=== PATIENT | male | born 1955 | race Caucasian/White ===

== ENCOUNTER → 2016-12-15 | Outpatient (CLI) | payer OTHER ==
[~2016-12-15] MED LIST: ALPR0.5T PO; AMLO10TA2 PO; CHOL20002 PO; CITA40TA11 PO; CYCL10TA9 PO; DOCU100T7 PO; FOLI1TAB9 PO; FURO40TA4 PO; METO100T2 PO; MORP30TA60 PO; OMEG500C PO; OMEP10SU PO; ONDA4TAB8 PO; POTA20TA8 PO; PROM12.59 PO; RANI75TA21 PO; SIMV20TA3 PO
--- OUTSIDE RECORDS SUMMARY | 2016-12-15 08:21 | XMS REPORT ---
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 Name Role Phone REBEKAH CHAVEZ Unavailable Allergies No Known Allergies Problems Problem Type Condition Code Onset Dates Condition Status Problem Sleep apnea, unspecified G47.30 Active Problem Hypotestosteronemia E29.1 Active Problem GERD (gastroesophageal reflux disease) K21.9 Active Problem HTN (hypertension) I10 Active Problem Chronic osteoarthritis M19.90 Active Problem Morbid obesity due to excess calories E66.01 Active Problem Depression F32.9 Active Problem Vitamin D deficiency E55.9 Active Problem Hypercholesterolemia E78.0 Active Problem Gout M10.9 Active Medications Medication Code System Code Instructions Start Date End Date Status Dosage Hydrocodone-Acetaminophen [facility] [address]-23 5-325 MG Orally every 6 hrs 1 tablet as needed Tramadol HCl [facility] [address]-42 50 MG Orally every 4 hrs PRN 1 tablet as needed Results No Known Results Summary Purpose eClinicalWorks Submission
--- NOTE | 2016-12-15 09:16 | Diagnostic Imaging Report ---
PROCEDURE: US Gallbladder. TECHNIQUE: Multiple real-time grayscale images were obtained over the right upper quadrant in various projections. INDICATION: Abdominal pain. FINDINGS: There is hepatomegaly. There is diffuse heterogeneity of the liver with what appear to be multiple underlying masses, suspect for metastatic disease. There is no obvious biliary ductal dilatation. The common bile duct was not visualized. There are numerous stones in the gallbladder. There is gallbladder wall thickening up to 4.7 mm. The pancreas is not well-seen due to bowel gas. The right kidney is normal. There is no ascites. IMPRESSION: Hepatomegaly and a diffusely heterogeneous appearance of the liver with what appear to be multiple underlying masses, suspect for metastatic disease. This could be better characterized with a contrast-enhanced CT of the abdomen and pelvis. Cholelithiasis and gallbladder wall thickening up to 4.7 mm. Acute cholecystitis could not be excluded. Recommend clinical correlation. Dictated by: Dictated on workstation # [id number]
== END ==
LOC: RAD 08:11
PROVIDERS: ATTEND Nurse Practitioner Family
DX: R16.0 Hepatomegaly, not elsewhere classified (principal)
CPT/HCPCS: 76705

== ENCOUNTER → 2016-12-16 | Outpatient (CLI) | payer OTHER ==
--- NOTE | 2016-12-16 13:35 | Diagnostic Imaging Report ---
PROCEDURE: CT abdomen and pelvis without contrast. TECHNIQUE: Multiple contiguous axial images were obtained through the abdomen and pelvis without the use of intravenous contrast. INDICATION: Liver masses seen on ultrasound. FINDINGS: The lung bases appear clear. The liver demonstrates extensive involvement with masses and nodularity of the surface which could be related to pre-existing cirrhosis or potentially secondary to tumor. Hepatocellular carcinoma versus metastases are the main diagnostic considerations. The gallbladder is distended with mild gallbladder wall thickening, and minimal pericholecystic fluid is seen. There is a normal size of the spleen. The pancreas and the adrenal glands appear unremarkable. The kidneys demonstrate no hydronephrosis. There is a 1 mm nonobstructive stone in the lower pole of the right kidney. The abdominal aorta is normal in caliber. No para-aortic significantly enlarged lymph node is seen. No significant free fluid or fluid collection in the abdomen or pelvis. There is no bowel obstruction. Tiny fat-containing umbilical hernia is seen. The osseous structures demonstrate degenerative changes in the lower lumbar spine and in the hip joints. IMPRESSION: 1. Extensive infiltration of the liver with masses may relate to multifocal and infiltrative hepatocellular carcinoma versus extensive metastases. Correlate for a possible history of hepatitis or cirrhosis and with AFP levels. 2. The gallbladder is distended with gallbladder wall thickening. Multiple stones are better seen on ultrasound performed one day prior to this study. The findings may relate to an acute or chronic cholecystitis. The findings on this exam were discussed with Dr. Wynn by Dr. Peña at the time of dictation. Dictated by: Dictated on workstation # [id number]
== END ==
LOC: RAD 12:54
PROVIDERS: ATTEND Nurse Practitioner Adult Health
DX: I10 Essential (primary) hypertension (principal)
CPT/HCPCS: 74176

== ENCOUNTER → 2016-12-18 | Outpatient (CLI) | payer OTHER ==
[2016-12-18] VITALS (10 sets, daily range): BP systolic 113–153; BP diastolic 60–90
[~2016-12-18] VITALS: Ht 185.4 cm; Wt 137.9 kg
[~2016-12-18] MED LIST changes: +FAMOTIDINE 20MG/2ML IV (PEPCID) IVP ONE; +FAMOTIDINE 20MG/2ML IV (PEPCID) ONE; +HYDROcodone/APAP 5 MG/325 MG (LORTAB) TAB PO PRN; +LIDOCAINE 1% INJ 20 ML (XYLOCAINE) VIAL INJ ONE; +LIDOCAINE 1% INJ 20 ML (XYLOCAINE) VIAL ONE; +MIDAZOLAM 10 MG/2 ML (VERSED) VIAL IVP ONE; +MIDAZOLAM 2 MG/2 ML (VERSED) VIAL ONE; +PROMETHAZINE INJ 25 MG/ML (PHENERGAN) AMP IVP ONE; +PROMETHAZINE INJ 25 MG/ML (PHENERGAN) AMP ONE; +fentaNYL INJECTION 100 MCG/2 ML AMP ONE
[2016-12-18 07:39] LABS: MEAN PLATELET VOLUME 10.8 FL (7.4-10.4); RED BLOOD COUNT 4.23 10^6/uL (4.35-5.85); RED CELL DISTRIBUTION WIDTH 14.5 % (10.0-14.5); WHITE BLOOD COUNT 8.3 10^3/uL (4.3-11.0)
--- NOTE | 2016-12-18 08:57 | Discharge Instructions ---
Discharge Instructions Home Medicaitons Changes Hold any current blood thinner home medications for [24 hours]. SERENA GIPSON MD Dec 18, 2016 08:57
--- NOTE | 2016-12-18 12:46 | Diagnostic Imaging Report ---
EXAMINATION: US-guided core biopsy-liver. INDICATION: Liver masses. Current history and physical and other medical records are reviewed prior to the procedure. CONSENT: Informed consent was obtained from the patient. The risks, benefits, potential complications and alternatives were reviewed and all questions answered to the patient's satisfaction. The patient's vital signs, cardiac rhythm, and pulse oximetry with observed throughout the procedure by qualified nursing personnel for 30 minutes. Sedation/medications: Versed 1 mg IV. FINDINGS: Heterogenous lobulated appearance of the left hepatic lobe with infiltrative of confluent masses suggested. PROCEDURE: After maximal sterile barrier technique preparation and draping, 1% lidocaine was utilized for local anesthesia. With the patient in supine position, and via anterior subcostal approach, a 17-gauge guide needle is introduced into the left hepatic lobe mass under live ultrasound guidance. After confirming adequate positioning with saved ultrasound images, multiple 18 gauge core biopsy specimens were obtained. Gelfoam injected in the tract as the guide needle was removed The patient tolerated the procedure well with no immediate complications. IMPRESSION: Successful US-guided core biopsy of left hepatic lobe mass. Dictated by: Dictated on workstation # [id number]
== END ==
LOC: RAD 07:04
PROVIDERS: ATTEND Pediatrics
DX: R16.0 Hepatomegaly, not elsewhere classified (principal)
CPT/HCPCS: 36415; 76942; 85027; 85610; 85730

== ENCOUNTER → 2016-12-22 | Outpatient (CLI) | payer OTHER ==
[~2016-12-22] MED LIST changes: -FAMOTIDINE 20MG/2ML IV (PEPCID) IVP ONE; -FAMOTIDINE 20MG/2ML IV (PEPCID) ONE; -HYDROcodone/APAP 5 MG/325 MG (LORTAB) TAB PO PRN; -LIDOCAINE 1% INJ 20 ML (XYLOCAINE) VIAL INJ ONE; -LIDOCAINE 1% INJ 20 ML (XYLOCAINE) VIAL ONE; -MIDAZOLAM 10 MG/2 ML (VERSED) VIAL IVP ONE; -MIDAZOLAM 2 MG/2 ML (VERSED) VIAL ONE; -PROMETHAZINE INJ 25 MG/ML (PHENERGAN) AMP IVP ONE; -PROMETHAZINE INJ 25 MG/ML (PHENERGAN) AMP ONE; -fentaNYL INJECTION 100 MCG/2 ML AMP ONE
--- NOTE | 2016-12-22 12:09 | Diagnostic Imaging Report ---
PROCEDURE: MR imaging of the brain without contrast. TECHNIQUE: Multiplanar, multisequence MR imaging of the brain was performed without contrast. INDICATION: Liver cancer. FINDINGS: There are no previous studies available for comparison. There is no mass, shift of the midline, or hemorrhage to suggest an acute intracranial abnormality. There is no abnormal signal arising from the brain on the diffusion series to indicate an area of acute ischemia. The FLAIR series does show a few small areas of increased signal in the periventricular white matter bilaterally. These findings are nonspecific but may be secondary to encephalomalacia from microvascular ischemia. There is also cortical atrophy present. The degree of atrophy is consistent with the patient's age. The ventricles are not abnormally dilated. The sella is not enlarged and the expected carotid flow voids are evident bilaterally. The orbits are symmetrical and within normal limits. The sinuses are generally clear. The seventh and eighth nerve complexes are unremarkable. IMPRESSION: 1. There is no evidence for an acute intracranial abnormality. There is no sign of a mass lesion to suggest metastatic disease either. 2. There are mild senescent changes including cortical atrophy and periventricular encephalomalacia. Dictated by: Dictated on workstation # [id number]
== END ==
LOC: RAD 10:17
PROVIDERS: ATTEND Internal Medicine Hematology & Oncology
DX: R16.0 Hepatomegaly, not elsewhere classified (principal); R11.2 Nausea with vomiting, unspecified
CPT/HCPCS: 70551

== ENCOUNTER → 2016-12-23 | Outpatient (CLI) | payer OTHER ==
[~2016-12-23] MED LIST changes: +IOHEXOL 350 MG/ML 100 ML (OMNIPAQUE 350) VIAL IV ONE; +NS 100 ML (IVPB) BAG IV ONE
--- NOTE | 2016-12-23 15:59 | Diagnostic Imaging Report ---
PROCEDURE: CT chest with contrast only. TECHNIQUE: Multiple contiguous axial images were obtained through the chest after administration of intravenous contrast. A half dose of the usual contrast amount was administered due to the patient's borderline elevated creatinine and diminished GFR. The patient did receive fluids prior to the study. INDICATION: Liver mass COMPARISON: There are no previous CT chest examinations available for comparison. The CT abdomen/pelvis exam performed on 12/16/2016 did note multiple masses involving the liver. It was not certain whether this appearance was secondary to metastatic disease or to a primary hepatocellular carcinoma. FINDINGS: On this exam, the lungs are clear and well aerated. There is no sign of failure, pneumonia or pleural effusion to suggest an acute abnormality. There is no parenchymal lung mass identified to indicate a neoplastic process. The pulmonary arteries are not fully opacified and consequently difficult to assess. There is no obvious defect to suggest a pulmonary embolus. Aorta is not abnormally dilated and there is no sign of a dissection. The heart size is within normal limits. Coronary artery calcifications involving the LAD are noted. There is no mediastinal or hilar adenopathy. The thyroid gland is partially obscured by streak artifact but appears to be generally unremarkable. There is no obvious breast mass. The sections through the upper abdomen again show the abnormal masses involving the visualized liver. There is no acute abnormality of the visualized abdomen. The bone windows are unremarkable for fracture or for destructive lesion. IMPRESSION: 1. There is no evidence for an acute cardiopulmonary abnormality. There is no sign of a mass lesion to indicate neoplastic disease either. 2. The heart is not enlarged but there are coronary artery calcifications evident. 3. The liver, where visualized, is unchanged when compared to the prior exam. Dictated by: Dictated on workstation # [id number]
== END ==
LOC: RAD 14:43
PROVIDERS: ATTEND Internal Medicine Hematology & Oncology
DX: R16.0 Hepatomegaly, not elsewhere classified (principal)
CPT/HCPCS: 71260

== ENCOUNTER 2016-12-25 08:26 | Day surgery (SDC) | payer OTHER ==
[~2016-12-25] VITALS: Ht 185.4 cm; Wt 137.9 kg
[2016-12-25] MEDS ORDERED: HEParin (CENTRAL IV FLUSH) 500 UNIT/5 ML SYR ONE (08:27)
[2016-12-25] MEDS ORDERED: BUPIVACAINE 0.5% 30 ML (SENSORCAINE) VIAL ONE (08:27)
[2016-12-25] MEDS ORDERED: LIDOCAINE 1% INJ 20 ML (XYLOCAINE) VIAL ONE (08:28)
[2016-12-25] MEDS ORDERED: 0.9% SODIUM CHLORIDE PF INJ 20 ML VIAL ONE (08:28)
--- NOTE | 2016-12-25 08:44 | Progress Note-Pre Operative ---
Pre-Operative Progress Note H&P Reviewed The H&P was reviewed, patient examined and no changes noted. Date H&P Reviewed: Dec 25, 2016 Time H&P Reviewed: 08:43 Pre-Operative Diagnosis: small cell carcinoma JANETTE KING DO Dec 25, 2016 8:44 am
[2016-12-25] MEDS ORDERED: ceFAZolin 2 GM/50 ML NS 50 ML IV ONE (08:45)
[2016-12-25] MEDS ORDERED: CATHETER FLUSH 10 ML SYR IV PRN (08:45)
[2016-12-25] MEDS ORDERED: AMLO10TA2 PO (08:58)
[2016-12-25] MEDS ORDERED: CHOL20002 PO (08:58)
[2016-12-25] MEDS ORDERED: OMEP10SU PO (08:58)
[2016-12-25] MEDS ORDERED: OMEG500C PO (08:58)
[2016-12-25] MEDS ORDERED: SIMV20TA3 PO (08:58)
[2016-12-25] MEDS ORDERED: CYCL10TA9 PO (08:58)
[2016-12-25] MEDS ORDERED: ONDA4TAB8 PO (08:58)
[2016-12-25] MEDS ORDERED: RANI75TA21 PO (08:58)
[2016-12-25] MEDS ORDERED: ALPR0.5T PO (08:58)
[2016-12-25] MEDS ORDERED: MORP30TA60 PO (08:58)
[2016-12-25] MEDS ORDERED: CITA40TA11 PO (08:58)
[2016-12-25] MEDS ORDERED: PROM12.59 PO (08:58)
[2016-12-25] MEDS ORDERED: POTA20TA8 PO (08:58)
[2016-12-25] MEDS ORDERED: METO100T2 PO (08:58)
[2016-12-25] MEDS ORDERED: DOCU100T7 PO (08:58)
[2016-12-25] MEDS ORDERED: FOLI1TAB9 PO (08:58)
[2016-12-25] MEDS ORDERED: FURO40TA4 PO (08:58)
[2016-12-25 08:59] VITALS: BP 141/90
[2016-12-25] MEDS ORDERED: LACTATED RINGERS 1,000 ML IV PRN (09:03)
[2016-12-25] MEDS ORDERED: fentaNYL INJECTION 100 MCG/2 ML AMP ONE (09:09)
[2016-12-25] MEDS ORDERED: LACTATED RINGERS 1,000 ML IV ONE (09:09)
[2016-12-25] MEDS ORDERED: MIDAZOLAM 2 MG/2 ML (VERSED) VIAL ONE (09:09)
[2016-12-25] MEDS ORDERED: PROPOFOL INJECTION 50 ML IV ONE (09:09)
[2016-12-25] MEDS ORDERED: FAMOTIDINE 20MG/2ML IV (PEPCID) IV ONE (09:15)
[2016-12-25] MEDS ORDERED: ONDANSETRON 4 MG/2 ML (SDV) Z0FRAN IV ONE (09:15)
[2016-12-25] MEDS ORDERED: PROMETHAZINE INJ 25 MG/ML (PHENERGAN) AMP IVP ONE (09:15)
--- NOTE | 2016-12-25 10:15 | Progress Note-Post Operative ---
Post-Operative Progess Note Pre-Operative Diagnosis small cell carcinoma Post-Operative Diagnosis same Post-Op Procedure Note Date of Procedure: Dec 25, 2016 Name of Procedure: port placement using u/s guidance Procedure Note/Findings see note Anesthesia Type mac c local Estimated blood loss (mL): minimal Specimen(s) collected none JANETTE KING DO Dec 25, 2016 10:15 am
--- NOTE | 2016-12-25 10:17 | Discharge Inst-Simple/Standard ---
Discharge Inst-Standard Patient Instructions/Follow Up Plan of Care/Instructions/FU: 2 weeks Tianna Activity as Tolerated: No Discharge Diet: Regular Diet Other Inst to Patient Follow up Appt: Make appointment for 2 week. Instructions: No lifting greater than 10 pounds. No strenuous activity. May shower in 24 hours, no tub bath or soaking. Use incentive spirometer at home as directed. No Smoking Skin/Wound Care: May remove bandages in 48 hours. You need to leave the white strips over incision on they will fall off on their own. Place ice pack on 15 min off 30 min and repeat to reduce swelling and discomfort. Symptoms to Report: Appetite Changes, Extremity Discoloration, Numbness/Tingling, Swelling Increased , Bleeding Excessive, Eyesight Changes, Pain Increased, Urine Color Change, Constipation(Persistent), Fever over 101 degree F, Pain/Pressure in chest, Urinating Difficulty, Cough Up/Vomit Blood, Heart Beat Irreg/Pounding, Pain/ Pressure in jaw, Vaginal Bleeding Increase, Cramps in feet or legs, Lightheadedness, Pain/Pressure in shoulder, Diarrhea(Persistent), Memory Changes Suddenly, Questions/Concerns, Weight gain consecutive days, Dizziness/ Fainting, Nausea/Vomiting, Shortness of Breath, Weight gain over 2 pounds If questions or concerns contact your physician Or seek help at emergency department. JANETTE KING DO Dec 25, 2016 10:17 am
[2016-12-25 10:50] VITALS: BP 142/88
--- NOTE | 2016-12-25 10:53 | Diagnostic Imaging Report ---
INDICATION: Chest port placement. FINDINGS: Portable upright view of the chest is obtained. Heart size and pulmonary vascularity are within normal limits. There is no evidence of pneumothorax or consolidation. Right anterior chest wall port is in place with catheter tip projecting over the mid superior vena cava. There is no significant pleural fluid. IMPRESSION: No evidence of acute abnormality or complication related to right anterior chest wall port. Dictated by: Dictated on workstation # [id number]
[2016-12-25 11:20] VITALS: BP 142/86
[2016-12-25 11:50] VITALS: BP 139/90
[2016-12-25 11:55] VITALS: BP 139/90
--- NOTE | 2016-12-25 13:12 | Diagnostic Imaging Report ---
Indication: Port-A-Cath placement Findings: A fluoroscopic view of the chest was obtained at 10:06 hours a.m. with the portable intensifier in surgery. Port is seen over the right chest wall with Port-A-Cath entering the right internal jugular vein with catheter tip overlying the low SVC. The study is otherwise limited. 38 seconds of fluoroscopy time was used in surgery. Impression: Intraoperative fluoroscopy used for Port-A-Cath placement per Dr. Frazier. Dictated by: Dictated on workstation # [id number]
--- NOTE | 2016-12-27 12:00 | OPERATIVE REPORT ---
PROCEDURE PHYSICIAN: JANETTE KNIG DATE OF PROCEDURE: 12/25/2016 PREOPERATIVE DIAGNOSIS: Small cell carcinoma. POSTOPERATIVE DIAGNOSIS: Small cell carcinoma. PROCEDURE: Port placement, right internal jugular vein using ultrasound guidance. SURGEON: Tianna. ANESTHESIA: MAC with local 0.50% Marcaine. 1% lidocaine at 50:50 ratio. A total of 22 mL. ESTIMATED BLOOD LOSS: Minimal. COMPLICATIONS: None. INDICATIONS: The patient is a 61-year-old male with recent liver biopsy demonstrating small cell carcinoma. The patient was explained risk and benefits of the procedure and wishes to proceed with procedure. Consent was signed on the chart. PROCEDURE: The patient was taken to the operating suite. He was prepped and draped in the sterile fashion. A surgical pause was performed. Using ultrasound guidance right internal jugular vein was located. Local anesthetic was infiltrated in the neck and the right internal jugular vein was then accessed. A guidewire was inserted and proper placement was assured with fluoroscopy. The needle was removed. The wire was secured. Local anesthetic was infiltrated along the neck and to the right chest for a pocket to be created. A 15 blade scalpel was used to make an incision on the right chest. Cautery was used to dissect down to the pectoral fascia and a pocket was created with blunt dissection as well. Then under direct visualization of the fluoroscopy, the dilator sheath was advanced over the wire and the wire and dilator were removed. The Groshong catheter was inserted through the sheath and the sheath was then removed. The Groshong wire was removed and then the catheter was tunneled to the pocket created on the right chest. The catheter was cut to length using fluoroscopy. The catheter was attached to the port in the usual fashion and placed within the pocket. The port was able to be accessed and drawn back without difficulty and flushed first with saline and then with heparin. The subcutaneous tissues were then reapproximated using 3-0 Vicryl and the skin was then closed using 4-0 Vicryl. The areas were then washed and dried. Mastisol and Steri-Strips were then applied and sterile bandage was applied to the right chest pocket. Monroy set was placed over the neck insertion point. The patient tolerated the procedure well without any complications and taken to the recovery room in stable condition. Chest x-ray is pending. Job ID: [id number] Dictated Date: 12/25/2016 10:22:57 Building Operator Date: 12/27/2016 11:46:45 / teodora
== END 2016-12-25 11:55 | disposition home or self-care (01) ==
LOC: SDC 08:26
PROVIDERS: ATTEND Surgery
DX: C22.8 Malignant neoplasm of liver, primary, unspecified as to type (principal)
CPT/HCPCS: 71010; 87081

== ENCOUNTER → 2016-12-29 | Outpatient (CLI) | payer OTHER ==
[~2016-12-29] MED LIST changes: -IOHEXOL 350 MG/ML 100 ML (OMNIPAQUE 350) VIAL IV ONE; -NS 100 ML (IVPB) BAG IV ONE
--- NOTE | 2016-12-29 14:00 | Diagnostic Imaging Report ---
EXAMINATION: PET-CT TECHNIQUE: Serum glucose level at the time of the study is: 130 mg/dL. 12.3 mCi of FDG was administered intravenously followed by obtaining PET images with corresponding noncontrast CT scan images. The CT scan was performed for anatomic correlation and attenuation correction and was not performed according to the diagnostic protocol of the areas covered. The scan was performed from the head to mid thighs. INDICATION: Abdominal pain. High-grade neuroendocrine tumor with unknown primary. FINDINGS: There is symmetric FDG uptake in the brain. There is a focus of moderate hypermetabolism seen within the left side aspect of C3 vertebral body. No obvious correlating lesion is seen on the associated localizer CT scan. There is no hypermetabolic mass seen in the chest. In the liver, there is extensive intensely hypermetabolic masses seen with a confluent very large mass involving nearly the entire segment IV and segment V and of the liver in addition to scattered areas of hypermetabolism seen within the rest of the right hepatic lobe and the lateral segment of the left hepatic lobe compatible with tumor infiltration. There is distention of the gallbladder with no hypermetabolic mass within the gallbladder itself. The maximum SUV in the liver masses is 10. There is an enlarged lymph node in the richard hepatis measuring 2.2 cm in short axis demonstrating hypermetabolism as well with maximum SUV of 7. This is abutting the anterior aspect of the IVC. The pancreas, the spleen, and adrenal glands demonstrate no hypermetabolic mass. There is no hypermetabolic para-aortic lymph node mass. There is expected excretion of the tracer in the kidneys. IMPRESSION: 1. Extensive hypermetabolic liver masses. 2. Hypermetabolic richard hepatis lymph node anterior to the IVC. 3. Indeterminate hypermetabolic lesion within the C3 vertebral body without correlating lesion seen on the localizer CT scan. No other osseous hypermetabolic lesion is identified. This may represent an early bone metastasis. Evaluation with bone scan or MRI of the cervical spine with and without contrast is suggested. Dictated by: Dictated on workstation # [id number]
== END ==
LOC: RAD 09:02
PROVIDERS: ATTEND Internal Medicine Hematology & Oncology
DX: C7A.1 Malignant poorly differentiated neuroendocrine tumors (principal); R16.0 Hepatomegaly, not elsewhere classified; M53.82 Other specified dorsopathies, cervical region

== ENCOUNTER → 2017-03-23 | Outpatient (RCR) | payer OTHER ==
[2016-12-23 13:41] LABS: BASOPHILS % (AUTO) 0 % (0-10); EOSINOPHILS # (AUTO) 0.1 10^3/uL (0.0-0.3); EOSINOPHILS % (AUTO) 1 % (0-10); LYMPHOCYTES # (AUTO) 1.7 X 10^3 (1.0-4.0); LYMPHOCYTES % (AUTO) 19 % (12-44); MEAN CORPUSCULAR HEMOGLOBIN 30 PG (25-34); MEAN CORPUSCULAR HGB CONC 33 G/DL (32-36); MEAN CORPUSCULAR VOLUME 90 FL (80-99); MEAN PLATELET VOLUME 10.6 FL (7.4-10.4); MONOCYTES # (AUTO) 0.8 X 10^3 (0.0-1.0); MONOCYTES % (AUTO) 9 % (0-12); NEUTROPHILS # (AUTO) 6.4 X 10^3 (1.8-7.8); NEUTROPHILS % (AUTO) 71 % (42-75); PLATELET COUNT 270 10^3/uL (130-400); RED BLOOD COUNT 4.28 10^6/uL (4.35-5.85); RED CELL DISTRIBUTION WIDTH 14.8 % (10.0-14.5); WHITE BLOOD COUNT 9.1 10^3/uL (4.3-11.0)
[2016-12-23 14:33] LABS: BILIRUBIN,TOTAL 0.5 MG/DL (0.1-1.0); CALCIUM 9.6 MG/DL (8.5-10.1); CREATININE SERUM 1.54 MG/DL (0.60-1.30); POTASSIUM 4.2 MMOL/L (3.6-5.0); TOTAL PROTEIN 7.2 G/DL (6.4-8.2)
[2016-12-24 15:50] LABS: CALCIUM 9.8 MG/DL (8.5-10.1); CREATININE SERUM 1.65 MG/DL (0.60-1.30); MAGNESIUM 1.8 MG/DL (1.8-2.4); POTASSIUM 4.2 MMOL/L (3.6-5.0)
[2017-01-11 13:13] LABS: BASOPHILS % (AUTO) 0 % (0-10); EOSINOPHILS # (AUTO) 0.1 10^3/uL (0.0-0.3); EOSINOPHILS % (AUTO) 1 % (0-10); LYMPHOCYTES # (AUTO) 1.7 X 10^3 (1.0-4.0); LYMPHOCYTES % (AUTO) 18 % (12-44); MEAN CORPUSCULAR HEMOGLOBIN 30 PG (25-34); MEAN CORPUSCULAR HGB CONC 33 G/DL (32-36); MEAN CORPUSCULAR VOLUME 91 FL (80-99); MEAN PLATELET VOLUME 10.4 FL (7.4-10.4); MONOCYTES # (AUTO) 0.8 X 10^3 (0.0-1.0); MONOCYTES % (AUTO) 9 % (0-12); NEUTROPHILS # (AUTO) 6.7 X 10^3 (1.8-7.8); NEUTROPHILS % (AUTO) 72 % (42-75); PLATELET COUNT 313 10^3/uL (130-400); RED BLOOD COUNT 4.35 10^6/uL (4.35-5.85); RED CELL DISTRIBUTION WIDTH 15.1 % (10.0-14.5); WHITE BLOOD COUNT 9.3 10^3/uL (4.3-11.0)
[2017-01-11 13:38] LABS: BILIRUBIN,TOTAL 0.5 MG/DL (0.1-1.0); CALCIUM 10.2 MG/DL (8.5-10.1); CREATININE SERUM 1.43 MG/DL (0.60-1.30); MAGNESIUM 1.9 MG/DL (1.8-2.4); POTASSIUM 4.2 MMOL/L (3.6-5.0); TOTAL PROTEIN 7.6 G/DL (6.4-8.2)
[2017-01-19 13:30] LABS: BASOPHILS % (AUTO) 1 % (0-10); EOSINOPHILS # (AUTO) 0.1 10^3/uL (0.0-0.3); EOSINOPHILS % (AUTO) 2 % (0-10); LYMPHOCYTES # (AUTO) 1.2 X 10^3 (1.0-4.0); LYMPHOCYTES % (AUTO) 33 % (12-44); MEAN CORPUSCULAR HEMOGLOBIN 30 PG (25-34); MEAN CORPUSCULAR HGB CONC 33 G/DL (32-36); MEAN CORPUSCULAR VOLUME 90 FL (80-99); MEAN PLATELET VOLUME 10.1 FL (7.4-10.4); MONOCYTES # (AUTO) 0.1 X 10^3 (0.0-1.0); MONOCYTES % (AUTO) 2 % (0-12); NEUTROPHILS # (AUTO) 2.2 X 10^3 (1.8-7.8); NEUTROPHILS % (AUTO) 62 % (42-75); PLATELET COUNT 212 10^3/uL (130-400); RED BLOOD COUNT 4.06 10^6/uL (4.35-5.85); RED CELL DISTRIBUTION WIDTH 14.8 % (10.0-14.5); WHITE BLOOD COUNT 3.6 10^3/uL (4.3-11.0)
[2017-01-19 14:00] LABS: ANION GAP 8 MMOL/L (5-14); BLOOD UREA NITROGEN 13 MG/DL (7-18); BUN/CREATININE RATIO 12; CALCIUM 9.6 MG/DL (8.5-10.1); CARBON DIOXIDE 28 MMOL/L (21-32); CHLORIDE 107 MMOL/L (98-107); CREATININE SERUM 1.09 MG/DL (0.60-1.30); GFR ESTIMATED > 60; GLUCOSE 126 MG/DL (70-105); MAGNESIUM 1.9 MG/DL (1.8-2.4); POTASSIUM 4.3 MMOL/L (3.6-5.0); SODIUM 143 MMOL/L (135-145)
[2017-01-26 13:44] LABS: BASOPHILS % (AUTO) 1 % (0-10); EOSINOPHILS % (AUTO) 1 % (0-10); LYMPHOCYTES # (AUTO) 1.6 X 10^3 (1.0-4.0); LYMPHOCYTES % (AUTO) 66 % (12-44); MEAN CORPUSCULAR HEMOGLOBIN 29 PG (25-34); MEAN CORPUSCULAR HGB CONC 33 G/DL (32-36); MEAN CORPUSCULAR VOLUME 89 FL (80-99); MEAN PLATELET VOLUME 9.7 FL (7.4-10.4); MONOCYTES # (AUTO) 0.4 X 10^3 (0.0-1.0); MONOCYTES % (AUTO) 18 % (0-12); NEUTROPHILS # (AUTO) 0.4 X 10^3 (1.8-7.8); NEUTROPHILS % (AUTO) 14 % (42-75); PLATELET COUNT 208 10^3/uL (130-400); RED BLOOD COUNT 4.11 10^6/uL (4.35-5.85); WHITE BLOOD COUNT 2.4 10^3/uL (4.3-11.0)
[2017-01-26 14:31] LABS: ANION GAP 10 MMOL/L (5-14); BLOOD UREA NITROGEN 12 MG/DL (7-18); BUN/CREATININE RATIO 11; CALCIUM 9.8 MG/DL (8.5-10.1); CARBON DIOXIDE 26 MMOL/L (21-32); CHLORIDE 107 MMOL/L (98-107); CREATININE SERUM 1.09 MG/DL (0.60-1.30); GFR ESTIMATED > 60; GLUCOSE 140 MG/DL (70-105); POTASSIUM 4.2 MMOL/L (3.6-5.0); SODIUM 143 MMOL/L (135-145)
[2017-02-02 10:34] LABS: BASOPHILS % (AUTO) 0 % (0-10); EOSINOPHILS % (AUTO) 0 % (0-10); LYMPHOCYTES # (AUTO) 1.7 X 10^3 (1.0-4.0); LYMPHOCYTES % (AUTO) 33 % (12-44); MEAN CORPUSCULAR HEMOGLOBIN 29 PG (25-34); MEAN CORPUSCULAR HGB CONC 33 G/DL (32-36); MEAN CORPUSCULAR VOLUME 90 FL (80-99); MEAN PLATELET VOLUME 9.3 FL (7.4-10.4); MONOCYTES # (AUTO) 0.7 X 10^3 (0.0-1.0); MONOCYTES % (AUTO) 13 % (0-12); NEUTROPHILS # (AUTO) 2.8 X 10^3 (1.8-7.8); NEUTROPHILS % (AUTO) 53 % (42-75); PLATELET COUNT 300 10^3/uL (130-400); RED CELL DISTRIBUTION WIDTH 15.4 % (10.0-14.5); WHITE BLOOD COUNT 5.3 10^3/uL (4.3-11.0)
[2017-02-02 11:15] LABS: ALBUMIN 3.8 G/DL (3.2-4.5); BILIRUBIN,TOTAL 0.3 MG/DL (0.1-1.0); CALCIUM 9.9 MG/DL (8.5-10.1); CREATININE SERUM 1.32 MG/DL (0.60-1.30); MAGNESIUM 1.8 MG/DL (1.8-2.4); POTASSIUM 3.8 MMOL/L (3.6-5.0); TOTAL PROTEIN 7.3 G/DL (6.4-8.2)
[2017-02-09 14:01] LABS: BASOPHILS % (AUTO) 0 % (0-10); EOSINOPHILS % (AUTO) 1 % (0-10); LYMPHOCYTES # (AUTO) 1.7 X 10^3 (1.0-4.0); LYMPHOCYTES % (AUTO) 30 % (12-44); MEAN CORPUSCULAR HEMOGLOBIN 29 PG (25-34); MEAN CORPUSCULAR HGB CONC 33 G/DL (32-36); MEAN CORPUSCULAR VOLUME 90 FL (80-99); MEAN PLATELET VOLUME 9.8 FL (7.4-10.4); MONOCYTES # (AUTO) 0.2 X 10^3 (0.0-1.0); MONOCYTES % (AUTO) 4 % (0-12); NEUTROPHILS # (AUTO) 3.6 X 10^3 (1.8-7.8); NEUTROPHILS % (AUTO) 65 % (42-75); PLATELET COUNT 220 10^3/uL (130-400); RED BLOOD COUNT 4.09 10^6/uL (4.35-5.85); RED CELL DISTRIBUTION WIDTH 15.4 % (10.0-14.5); WHITE BLOOD COUNT 5.6 10^3/uL (4.3-11.0)
[2017-02-09 14:44] LABS: CALCIUM 9.4 MG/DL (8.5-10.1); CREATININE SERUM 1.31 MG/DL (0.60-1.30); POTASSIUM 4.6 MMOL/L (3.6-5.0)
[2017-02-16 13:23] LABS: BASOPHILS # (AUTO) 0.1 10^3/uL (0.0-0.1); BASOPHILS % (AUTO) 1 % (0-10); EOSINOPHILS % (AUTO) 0 % (0-10); LYMPHOCYTES # (AUTO) 2.4 X 10^3 (1.0-4.0); LYMPHOCYTES % (AUTO) 26 % (12-44); MEAN CORPUSCULAR HEMOGLOBIN 29 PG (25-34); MEAN CORPUSCULAR HGB CONC 32 G/DL (32-36); MEAN CORPUSCULAR VOLUME 91 FL (80-99); MEAN PLATELET VOLUME 9.7 FL (7.4-10.4); MONOCYTES # (AUTO) 1.1 X 10^3 (0.0-1.0); MONOCYTES % (AUTO) 12 % (0-12); NEUTROPHILS # (AUTO) 5.7 X 10^3 (1.8-7.8); NEUTROPHILS % (AUTO) 62 % (42-75); PLATELET COUNT 142 10^3/uL (130-400); RED BLOOD COUNT 3.93 10^6/uL (4.35-5.85); RED CELL DISTRIBUTION WIDTH 15.7 % (10.0-14.5); WHITE BLOOD COUNT 9.3 10^3/uL (4.3-11.0)
[2017-02-16 14:30] LABS: CALCIUM 9.5 MG/DL (8.5-10.1); CREATININE SERUM 1.26 MG/DL (0.60-1.30); MAGNESIUM 1.8 MG/DL (1.8-2.4); POTASSIUM 4.4 MMOL/L (3.6-5.0)
[2017-02-23 10:27] LABS: BASOPHILS % (AUTO) 1 % (0-10); EOSINOPHILS % (AUTO) 1 % (0-10); LYMPHOCYTES # (AUTO) 1.8 X 10^3 (1.0-4.0); LYMPHOCYTES % (AUTO) 28 % (12-44); MEAN CORPUSCULAR HEMOGLOBIN 30 PG (25-34); MEAN CORPUSCULAR HGB CONC 33 G/DL (32-36); MEAN CORPUSCULAR VOLUME 91 FL (80-99); MEAN PLATELET VOLUME 9.7 FL (7.4-10.4); MONOCYTES # (AUTO) 0.9 X 10^3 (0.0-1.0); MONOCYTES % (AUTO) 14 % (0-12); NEUTROPHILS # (AUTO) 3.7 X 10^3 (1.8-7.8); NEUTROPHILS % (AUTO) 58 % (42-75); PLATELET COUNT 334 10^3/uL (130-400); RED BLOOD COUNT 3.87 10^6/uL (4.35-5.85); RED CELL DISTRIBUTION WIDTH 16.5 % (10.0-14.5); WHITE BLOOD COUNT 6.5 10^3/uL (4.3-11.0)
[2017-02-23 11:05] LABS: ALANINE AMINOTRANSFERASE 12 U/L (0-55); ALBUMIN 3.7 G/DL (3.2-4.5); ANION GAP 10 MMOL/L (5-14); ASPARTATE AMINO TRANSFERASE 19 U/L (5-34); BILIRUBIN,TOTAL 0.4 MG/DL (0.1-1.0); BLOOD UREA NITROGEN 15 MG/DL (7-18); BUN/CREATININE RATIO 13; CALCIUM 9.4 MG/DL (8.5-10.1); CARBON DIOXIDE 27 MMOL/L (21-32); CHLORIDE 105 MMOL/L (98-107); CREATININE SERUM 1.18 MG/DL (0.60-1.30); GFR ESTIMATED > 60; GLUCOSE 135 MG/DL (70-105); MAGNESIUM 1.9 MG/DL (1.8-2.4); POTASSIUM 3.8 MMOL/L (3.6-5.0); SODIUM 142 MMOL/L (135-145); TOTAL PROTEIN 6.8 G/DL (6.4-8.2)
[2017-03-02 11:21] LABS: BASOPHILS % (AUTO) 0 % (0-10); EOSINOPHILS # (AUTO) 0.1 10^3/uL (0.0-0.3); EOSINOPHILS % (AUTO) 0 % (0-10); LYMPHOCYTES # (AUTO) 1.8 X 10^3 (1.0-4.0); LYMPHOCYTES % (AUTO) 16 % (12-44); MEAN CORPUSCULAR HEMOGLOBIN 30 PG (25-34); MEAN CORPUSCULAR HGB CONC 33 G/DL (32-36); MEAN CORPUSCULAR VOLUME 90 FL (80-99); MEAN PLATELET VOLUME 9.9 FL (7.4-10.4); MONOCYTES # (AUTO) 0.3 X 10^3 (0.0-1.0); MONOCYTES % (AUTO) 2 % (0-12); NEUTROPHILS % (AUTO) 81 % (42-75); PLATELET COUNT 255 10^3/uL (130-400); RED BLOOD COUNT 3.95 10^6/uL (4.35-5.85); WHITE BLOOD COUNT 11.2 10^3/uL (4.3-11.0)
[2017-03-02 11:42] LABS: ANION GAP 6 MMOL/L (5-14); BLOOD UREA NITROGEN 15 MG/DL (7-18); BUN/CREATININE RATIO 15; CALCIUM 9.3 MG/DL (8.5-10.1); CARBON DIOXIDE 31 MMOL/L (21-32); CHLORIDE 103 MMOL/L (98-107); CREATININE SERUM 1.03 MG/DL (0.60-1.30); GFR ESTIMATED > 60; GLUCOSE 109 MG/DL (70-105); MAGNESIUM 1.6 MG/DL (1.8-2.4); POTASSIUM 4.2 MMOL/L (3.6-5.0); SODIUM 140 MMOL/L (135-145)
[2017-03-09 11:13] LABS: BASOPHILS # (AUTO) 0.1 10^3/uL (0.0-0.1); BASOPHILS % (AUTO) 1 % (0-10); EOSINOPHILS % (AUTO) 1 % (0-10); LYMPHOCYTES % (AUTO) 25 % (12-44); MEAN CORPUSCULAR HEMOGLOBIN 30 PG (25-34); MEAN CORPUSCULAR HGB CONC 32 G/DL (32-36); MEAN CORPUSCULAR VOLUME 92 FL (80-99); MEAN PLATELET VOLUME 9.5 FL (7.4-10.4); MONOCYTES # (AUTO) 0.8 X 10^3 (0.0-1.0); MONOCYTES % (AUTO) 10 % (0-12); NEUTROPHILS # (AUTO) 5.2 X 10^3 (1.8-7.8); NEUTROPHILS % (AUTO) 64 % (42-75); PLATELET COUNT 133 10^3/uL (130-400); RED BLOOD COUNT 3.89 10^6/uL (4.35-5.85); RED CELL DISTRIBUTION WIDTH 17.1 % (10.0-14.5); WHITE BLOOD COUNT 8.2 10^3/uL (4.3-11.0)
[2017-03-09 12:00] LABS: ANION GAP 9 MMOL/L (5-14); BLOOD UREA NITROGEN 11 MG/DL (7-18); BUN/CREATININE RATIO 10; CALCIUM 9.1 MG/DL (8.5-10.1); CARBON DIOXIDE 29 MMOL/L (21-32); CHLORIDE 106 MMOL/L (98-107); CREATININE SERUM 1.09 MG/DL (0.60-1.30); GFR ESTIMATED > 60; GLUCOSE 111 MG/DL (70-105); MAGNESIUM 1.8 MG/DL (1.8-2.4); POTASSIUM 3.9 MMOL/L (3.6-5.0); SODIUM 144 MMOL/L (135-145)
[2017-03-16 09:31] LABS: BASOPHILS % (AUTO) 0 % (0-10); EOSINOPHILS # (AUTO) 0.1 10^3/uL (0.0-0.3); EOSINOPHILS % (AUTO) 1 % (0-10); LYMPHOCYTES # (AUTO) 1.7 X 10^3 (1.0-4.0); LYMPHOCYTES % (AUTO) 25 % (12-44); MEAN CORPUSCULAR HEMOGLOBIN 30 PG (25-34); MEAN CORPUSCULAR HGB CONC 32 G/DL (32-36); MEAN CORPUSCULAR VOLUME 92 FL (80-99); MEAN PLATELET VOLUME 9.3 FL (7.4-10.4); MONOCYTES # (AUTO) 0.9 X 10^3 (0.0-1.0); MONOCYTES % (AUTO) 13 % (0-12); NEUTROPHILS # (AUTO) 4.2 X 10^3 (1.8-7.8); NEUTROPHILS % (AUTO) 60 % (42-75); PLATELET COUNT 281 10^3/uL (130-400); RED BLOOD COUNT 3.78 10^6/uL (4.35-5.85); RED CELL DISTRIBUTION WIDTH 17.3 % (10.0-14.5); WHITE BLOOD COUNT 6.9 10^3/uL (4.3-11.0)
[2017-03-16 10:01] LABS: ALANINE AMINOTRANSFERASE 9 U/L (0-55); ALBUMIN 3.7 G/DL (3.2-4.5); ANION GAP 9 MMOL/L (5-14); ASPARTATE AMINO TRANSFERASE 16 U/L (5-34); BILIRUBIN,TOTAL 0.4 MG/DL (0.1-1.0); BLOOD UREA NITROGEN 12 MG/DL (7-18); BUN/CREATININE RATIO 10; CALCIUM 9.3 MG/DL (8.5-10.1); CARBON DIOXIDE 28 MMOL/L (21-32); CHLORIDE 105 MMOL/L (98-107); CREATININE SERUM 1.17 MG/DL (0.60-1.30); GFR ESTIMATED > 60; GLUCOSE 146 MG/DL (70-105); MAGNESIUM 1.8 MG/DL (1.8-2.4); POTASSIUM 3.4 MMOL/L (3.6-5.0); SODIUM 142 MMOL/L (135-145); TOTAL PROTEIN 6.6 G/DL (6.4-8.2)
[~2017-03-23] VITALS: Ht 182.9 cm; Wt 133.8 kg
[~2017-03-23] MED LIST changes: +CARBOPLATIN 400 MG in D5W 50 ML IV(CANCER CTR) 50 ML IV SCH; +CARBOPLATIN 425 MG in D5W 50 ML IV(CANCER CTR) 50 ML IV SCH; +CARBOPLATIN IV SCH; +CISPLATIN IV SCH; +D5W IV SCH; +ETOPOSIDE 200 MG in NORMAL SALINE (CANCER CENTER) 500 ML IV SCH; +FAMOTIDINE 20MG/2ML IV (CANCER CTR) IV SCH; +FOSAPREPITANT 150 MG/NS 150 MG IVPB (CANCER CTR) IV PRN; +LORazepam 0.5 MG (ATIVAN) TABLET CANCER CTR PO PRN; +MAGNESIUM SULFATE IV SCH; +MANNITOL IV SCH; +NS IV 1000 ML (CANCER CTR) 1,000 ML ONE; +NS IV 1000 ML (CANCER CTR) IV SCH; +NS IV 500 ML (CANCER CENTER) 500 ML ONE; +ONDANSETRON MDV (CANCER CENTER 16 MG, DEXAMETHASONE PF INJ (CANCER C 12 MG in NS (IVPB)... IV SCH; +PALONOSETRON HCL 0.25 MG, DEXAMETHASONE PF INJ (CANCER C 12 MG in NS (IVPB) CANCER CENT... IV PRN; +PEGFILGRASTIM 6 MG/0.6ML NEULASTA SC SCH; +[UNRECOGNIZED DRUG - OTHER] IV SCH; +diphenhydrAMINE 25 MG TAB (BENADRYL) CANCER CENTER PO SCH
[2017-03-23 14:17] LABS: BASOPHILS % (AUTO) 0 % (0-10); EOSINOPHILS # (AUTO) 0.1 10^3/uL (0.0-0.3); EOSINOPHILS % (AUTO) 1 % (0-10); LYMPHOCYTES # (AUTO) 2.1 X 10^3 (1.0-4.0); LYMPHOCYTES % (AUTO) 15 % (12-44); MEAN CORPUSCULAR HEMOGLOBIN 30 PG (25-34); MEAN CORPUSCULAR HGB CONC 33 G/DL (32-36); MEAN CORPUSCULAR VOLUME 92 FL (80-99); MEAN PLATELET VOLUME 9.3 FL (7.4-10.4); MONOCYTES # (AUTO) 0.4 X 10^3 (0.0-1.0); MONOCYTES % (AUTO) 3 % (0-12); NEUTROPHILS # (AUTO) 11.2 X 10^3 (1.8-7.8); NEUTROPHILS % (AUTO) 81 % (42-75); PLATELET COUNT 198 10^3/uL (130-400); RED BLOOD COUNT 3.68 10^6/uL (4.35-5.85); RED CELL DISTRIBUTION WIDTH 16.9 % (10.0-14.5); WHITE BLOOD COUNT 13.9 10^3/uL (4.3-11.0)
[2017-03-23 14:36] LABS: ANION GAP 8 MMOL/L (5-14); BLOOD UREA NITROGEN 17 MG/DL (7-18); BUN/CREATININE RATIO 15; CALCIUM 9.2 MG/DL (8.5-10.1); CARBON DIOXIDE 30 MMOL/L (21-32); CHLORIDE 102 MMOL/L (98-107); CREATININE SERUM 1.13 MG/DL (0.60-1.30); GFR ESTIMATED > 60; GLUCOSE 101 MG/DL (70-105); MAGNESIUM 1.8 MG/DL (1.8-2.4); POTASSIUM 4.2 MMOL/L (3.6-5.0); SODIUM 140 MMOL/L (135-145)
== END | disposition home or self-care (01) ==
LOC: ONC 12-23 13:13
PROVIDERS: ATTEND Internal Medicine Hematology & Oncology
DX: Z51.11 Encounter for antineoplastic chemotherapy (principal); C7A.1 Malignant poorly differentiated neuroendocrine tumors; C78.7 Secondary malignant neoplasm of liver and intrahepatic bile duct; D70.1 Agranulocytosis secondary to cancer chemotherapy; T45.1X5A Adverse effect of antineoplastic and immunosuppressive drugs, initial encounter; G89.3 Neoplasm related pain (acute) (chronic); I12.9 Hypertensive chronic kidney disease with stage 1 through stage 4 chronic kidney disease, or unspecified chronic kidney disease; N18.3 Chronic kidney disease, stage 3 (moderate); E66.01 Morbid (severe) obesity due to excess calories; Z68.41 Body mass index [BMI] 40.0-44.9, adult; Z79.899 Other long term (current) drug therapy
CPT/HCPCS: 36415; 36591; 80048; 80053; 83735; 85025; 96360; 96361; 96367; 96372; 96375; 96413; 96417; 99213

== ENCOUNTER 2017-06-22 12:56 | Outpatient (RCR) | payer OTHER ==
[2017-03-30 13:24] LABS: BASOPHILS % (AUTO) 1 % (0-10); EOSINOPHILS # (AUTO) 0.1 10^3/uL (0.0-0.3); EOSINOPHILS % (AUTO) 1 % (0-10); LYMPHOCYTES # (AUTO) 1.7 X 10^3 (1.0-4.0); LYMPHOCYTES % (AUTO) 31 % (12-44); MEAN CORPUSCULAR HEMOGLOBIN 30 PG (25-34); MEAN CORPUSCULAR HGB CONC 33 G/DL (32-36); MEAN CORPUSCULAR VOLUME 93 FL (80-99); MEAN PLATELET VOLUME 10.2 FL (7.4-10.4); MONOCYTES # (AUTO) 0.5 X 10^3 (0.0-1.0); MONOCYTES % (AUTO) 9 % (0-12); NEUTROPHILS # (AUTO) 3.2 X 10^3 (1.8-7.8); NEUTROPHILS % (AUTO) 58 % (42-75); PLATELET COUNT 167 10^3/uL (130-400); RED BLOOD COUNT 3.72 10^6/uL (4.35-5.85); RED CELL DISTRIBUTION WIDTH 18.1 % (10.0-14.5); WHITE BLOOD COUNT 5.4 10^3/uL (4.3-11.0)
[2017-03-30 14:35] LABS: ANION GAP 7 MMOL/L (5-14); BLOOD UREA NITROGEN 10 MG/DL (7-18); BUN/CREATININE RATIO 8; CALCIUM 9.5 MG/DL (8.5-10.1); CARBON DIOXIDE 29 MMOL/L (21-32); CHLORIDE 105 MMOL/L (98-107); CREATININE SERUM 1.18 MG/DL (0.60-1.30); GFR ESTIMATED > 60; GLUCOSE 130 MG/DL (70-105); MAGNESIUM 1.6 MG/DL (1.8-2.4); POTASSIUM 3.6 MMOL/L (3.6-5.0); SODIUM 141 MMOL/L (135-145)
[2017-04-13 09:52] LABS: BASOPHILS % (AUTO) 1 % (0-10); EOSINOPHILS # (AUTO) 0.1 10^3/uL (0.0-0.3); EOSINOPHILS % (AUTO) 2 % (0-10); LYMPHOCYTES # (AUTO) 1.2 X 10^3 (1.0-4.0); LYMPHOCYTES % (AUTO) 30 % (12-44); MEAN CORPUSCULAR HEMOGLOBIN 30 PG (25-34); MEAN CORPUSCULAR HGB CONC 32 G/DL (32-36); MEAN CORPUSCULAR VOLUME 94 FL (80-99); MEAN PLATELET VOLUME 9.5 FL (7.4-10.4); MONOCYTES # (AUTO) 0.6 X 10^3 (0.0-1.0); MONOCYTES % (AUTO) 15 % (0-12); NEUTROPHILS # (AUTO) 2.1 X 10^3 (1.8-7.8); NEUTROPHILS % (AUTO) 53 % (42-75); PLATELET COUNT 282 10^3/uL (130-400); RED BLOOD COUNT 3.85 10^6/uL (4.35-5.85); RED CELL DISTRIBUTION WIDTH 18.1 % (10.0-14.5); WHITE BLOOD COUNT 4.1 10^3/uL (4.3-11.0)
[2017-04-13 10:21] LABS: ALANINE AMINOTRANSFERASE 11 U/L (0-55); ALBUMIN 3.8 G/DL (3.2-4.5); ANION GAP 7 MMOL/L (5-14); ASPARTATE AMINO TRANSFERASE 17 U/L (5-34); BILIRUBIN,TOTAL 0.4 MG/DL (0.1-1.0); BLOOD UREA NITROGEN 14 MG/DL (7-18); BUN/CREATININE RATIO 12; CALCIUM 9.6 MG/DL (8.5-10.1); CARBON DIOXIDE 30 MMOL/L (21-32); CHLORIDE 106 MMOL/L (98-107); CREATININE SERUM 1.13 MG/DL (0.60-1.30); GFR ESTIMATED > 60; GLUCOSE 121 MG/DL (70-105); LACTATE DEHYDROGENASE 184 U/L (125-220); POTASSIUM 3.4 MMOL/L (3.6-5.0); SODIUM 143 MMOL/L (135-145); TOTAL PROTEIN 6.9 G/DL (6.4-8.2)
[2017-04-20 14:48] LABS: BASOPHILS % (AUTO) 0 % (0-10); EOSINOPHILS # (AUTO) 0.1 10^3/uL (0.0-0.3); EOSINOPHILS % (AUTO) 1 % (0-10); LYMPHOCYTES # (AUTO) 1.6 X 10^3 (1.0-4.0); LYMPHOCYTES % (AUTO) 16 % (12-44); MEAN CORPUSCULAR HEMOGLOBIN 30 PG (25-34); MEAN CORPUSCULAR HGB CONC 32 G/DL (32-36); MEAN CORPUSCULAR VOLUME 95 FL (80-99); MEAN PLATELET VOLUME 9.8 FL (7.4-10.4); MONOCYTES # (AUTO) 0.3 X 10^3 (0.0-1.0); MONOCYTES % (AUTO) 3 % (0-12); NEUTROPHILS % (AUTO) 80 % (42-75); PLATELET COUNT 214 10^3/uL (130-400); RED BLOOD COUNT 3.82 10^6/uL (4.35-5.85); RED CELL DISTRIBUTION WIDTH 17.2 % (10.0-14.5); WHITE BLOOD COUNT 10.1 10^3/uL (4.3-11.0)
[2017-04-20 16:17] LABS: ANION GAP 10 MMOL/L (5-14); BLOOD UREA NITROGEN 13 MG/DL (7-18); BUN/CREATININE RATIO 12; CALCIUM 9.7 MG/DL (8.5-10.1); CARBON DIOXIDE 29 MMOL/L (21-32); CHLORIDE 102 MMOL/L (98-107); CREATININE SERUM 1.06 MG/DL (0.60-1.30); GFR ESTIMATED > 60; GLUCOSE 116 MG/DL (70-105); MAGNESIUM 1.8 MG/DL (1.8-2.4); POTASSIUM 3.9 MMOL/L (3.6-5.0); SODIUM 141 MMOL/L (135-145)
[2017-04-27 13:39] LABS: BASOPHILS % (AUTO) 1 % (0-10); EOSINOPHILS # (AUTO) 0.1 10^3/uL (0.0-0.3); EOSINOPHILS % (AUTO) 3 % (0-10); LYMPHOCYTES # (AUTO) 1.2 X 10^3 (1.0-4.0); LYMPHOCYTES % (AUTO) 39 % (12-44); MEAN CORPUSCULAR HEMOGLOBIN 31 PG (25-34); MEAN CORPUSCULAR HGB CONC 32 G/DL (32-36); MEAN CORPUSCULAR VOLUME 95 FL (80-99); MEAN PLATELET VOLUME 9.4 FL (7.4-10.4); MONOCYTES # (AUTO) 0.4 X 10^3 (0.0-1.0); MONOCYTES % (AUTO) 13 % (0-12); NEUTROPHILS # (AUTO) 1.4 X 10^3 (1.8-7.8); NEUTROPHILS % (AUTO) 44 % (42-75); PLATELET COUNT 165 10^3/uL (130-400); RED CELL DISTRIBUTION WIDTH 16.8 % (10.0-14.5); WHITE BLOOD COUNT 3.1 10^3/uL (4.3-11.0)
[2017-04-27 14:13] LABS: ANION GAP 9 MMOL/L (5-14); BLOOD UREA NITROGEN 14 MG/DL (7-18); BUN/CREATININE RATIO 13; CALCIUM 9.6 MG/DL (8.5-10.1); CARBON DIOXIDE 28 MMOL/L (21-32); CHLORIDE 106 MMOL/L (98-107); CREATININE SERUM 1.08 MG/DL (0.60-1.30); GFR ESTIMATED > 60; GLUCOSE 114 MG/DL (70-105); MAGNESIUM 1.7 MG/DL (1.8-2.4); POTASSIUM 3.9 MMOL/L (3.6-5.0); SODIUM 143 MMOL/L (135-145)
[2017-05-05 10:05] LABS: BASOPHILS % (AUTO) 1 % (0-10); EOSINOPHILS # (AUTO) 0.1 10^3/uL (0.0-0.3); EOSINOPHILS % (AUTO) 2 % (0-10); LYMPHOCYTES # (AUTO) 1.4 X 10^3 (1.0-4.0); LYMPHOCYTES % (AUTO) 32 % (12-44); MEAN CORPUSCULAR HEMOGLOBIN 31 PG (25-34); MEAN CORPUSCULAR HGB CONC 32 G/DL (32-36); MEAN CORPUSCULAR VOLUME 95 FL (80-99); MEAN PLATELET VOLUME 9.5 FL (7.4-10.4); MONOCYTES # (AUTO) 0.6 X 10^3 (0.0-1.0); MONOCYTES % (AUTO) 13 % (0-12); NEUTROPHILS # (AUTO) 2.3 X 10^3 (1.8-7.8); NEUTROPHILS % (AUTO) 53 % (42-75); PLATELET COUNT 250 10^3/uL (130-400); RED BLOOD COUNT 3.84 10^6/uL (4.35-5.85); RED CELL DISTRIBUTION WIDTH 16.2 % (10.0-14.5); WHITE BLOOD COUNT 4.4 10^3/uL (4.3-11.0)
[2017-05-05 10:22] LABS: ALANINE AMINOTRANSFERASE 12 U/L (0-55); ALBUMIN 3.7 G/DL (3.2-4.5); ANION GAP 8 MMOL/L (5-14); ASPARTATE AMINO TRANSFERASE 16 U/L (5-34); BILIRUBIN,TOTAL 0.3 MG/DL (0.1-1.0); BLOOD UREA NITROGEN 12 MG/DL (7-18); BUN/CREATININE RATIO 10; CALCIUM 9.3 MG/DL (8.5-10.1); CARBON DIOXIDE 26 MMOL/L (21-32); CHLORIDE 108 MMOL/L (98-107); CREATININE SERUM 1.18 MG/DL (0.60-1.30); GFR ESTIMATED > 60; GLUCOSE 130 MG/DL (70-105); LACTATE DEHYDROGENASE 213 U/L (125-220); MAGNESIUM 1.6 MG/DL (1.8-2.4); POTASSIUM 3.5 MMOL/L (3.6-5.0); SODIUM 142 MMOL/L (135-145); TOTAL PROTEIN 6.9 G/DL (6.4-8.2)
[2017-05-11 13:49] LABS: BASOPHILS # (AUTO) 0.1 10^3/uL (0.0-0.1); BASOPHILS % (AUTO) 0 % (0-10); EOSINOPHILS # (AUTO) 0.1 10^3/uL (0.0-0.3); EOSINOPHILS % (AUTO) 0 % (0-10); LYMPHOCYTES # (AUTO) 1.7 X 10^3 (1.0-4.0); LYMPHOCYTES % (AUTO) 9 % (12-44); MEAN CORPUSCULAR HEMOGLOBIN 31 PG (25-34); MEAN CORPUSCULAR HGB CONC 32 G/DL (32-36); MEAN CORPUSCULAR VOLUME 95 FL (80-99); MONOCYTES # (AUTO) 0.2 X 10^3 (0.0-1.0); MONOCYTES % (AUTO) 1 % (0-12); NEUTROPHILS # (AUTO) 17.6 X 10^3 (1.8-7.8); NEUTROPHILS % (AUTO) 90 % (42-75); PLATELET COUNT 249 10^3/uL (130-400); RED CELL DISTRIBUTION WIDTH 15.8 % (10.0-14.5); WHITE BLOOD COUNT 19.6 10^3/uL (4.3-11.0)
[2017-05-11 14:07] LABS: ANION GAP 6 MMOL/L (5-14); BLOOD UREA NITROGEN 14 MG/DL (7-18); BUN/CREATININE RATIO 13 (0-20); CALCIUM 9.5 MG/DL (8.5-10.1); CARBON DIOXIDE 33 MMOL/L (21-32); CHLORIDE 102 MMOL/L (98-107); CREATININE SERUM 1.06 MG/DL (0.60-1.30); GFR ESTIMATED > 60; GLUCOSE 130 MG/DL (70-105); MAGNESIUM 1.8 MG/DL (1.8-2.4); POTASSIUM 3.9 MMOL/L (3.6-5.0); SODIUM 141 MMOL/L (135-145)
[2017-05-19 11:00] LABS: BASOPHILS % (AUTO) 1 % (0-10); EOSINOPHILS % (AUTO) 1 % (0-10); LYMPHOCYTES # (AUTO) 2.1 X 10^3 (1.0-4.0); LYMPHOCYTES % (AUTO) 34 % (12-44); MEAN CORPUSCULAR HEMOGLOBIN 30 PG (25-34); MEAN CORPUSCULAR HGB CONC 32 G/DL (32-36); MEAN CORPUSCULAR VOLUME 96 FL (80-99); MEAN PLATELET VOLUME 10.4 FL (7.4-10.4); MONOCYTES # (AUTO) 0.6 X 10^3 (0.0-1.0); MONOCYTES % (AUTO) 10 % (0-12); NEUTROPHILS # (AUTO) 3.4 X 10^3 (1.8-7.8); NEUTROPHILS % (AUTO) 56 % (42-75); PLATELET COUNT 172 10^3/uL (130-400); RED BLOOD COUNT 3.92 10^6/uL (4.35-5.85); RED CELL DISTRIBUTION WIDTH 15.9 % (10.0-14.5); WHITE BLOOD COUNT 6.2 10^3/uL (4.3-11.0)
[2017-05-19 11:17] LABS: CALCIUM 9.7 MG/DL (8.5-10.1); CREATININE SERUM 1.22 MG/DL (0.60-1.30); ICTERUS 0.3 (-100-1.9); MAGNESIUM 1.8 MG/DL (1.8-2.4); POTASSIUM 3.9 MMOL/L (3.6-5.0)
[2017-05-25 11:27] LABS: BASOPHILS % (AUTO) 1 % (0-10); EOSINOPHILS # (AUTO) 0.1 10^3/uL (0.0-0.3); EOSINOPHILS % (AUTO) 1 % (0-10); LYMPHOCYTES # (AUTO) 1.6 X 10^3 (1.0-4.0); LYMPHOCYTES % (AUTO) 30 % (12-44); MEAN CORPUSCULAR HEMOGLOBIN 31 PG (25-34); MEAN CORPUSCULAR HGB CONC 33 G/DL (32-36); MEAN CORPUSCULAR VOLUME 96 FL (80-99); MEAN PLATELET VOLUME 9.3 FL (7.4-10.4); MONOCYTES # (AUTO) 0.6 X 10^3 (0.0-1.0); MONOCYTES % (AUTO) 11 % (0-12); NEUTROPHILS % (AUTO) 57 % (42-75); PLATELET COUNT 271 10^3/uL (130-400); RED BLOOD COUNT 3.69 10^6/uL (4.35-5.85); RED CELL DISTRIBUTION WIDTH 16.6 % (10.0-14.5); WHITE BLOOD COUNT 5.2 10^3/uL (4.3-11.0)
[2017-05-25 11:50] LABS: ALANINE AMINOTRANSFERASE 18 U/L (0-55); ALBUMIN 3.8 GM/DL (3.2-4.5); ANION GAP 10 MMOL/L (5-14); ASPARTATE AMINO TRANSFERASE 19 U/L (5-34); BILIRUBIN,TOTAL 0.3 MG/DL (0.1-1.0); BLOOD UREA NITROGEN 10 MG/DL (7-18); BUN/CREATININE RATIO 9; CALCIUM 9.3 MG/DL (8.5-10.1); CARBON DIOXIDE 26 MMOL/L (21-32); CHLORIDE 107 MMOL/L (98-107); CREATININE SERUM 1.08 MG/DL (0.60-1.30); GFR ESTIMATED > 60; GLUCOSE 126 MG/DL (70-105); HEMOLYSIS 6 (-100-29); ICTERUS 0.2 (-100-1.9); LACTATE DEHYDROGENASE 182 U/L (125-220); LIPEMIA 4 (-100-49); MAGNESIUM 1.7 MG/DL (1.8-2.4); POTASSIUM 3.6 MMOL/L (3.6-5.0); SODIUM 143 MMOL/L (135-145); TOTAL PROTEIN 6.6 GM/DL (6.4-8.2)
[2017-06-02 11:20] LABS: BASOPHILS % (AUTO) 0 % (0-10); EOSINOPHILS # (AUTO) 0.1 10^3/uL (0.0-0.3); EOSINOPHILS % (AUTO) 1 % (0-10); LYMPHOCYTES # (AUTO) 1.7 X 10^3 (1.0-4.0); LYMPHOCYTES % (AUTO) 16 % (12-44); MEAN CORPUSCULAR HEMOGLOBIN 31 PG (25-34); MEAN CORPUSCULAR HGB CONC 32 G/DL (32-36); MEAN CORPUSCULAR VOLUME 96 FL (80-99); MEAN PLATELET VOLUME 9.4 FL (7.4-10.4); MONOCYTES # (AUTO) 0.6 X 10^3 (0.0-1.0); MONOCYTES % (AUTO) 6 % (0-12); NEUTROPHILS % (AUTO) 77 % (42-75); PLATELET COUNT 239 10^3/uL (130-400); RED BLOOD COUNT 3.62 10^6/uL (4.35-5.85); WHITE BLOOD COUNT 10.4 10^3/uL (4.3-11.0)
[2017-06-02 12:10] LABS: ANION GAP 8 MMOL/L (5-14); BLOOD UREA NITROGEN 13 MG/DL (7-18); BUN/CREATININE RATIO 13; CALCIUM 9.3 MG/DL (8.5-10.1); CARBON DIOXIDE 29 MMOL/L (21-32); CHLORIDE 106 MMOL/L (98-107); GFR ESTIMATED > 60; GLUCOSE 115 MG/DL (70-105); MAGNESIUM 1.7 MG/DL (1.8-2.4); SODIUM 143 MMOL/L (135-145)
[2017-06-08 13:44] LABS: BASOPHILS % (AUTO) 1 % (0-10); EOSINOPHILS % (AUTO) 1 % (0-10); LYMPHOCYTES # (AUTO) 1.2 X 10^3 (1.0-4.0); LYMPHOCYTES % (AUTO) 21 % (12-44); MEAN CORPUSCULAR HEMOGLOBIN 31 PG (25-34); MEAN CORPUSCULAR HGB CONC 32 G/DL (32-36); MEAN CORPUSCULAR VOLUME 96 FL (80-99); MEAN PLATELET VOLUME 9.5 FL (7.4-10.4); MONOCYTES # (AUTO) 0.5 X 10^3 (0.0-1.0); MONOCYTES % (AUTO) 8 % (0-12); NEUTROPHILS # (AUTO) 4.1 X 10^3 (1.8-7.8); NEUTROPHILS % (AUTO) 70 % (42-75); PLATELET COUNT 188 10^3/uL (130-400); RED BLOOD COUNT 3.82 10^6/uL (4.35-5.85); RED CELL DISTRIBUTION WIDTH 16.5 % (10.0-14.5); WHITE BLOOD COUNT 5.8 10^3/uL (4.3-11.0)
[2017-06-08 14:14] LABS: CREATININE SERUM 1.21 MG/DL (0.60-1.30); MAGNESIUM 1.7 MG/DL (1.8-2.4); POTASSIUM 4.1 MMOL/L (3.6-5.0)
[2017-06-15 09:07] LABS: BASOPHILS % (AUTO) 0 % (0-10); EOSINOPHILS # (AUTO) 0.1 10^3/uL (0.0-0.3); EOSINOPHILS % (AUTO) 1 % (0-10); LYMPHOCYTES # (AUTO) 1.8 X 10^3 (1.0-4.0); LYMPHOCYTES % (AUTO) 31 % (12-44); MEAN CORPUSCULAR HEMOGLOBIN 31 PG (25-34); MEAN CORPUSCULAR HGB CONC 32 G/DL (32-36); MEAN CORPUSCULAR VOLUME 96 FL (80-99); MEAN PLATELET VOLUME 9.4 FL (7.4-10.4); MONOCYTES # (AUTO) 0.6 X 10^3 (0.0-1.0); MONOCYTES % (AUTO) 11 % (0-12); NEUTROPHILS # (AUTO) 3.3 X 10^3 (1.8-7.8); NEUTROPHILS % (AUTO) 56 % (42-75); PLATELET COUNT 294 10^3/uL (130-400); RED BLOOD COUNT 3.66 10^6/uL (4.35-5.85); RED CELL DISTRIBUTION WIDTH 15.7 % (10.0-14.5); WHITE BLOOD COUNT 5.8 10^3/uL (4.3-11.0)
[2017-06-15 09:32] LABS: ALANINE AMINOTRANSFERASE 15 U/L (0-55); ALBUMIN 3.6 GM/DL (3.2-4.5); ANION GAP 10 MMOL/L (5-14); ASPARTATE AMINO TRANSFERASE 16 U/L (5-34); BILIRUBIN,TOTAL 0.2 MG/DL (0.1-1.0); BLOOD UREA NITROGEN 10 MG/DL (7-18); BUN/CREATININE RATIO 10; CALCIUM 9.1 MG/DL (8.5-10.1); CARBON DIOXIDE 26 MMOL/L (21-32); CHLORIDE 106 MMOL/L (98-107); CREATININE SERUM 1.02 MG/DL (0.60-1.30); GFR ESTIMATED > 60; GLUCOSE 138 MG/DL (70-105); MAGNESIUM 1.6 MG/DL (1.8-2.4); POTASSIUM 3.3 MMOL/L (3.6-5.0); SODIUM 142 MMOL/L (135-145); TOTAL PROTEIN 6.7 GM/DL (6.4-8.2)
[~2017-06-22] VITALS: Ht 182.9 cm; Wt 135.2 kg
[~2017-06-22 12:56] MED LIST changes: -CARBOPLATIN 400 MG in D5W 50 ML IV(CANCER CTR) 50 ML IV SCH; -CARBOPLATIN IV SCH; -CISPLATIN IV SCH; -D5W IV SCH; -MAGNESIUM SULFATE IV SCH; -MANNITOL IV SCH; -NS IV 1000 ML (CANCER CTR) 1,000 ML ONE; -OMEP10SU PO; +OMEP10SU2 PO; +PEGFILGRASTIM 6 MG/0.6 ML ONPRO KIT SQ SCH; -[UNRECOGNIZED DRUG - OTHER] IV SCH
[2017-06-22 13:20] LABS: BASOPHILS % (AUTO) 0 % (0-10); EOSINOPHILS # (AUTO) 0.1 10^3/uL (0.0-0.3); EOSINOPHILS % (AUTO) 1 % (0-10); LYMPHOCYTES # (AUTO) 1.8 X 10^3 (1.0-4.0); LYMPHOCYTES % (AUTO) 13 % (12-44); MEAN CORPUSCULAR HEMOGLOBIN 31 PG (25-34); MEAN CORPUSCULAR HGB CONC 33 G/DL (32-36); MEAN CORPUSCULAR VOLUME 95 FL (80-99); MEAN PLATELET VOLUME 9.2 FL (7.4-10.4); MONOCYTES # (AUTO) 0.2 X 10^3 (0.0-1.0); MONOCYTES % (AUTO) 2 % (0-12); NEUTROPHILS % (AUTO) 84 % (42-75); PLATELET COUNT 253 10^3/uL (130-400); RED BLOOD COUNT 3.84 10^6/uL (4.35-5.85); RED CELL DISTRIBUTION WIDTH 15.9 % (10.0-14.5); WHITE BLOOD COUNT 13.1 10^3/uL (4.3-11.0)
[2017-06-22 13:52] LABS: ANION GAP 10 MMOL/L (5-14); BLOOD UREA NITROGEN 15 MG/DL (7-18); BUN/CREATININE RATIO 14; CALCIUM 9.5 MG/DL (8.5-10.1); CARBON DIOXIDE 27 MMOL/L (21-32); CHLORIDE 102 MMOL/L (98-107); CREATININE SERUM 1.04 MG/DL (0.60-1.30); GFR ESTIMATED > 60; GLUCOSE 133 MG/DL (70-105); MAGNESIUM 1.7 MG/DL (1.8-2.4); POTASSIUM 3.9 MMOL/L (3.6-5.0); SODIUM 139 MMOL/L (135-145)
== END 2017-06-28 16:22 | disposition home or self-care (01) ==
LOC: ONC 12:56
PROVIDERS: ATTEND Internal Medicine Hematology & Oncology
DX: Z51.11 Encounter for antineoplastic chemotherapy (principal); C7A.1 Malignant poorly differentiated neuroendocrine tumors; C78.7 Secondary malignant neoplasm of liver and intrahepatic bile duct; D70.1 Agranulocytosis secondary to cancer chemotherapy; T45.1X5A Adverse effect of antineoplastic and immunosuppressive drugs, initial encounter; G89.3 Neoplasm related pain (acute) (chronic); I12.9 Hypertensive chronic kidney disease with stage 1 through stage 4 chronic kidney disease, or unspecified chronic kidney disease; N18.3 Chronic kidney disease, stage 3 (moderate); E66.01 Morbid (severe) obesity due to excess calories; Z68.41 Body mass index [BMI] 40.0-44.9, adult; Z79.899 Other long term (current) drug therapy
CPT/HCPCS: 36415; 36591; 80048; 80053; 83615; 83735; 85025; 96367; 96372; 96375; 96413; 96417; 99213

== ENCOUNTER 2017-07-13 10:09 | Outpatient (CLI) | payer OTHER, BC ==
[~2017-07-13 10:09] MED LIST changes: -CARBOPLATIN 425 MG in D5W 50 ML IV(CANCER CTR) 50 ML IV SCH; -ETOPOSIDE 200 MG in NORMAL SALINE (CANCER CENTER) 500 ML IV SCH; -FAMOTIDINE 20MG/2ML IV (CANCER CTR) IV SCH; -FOSAPREPITANT 150 MG/NS 150 MG IVPB (CANCER CTR) IV PRN; -LORazepam 0.5 MG (ATIVAN) TABLET CANCER CTR PO PRN; -NS IV 1000 ML (CANCER CTR) IV SCH; -NS IV 500 ML (CANCER CENTER) 500 ML ONE; +OMEP10SU PO; -OMEP10SU2 PO; -ONDANSETRON MDV (CANCER CENTER 16 MG, DEXAMETHASONE PF INJ (CANCER C 12 MG in NS (IVPB)... IV SCH; -PALONOSETRON HCL 0.25 MG, DEXAMETHASONE PF INJ (CANCER C 12 MG in NS (IVPB) CANCER CENT... IV PRN; -PEGFILGRASTIM 6 MG/0.6 ML ONPRO KIT SQ SCH; -PEGFILGRASTIM 6 MG/0.6ML NEULASTA SC SCH; -diphenhydrAMINE 25 MG TAB (BENADRYL) CANCER CENTER PO SCH
== END 2017-07-13 11:02 | disposition home or self-care (01) ==
LOC: SLEEP 10:09
PROVIDERS: ATTEND Nurse Practitioner Adult Health
DX: G47.61 Periodic limb movement disorder (principal); R06.83 Snoring; I10 Essential (primary) hypertension

== ENCOUNTER 2017-07-27 13:31 | Outpatient (RCR) | payer BC, OTHER ==
[2017-06-29 13:42] LABS: BASOPHILS % (AUTO) 1 % (0-10); EOSINOPHILS # (AUTO) 0.1 10^3/uL (0.0-0.3); EOSINOPHILS % (AUTO) 1 % (0-10); LYMPHOCYTES # (AUTO) 1.4 X 10^3 (1.0-4.0); LYMPHOCYTES % (AUTO) 29 % (12-44); MEAN CORPUSCULAR HEMOGLOBIN 30 PG (25-34); MEAN CORPUSCULAR HGB CONC 32 G/DL (32-36); MEAN CORPUSCULAR VOLUME 95 FL (80-99); MEAN PLATELET VOLUME 9.8 FL (7.4-10.4); MONOCYTES # (AUTO) 0.6 X 10^3 (0.0-1.0); MONOCYTES % (AUTO) 12 % (0-12); NEUTROPHILS # (AUTO) 2.7 X 10^3 (1.8-7.8); NEUTROPHILS % (AUTO) 57 % (42-75); PLATELET COUNT 199 10^3/uL (130-400); RED BLOOD COUNT 3.87 10^6/uL (4.35-5.85); RED CELL DISTRIBUTION WIDTH 15.9 % (10.0-14.5); WHITE BLOOD COUNT 4.8 10^3/uL (4.3-11.0)
[2017-06-29 14:37] LABS: ANION GAP 9 MMOL/L (5-14); BLOOD UREA NITROGEN 10 MG/DL (7-18); BUN/CREATININE RATIO 9; CALCIUM 9.8 MG/DL (8.5-10.1); CARBON DIOXIDE 29 MMOL/L (21-32); CHLORIDE 105 MMOL/L (98-107); GFR ESTIMATED > 60; GLUCOSE 117 MG/DL (70-105); MAGNESIUM 1.7 MG/DL (1.8-2.4); POTASSIUM 4.2 MMOL/L (3.6-5.0); SODIUM 143 MMOL/L (135-145)
[2017-07-06 09:24] LABS: BASOPHILS % (AUTO) 1 % (0-10); EOSINOPHILS # (AUTO) 0.1 10^3/uL (0.0-0.3); EOSINOPHILS % (AUTO) 1 % (0-10); LYMPHOCYTES # (AUTO) 1.8 X 10^3 (1.0-4.0); LYMPHOCYTES % (AUTO) 33 % (12-44); MEAN CORPUSCULAR HEMOGLOBIN 31 PG (25-34); MEAN CORPUSCULAR HGB CONC 32 G/DL (32-36); MEAN CORPUSCULAR VOLUME 95 FL (80-99); MEAN PLATELET VOLUME 9.2 FL (7.4-10.4); MONOCYTES # (AUTO) 0.8 X 10^3 (0.0-1.0); MONOCYTES % (AUTO) 14 % (0-12); NEUTROPHILS # (AUTO) 2.8 X 10^3 (1.8-7.8); NEUTROPHILS % (AUTO) 51 % (42-75); PLATELET COUNT 256 10^3/uL (130-400); RED BLOOD COUNT 3.73 10^6/uL (4.35-5.85); RED CELL DISTRIBUTION WIDTH 15.6 % (10.0-14.5); WHITE BLOOD COUNT 5.5 10^3/uL (4.3-11.0)
[2017-07-06 09:47] LABS: ALANINE AMINOTRANSFERASE 18 U/L (0-55); ALBUMIN 3.7 GM/DL (3.2-4.5); ANION GAP 11 MMOL/L (5-14); ASPARTATE AMINO TRANSFERASE 19 U/L (5-34); BILIRUBIN,TOTAL 0.3 MG/DL (0.1-1.0); BLOOD UREA NITROGEN 10 MG/DL (7-18); BUN/CREATININE RATIO 9; CALCIUM 9.6 MG/DL (8.5-10.1); CARBON DIOXIDE 27 MMOL/L (21-32); CHLORIDE 104 MMOL/L (98-107); CREATININE SERUM 1.12 MG/DL (0.60-1.30); GFR ESTIMATED > 60; GLUCOSE 121 MG/DL (70-105); LACTATE DEHYDROGENASE 176 U/L (125-220); MAGNESIUM 1.6 MG/DL (1.8-2.4); POTASSIUM 3.4 MMOL/L (3.6-5.0); SODIUM 142 MMOL/L (135-145); TOTAL PROTEIN 6.7 GM/DL (6.4-8.2)
[2017-07-13 11:14] LABS: BASOPHILS % (AUTO) 0 % (0-10); EOSINOPHILS # (AUTO) 0.1 10^3/uL (0.0-0.3); EOSINOPHILS % (AUTO) 1 % (0-10); LYMPHOCYTES # (AUTO) 1.9 X 10^3 (1.0-4.0); LYMPHOCYTES % (AUTO) 16 % (12-44); MEAN CORPUSCULAR HEMOGLOBIN 31 PG (25-34); MEAN CORPUSCULAR HGB CONC 32 G/DL (32-36); MEAN CORPUSCULAR VOLUME 95 FL (80-99); MEAN PLATELET VOLUME 9.1 FL (7.4-10.4); MONOCYTES # (AUTO) 0.5 X 10^3 (0.0-1.0); MONOCYTES % (AUTO) 4 % (0-12); NEUTROPHILS % (AUTO) 78 % (42-75); PLATELET COUNT 203 10^3/uL (130-400); WHITE BLOOD COUNT 11.5 10^3/uL (4.3-11.0)
[2017-07-13 11:46] LABS: ANION GAP 8 MMOL/L (5-14); BLOOD UREA NITROGEN 16 MG/DL (7-18); BUN/CREATININE RATIO 15; CALCIUM 9.4 MG/DL (8.5-10.1); CARBON DIOXIDE 32 MMOL/L (21-32); CHLORIDE 102 MMOL/L (98-107); CREATININE SERUM 1.04 MG/DL (0.60-1.30); GFR ESTIMATED > 60; GLUCOSE 113 MG/DL (70-105); MAGNESIUM 1.6 MG/DL (1.8-2.4); POTASSIUM 4.2 MMOL/L (3.6-5.0); SODIUM 142 MMOL/L (135-145)
[2017-07-20 13:51] LABS: BASOPHILS % (AUTO) 1 % (0-10); EOSINOPHILS % (AUTO) 1 % (0-10); LYMPHOCYTES # (AUTO) 1.6 X 10^3 (1.0-4.0); LYMPHOCYTES % (AUTO) 31 % (12-44); MEAN CORPUSCULAR HEMOGLOBIN 30 PG (25-34); MEAN CORPUSCULAR HGB CONC 32 G/DL (32-36); MEAN CORPUSCULAR VOLUME 95 FL (80-99); MEAN PLATELET VOLUME 9.3 FL (7.4-10.4); MONOCYTES # (AUTO) 0.6 X 10^3 (0.0-1.0); MONOCYTES % (AUTO) 11 % (0-12); NEUTROPHILS % (AUTO) 57 % (42-75); PLATELET COUNT 191 10^3/uL (130-400); RED BLOOD COUNT 3.94 10^6/uL (4.35-5.85); RED CELL DISTRIBUTION WIDTH 16.5 % (10.0-14.5); WHITE BLOOD COUNT 5.3 10^3/uL (4.3-11.0)
[2017-07-20 14:30] LABS: ANION GAP 8 MMOL/L (5-14); BLOOD UREA NITROGEN 11 MG/DL (7-18); BUN/CREATININE RATIO 10; CALCIUM 9.8 MG/DL (8.5-10.1); CARBON DIOXIDE 30 MMOL/L (21-32); CHLORIDE 103 MMOL/L (98-107); CREATININE SERUM 1.15 MG/DL (0.60-1.30); GFR ESTIMATED > 60; GLUCOSE 128 MG/DL (70-105); MAGNESIUM 1.5 MG/DL (1.8-2.4); POTASSIUM 3.7 MMOL/L (3.6-5.0); SODIUM 141 MMOL/L (135-145)
[~2017-07-27 13:31] MED LIST changes: +CARBOPLATIN 425 MG in D5W 50 ML IV(CANCER CTR) 50 ML IV SCH; +ETOPOSIDE 200 MG in NORMAL SALINE (CANCER CENTER) 500 ML IV SCH; +FAMOTIDINE 20MG/2ML IV (CANCER CTR) IV SCH; +FOSAPREPITANT 150 MG/NS 150 MG IVPB (CANCER CTR) IV PRN; +LORazepam 0.5 MG (ATIVAN) TABLET CANCER CTR PO PRN; +NS IV 1000 ML (CANCER CTR) IV SCH; +ONDANSETRON MDV (CANCER CENTER 16 MG, DEXAMETHASONE PF INJ (CANCER C 10 MG in NS (IVPB)... IV SCH; +ONDANSETRON MDV (CANCER CENTER 16 MG, DEXAMETHASONE PF INJ (CANCER C 12 MG in NS (IVPB)... IV SCH; +PALONOSETRON HCL 0.25 MG, DEXAMETHASONE PF INJ (CANCER C 10 MG in NS (IVPB) CANCER CENT... IV PRN; +PALONOSETRON HCL 0.25 MG, DEXAMETHASONE PF INJ (CANCER C 12 MG in NS (IVPB) CANCER CENT... IV PRN; +PEGFILGRASTIM 6 MG/0.6ML NEULASTA SC SCH; +diphenhydrAMINE 25 MG TAB (BENADRYL) CANCER CENTER PO SCH
[2017-07-27 13:59] LABS: BASOPHILS % (AUTO) 0 % (0-10); EOSINOPHILS # (AUTO) 0.1 10^3/uL (0.0-0.3); EOSINOPHILS % (AUTO) 1 % (0-10); LYMPHOCYTES # (AUTO) 1.3 X 10^3 (1.0-4.0); LYMPHOCYTES % (AUTO) 20 % (12-44); MEAN CORPUSCULAR HEMOGLOBIN 31 PG (25-34); MEAN CORPUSCULAR HGB CONC 33 G/DL (32-36); MEAN CORPUSCULAR VOLUME 94 FL (80-99); MEAN PLATELET VOLUME 10.1 FL (7.4-10.4); MONOCYTES # (AUTO) 0.5 X 10^3 (0.0-1.0); MONOCYTES % (AUTO) 8 % (0-12); NEUTROPHILS # (AUTO) 4.4 X 10^3 (1.8-7.8); NEUTROPHILS % (AUTO) 71 % (42-75); PLATELET COUNT 250 10^3/uL (130-400); RED BLOOD COUNT 3.89 10^6/uL (4.35-5.85); RED CELL DISTRIBUTION WIDTH 15.9 % (10.0-14.5); WHITE BLOOD COUNT 6.2 10^3/uL (4.3-11.0)
[2017-07-27 14:22] LABS: ANION GAP 7 MMOL/L (5-14); BLOOD UREA NITROGEN 11 MG/DL (7-18); BUN/CREATININE RATIO 10; CALCIUM 9.7 MG/DL (8.5-10.1); CARBON DIOXIDE 31 MMOL/L (21-32); CHLORIDE 103 MMOL/L (98-107); CREATININE SERUM 1.07 MG/DL (0.60-1.30); GFR ESTIMATED > 60; GLUCOSE 168 MG/DL (70-105); MAGNESIUM 1.6 MG/DL (1.8-2.4); POTASSIUM 3.8 MMOL/L (3.6-5.0); SODIUM 141 MMOL/L (135-145)
== END 2017-08-03 13:26 | disposition home or self-care (01) ==
LOC: ONC 13:31
PROVIDERS: ATTEND Internal Medicine Hematology & Oncology
DX: Z51.11 Encounter for antineoplastic chemotherapy (principal); C7A.1 Malignant poorly differentiated neuroendocrine tumors; C78.7 Secondary malignant neoplasm of liver and intrahepatic bile duct; G89.3 Neoplasm related pain (acute) (chronic); I12.9 Hypertensive chronic kidney disease with stage 1 through stage 4 chronic kidney disease, or unspecified chronic kidney disease; N18.3 Chronic kidney disease, stage 3 (moderate); E66.01 Morbid (severe) obesity due to excess calories; Z68.41 Body mass index [BMI] 40.0-44.9, adult; Z79.899 Other long term (current) drug therapy
CPT/HCPCS: 36415; 36591; 80048; 80053; 83615; 83735; 85025; 96367; 96372; 96375; 96413; 96417

== ENCOUNTER → 2017-07-28 | Outpatient (CLI) | payer BC, OTHER ==
[~2017-07-28] MED LIST changes: +BARIUM SUSPENSION 2.1% (VANILLA SILQ) 450 ML PO ONE; -CARBOPLATIN 425 MG in D5W 50 ML IV(CANCER CTR) 50 ML IV SCH; -ETOPOSIDE 200 MG in NORMAL SALINE (CANCER CENTER) 500 ML IV SCH; -FAMOTIDINE 20MG/2ML IV (CANCER CTR) IV SCH; -FOSAPREPITANT 150 MG/NS 150 MG IVPB (CANCER CTR) IV PRN; +GADOBUTROL 15 MMOL/15 ML (GADAVIST) VIAL IV ONE; +HYOS0.1283 SL; +IOHEXOL 350 MG/ML 100 ML (OMNIPAQUE 350) VIAL IV ONE; -LORazepam 0.5 MG (ATIVAN) TABLET CANCER CTR PO PRN; +NS 100 ML (IVPB) BAG IV ONE; -NS IV 1000 ML (CANCER CTR) IV SCH; -OMEP10SU PO; +OMEP10SU2 PO; -ONDANSETRON MDV (CANCER CENTER 16 MG, DEXAMETHASONE PF INJ (CANCER C 10 MG in NS (IVPB)... IV SCH; -ONDANSETRON MDV (CANCER CENTER 16 MG, DEXAMETHASONE PF INJ (CANCER C 12 MG in NS (IVPB)... IV SCH; -PALONOSETRON HCL 0.25 MG, DEXAMETHASONE PF INJ (CANCER C 10 MG in NS (IVPB) CANCER CENT... IV PRN; -PALONOSETRON HCL 0.25 MG, DEXAMETHASONE PF INJ (CANCER C 12 MG in NS (IVPB) CANCER CENT... IV PRN; -PEGFILGRASTIM 6 MG/0.6ML NEULASTA SC SCH; -diphenhydrAMINE 25 MG TAB (BENADRYL) CANCER CENTER PO SCH
[2017-07-28] MEDS: CATHETER FLUSH 10 ML SYR IV PRN ×2 (10:37→10:45)
--- NOTE | 2017-07-28 13:33 | Diagnostic Imaging Report ---
PROCEDURE: MR imaging of the brain with and without contrast. TECHNIQUE: Multiplanar, multisequence MR imaging of the brain was performed with and without contrast. INDICATION: Liver cancer. FINDINGS: The previous MRI brain exam performed on 12/22/2016 failed to show any sign of an acute intracranial abnormality. There is no evidence for metastatic disease related to the patient's diagnosis of liver cancer either. On the postcontrast series of this exam, there is no abnormal enhancement to suggest a neoplastic or infectious process. There is no mass, shift of the midline, or hemorrhage to indicate an acute abnormality either. There is still no abnormal signal on the diffusion series to suggest an area of acute ischemia. The ventricles are not abnormally dilated and stable in size when compared to the prior study. As noted on the prior exam, there are a few small areas of increased signal in the periventricular white matter bilaterally on the FLAIR series. These findings are nonspecific but may be related to encephalomalacia from microvascular ischemia. The cortical atrophy seen on the prior study has not progressed. The sella is not enlarged, and the expected carotid flow voids are evident bilaterally. The orbits are symmetrical and within normal limits. The sinuses are generally clear. The seventh and eighth nerve complexes are unremarkable. IMPRESSION: 1. There is no evidence for an acute intracranial abnormality. There is no abnormal enhancement on the postcontrast series to suggest a neoplastic or infectious process either. 2. The mild senescent changes seen on the prior study are again evident and no different. 3. When compared to the prior exam, there has been no significant change. Dictated by: Dictated on workstation # [id number]
--- NOTE | 2017-07-28 13:50 | Diagnostic Imaging Report ---
PROCEDURE: CT chest with contrast, CT abdomen and pelvis with and without contrast. TECHNIQUE: Pre and post intravenous contrast axial imaging of the abdomen and pelvis and post contrast axial imaging of the chest were performed. INDICATION: Liver cancer. FINDINGS: The previous PET/CT exam performed on 12/29/2016 noted extensive hypermetabolic masses involving the liver, involving nearly the entire segment 4 and segment 5 and segment 6. Reportedly, the patient had an interval CT abdomen/pelvis exam at [facility] in [place], [place], on April 06 of this year. That study is not available for direct comparison at this time but the report from that exam did note that there had been a marked decrease in size in the suspected neoplastic involvement of the liver. Specifically, there was only a 6.6 x 10.4 cm area of involvement of segments 4 and 5. On this exam, there is a persistent 5 x 7.1 cm area of diminished density in segments 4 and 5. The 1.4 cm lesion in segment 2 reported on the outside study is difficult to appreciate on this exam. The report from the previous study also noted a 1.1 cm portacaval node. There does still seem to be a roughly 1.1 cm node in the region of the richard hepatis. The gallbladder is distended and there may be some sludge within the dependent portion of the gallbladder. There is no sign of acute cholecystitis, however. The spleen, pancreas, kidneys, adrenals, aorta, and inferior vena cava are unchanged when compared to the prior exam. The 1.1 cm lipid-rich lesion associated with the right adrenal gland seen previously is again evident and no different. Most likely, this represents an adenoma. There is no pelvic mass or free fluid collection identified. There are few diverticula in the sigmoid colon but there is no sign of acute diverticulitis. The urinary bladder and prostate gland are grossly unremarkable. The appendix was not well visualized but there are no indirect signs of acute appendicitis. The images through the thorax again show the 4 mm noncalcified nodule in the right lower lobe which was reported on the previous CT chest exam of 12/23/2016. This nodule does not appear to have changed significantly. The lungs are otherwise clear. There is no sign of failure, pneumonia, or of pleural effusion to suggest an acute abnormality. The heart is stable in size. The aorta is not abnormally dilated and there is no sign of a dissection. There is no defect within the pulmonary arteries to indicate a pulmonary embolus. There is no mediastinal or hilar adenopathy. The thyroid gland appears similar to the prior study. The bone windows failed to show any sign of a fracture or of a destructive lesion. There are several rounded soft tissue densities in the subcutaneous fat of the abdomen. The largest of these is in the lower abdomen on the left and measures approximately 2.7 cm. These findings were not present on the prior studies performed at this institution. They may well be secondary to injections. It is my understanding that in the interval since the previous CT examination of March of this year, the patient has undergone Lovenox treatment for a pulmonary embolus. IMPRESSION: 1. The appearance of the liver has improved since the prior exam as the suspected neoplastic mass involving segments 4 and 5 of the liver has diminished. The lesion in segment 2 reported previously is also difficult to visualize. The overall appearance of the abdomen is otherwise stable. 2. The 4 mm nodule in the right lung base seen previously also appears stable. The overall appearance of the chest is otherwise stable. 3. There is no acute abnormality of the chest, abdomen, or pelvis identified. 4. These results were discussed with DELVIN Archibald. Dictated by: Dictated on workstation # [id number]
== END ==
LOC: RAD 09:50
PROVIDERS: ATTEND Internal Medicine Hematology & Oncology
DX: R16.0 Hepatomegaly, not elsewhere classified (principal); R91.1 Solitary pulmonary nodule; C7A.1 Malignant poorly differentiated neuroendocrine tumors
CPT/HCPCS: 70553; 71260; 74178

== ENCOUNTER → 2017-07-29 | Outpatient (CLI) | payer BC, OTHER ==
[~2017-07-29] MED LIST changes: -BARIUM SUSPENSION 2.1% (VANILLA SILQ) 450 ML PO ONE; -GADOBUTROL 15 MMOL/15 ML (GADAVIST) VIAL IV ONE; -HYOS0.1283 SL; -IOHEXOL 350 MG/ML 100 ML (OMNIPAQUE 350) VIAL IV ONE; -NS 100 ML (IVPB) BAG IV ONE; +OMEP10SU PO; -OMEP10SU2 PO
--- NOTE | 2017-07-29 20:30 | Diagnostic Imaging Report ---
EXAMINATION: Whole body bone scan. INDICATION: Neuroendocrine tumor. TECHNIQUE: This study was performed following administration of 25.7 mCi of 99m-technetium MDP. Anterior and posterior whole-body images were obtained as well as spot films of the calvarium and the thorax in the lateral projection. COMPARISON: There are no previous nuclear medicine bone scans available for comparison. FINDINGS: There is a small focal area of increased activity in the posterior elements of T12 on the right. I suspect that this is degenerative in nature. In reviewing the CT chest, abdomen, and pelvis exam performed on 07/28/2017, there was no sign of a destructive mass in this area. There is no other focal area of increased or decreased activity to suggest metastatic disease or an acute abnormality. There is increased activity throughout the right knee joint. Most likely, this is due to severe degenerative disease. Much less severe degenerative disease involving the left knee joint is noted as well. There is also moderate symmetrical degenerative disease of both shoulder joints. Both kidneys do show excretion of the radiotracer. IMPRESSION: 1. The small focal area of increased activity involving the right pedicle of T12 is more likely due to degenerative disease than to neoplasm. There is no evidence for metastatic skeletal disease at this time. 2. There is severe degenerative disease of the right knee joint. Dictated by: Dictated on workstation # [id number]
== END ==
LOC: CARD 11:15
PROVIDERS: ATTEND Internal Medicine Hematology & Oncology
DX: C7A.1 Malignant poorly differentiated neuroendocrine tumors (principal)
CPT/HCPCS: 78306

== ENCOUNTER 2017-08-04 09:29 | Outpatient (RCR) | payer BC, OTHER ==
[~2017-08-04 09:29] MED LIST changes: +CARBOPLATIN 425 MG in D5W 50 ML IV(CANCER CTR) 50 ML IV SCH; +ETOPOSIDE 200 MG in NORMAL SALINE (CANCER CENTER) 500 ML IV SCH; +FAMOTIDINE 20MG/2ML IV (CANCER CTR) IV SCH; +FOSAPREPITANT 150 MG/NS 150 MG IVPB (CANCER CTR) IV PRN; +LORazepam 0.5 MG (ATIVAN) TABLET CANCER CTR PO PRN; +NS IV 1000 ML (CANCER CTR) IV SCH; +ONDANSETRON MDV (CANCER CENTER 16 MG, DEXAMETHASONE PF INJ (CANCER C 10 MG in NS (IVPB)... IV SCH; +PALONOSETRON HCL 0.25 MG, DEXAMETHASONE PF INJ (CANCER C 10 MG in NS (IVPB) CANCER CENT... IV PRN; +PEGFILGRASTIM 6 MG/0.6ML NEULASTA SC SCH; +diphenhydrAMINE 25 MG TAB (BENADRYL) CANCER CENTER PO SCH
[2017-08-04 10:03] LABS: BASOPHILS % (AUTO) 1 % (0-10); EOSINOPHILS # (AUTO) 0.1 10^3/uL (0.0-0.3); EOSINOPHILS % (AUTO) 2 % (0-10); LYMPHOCYTES # (AUTO) 1.5 X 10^3 (1.0-4.0); LYMPHOCYTES % (AUTO) 25 % (12-44); MEAN CORPUSCULAR HEMOGLOBIN 31 PG (25-34); MEAN CORPUSCULAR HGB CONC 33 G/DL (32-36); MEAN CORPUSCULAR VOLUME 93 FL (80-99); MEAN PLATELET VOLUME 10.2 FL (7.4-10.4); MONOCYTES # (AUTO) 0.8 X 10^3 (0.0-1.0); MONOCYTES % (AUTO) 13 % (0-12); NEUTROPHILS # (AUTO) 3.6 X 10^3 (1.8-7.8); NEUTROPHILS % (AUTO) 60 % (42-75); PLATELET COUNT 256 10^3/uL (130-400); RED BLOOD COUNT 3.91 10^6/uL (4.35-5.85); RED CELL DISTRIBUTION WIDTH 15.7 % (10.0-14.5)
[2017-08-04 10:25] LABS: ALBUMIN 3.8 GM/DL (3.2-4.5); BILIRUBIN,TOTAL 0.4 MG/DL (0.1-1.0); CALCIUM 9.6 MG/DL (8.5-10.1); CREATININE SERUM 1.27 MG/DL (0.60-1.30); MAGNESIUM 1.8 MG/DL (1.8-2.4); POTASSIUM 3.4 MMOL/L (3.6-5.0)
== END 2017-08-28 | disposition home or self-care (01) ==
LOC: ONC 09:29
PROVIDERS: ATTEND Internal Medicine Hematology & Oncology
DX: C7A.1 Malignant poorly differentiated neuroendocrine tumors (principal); C78.7 Secondary malignant neoplasm of liver and intrahepatic bile duct; G89.3 Neoplasm related pain (acute) (chronic); I12.9 Hypertensive chronic kidney disease with stage 1 through stage 4 chronic kidney disease, or unspecified chronic kidney disease; N18.3 Chronic kidney disease, stage 3 (moderate); E66.01 Morbid (severe) obesity due to excess calories; Z68.41 Body mass index [BMI] 40.0-44.9, adult; Z79.899 Other long term (current) drug therapy
CPT/HCPCS: 36591; 80053; 83615; 83735; 85025

== ENCOUNTER 2017-10-13 19:17 | Emergency (ER) | payer OTHER ==
[~2017-10-13] VITALS: Ht 182.9 cm; Wt 133.4 kg
[~2017-10-13 19:17] MED LIST changes: -CARBOPLATIN 425 MG in D5W 50 ML IV(CANCER CTR) 50 ML IV SCH; -ETOPOSIDE 200 MG in NORMAL SALINE (CANCER CENTER) 500 ML IV SCH; -FAMOTIDINE 20MG/2ML IV (CANCER CTR) IV SCH; -FOSAPREPITANT 150 MG/NS 150 MG IVPB (CANCER CTR) IV PRN; -LORazepam 0.5 MG (ATIVAN) TABLET CANCER CTR PO PRN; -NS IV 1000 ML (CANCER CTR) IV SCH; -ONDANSETRON MDV (CANCER CENTER 16 MG, DEXAMETHASONE PF INJ (CANCER C 10 MG in NS (IVPB)... IV SCH; -PALONOSETRON HCL 0.25 MG, DEXAMETHASONE PF INJ (CANCER C 10 MG in NS (IVPB) CANCER CENT... IV PRN; -PEGFILGRASTIM 6 MG/0.6ML NEULASTA SC SCH; -diphenhydrAMINE 25 MG TAB (BENADRYL) CANCER CENTER PO SCH
--- OUTSIDE RECORDS SUMMARY | 2017-10-13 19:36 | XMS REPORT ---
Author Author REBEKAH CHAVEZ [facility] eClinicalWorks Address Unknown Phone Unavailable Care Team Providers Care Choir Member Name Role Phone REBEKAH CHAVEZ Unavailable Allergies [...] Start Date End Date Status Dosage Hydrocodone-Acetaminophen [facility] [address]-75 5-325 MG Orally every 6 hrs 1 tablet as needed Tramadol HCl [facility] [address]-88 50 MG Orally every 4 hrs PRN 1 tablet as needed Results No Known Results Summary Purpose eClinicalWorks Submission
--- OUTSIDE RECORDS SUMMARY | 2017-10-13 19:36 | XMS REPORT ---
Author Author SCOTT REBEKAH Organization [facility] Address [address] [place] [address] Care Team Providers Care Welfare Project Manager Name Role Phone REBEKAH CHAVEZ Unavailable PROBLEMS Type Condition ICD9-CM Code [id number] Code Onset Dates Condition Status SNOMED Code Problem Morbid obesity due to excess calories E66.01 Active 349342845 Problem Osteoarthritis of right knee M17.9 Active 865332634 Problem Bursitis of elbow M70.30 Active 364939595 Problem Primary osteoarthritis of both knees M17.0 Active 166726104 Problem Anxiety F41.9 Active 24087026 Problem Moderate episode of recurrent major depressive disorder F33.1 Active 03751412 Problem Localized edema R60.0 Active 4572688 Problem Hepatocellular carcinoma C22.0 Active 934191217 Problem Liver mass R16.0 Active 333383010 Problem Vitamin D deficiency E55.9 Active 65753965 Problem Hypotestosteronemia E29.1 Active 226994294 Problem Gout M10.9 Active 34092284 Problem GERD (gastroesophageal reflux disease) K21.9 Active 519653351 Problem Hypercholesterolemia E78.0 Active 68083600 Problem HTN (hypertension) I10 Active 47397287 Problem Sleep apnea, unspecified G47.30 Active 56310347 Problem Depression F32.9 Active 10639731 Problem Chronic osteoarthritis M19.90 Active 25468518 ALLERGIES No Information SOCIAL HISTORY Never Assessed PLAN OF CARE VITAL SIGNS MEDICATIONS Medication Instructions Dosage Frequency Start Date End Date Duration Status Protonix 40 mg Orally Once a day 1 tablet 24h Dec, 30 day(s) Active RESULTS No Results PROCEDURES No Known procedures IMMUNIZATIONS No Known Immunizations MEDICAL (GENERAL) HISTORY Type Description Date Medical History hypertension Medical History Gout Medical History depression Medical History hyperlipidemia Medical History chronic pain--back, right leg, right knee Medical History sleep apnea (possible) Medical History obesity Surgical History tonsillectomy as adult Surgical History right foot surgery; heel spur Surgical History Port on the right side of chest Nov 2016
--- OUTSIDE RECORDS SUMMARY | 2017-10-13 19:36 | XMS REPORT ---
Author Author SCOTT REBEKAH [facility] Address [address] [place] [address] Care Team Providers Care Merchandise Worker Name Role Phone ANTONETTE CHAVEZE Unavailable PROBLEMS Type Condition ICD9-CM Code EDU06-PD Code Onset Dates Condition Status SNOMED Code Problem Morbid obesity due to excess calories E66.01 Active 129231922 Problem Osteoarthritis of right knee M17.9 Active 893362002 Problem Bursitis of elbow M70.30 Active 853944205 Problem Primary osteoarthritis of both knees M17.0 Active 545146749 Problem Anxiety F41.9 Active 33366204 Problem Moderate episode of recurrent major depressive disorder F33.1 Active 96389832 Problem Localized edema R60.0 Active 0194251 Problem Hepatocellular carcinoma C22.0 Active 865264377 Problem Liver mass R16.0 Active 736115286 Problem Vitamin D deficiency E55.9 Active 26314854 Problem Hypotestosteronemia E29.1 Active 407879595 Problem Gout M10.9 Active 83357803 Problem GERD (gastroesophageal reflux disease) K21.9 Active 975762604 Problem Hypercholesterolemia E78.0 Active 36448955 Problem HTN (hypertension) I10 Active 15688897 Problem Sleep apnea, unspecified G47.30 Active 73356913 Problem Depression F32.9 Active 46734863 Problem Chronic osteoarthritis M19.90 Active 33758175 ALLERGIES Substance Reaction Event Type Date Status N.K.D.A. Unknown Non Drug Allergy Nov, Unknown SOCIAL HISTORY No smoking Hx information available PLAN OF CARE Activity Details Follow Up 4 Weeks Reason:n/v/d/c VITAL SIGNS Height 71 in 2016-12-22 Weight 308.2 lbs 2016-12-22 Temperature 98.3 degrees Fahrenheit 2016-12-22 Heart Rate 78 bpm 2016-12-22 Respiratory Rate 18 2016-12-22 BMI 42.98 kg/m2 2016-12-22 Blood pressure systolic 134 mmHg 2016-12-22 Blood pressure diastolic 88 mmHg 2016-12-22 MEDICATIONS Medication Instructions Dosage Frequency Start Date End Date Duration Status Centrum Active Citalopram Hydrobromide 40 mg Orally Once a day TAKE ONE TABLET BY MOUTH ONCE DAILY 24h 30 Active Vitamin D3 2000 UNIT Active Fish Oil 1000 MG Orally Once a day 1 capsule 24h Active Xanax 0.5 MG Orally Three times a day 1 tablet 8h Nov, Active Furosemide 40 MG Orally Once a day 1 tablet 24h 30 Active Klor-Con M20 20 MEQ Orally Once a day 1 tablet 24h 30 Active Simvastatin 20 MG Orally Once a day 1 tablet in the evening 24h 30 Active Cyclobenzaprine HCl 10 mg Orally 3 times a day 1 tablet 8h 30 Active Zofran ODT 4 MG Orally every 8 hrs 1-2 tablet on the tongue and allow to dissolve 8h Nov, 30 day(s) Active Amlodipine Besylate 10 MG Orally Once a day 1 tablet 24h 30 Active Prilosec 20 MG Orally Once a day 1 capsule 24h 30 Active [facility] Hydrocortisone 1 % Externally Twice a day apply thin layer to top of right foot 12h Jun, Active Zantac 75 75 MG Orally Twice a day 1 tablet as needed 12h Nov, Active Tramadol HCl 50 mg TAKE ONE TABLET BY MOUTH EVERY 4 HOURS NEEDED Dec, 30 days Active Metoprolol Tartrate 100 MG Orally Once a day 1 tablet 24h 30 Active Promethazine HCl 25 MG Orally 3 times a day prn 1 tablet as needed NovDec, Active RESULTS No Results PROCEDURES Procedure Date Ordered Related Diagnosis Body Site Office Visit, Est Pt., Level 4 Dec 22, 2016 IMMUNIZATIONS No Known Immunizations
--- OUTSIDE RECORDS SUMMARY | 2017-10-13 19:36 | XMS REPORT ---
Author Author REBEKAH CHAVEZ [facility] eClinicalWorks Address Unknown Phone Unavailable Care Team Providers Care Gasket Winder Name Role Phone REBEKAH CHAVEZ Unavailable Allergies No Known Allergies Problems Problem Type Condition Code Onset Dates Condition Status Problem GERD (gastroesophageal reflux disease) K21.9 Active Problem Vitamin D deficiency E55.9 Active Problem Hypotestosteronemia E29.1 Active Problem Sleep apnea, unspecified G47.30 Active Problem Morbid obesity due to excess calories E66.01 Active Problem HTN (hypertension) I10 Active Problem Bursitis of elbow M70.30 Active Problem Gout M10.9 Active Problem Depression F32.9 Active Problem Chronic osteoarthritis M19.90 Active Problem Hypercholesterolemia E78.0 Active Medications Medication Code System Code Instructions Start Date End Date Status Dosage Tramadol HCl [facility] [address]-51 50 MG Orally every 4 hrs PRN 1 tablet as needed Results No Known Results Summary Purpose eClinicalWorks Submission
--- OUTSIDE RECORDS SUMMARY | 2017-10-13 19:36 | XMS REPORT ---
Author Author REBEKAH CHAVEZ Organization [facility] Address [address] [place] [address] Care Team Providers Care Chicken Picker Name Role Phone ABIODUN CHAVEZNETTE Unavailable PROBLEMS Type Condition ICD9-CM Code SEI25-IP Code Onset Dates Condition Status SNOMED Code Problem Morbid obesity due to excess calories E66.01 Active 717265044 Problem Osteoarthritis of right knee M17.9 Active 766586865 Problem Bursitis of elbow M70.30 Active 236528778 Problem Primary osteoarthritis of both knees M17.0 Active 011156017 Problem Anxiety F41.9 Active 10742208 Problem Moderate episode of recurrent major depressive disorder F33.1 Active 70964446 Problem Localized edema R60.0 Active 345234688 Problem Hepatocellular carcinoma C22.0 Active 612612708 Problem Liver mass R16.0 Active 677790919 Problem Vitamin D deficiency E55.9 Active 65110733 Problem Hypotestosteronemia E29.1 Active 717598360 Problem Gout M10.9 Active 70221095 Problem GERD (gastroesophageal reflux disease) K21.9 Active 158487598 Problem Hypercholesterolemia E78.0 Active 10038478 Problem HTN (hypertension) I10 Active 08650592 Problem Sleep apnea, unspecified G47.30 Active 56166856 Problem Depression F32.9 Active 36407221 Problem Chronic osteoarthritis M19.90 Active 10589461 ALLERGIES No Information SOCIAL HISTORY Never Assessed PLAN OF CARE VITAL SIGNS MEDICATIONS Medication Instructions Dosage Frequency Start Date End Date Duration Status Citalopram Hydrobromide 40 mg Orally Once a day TAKE ONE TABLET BY MOUTH ONCE DAILY 24h 30 Active Protonix 40 mg Orally Once a day 1 tablet 24h Dec, 30 day(s) Active Simvastatin 20 mg Orally Once a day 1 tablet in the evening 24h 30 Active RESULTS No Results PROCEDURES No Known [...]
--- OUTSIDE RECORDS SUMMARY | 2017-10-13 19:36 | XMS REPORT ---
Author Author SAIRA BARNETT [facility] Address [address] [place] [address] Care Team Providers Care Gynecological Assistant Name Role Phone SAIRA BARNETT Unavailable PROBLEMS Type Condition ICD9-CM Code [id number] Code Onset Dates Condition Status SNOMED Code Problem Hypotestosteronemia E29.1 Active 728397264 Problem Depression F32.9 Active 60181276 Problem Vitamin D deficiency E55.9 Active 40928817 Assessment Osteoarthritis of right knee M17.9 Jul, Active 560108715 Problem Sleep apnea, unspecified G47.30 Active 38592998 Problem GERD (gastroesophageal reflux disease) K21.9 Active 322958773 Problem Bursitis of elbow M70.30 Active 000499557 Problem Morbid obesity due to excess calories E66.01 Active 450261159 Problem Hypercholesterolemia E78.0 Active 63661450 Problem Gout M10.9 Active 52313011 Problem HTN (hypertension) I10 Active 97490568 Problem Chronic osteoarthritis M19.90 Active 39800512 ALLERGIES Unknown Allergies SOCIAL HISTORY No smoking Hx information available PLAN OF CARE VITAL SIGNS Height 71 in 2016-07-30 Blood pressure systolic 142 mmHg 2016-07-30 Blood pressure diastolic 88 mmHg 2016-07-30 MEDICATIONS Unknown Medications RESULTS No Results PROCEDURES Procedure Date Ordered Related Diagnosis Body Site DRAIN/INJECT, JOINT/BURSA Jul 30, 2016 Office Visit, Est Pt., Level 3 Jul 30, 2016 DEPO MEDROL 80 MG/ML Jul 30, 2016 IMMUNIZATIONS No Known Immunizations
--- OUTSIDE RECORDS SUMMARY | 2017-10-13 19:39 | XMS REPORT ---
Author Author REBEKAH CHAVEZ Organization [facility] Address [address] [place] [address] Care Team Providers Care Weights And Measures Inspector Name Role Phone REBEKAH CHAVEZ Unavailable PROBLEMS Type Condition ICD9-CM Code WSA42-NC Code Onset Dates Condition Status SNOMED Code Problem Hypotestosteronemia E29.1 Active 002685127 Problem Depression F32.9 Active 68763658 Problem Vitamin D deficiency E55.9 Active 34789949 Problem Sleep apnea, unspecified G47.30 Active 05761243 Problem GERD (gastroesophageal reflux disease) K21.9 Active 375318592 Problem Bursitis of elbow M70.30 Active 902666599 Problem Morbid obesity due to excess calories E66.01 Active 809188867 Problem Hypercholesterolemia E78.0 Active 24532270 Problem Gout M10.9 Active 71383738 Problem HTN (hypertension) I10 Active 23044277 Problem Chronic osteoarthritis M19.90 Active 73191828 ALLERGIES Unknown Allergies SOCIAL HISTORY No smoking Hx information available PLAN OF CARE VITAL SIGNS MEDICATIONS Medication Instructions Dosage Frequency Start Date End Date Duration Status Tramadol HCl 50 MG TAKE ONE TABLET BY MOUTH EVERY 4 HOURS NEEDED Active RESULTS No Results PROCEDURES No Known procedures IMMUNIZATIONS No Known Immunizations
--- OUTSIDE RECORDS SUMMARY | 2017-10-13 19:39 | XMS REPORT ---
Author Author REBEKAH CHAVEZ Organization [facility] Address [address] [place] [address] Care Team Providers Care Natural Sciences Professor Name Role Phone ANTONETTE CHAVEZE Unavailable PROBLEMS Type Condition ICD9-CM Code [id number] Code Onset Dates Condition Status SNOMED Code Problem Morbid obesity due to excess calories E66.01 Active 679475189 Problem Osteoarthritis of right knee M17.9 Active 066646876 Problem Bursitis of elbow M70.30 Active 592788686 Problem Primary osteoarthritis of both knees M17.0 Active 256709464 Problem Anxiety F41.9 Active 85216956 Problem Moderate episode of recurrent major depressive disorder F33.1 Active 97115057 Problem Localized edema R60.0 Active 4180245 Problem Hepatocellular carcinoma C22.0 Active 214983865 Problem Liver mass R16.0 Active 843573011 Problem Vitamin D deficiency E55.9 Active 28124986 Problem Hypotestosteronemia E29.1 Active 298834698 Problem Gout M10.9 Active 83533486 Problem GERD (gastroesophageal reflux disease) K21.9 Active 708828499 Problem Hypercholesterolemia E78.0 Active 07803029 Problem HTN (hypertension) I10 Active 47549843 Problem Sleep apnea, unspecified G47.30 Active 02268247 Problem Depression F32.9 Active 05689902 Problem Chronic osteoarthritis M19.90 Active 64843523 ALLERGIES Substance Reaction Event Type Date Status N.K.D.A. Unknown Non Drug Allergy Nov, Unknown SOCIAL HISTORY No smoking Hx information available PLAN OF CARE Activity Details Follow Up 2 Weeks, prn Reason: VITAL SIGNS Height 71 in 2016-12-15 Weight 305 lbs 2016-12-15 BMI 42.53 kg/m2 2016-12-15 MEDICATIONS Medication Instructions Dosage Frequency Start Date End Date Duration Status Vitamin D3 2000 UNIT Active Cyclobenzaprine HCl 10 mg Orally 3 times a day 1 tablet 8h 30 Active Gold Aranda [facility] - Active Fish Oil 1000 MG Orally Once a day 1 capsule 24h Active [facility] Hydrocortisone 1 % Externally Twice a day apply thin layer to top of right foot 12h 08 Jun, 2016 Active Citalopram Hydrobromide 40 MG TAKE ONE TABLET BY MOUTH ONCE DAILY 30 Active Amlodipine Besylate 10 MG Orally Once a day 1 tablet 24h 30 Active Simvastatin 20 MG Orally Once a day 1 tablet in the evening 24h 30 Active Prilosec 20 mg Orally Once a day 1 capsule 24h 30 Active Tramadol HCl 50 mg TAKE ONE TABLET BY MOUTH EVERY 4 HOURS NEEDED Dec, 30 days Active Klor-Con M20 20 MEQ Orally Once a day 1 tablet 24h 30 Active Zofran ODT 4 MG Orally every 8 hrs 1-2 tablet on the tongue and allow to dissolve 8h Nov, 30 day(s) Active Centrum Active Furosemide 40 MG Orally Once a day 1 tablet 24h 30 Active Metoprolol Tartrate 100 MG Orally Once a day 1 tablet 24h 30 Active RESULTS Name Result Date Reference Range AFP TUMOR MARKER, SERUM 2016-12-15 AFP, Serum, Tumor Marker 4.6 0.0-8.3 CBC 2016-12-15 WBC 8.9 3.4-10.8 RBC 4.43 4.14-5.80 Hemoglobin 13.1 12.6-17.7 Hematocrit 40.4 37.5-51.0 MCV 91 79-97 MCH 29.6 26.6-33.0 MCHC 32.4 31.5-35.7 RDW 14.8 12.3-15.4 Platelets 328 150-379 Neutrophils 58 Lymphs 30 Monocytes 10 Eos 2 Basos 0 Neutrophils (Absolute) 5.1 1.4-7.0 Lymphs (Absolute) 2.7 0.7-3.1 Monocytes(Absolute) 0.9 0.1-0.9 Eos (Absolute) 0.2 0.0-0.4 Baso (Absolute) 0.0 0.0-0.2 Immature Granulocytes 0 Immature Grans (Abs) 0.0 0.0-0.1 LIPID PANEL 2016-12-15 Cholesterol, Total 154 100-199 Triglycerides 176 0-149 HDL Cholesterol 37 >39 VLDL Cholesterol Odilon 35 5-40 LDL Cholesterol Calc 82 0-99 CMP 2016-12-15 Glucose, Serum 113 65-99 BUN 22 8-27 Creatinine, Serum 2.04 0.76-1.27 eGFR If NonAfricn Am 34 >59 eGFR If Africn Am 39 >59 BUN/Creatinine Ratio 11 10-22 Sodium, Serum 139 134-144 Potassium, Serum 4.2 3.5-5.2 Chloride, Serum 96 96-106 Carbon Dioxide, Total 23 18-29 Calcium, Serum 9.8 8.6-10.2 Protein, Total, Serum 7.6 6.0-8.5 Albumin, Serum 4.4 3.6-4.8 Globulin, Total 3.2 1.5-4.5 A/G Ratio 1.4 1.1-2.5 Bilirubin, Total 0.3 0.0-1.2 Alkaline Phosphatase, S 84 39-117 AST (SGOT) 49 0-40 ALT (SGPT) 32 0-44 HEPATITIS PROFILE 2016-12-15 Hep A Ab, IgM Negative Negative HBsAg Screen Negative Negative Hep B Core Ab, IgM Negative Negative Hep C Virus Ab <0.1 0.0-0.9 PROCEDURES Procedure Date Ordered Related Diagnosis Body Site ALPHA-FETOPROTEIN, SERUM Dec 15, 2016 COMPLETE CBC W/AUTO DIFF WBC Dec 15, 2016 VENIPUNCT, ROUTINE* Dec 15, 2016 LIPID PANEL Dec 15, 2016 COMPREHEN METABOLIC PANEL Dec 15, 2016 ACUTE HEPATITIS PANEL Dec 15, 2016 Office Visit, Est Pt., Level 4 Dec 15, 2016 IMMUNIZATIONS No Known Immunizations
--- OUTSIDE RECORDS SUMMARY | 2017-10-13 19:40 | XMS REPORT ---
Author REBEKAH Waller [facility] eClinicalWorks Address Unknown Phone Unavailable Care Team Providers Care Hris Manager Name Role Phone REBEKAH CHAVEZ CP Unavailable Allergies, Adverse Reactions, Alerts Substance Reaction Event Type N.K.D.A. Info Not Available Non Drug Allergy Problems Problem Type Condition Code Onset Dates Condition Status Assessment HTN (hypertension) I10 Active Problem GERD (gastroesophageal reflux disease) K21.9 Active Problem Sleep apnea, unspecified G47.30 Active Problem Chronic osteoarthritis M19.90 Active Problem Hypercholesterolemia E78.0 Active Problem HTN (hypertension) I10 Active Problem Vitamin D deficiency E55.9 Active Problem Hypotestosteronemia E29.1 Active Problem Gout M10.9 Active Problem Depression F32.9 Active Assessment Sleep apnea, unspecified G47.30 Active Assessment GERD (gastroesophageal reflux disease) K21.9 Active Assessment Depression F32.9 Active Assessment Gout M10.9 Active Assessment Hypotestosteronemia E29.1 Active Assessment Hypercholesterolemia E78.0 Active Assessment Vitamin D deficiency E55.9 Active Assessment Chronic osteoarthritis M19.90 Active Medications Medication Code System Code Instructions Start Date End Date Status Dosage Hydrocodone-Acetaminophen [facility] [address]-88 5-325 MG Orally every 6 hrs 1 tablet as needed Hydrochlorothiazide [facility] [address]-27 25 MG Orally Once a day 1 tablet Prilosec [facility] [address]-96 not defined Citalopram Hydrobromide [facility] [address]-66 40 MG Orally Once a day 1 tablet Testosterone Cypionate [facility] [address]-28 200 Intramuscular once per month Tramadol HCl [facility] [address]-47 50 MG Orally every 4 hrs PRN 1 tablet as needed Vitamin D3 [facility] [address]-36 2000 UNIT Orally not defined Centrum [facility] [address]-56 Orally not defined Fish Oil [facility] [address]-66 1000 MG Orally Once a day 1 capsule Furosemide [facility] [address]-79 40 MG Orally Once a day 1 tablet Simvastatin [facility] [address]-30 20 MG Orally Once a day 1 tablet in the evening Allopurinol [facility] [address]-73 300 MG Orally Once a day 1 tablet Amlodipine Besylate [facility] [address]-63 10 MG Orally Once a day 1 tablet Metoprolol Tartrate [facility] [address]-73 100 MG Orally Once a day 1 tablet Klor-Con M20 [facility] [address]-20 20 MEQ Orally Once a day 1 tablet Naproxen [facility] [address]-27 500 MG Orally 2 times a day 1 tablet as needed Procedures Procedure Coding System Code Date ANTINUCLEAR ANTIBODIES CPT-4 01917 Oct 09, 2015 RHEUMATOID FACTOR, QUANT CPT-4 88750 Oct 09, 2015 RBC SED RATE, NONAUTOMATED CPT-4 68463 Oct 09, 2015 Office Visit, New Pt., Level 4 CPT-4 87219 Oct 09, 2015 X-RAY EXAM OF KNEE, 1 OR 2 CPT-4 15657 Oct 09, 2015 VENIPUNCT, ROUTINE* CPT-4 93432 Oct 09, 2015 Vital Signs Date/Time: Oct 09, 2015 Cardiac Monitoring Heart Rate 86 bpm Temperature 97.8 F Weight 323.1 lbs Blood Pressure Diastolic 82 mmHg Blood Pressure Systolic 140 mmHg Results Name Result Date Reference Range Unit Abnormality Flag ROUTINE VENIPUNCTURE Summary Purpose eClinicalWorks Submission
--- OUTSIDE RECORDS SUMMARY | 2017-10-13 19:40 | XMS REPORT ---
Author Author REBEKAH CHAVEZ [facility] eClinicalWorks Address Unknown Phone Unavailable Care Team Providers Care Shell Coremaker Name Role Phone REBEKAH CHAVEZ Unavailable Allergies [...] M19.90 Active Problem Hypercholesterolemia E78.0 Active Medications No Known Medications Results No Known Results Summary Purpose eClinicalWorks Submission
--- OUTSIDE RECORDS SUMMARY | 2017-10-13 19:40 | XMS REPORT ---
Author Author REBEKAH CHAVEZ Organization [facility] Address [address] [place] [address] Care Team Providers Care Javascript Programmer Name Role Phone CHAVEZ REBEKAH Unavailable PROBLEMS Type Condition ICD9-CM Code [id number] Code Onset Dates Condition Status SNOMED Code Problem Chronic osteoarthritis M19.90 Active 95887317 Problem Bursitis of elbow M70.30 Active 531150211 Problem Morbid obesity due to excess calories E66.01 Active 102954504 Problem Anxiety F41.9 Active 99813045 Problem Hepatocellular carcinoma C22.0 Active 135705816 Problem Localized edema R60.0 Active 1881684 Problem Osteoarthritis of right knee M17.9 Active 964572744 Problem Liver mass R16.0 Active 047007359 Problem Moderate episode of recurrent major depressive disorder F33.1 Active 59326718 Problem Gout M10.9 Active 67271377 Problem Vitamin D deficiency E55.9 Active 59781152 Problem Depression F32.9 Active 34978767 Problem GERD (gastroesophageal reflux disease) K21.9 Active 207832731 Problem Hypotestosteronemia E29.1 Active 292528207 Problem Hypercholesterolemia E78.0 Active 04540966 Problem HTN (hypertension) I10 Active 01653952 Problem Sleep apnea, unspecified G47.30 Active 97684115 ALLERGIES Unknown Allergies SOCIAL HISTORY No smoking Hx information available PLAN OF CARE VITAL SIGNS MEDICATIONS Unknown Medications RESULTS No Results PROCEDURES No Known procedures IMMUNIZATIONS No Known Immunizations
--- OUTSIDE RECORDS SUMMARY | 2017-10-13 19:40 | XMS REPORT ---
Author Author REBEKAH CHAVEZ Organization [facility] Address [address] [place] [address] Care Team Providers Care Watershed Coordinator Name Role Phone CHAVEZ REBEKAH Unavailable PROBLEMS Type Condition ICD9-CM Code [id number] Code Onset Dates Condition Status SNOMED Code Problem Chronic osteoarthritis M19.90 Active 04507715 Problem Bursitis of elbow M70.30 Active 393711152 Problem Morbid obesity due to excess calories E66.01 Active 431564636 Problem Anxiety F41.9 Active 10688251 Problem Hepatocellular carcinoma C22.0 Active 956639561 Problem Localized edema R60.0 Active 5766925 Problem Osteoarthritis of right knee M17.9 Active 878814657 Problem Liver mass R16.0 Active 596515846 Problem Moderate episode of recurrent major depressive disorder F33.1 Active 62536567 Problem Gout M10.9 Active 99052518 Problem Vitamin D deficiency E55.9 Active 90724611 Problem Depression F32.9 Active 18819181 Problem GERD (gastroesophageal reflux disease) K21.9 Active 968659129 Problem Hypotestosteronemia E29.1 Active 160368300 Problem Hypercholesterolemia E78.0 Active 11466167 Problem HTN (hypertension) I10 Active 80900625 Problem Sleep apnea, unspecified G47.30 Active 24970263 ALLERGIES Unknown Allergies SOCIAL HISTORY No smoking Hx information available PLAN OF CARE VITAL SIGNS MEDICATIONS Unknown Medications RESULTS No Results PROCEDURES No Known procedures IMMUNIZATIONS No Known Immunizations
--- OUTSIDE RECORDS SUMMARY | 2017-10-13 19:40 | XMS REPORT ---
Author Author REBEKAH CHAVEZ [facility] eClinicalWorks Address Unknown Phone Unavailable Care Team Providers Care Injection Moulding Machine Operator Name Role Phone REBEKAH CHAVEZ Unavailable Allergies No Known Allergies Problems Problem Type Condition Code Onset Dates Condition Status Problem GERD (gastroesophageal reflux disease) K21.9 Active Problem Vitamin D deficiency E55.9 Active Problem Hypotestosteronemia E29.1 Active Assessment Chronic osteoarthritis M19.90 Active Problem Sleep apnea, unspecified G47.30 Active Problem Morbid obesity due to excess calories E66.01 Active Problem HTN (hypertension) I10 Active Problem Bursitis of elbow M70.30 Active Problem Gout M10.9 Active Problem Depression F32.9 Active Problem Chronic osteoarthritis M19.90 Active Problem Hypercholesterolemia E78.0 Active Medications Medication Code System Code Instructions Start Date End Date Status Dosage Hydrocodone-Acetaminophen [facility] [address]-13 5-325 MG Orally every 6 hrs 1 tablet as needed Results No Known Results Summary Purpose eClinicalWorks Submission
--- OUTSIDE RECORDS SUMMARY | 2017-10-13 19:40 | XMS REPORT ---
Author Author BAYRON TAPIA Organization [facility] Address [address] [place] [address] Care Team Providers Care Procurement Clerk Name Role Phone BAYRON TAPIA Unavailable PROBLEMS Type Condition ICD9-CM Code [id number] Code Onset Dates Condition Status SNOMED Code Problem Chronic osteoarthritis M19.90 Active 24275313 Problem Bursitis of elbow M70.30 Active 857461337 Problem Morbid obesity due to excess calories E66.01 Active 337236622 Problem Anxiety F41.9 Active 37372052 Problem Hepatocellular carcinoma C22.0 Active 777601805 Problem Localized edema R60.0 Active 9553353 Problem Osteoarthritis of right knee M17.9 Active 348189932 Problem Liver mass R16.0 Active 203827751 Problem Moderate episode of recurrent major depressive disorder F33.1 Active 75491464 Problem Gout M10.9 Active 65462832 Problem Vitamin D deficiency E55.9 Active 21380674 Problem Depression F32.9 Active 67162851 Problem GERD (gastroesophageal reflux disease) K21.9 Active 117912565 Problem Hypotestosteronemia E29.1 Active 657652707 Problem Hypercholesterolemia E78.0 Active 85208152 Problem HTN (hypertension) I10 Active 02785370 Problem Sleep apnea, unspecified G47.30 Active 67477939 ALLERGIES Substance Reaction Event Type Date Status N.K.D.A. Unknown Non Drug Allergy Nov, Unknown SOCIAL HISTORY No smoking Hx information available PLAN OF CARE Activity Details Follow Up prn Reason: VITAL SIGNS Height 71 in 2016-12-14 Weight 304.6 lbs 2016-12-14 Temperature 97.7 degrees Fahrenheit 2016-12-14 Heart Rate 92 bpm 2016-12-14 Respiratory Rate 20 2016-12-14 BMI 42.48 kg/m2 2016-12-14 Blood pressure systolic 128 mmHg 2016-12-14 Blood pressure diastolic 92 mmHg 2016-12-14 MEDICATIONS Medication Instructions Dosage Frequency Start Date End Date Duration Status Hydrocodone-Acetaminophen 5-325 MG Orally every 6 hrs 1 tablet as needed 6h Active Klor-Con M20 20 MEQ Orally Once a day 1 tablet 24h 30 Active Metoprolol Tartrate 100 MG Orally Once a day 1 tablet 24h 30 Active [facility] Hydrocortisone 1 % Externally Twice a day apply thin layer to top of right foot 12h Jun, Active Gold Aranda Foot - Active Cyclobenzaprine HCl 10 mg Orally 3 times a day 1 tablet 8h 30 Active Prilosec 20 MG Orally Once a day 1 capsule 24h 30 Active Fish Oil 1000 MG Orally Once a day 1 capsule 24h Active Tramadol HCl 50 MG TAKE ONE TABLET BY MOUTH EVERY 4 HOURS NEEDED 20 Active Hydrochlorothiazide 25 MG Orally Once a day 1 tablet 24h 30 Active Centrum Active Simvastatin 20 MG Orally Once a day 1 tablet in the evening 24h 30 Active Amlodipine Besylate 10 MG Orally Once a day 1 tablet 24h 30 Active Vitamin D3 2000 UNIT Active Citalopram Hydrobromide 40 MG TAKE ONE TABLET BY MOUTH ONCE DAILY 30 Active Zofran ODT 4 MG Orally every 8 hrs 1-2 tablet on the tongue and allow to dissolve 8h Nov, 30 day(s) Active Furosemide 40 MG Orally Once a day 1 tablet 24h 30 Active RESULTS Name Result Date Reference Range H PYLORI (IN HOUSE) 2016-12-14 H. PYLORI negative Control + Lot # [id number] Exp date 2017-10-28 Ultrasound : Gallbladder 2016-12-15 PROCEDURES Procedure Date Ordered Related Diagnosis Body Site IMMUNOASSAY,INFECTIOUS AGENT Dec 14, 2016 Office Visit, Est Pt., Level 3 Dec 14, 2016 IMMUNIZATIONS No Known Immunizations
--- OUTSIDE RECORDS SUMMARY | 2017-10-13 19:40 | XMS REPORT ---
Author Author REBEKAH CHAVEZ Organization [facility] Address [address] [place] [address] Care Team Providers Care Netbackup Admin Name Role Phone ABIODUN CHAVEZNETTE Unavailable PROBLEMS Type Condition ICD9-CM Code [id number] Code Onset Dates Condition Status SNOMED Code Problem Morbid obesity due to excess calories E66.01 Active 178041917 Problem Osteoarthritis of right knee M17.9 Active 300601882 Problem Bursitis of elbow M70.30 Active 159465328 Problem Primary osteoarthritis of both knees M17.0 Active 708115533 Problem Anxiety F41.9 Active 23798748 Problem Moderate episode of recurrent major depressive disorder F33.1 Active 20713641 Problem Localized edema R60.0 Active 968309502 Problem Hepatocellular carcinoma C22.0 Active 341774949 Problem Liver mass R16.0 Active 943284805 Problem Vitamin D deficiency E55.9 Active 18899582 Problem Hypotestosteronemia E29.1 Active 170028934 Problem Gout M10.9 Active 73274025 Problem GERD (gastroesophageal reflux disease) K21.9 Active 402830937 Problem Hypercholesterolemia E78.0 Active 29610647 Problem HTN (hypertension) I10 Active 35682567 Problem Sleep apnea, unspecified G47.30 Active 96133178 Problem Depression F32.9 Active 69863202 Problem Chronic osteoarthritis M19.90 Active 28160354 ALLERGIES No Information SOCIAL HISTORY Never Assessed PLAN OF CARE VITAL SIGNS MEDICATIONS Unknown [...]
--- OUTSIDE RECORDS SUMMARY | 2017-10-13 19:40 | XMS REPORT ---
Author Author MYNOR LUND [facility] Address [address] [place] [address] Care Team Providers Care Informatics Physician Liaison Name Role Phone MYNOR LUND Unavailable PROBLEMS Type Condition ICD9-CM Code WSH50-GH Code Onset Dates Condition Status SNOMED Code Problem HTN (hypertension) I10 Active 11810340 Problem Bursitis of elbow M70.30 Active 436123751 Problem Morbid obesity due to excess calories E66.01 Active 671729460 Problem Anxiety F41.9 Active 40840028 Problem Hepatocellular carcinoma C22.0 Active 646420202 Problem Liver mass R16.0 Active 565583825 Problem Osteoarthritis of right knee M17.9 Active 710174893 Problem Moderate episode of recurrent major depressive disorder F33.1 Active 16528405 Problem Localized edema R60.0 Active 7928455 Problem Sleep apnea, unspecified G47.30 Active 13067853 Problem GERD (gastroesophageal reflux disease) K21.9 Active 082641642 Problem Depression F32.9 Active 78799772 Problem Gout M10.9 Active 44333127 Problem Hypotestosteronemia E29.1 Active 865139841 Problem Hypercholesterolemia E78.0 Active 62655314 Problem Vitamin D deficiency E55.9 Active 19610082 Problem Chronic osteoarthritis M19.90 Active 28809575 ALLERGIES Substance Reaction Event Type Date Status N.K.D.A. Unknown Non Drug Allergy Oct, Unknown SOCIAL HISTORY No smoking Hx information available PLAN OF CARE Activity Details Follow Up prn Reason: VITAL SIGNS Height 71 in 2016-11-27 Weight 306.9 lbs 2016-11-27 Temperature 98.5 degrees Fahrenheit 2016-11-27 Heart Rate 124 bpm 2016-11-27 Respiratory Rate 22 2016-11-27 BMI 42.80 kg/m2 2016-11-27 Blood pressure systolic 98 mmHg 2016-11-27 Blood pressure diastolic 68 mmHg 2016-11-27 MEDICATIONS Medication Instructions Dosage Frequency Start Date End Date Duration Status [facility] Hydrocortisone 1 % Externally Twice a day apply thin layer to top of right foot 12h 08 Jun, 2016 Active Naproxen 500 MG TAKE ONE TABLET BY MOUTH TWICE DAILY NEEDED 30 Active Amlodipine Besylate 10 MG Orally Once a day 1 tablet 24h 30 Active Metoprolol Tartrate 100 MG Orally Once a day 1 tablet 24h 30 Active Hydrochlorothiazide 25 MG Orally Once a day 1 tablet 24h 30 Active Centrum Active Citalopram Hydrobromide 40 MG TAKE ONE TABLET BY MOUTH ONCE DAILY 30 Active Simvastatin 20 MG Orally Once a day 1 tablet in the evening 24h 30 Active Allopurinol 300 MG Orally Once a day 1 tablet 24h 30 Active Tramadol HCl 50 MG TAKE ONE TABLET BY MOUTH EVERY 4 HOURS NEEDED 20 Active Klor-Con M20 20 MEQ Orally Once a day 1 tablet 24h 30 Active Vitamin D3 2000 UNIT Active Furosemide 40 MG Orally Once a day 1 tablet 24h 30 Active Fish Oil 1000 MG Orally Once a day 1 capsule 24h Active Gold Aranda Foot - Active Prilosec 20 MG Orally Once a day 1 capsule 24h 30 Active Hydrocodone-Acetaminophen 5-325 MG Orally every 6 hrs 1 tablet as needed 6h Active Cyclobenzaprine HCl 10 mg Orally 3 times a day 1 tablet 8h 30 Active RESULTS No Results PROCEDURES Procedure Date Ordered Related Diagnosis Body Site Office Visit, Est Pt., Level 3 Nov 27, 2016 IMMUNIZATIONS No Known Immunizations
--- OUTSIDE RECORDS SUMMARY | 2017-10-13 19:41 | XMS REPORT ---
Author Author REBEKAH CHAVEZ [facility] eClinicalWorks Address Unknown Phone Unavailable Care Team Providers Care Flag Football Coach Name Role Phone REBEKAH CHAVEZ CP Unavailable [...] Hypercholesterolemia E78.0 Active Problem Gout M10.9 Active Assessment GERD (gastroesophageal reflux disease) K21.9 Active Assessment Hypotestosteronemia E29.1 Active Assessment Gout M10.9 Active Assessment Hypercholesterolemia E78.0 Active Assessment Vitamin D deficiency E55.9 Active Assessment Chronic osteoarthritis M19.90 Active Assessment Depression F32.9 Active Assessment HTN (hypertension) I10 Active Medications Medication Code System Code Instructions Start Date End Date Status Dosage Prilosec [facility] [address]-27 20 MG Orally Once a day 1 capsule [address]roxen [facility] [address]-31 500 MG Orally 2 times a day 1 tablet as needed Centrum [facility] [address]-26 Orally not defined Simvastatin [facility] [address]-94 20 MG Orally Once a day 1 tablet in the evening Vitamin D3 [facility] [address]-30 2000 UNIT Orally not defined Metoprolol Tartrate [facility] [address]-48 100 MG Orally Once a day 1 tablet Testosterone Cypionate [facility] [address]-92 200 Intramuscular 1 cc monthly Citalopram Hydrobromide [facility] [address]-04 40 MG Orally Once a day 1 tablet Furosemide [facility] [address]-26 40 MG Orally Once a day 1 tablet Fish Oil [facility] [address]-57 1000 MG Orally Once a day 1 capsule Allopurinol [facility] [address]-76 300 MG Orally Once a day 1 tablet Klor-Con M20 [facility] [address]-60 20 MEQ Orally Once a day 1 tablet Amlodipine Besylate [facility] [address]-87 10 MG Orally Once a day 1 tablet Hydrochlorothiazide [facility] [address]-42 25 MG Orally Once a day 1 tablet Hydrocodone-Acetaminophen [facility] [address]-01 5-325 MG Orally every 6 hrs 1 tablet as needed Tramadol HCl [facility] [address]-08 50 MG Orally every 4 hrs PRN 1 tablet as needed Procedures Procedure Coding System Code Date Office Visit, Est Pt., Level 4 CPT-4 80017 Oct 16, 2015 Vital Signs Date/Time: Oct 16, 2015 Cardiac Monitoring Heart Rate 60 bpm Temperature 98.3 F Height 71 in Blood Pressure Diastolic 80 mmHg Blood Pressure Systolic 120 mmHg Results No Known Results Summary Purpose eClinicalWorks Submission
--- OUTSIDE RECORDS SUMMARY | 2017-10-13 19:43 | XMS REPORT ---
Author REBEKAH Waller [facility] eClinicalWorks Address Unknown Phone Unavailable Care Team Providers Care Athlete Manager Name Role Phone REBEKAH CHAVEZ CP Unavailable Allergies No Known Allergies Problems Problem [...] Date End Date Status Dosage Tramadol HCl [facility] [address]-42 50 mg TAKE ONE TABLET BY MOUTH EVERY 4 HOURS NEEDED Citalopram Hydrobromide [facility] 35073637372 40 MG Orally Once a day 1 tablet Results No Known Results Summary Purpose eClinicalWorks Submission
--- OUTSIDE RECORDS SUMMARY | 2017-10-13 19:43 | XMS REPORT ---
Author Author REBEKAH CHAVEZ [facility] Address [address] [place] [address] Care Team Providers Care Patient Services Specialist Name Role Phone ABIODUN CHAVEZNETTE Unavailable PROBLEMS Type Condition ICD9-CM Code [id number] Code Onset Dates Condition Status SNOMED Code Problem Morbid obesity due to excess calories E66.01 Active 898146990 Problem Osteoarthritis of right knee M17.9 Active 818121276 Problem Bursitis of elbow M70.30 Active 868843066 Problem Primary osteoarthritis of both knees M17.0 Active 525730313 Problem Anxiety F41.9 Active 80780411 Problem Moderate episode of recurrent major depressive disorder F33.1 Active 78086625 Problem Localized edema R60.0 Active 549731926 Problem Hepatocellular carcinoma C22.0 Active 879982300 Problem Liver mass R16.0 Active 168744590 Problem Vitamin D deficiency E55.9 Active 78208188 Problem Hypotestosteronemia E29.1 Active 290135919 Problem Gout M10.9 Active 71585025 Problem GERD (gastroesophageal reflux disease) K21.9 Active 396943237 Problem Hypercholesterolemia E78.0 Active 32706340 Problem HTN (hypertension) I10 Active 43540922 Problem Sleep apnea, unspecified G47.30 Active 94371889 Problem Depression F32.9 Active 66710712 Problem Chronic osteoarthritis M19.90 Active 79805289 ALLERGIES No Known Allergies SOCIAL HISTORY Never Assessed PLAN OF CARE Activity Details Follow Up 3 Months Reason:htn, depression, gerd VITAL SIGNS Height 71 in 2017-04-30 Weight 301.8 lbs 2017-04-30 Temperature 98.5 degrees Fahrenheit 2017-04-30 Heart Rate 76 bpm 2017-04-30 Respiratory Rate 20 2017-04-30 BMI 42.09 kg/m2 2017-04-30 Blood pressure systolic 148 mmHg 2017-04-30 Blood pressure diastolic 78 mmHg 2017-04-30 MEDICATIONS Medication Instructions Dosage Frequency Start Date End Date Duration Status Citalopram Hydrobromide 40 mg Orally Once a day TAKE ONE TABLET BY MOUTH ONCE DAILY 24h 30 Active Protonix 40 mg Orally Once a day 1 tablet 24h 10 Dec, 2016 Active Metoprolol Tartrate 100 MG Orally Once a day 1 tablet 24h Active Simvastatin 20 mg Orally Once a day 1 tablet in the evening 24h Active Xanax 0.5 MG Orally Three times a day 1 tablet 8h 24 Nov, 2016 Active Klor-Con M20 20 MEQ Orally Once a day 1 tablet 24h 30 Active Centrum Active RESULTS No Results PROCEDURES No Known [...]
--- OUTSIDE RECORDS SUMMARY | 2017-10-13 19:47 | XMS REPORT ---
Author Author REBEKAH CHAVEZ [facility] eClinicalWorks Address Unknown Phone Unavailable Care Team Providers Care Buying Intern Name Role Phone REBEKAH CHAVEZ Unavailable Allergies [...] E78.0 Active Problem Gout M10.9 Active Medications No Known Medications Results No Known Results Summary Purpose eClinicalWorks Submission
--- OUTSIDE RECORDS SUMMARY | 2017-10-13 19:48 | XMS REPORT ---
Author Author REBEKAH CHAVEZ [facility] eClinicalWorks Address Unknown Phone Unavailable Care Team Providers Care Stockroom Helper Name Role Phone REBEKAH CHAVEZ Unavailable Allergies [...] Date End Date Status Dosage Hydrocodone-Acetaminophen [facility] [address]-51 5-325 MG Orally every 6 hrs 1 tablet as needed Results No Known Results Summary Purpose eClinicalWorks Submission
--- OUTSIDE RECORDS SUMMARY | 2017-10-13 19:48 | XMS REPORT ---
Author Author SAIRA BARNETT [facility] eClinicalWorks Address Unknown Phone Unavailable Care Team Providers Care Mate Relief Name Role Phone SAIRA BARNETT Unavailable Allergies No Known Allergies Problems Problem Type Condition Code Onset Dates Condition Status Problem Sleep apnea, unspecified G47.30 Active Problem Hypotestosteronemia E29.1 Active Problem GERD (gastroesophageal reflux disease) K21.9 Active Assessment Osteoarthritis of right knee M17.9 Active Problem HTN (hypertension) I10 Active Problem Chronic osteoarthritis M19.90 Active Problem Morbid obesity due to excess calories E66.01 Active Problem Depression F32.9 Active Problem Vitamin D deficiency E55.9 Active Problem Hypercholesterolemia E78.0 Active Problem Gout M10.9 Active Medications No Known Medications Procedures Procedure Coding System Code Date DEPO MEDROL 80 MG/ML CPT-4 J1040 Nov 07, 2015 Office Visit, Est Pt., Level 3 CPT-4 60396 Nov 07, 2015 DRAIN/INJECT, JOINT/BURSA CPT-4 90889 Nov 07, 2015 Vital Signs Date/Time: Nov 07, 2015 Blood Pressure Diastolic 80 mmHg Blood Pressure Systolic 122 mmHg Height 71 in Results Name Result Date Reference Range Unit Abnormality Flag JOINT INJECTION-LARGE JOINT (specify site) Summary Purpose eClinicalWorks Submission
--- OUTSIDE RECORDS SUMMARY | 2017-10-13 19:48 | XMS REPORT ---
Author Author SCOTT REBEKAH Organization [facility] Address [address] [place] [address] Care Team Providers Care Tugboat Mate Name Role Phone REBEKAH CHAVEZ Unavailable PROBLEMS Type Condition ICD9-CM Code SYM45-TX Code Onset Dates Condition Status SNOMED Code Problem Morbid obesity due to excess calories E66.01 Active 241209174 Problem Osteoarthritis of right knee M17.9 Active 483151196 Problem Bursitis of elbow M70.30 Active 314289444 Problem Primary osteoarthritis of both knees M17.0 Active 514971707 Problem Anxiety F41.9 Active 42493960 Problem Moderate episode of recurrent major depressive disorder F33.1 Active 02068875 Problem Localized edema R60.0 Active 8473917 Problem Hepatocellular carcinoma C22.0 Active 261669791 Problem Liver mass R16.0 Active 261469534 Problem Vitamin D deficiency E55.9 Active 00838601 Problem Hypotestosteronemia E29.1 Active 681640247 Problem Gout M10.9 Active 16047831 Problem GERD (gastroesophageal reflux disease) K21.9 Active 388005645 Problem Hypercholesterolemia E78.0 Active 21830239 Problem HTN (hypertension) I10 Active 08187809 Problem Sleep apnea, unspecified G47.30 Active 73609404 Problem Depression F32.9 Active 67498576 Problem Chronic osteoarthritis M19.90 Active 42381722 ALLERGIES No Information SOCIAL HISTORY Never Assessed PLAN OF CARE VITAL SIGNS MEDICATIONS Medication Instructions Dosage Frequency Start Date End Date Duration Status Promethazine HCl 25 MG Orally 3 times a day prn 1 tablet as needed Nov Active RESULTS No Results PROCEDURES No Known [...]
--- OUTSIDE RECORDS SUMMARY | 2017-10-13 19:48 | XMS REPORT ---
Author Author JEFFREY CORRALES Organization [facility] Address [address] [place] [address] Care Team Providers Care Senior Media Director Name Role Phone JEFFREY CORRALES Unavailable PROBLEMS Type Condition ICD9-CM Code GSA25-PH Code Onset Dates Condition Status SNOMED Code Problem Chronic osteoarthritis M19.90 Active 47015667 Problem Bursitis of elbow M70.30 Active 605680042 Problem Morbid obesity due to excess calories E66.01 Active 547913818 Problem Anxiety F41.9 Active 05052170 Problem Hepatocellular carcinoma C22.0 Active 708636055 Problem Localized edema R60.0 Active 0878736 Problem Osteoarthritis of right knee M17.9 Active 717779682 Problem Liver mass R16.0 Active 569274839 Problem Moderate episode of recurrent major depressive disorder F33.1 Active 45513340 Problem Gout M10.9 Active 35039790 Problem Vitamin D deficiency E55.9 Active 93674794 Problem Depression F32.9 Active 57659010 Problem GERD (gastroesophageal reflux disease) K21.9 Active 557388801 Problem Hypotestosteronemia E29.1 Active 074698030 Problem Hypercholesterolemia E78.0 Active 41432111 Problem HTN (hypertension) I10 Active 62382462 Problem Sleep apnea, unspecified G47.30 Active 41207632 ALLERGIES Unknown Allergies SOCIAL HISTORY No smoking Hx information available PLAN OF CARE VITAL SIGNS MEDICATIONS Unknown Medications RESULTS Name Result Date Reference Range Liver Biopsy, Ultrasound Guided 2016-12-18 PROCEDURES No Known procedures IMMUNIZATIONS No Known Immunizations
--- OUTSIDE RECORDS SUMMARY | 2017-10-13 19:48 | XMS REPORT ---
Author Author REBEKAH CHAVEZ Organization [facility] Address [address] [place] [address] Care Team Providers Care Kitchen Manager Name Role Phone ABIODUN CHAVEZNETTE Unavailable PROBLEMS Type Condition ICD9-CM Code CBP38-VK Code Onset Dates Condition Status SNOMED Code Problem Chronic osteoarthritis M19.90 Active 61708312 Problem Bursitis of elbow M70.30 Active 472688640 Problem Morbid obesity due to excess calories E66.01 Active 607959281 Problem Anxiety F41.9 Active 17833698 Problem Hepatocellular carcinoma C22.0 Active 697287328 Problem Localized edema R60.0 Active 3088005 Problem Osteoarthritis of right knee M17.9 Active 691057176 Problem Liver mass R16.0 Active 728405484 Problem Moderate episode of recurrent major depressive disorder F33.1 Active 71900979 Problem Gout M10.9 Active 23265581 Problem Vitamin D deficiency E55.9 Active 02112000 Problem Depression F32.9 Active 55352986 Problem GERD (gastroesophageal reflux disease) K21.9 Active 441276813 Problem Hypotestosteronemia E29.1 Active 690542113 Problem Hypercholesterolemia E78.0 Active 39825564 Problem HTN (hypertension) I10 Active 92173034 Problem Sleep apnea, unspecified G47.30 Active 97866010 ALLERGIES Unknown Allergies SOCIAL HISTORY No smoking Hx information available PLAN OF CARE VITAL SIGNS MEDICATIONS Medication Instructions Dosage Frequency Start Date End Date Duration Status Promethazine HCl 25 MG Orally 3 times a day prn 1 tablet as needed NovDec, Active RESULTS No Results PROCEDURES No Known procedures IMMUNIZATIONS No Known Immunizations
--- OUTSIDE RECORDS SUMMARY | 2017-10-13 19:48 | XMS REPORT ---
Author Author REBEKAH CHAVEZ [facility] eClinicalWorks Address Unknown Phone Unavailable Care Team Providers Care Spray Blender Name Role Phone REBEKAH CHAVEZ CP Unavailable [...] Instructions Start Date End Date Status Dosage Furosemide [facility] 2] [address]-91 40 MG Orally Once a day 1 tablet Results No Known Results Summary Purpose eClinicalWorks Submission
--- OUTSIDE RECORDS SUMMARY | 2017-10-13 19:48 | XMS REPORT ---
Author Author REBEKAH CHAVEZ Organization [facility] Address [address] [place] [address] Care Team Providers Care Yeast Washer Name Role Phone CHAVEZ REBEKAH Unavailable PROBLEMS Type Condition ICD9-CM Code [id number] Code Onset Dates Condition Status SNOMED Code Problem Morbid obesity due to excess calories E66.01 Active 010224891 Problem Osteoarthritis of right knee M17.9 Active 339295669 Problem Bursitis of elbow M70.30 Active 856291419 Problem Primary osteoarthritis of both knees M17.0 Active 246285669 Problem Anxiety F41.9 Active 83454891 Problem Moderate episode of recurrent major depressive disorder F33.1 Active 86018936 Problem Localized edema R60.0 Active 5331589 Problem Hepatocellular carcinoma C22.0 Active 821644322 Problem Liver mass R16.0 Active 617978215 Problem Vitamin D deficiency E55.9 Active 26371213 Problem Hypotestosteronemia E29.1 Active 198835030 Problem Gout M10.9 Active 45768894 Problem GERD (gastroesophageal reflux disease) K21.9 Active 932804973 Problem Hypercholesterolemia E78.0 Active 40071224 Problem HTN (hypertension) I10 Active 81066112 Problem Sleep apnea, unspecified G47.30 Active 19279374 Problem Depression F32.9 Active 64210534 Problem Chronic osteoarthritis M19.90 Active 00098405 ALLERGIES Unknown Allergies SOCIAL HISTORY No smoking Hx information available PLAN OF CARE VITAL SIGNS MEDICATIONS Unknown Medications RESULTS No Results PROCEDURES No Known procedures IMMUNIZATIONS No Known Immunizations
--- OUTSIDE RECORDS SUMMARY | 2017-10-13 19:48 | XMS REPORT ---
Author Author REBEKAH CHAVEZ Organization [facility] Address [address] [place] [address] Care Team Providers Care Dancer Or Choreographer Name Role Phone CHAVEZ REBEKAH Unavailable PROBLEMS Type Condition ICD9-CM Code WKC02-DS Code Onset Dates Condition Status SNOMED Code Problem HTN (hypertension) I10 Active 94476382 Problem Bursitis of elbow M70.30 Active 075299172 Problem Morbid obesity due to excess calories E66.01 Active 497657481 Problem Anxiety F41.9 Active 15814118 Problem Hepatocellular carcinoma C22.0 Active 932697893 Problem Liver mass R16.0 Active 728556657 Problem Osteoarthritis of right knee M17.9 Active 456653159 Problem Moderate episode of recurrent major depressive disorder F33.1 Active 31419061 Problem Localized edema R60.0 Active 0081068 Problem Sleep apnea, unspecified G47.30 Active 99798078 Problem GERD (gastroesophageal reflux disease) K21.9 Active 576709583 Problem Depression F32.9 Active 16128793 Problem Gout M10.9 Active 68752270 Problem Hypotestosteronemia E29.1 Active 420013112 Problem Hypercholesterolemia E78.0 Active 44139338 Problem Vitamin D deficiency E55.9 Active 95699063 Problem Chronic osteoarthritis M19.90 Active 54301832 ALLERGIES Unknown Allergies SOCIAL HISTORY No smoking Hx information available PLAN OF CARE VITAL SIGNS MEDICATIONS Unknown Medications RESULTS No Results PROCEDURES No Known procedures IMMUNIZATIONS No Known Immunizations
--- OUTSIDE RECORDS SUMMARY | 2017-10-13 19:50 | XMS REPORT ---
Author Author REBEKAH CHAVEZ Organization [facility] Address [address] [place] [address] Care Team Providers Care Floor Cleaner Name Role Phone ABIODUN CHAVEZNETTE Unavailable PROBLEMS Type Condition ICD9-CM Code VWN38-NN Code Onset Dates Condition Status SNOMED Code Problem Chronic osteoarthritis M19.90 Active 15681424 Problem Bursitis of elbow M70.30 Active 555588948 Problem Morbid obesity due to excess calories E66.01 Active 787953206 Problem Anxiety F41.9 Active 56465715 Problem Hepatocellular carcinoma C22.0 Active 532832059 Problem Localized edema R60.0 Active 6362194 Problem Osteoarthritis of right knee M17.9 Active 698020396 Problem Liver mass R16.0 Active 614879694 Problem Moderate episode of recurrent major depressive disorder F33.1 Active 94586262 Problem Gout M10.9 Active 85988509 Problem Vitamin D deficiency E55.9 Active 23076689 Problem Depression F32.9 Active 92411389 Problem GERD (gastroesophageal reflux disease) K21.9 Active 880089940 Problem Hypotestosteronemia E29.1 Active 966230628 Problem Hypercholesterolemia E78.0 Active 25423175 Problem HTN (hypertension) I10 Active 50857150 Problem Sleep apnea, unspecified G47.30 Active 27693709 ALLERGIES Unknown Allergies SOCIAL HISTORY No smoking Hx information available PLAN OF CARE VITAL SIGNS MEDICATIONS Medication Instructions Dosage Frequency Start Date End Date Duration Status Promethazine HCl 25 MG Orally 3 times a day prn 1 tablet as needed NovDec, 30 day(s) Active RESULTS No Results PROCEDURES No Known procedures IMMUNIZATIONS No Known Immunizations
--- OUTSIDE RECORDS SUMMARY | 2017-10-13 19:51 | XMS REPORT ---
Author Author VICENTA PAPPAS Organization [employer] Address Unknown Phone Unavailable Care Team Providers Care Hose Tender Name Role Phone VICENTA PAPPAS CP Unavailable Allergies No Known Allergies Problems Problem Type Condition Code Onset Dates Condition Status Problem Sleep apnea, unspecified G47.30 Active Problem Hypotestosteronemia E29.1 Active Problem GERD (gastroesophageal reflux disease) K21.9 Active Assessment Morbid obesity due to excess calories E66.01 Active Problem HTN (hypertension) I10 Active Problem Chronic osteoarthritis M19.90 Active Problem Morbid obesity due to excess calories E66.01 Active Problem Depression F32.9 Active Problem Vitamin D deficiency E55.9 Active Problem Hypercholesterolemia E78.0 Active Problem Gout M10.9 Active Medications No Known Medications Procedures Procedure Coding System Code Date ASSESS LTH/BEHAVE, INIT CPT-4 23190 Oct 16, 2015 Results No Known Results Summary Purpose [employer] Submission
--- OUTSIDE RECORDS SUMMARY | 2017-10-13 19:51 | XMS REPORT ---
Author Author REBEKAH CHAVEZ Organization [facility] Address [address] [place] [address] Care Team Providers Care Creative Services Intern Name Role Phone CHAVEZ REBEKAH Unavailable PROBLEMS Type Condition ICD9-CM Code NZO16-CE Code Onset Dates Condition Status SNOMED Code Problem Chronic osteoarthritis M19.90 Active 82927924 Problem Bursitis of elbow M70.30 Active 560708169 Problem Morbid obesity due to excess calories E66.01 Active 469145018 Problem Anxiety F41.9 Active 87996855 Problem Hepatocellular carcinoma C22.0 Active 542330560 Problem Localized edema R60.0 Active 8290142 Problem Osteoarthritis of right knee M17.9 Active 340413361 Problem Liver mass R16.0 Active 081619348 Problem Moderate episode of recurrent major depressive disorder F33.1 Active 85976746 Problem Gout M10.9 Active 92712931 Problem Vitamin D deficiency E55.9 Active 47357119 Problem Depression F32.9 Active 79333727 Problem GERD (gastroesophageal reflux disease) K21.9 Active 844785170 Problem Hypotestosteronemia E29.1 Active 559932323 Problem Hypercholesterolemia E78.0 Active 49202045 Problem HTN (hypertension) I10 Active 63273495 Problem Sleep apnea, unspecified G47.30 Active 14380497 ALLERGIES Unknown Allergies SOCIAL HISTORY No smoking Hx information available PLAN OF CARE VITAL SIGNS MEDICATIONS Unknown Medications RESULTS No Results PROCEDURES No Known procedures IMMUNIZATIONS No Known Immunizations
--- OUTSIDE RECORDS SUMMARY | 2017-10-13 19:52 | XMS REPORT | Continuity of Care Document ---
Author Author [facility] Address Unknown Phone Unavailable Allergies Medications Problems Procedures Results Encounters
--- OUTSIDE RECORDS SUMMARY | 2017-10-13 19:52 | XMS REPORT ---
Author REBEKAH Waller [facility] [employer] Address Unknown Phone Unavailable Care Team Providers Care Restaurant Worker Name Role Phone REBEKAH CHAVEZ CP Unavailable Allergies, Adverse Reactions, Alerts Substance Reaction Event Type N.K.D.A. Info Not Available Non Drug Allergy Problems Problem Type Condition Code Onset Dates Condition Status Problem GERD (gastroesophageal reflux disease) K21.9 Active Problem Vitamin D deficiency E55.9 Active Problem Hypotestosteronemia E29.1 Active Problem Morbid obesity due to excess calories E66.01 Active Problem HTN (hypertension) I10 Active Problem Bursitis of elbow M70.30 Active Problem Gout M10.9 Active Problem Depression F32.9 Active Problem Chronic osteoarthritis M19.90 Active Problem Hypercholesterolemia E78.0 Active Assessment Bursitis of elbow M70.30 Active Assessment Hypercholesterolemia E78.0 Active Assessment HTN (hypertension) I10 Active Assessment GERD (gastroesophageal reflux disease) K21.9 Active Assessment Chronic osteoarthritis M19.90 Active Assessment Gout M10.9 Active Problem Sleep apnea, unspecified G47.30 Active Medications Medication Code System Code Instructions Start Date End Date Status Dosage Tramadol HCl [facility] [address]-63 50 MG Orally every 4 hrs PRN 1 tablet as needed Prilosec [facility] [address]-64 20 MG Orally Once a day 1 capsule Simvastatin [facility] [address]-84 20 MG Orally Once a day 1 tablet in the evening Hydrochlorothiazide [facility] [address]-91 25 MG Orally Once a day 1 tablet Citalopram Hydrobromide [facility] [address]-62 40 MG Orally Once a day 1 tablet Fish Oil [facility] [address]-48 1000 MG Orally Once a day 1 capsule Vitamin D3 [facility] [address]-17 2000 UNIT Orally not defined Klor-Con M20 [facility] [address]-33 20 MEQ Orally Once a day 1 tablet Furosemide [facility] [address]-24 40 MG Orally Once a day 1 tablet Allopurinol [facility] [address]-25 300 MG Orally Once a day 1 tablet Metoprolol Tartrate [facility] [address]-56 100 MG Orally Once a day 1 tablet Centrum [facility] [address]-01 Orally not defined Naproxen [facility] [address]-71 500 MG Orally 2 times a day 1 tablet as needed Hydrocodone-Acetaminophen [facility] [address]-33 5-325 MG Orally every 6 hrs 1 tablet as needed Amlodipine Besylate [facility] [address]-47 10 MG Orally Once a day 1 tablet Procedures Procedure Coding System Code Date Office Visit, Est Pt., Level 4 CPT-4 79904 Dec 13, 2015 Vital Signs Date/Time: Dec 13, 2015 Temperature 98.1 F Weight 321.9 lbs Height 71 in BMI 44.89 Index Blood Pressure Diastolic 82 mmHg Blood Pressure Systolic 148 mmHg Cardiac Monitoring Heart Rate 68 bpm Results No Known Results Summary Purpose [employer] Submission
--- OUTSIDE RECORDS SUMMARY | 2017-10-13 19:52 | XMS REPORT ---
Author Author REBEKAH CHAVEZ Organization [facility] Address [address] [place] [address] Care Team Providers Care Chief Executive Name Role Phone CHAVEZ REBEKAH Unavailable PROBLEMS Type Condition ICD9-CM Code QAW25-ET Code Onset Dates Condition Status SNOMED Code Problem Chronic osteoarthritis M19.90 Active 29868387 Problem Bursitis of elbow M70.30 Active 529970338 Problem Morbid obesity due to excess calories E66.01 Active 099348485 Problem Anxiety F41.9 Active 02658908 Problem Hepatocellular carcinoma C22.0 Active 060258615 Problem Localized edema R60.0 Active 1090977 Problem Osteoarthritis of right knee M17.9 Active 421986725 Problem Liver mass R16.0 Active 342994421 Problem Moderate episode of recurrent major depressive disorder F33.1 Active 42413589 Problem Gout M10.9 Active 09010730 Problem Vitamin D deficiency E55.9 Active 39656354 Problem Depression F32.9 Active 49481781 Problem GERD (gastroesophageal reflux disease) K21.9 Active 243052822 Problem Hypotestosteronemia E29.1 Active 303052548 Problem Hypercholesterolemia E78.0 Active 64304648 Problem HTN (hypertension) I10 Active 03043596 Problem Sleep apnea, unspecified G47.30 Active 25607768 ALLERGIES Unknown Allergies SOCIAL HISTORY No smoking Hx information available PLAN OF CARE VITAL SIGNS MEDICATIONS Unknown Medications RESULTS No Results PROCEDURES No Known procedures IMMUNIZATIONS No Known Immunizations
[2017-10-13] MEDS ORDERED: NS IV 1000 ML 1,000 ML IV ONE (20:24)
[2017-10-13 20:31] LABS: BASOPHILS % (AUTO) 0 % (0-10); EOSINOPHILS # (AUTO) 0.1 10^3/uL (0.0-0.3); EOSINOPHILS % (AUTO) 1 % (0-10); LYMPHOCYTES # (AUTO) 1.3 X 10^3 (1.0-4.0); LYMPHOCYTES % (AUTO) 18 % (12-44); MEAN CORPUSCULAR HEMOGLOBIN 30 PG (25-34); MEAN CORPUSCULAR HGB CONC 33 G/DL (32-36); MEAN CORPUSCULAR VOLUME 89 FL (80-99); MEAN PLATELET VOLUME 10.9 FL (7.4-10.4); MONOCYTES # (AUTO) 0.7 X 10^3 (0.0-1.0); MONOCYTES % (AUTO) 10 % (0-12); NEUTROPHILS # (AUTO) 5.1 X 10^3 (1.8-7.8); NEUTROPHILS % (AUTO) 72 % (42-75); PLATELET COUNT 266 10^3/uL (130-400); RED BLOOD COUNT 4.85 10^6/uL (4.35-5.85); RED CELL DISTRIBUTION WIDTH 14.1 % (10.0-14.5); WHITE BLOOD COUNT 7.1 10^3/uL (4.3-11.0)
--- NOTE | 2017-10-13 20:35 | ED Neurological Problem ---
General Chief Complaint: Dizziness/Syncope Stated Complaint: LETHARGIC Nursing Triage Note: PATIENT WITH CANCER PRESENTS WITH COMPLAINTS OF LETHARGY, WEAKNESS, DIZZINESS THAT CAUSES NAUSEA NAD VOMITING. PATIENT STATES THAT PHYSICIANS ARE WORKING TO TITRATE BLOOD PRESSURE MEDICATIONS. HE ALSO HAS SOME DIARRHEA AND FAMILY BELIEVES HE HAS GI BUG. Nursing Sepsis Screen: No Definite Risk Source: patient, family (daughter), spouse Exam Limitations: no limitations History of Present Illness Time seen by provider: 20:07 Allergies and Home Medications Allergies Coded Allergies: No Known Drug Allergies (Unverified , 12/18/16) Home Medications Alprazolam 0.5 Mg Tablet, 0.5 MG PO TID PRN for ANXIETY, (Reported) Amlodipine Besylate 10 Mg Tablet, 10 MG PO DAILY, (Reported) Cholecalciferol (Vitamin D3) 2,000 Unit Capsule, 2,000 UNIT PO DAILY, (Reported) Citalopram Hydrobromide 40 Mg Tablet, 40 MG PO DAILY, (Reported) Cyclobenzaprine HCl 10 Mg Tablet, 10 MG PO TID PRN for SPASMS, (Reported) Docusate Sodium 100 Mg Tablet, 100 MG PO BID, (Reported) Folic Acid/Mv,Fe,Other Min 1 Each Tab.chew, 1 EACH PO DAILY, (Reported) Furosemide 40 Mg Tablet, 40 MG PO DAILY, (Reported) Metoprolol Tartrate 100 Mg Tablet, 100 MG PO HS, (Reported) Morphine Sulfate 30 Mg Tablet.er, 30 MG PO Q8H, (Reported) [place]-3 Fatty Acids 500 Mg Capsule.dr, 1,000 MG PO DAILY, (Reported) Omeprazole Magnesium 10 Mg Suspdr.pkt, 20 MG PO DAILY, (Reported) Ondansetron 4 Mg Tab.rapdis, 1-2 TAB PO TID PRN for NAUSEA, (Reported) Potassium Chloride 20 Meq Tab.er.prt, 20 MEQ PO DAILY, (Reported) Promethazine HCl 12.5 Mg Tablet, 25 MG PO TID PRN for NAUSEA, (Reported) Ranitidine HCl 75 Mg Tablet, 75 MG PO DAILY, (Reported) Simvastatin 20 Mg Tablet, 20 MG PO DAILY, (Reported) Past Nkaqnox-Lanees-Reqftz Hx Patient Social History Alcohol Use: Denies Use Recreational Drug Use: No Smoking Status: Never a Smoker Recent Foreign Travel: No Contact w/Someone Who Travel: No Recent Infectious Disease Expo: No Recent Hopitalizations: No Physical Abuse: No Sexual Abuse: No Immunizations Up To Date Date of Pneumonia Vaccine: Sep 13, 2017 Date of Influenza Vaccine: Sep 13, 2017 Surgeries History of Surgeries: Yes Respiratory History of Respiratory Disorde: No Cardiovascular Cardiac Disorders: Hypertension Neurological History of Neurological Disord: No Reproductive System Hx Reproductive Disorders: No Gastrointestinal History of Gastrointestinal Di: Yes Gastrointestinal Disorders: Gastroesophageal Reflux, Liver Disease/Jaundice, Gall Bladder Disease Musculoskeletal History of Musculoskeletal Dis: No Endocrine History of Endocrine Disorders: No Cancer History of Cancer: Yes Cancer: Liver Psychosocial History of Psychiatric Problem: Yes Behavioral Health Disorders: Anxiety, Depression Suicide Risk Score: 0 Integumentary History of Skin or Integumenta: No Blood Transfusions History of Blood Disorders: No Physical Exam Vital Signs Vital Sign - Last 12Hours 10/13/17 19:30 Temp 98.8 Pulse 98 Resp 20 B/P (MAP) 160/109 Pulse Ox 99 O2 Delivery Room Air Capillary Refill : Less Than 3 Seconds Progress/Results/Core Measures Results/Orders Lab Results Laboratory Tests Test 10/13/17 19:45 10/13/17 20:45 Range/Units White Blood Count 7.1 4.3-11.0 10^3/uL Red Blood Count 4.85 4.35-5.85 10^6/uL Hemoglobin 14.4 13.3-17.7 G/DL Hematocrit 43 40-54 % Mean Corpuscular Volume 89 80-99 FL Mean Corpuscular Hemoglobin 30 25-34 PG Mean Corpuscular Hemoglobin Concent 33 32-36 G/DL Red Cell Distribution Width 14.1 10.0-14.5 % Platelet Count 266 130-400 10^3/uL Mean Platelet Volume 10.9 H 7.4-10.4 FL Neutrophils (%) (Auto) 72 42-75 % Lymphocytes (%) (Auto) 18 12-44 % Monocytes (%) (Auto) 10 0-12 % Eosinophils (%) (Auto) 1 0-10 % Basophils (%) (Auto) 0 0-10 % Neutrophils # (Auto) 5.1 1.8-7.8 X 10^3 Lymphocytes # (Auto) 1.3 1.0-4.0 X 10^3 Monocytes # (Auto) 0.7 0.0-1.0 X 10^3 Eosinophils # (Auto) 0.1 0.0-0.3 10^3/uL Basophils # (Auto) 0.0 0.0-0.1 10^3/uL Prothrombin Time 14.1 12.2-14.7 SEC INR Comment 1.1 0.8-1.4 Activated Partial Thromboplast Time 28 24-35 SEC Sodium Level 142 135-145 MMOL/L Potassium Level 3.8 3.6-5.0 MMOL/L Chloride Level 105 98-107 MMOL/L Carbon Dioxide Level 25 21-32 MMOL/L Anion Gap 12 5-14 MMOL/L Blood Urea Nitrogen 13 7-18 MG/DL Creatinine 1.08 0.60-1.30 MG/DL Estimat Glomerular Filtration Rate > 60 BUN/Creatinine Ratio 12 Glucose Level 123 H 70-105 MG/DL Calcium Level 10.4 H 8.5-10.1 MG/DL Total Bilirubin 0.4 0.1-1.0 MG/DL Aspartate Amino Transf (AST/SGOT) 23 5-34 U/L Alanine Aminotransferase (ALT/SGPT) 15 0-55 U/L Alkaline Phosphatase 57 40-136 U/L Total Protein 7.8 6.4-8.2 GM/DL Albumin 4.2 3.2-4.5 GM/DL Lipase 13 8-78 U/L TSH [place] Testing 0.96 0.35-4.94 UIU/ML Urine Color YELLOW Urine Clarity CLEAR Urine pH 6 5-9 Urine Specific [place] 1.020 1.016-1.022 Urine Protein 2+ H NEGATIVE Urine Glucose (UA) NEGATIVE NEGATIVE Urine Ketones NEGATIVE NEGATIVE Urine Nitrite NEGATIVE NEGATIVE Urine Bilirubin NEGATIVE NEGATIVE Urine Urobilinogen NORMAL NORMAL MG/DL Urine Leukocyte Esterase 1+ H NEGATIVE Urine RBC (Auto) NEGATIVE NEGATIVE Urine RBC NONE /HPF Urine WBC 0-2 /HPF Urine Crystals NONE /LPF Urine Bacteria NEGATIVE /HPF Urine Casts NONE /LPF Urine Mucus LARGE H /LPF Urine Culture Indicated NO My Orders Orders - CYNTHIA CARRINGTON Cbc With Automated Diff (10/13/17 20:24) Comprehensive Metabolic Panel (10/13/17 20:24) Lipase (10/13/17 20:24) Protime With Inr (10/13/17 20:24) Partial Thromboplastin Time (10/13/17 20:24) Thyroid Analyzer (10/13/17 20:24) Ua Culture If Indicated (10/13/17 20:24) Ct Head Wo (10/13/17 20:24) Saline Lock/Iv-Start (10/13/17 20:24) Ns Iv 1000 Ml (Sodium Chloride 0.9%) (10/13/17 20:24) Lorazepam Injection (Ativan Injection) (10/13/17 21:45) Medications Given in ED Current Medications Medications Dose Ordered Sig/Isa Route Start Time Stop Time Status Last Admin Dose Admin Lorazepam 0.5 mg ONCE ONCE IVP 10/13/17 21:45 10/13/17 21:46 DC 10/13/17 21:48 0.5 MG Vital Signs/I&O Vital Sign - Last 12Hours 10/13/17 19:30 Temp 98.8 Pulse 98 Resp 20 B/P (MAP) 160/109 Pulse Ox 99 O2 Delivery Room Air Blood Pressure Mean: 126 Departure Impression Impression: Primary Impression: Diarrhea Additional Impression: Volume depletion Disposition: 01 HOME, SELF-CARE Condition: Improved Departure-Patient Inst. Decision time for Depature: 22:04 Referrals: JESSICA HENLEY DO (PCP) Primary Care Physician REBEKAH CHAVEZ (Family) Primary Care Physician Patient Instructions: Dehydration, Adult (DC) Add. Discharge Instructions: All discharge instructions reviewed with patient and/or family. Voiced understanding. Medications as instructed. Continue usual home medications. Drink plenty of fluids. Avoid standing quickly. Follow-up with Dr. Tellez this week for recheck, call tomorrow morning for appointment time. Return to the emergency department for worsened diarrhea, rectal bleeding, vomiting, abdominal swelling, dizziness, changes in vision, changes in behavior, slurred speech, numbness, weakness, or any other concerns. Scripts Hyoscyamine Sulfate (Levsin-Sl) 0.125 Mg Tab.subl 0.125 MG SL Q6H Y for SPASMS, #14 TAB 0 Refills Prov: CYNTHIA CARRINGTON 10/13/17 CYNTHIA CARRINGTON Oct 13, 2017 20:35
[2017-10-13 20:46] LABS: ALANINE AMINOTRANSFERASE 15 U/L (0-55); ALBUMIN 4.2 GM/DL (3.2-4.5); ANION GAP 12 MMOL/L (5-14); ASPARTATE AMINO TRANSFERASE 23 U/L (5-34); BILIRUBIN,TOTAL 0.4 MG/DL (0.1-1.0); BLOOD UREA NITROGEN 13 MG/DL (7-18); BUN/CREATININE RATIO 12; CALCIUM 10.4 MG/DL (8.5-10.1); CARBON DIOXIDE 25 MMOL/L (21-32); CHLORIDE 105 MMOL/L (98-107); CREATININE SERUM 1.08 MG/DL (0.60-1.30); GFR ESTIMATED > 60; GLUCOSE 123 MG/DL (70-105); LIPASE 13 U/L (8-78); POTASSIUM 3.8 MMOL/L (3.6-5.0); SODIUM 142 MMOL/L (135-145); TOTAL PROTEIN 7.8 GM/DL (6.4-8.2)
[2017-10-13 20:47] LABS: INR 1.1 (0.8-1.4); PROTHROMBIN TIME PATIENT 14.1 SEC (12.2-14.7)
[2017-10-13 20:50] LABS: BILIRUBIN,URINE NEGATIVE (NEGATIVE); KETONES,URINE NEGATIVE (NEGATIVE); LEUKOCYTE ESTERASE ,URINE 1+ (NEGATIVE); NITRITE,URINE NEGATIVE (NEGATIVE); PH,URINE 6 (5-9); PROTEIN,URINE 2+ (NEGATIVE); UROBILINOGEN,URINE NORMAL (NORMAL)
[2017-10-13 21:05] LABS: WBC,URINE 0-2 /HPF
--- NOTE | 2017-10-13 21:09 | Diagnostic Imaging Report ---
PROCEDURE: CT head without contrast. TECHNIQUE: Multiple contiguous axial images were obtained through the brain without the use of intravenous contrast. INDICATION: Lethargic, episode of slurred speech. History of neuroendocrine tumor. COMPARISON: None FINDINGS: There is no midline shift or mass effect. The ventricles and sulci are unremarkable. No evidence for acute intracranial hemorrhage, abnormal extra-axial fluid collections or cerebral edema is present. The basilar cisterns are unremarkable. The bony calvarium is intact. The visualized paranasal sinuses and mastoid air cells are clear. IMPRESSION: Negative appearing noncontrast CT of the head. Dictated by: Dictated on workstation # [id number]
[2017-10-13] MEDS ORDERED: LORazepam INJ 2 MG/ML (ATIVAN) VIAL IVP ONE (21:45)
[2017-10-13] MEDS ORDERED: HYOS0.1283 SL (22:05)
[2017-10-13 22:20] VITALS: BP 164/63
== END 2017-10-13 22:21 | disposition home or self-care (01) ==
LOC: EDUNIT# 19:17 → ER 19:18
DX: R19.7 Diarrhea, unspecified (principal); E86.9 Volume depletion, unspecified; C22.9 Malignant neoplasm of liver, not specified as primary or secondary; I10 Essential (primary) hypertension; K21.9 Gastro-esophageal reflux disease without esophagitis; F41.9 Anxiety disorder, unspecified; F32.9 Major depressive disorder, single episode, unspecified; Z87.19 Personal history of other diseases of the digestive system
CPT/HCPCS: 36415; 70450; 80053; 81000; 83690; 84443; 85025; 85610; 85730

== ENCOUNTER 2017-11-10 13:52 | Outpatient (RCR) | payer OTHER ==
[2017-10-01 10:40] LABS: BASOPHILS % (AUTO) 0 % (0-10); EOSINOPHILS # (AUTO) 0.1 10^3/uL (0.0-0.3); EOSINOPHILS % (AUTO) 2 % (0-10); HEMATOCRIT 38 % (40-54); HEMOGLOBIN 12.3 G/DL (13.3-17.7); LYMPHOCYTES # (AUTO) 1.7 X 10^3 (1.0-4.0); LYMPHOCYTES % (AUTO) 26 % (12-44); MEAN CORPUSCULAR HEMOGLOBIN 30 PG (25-34); MEAN CORPUSCULAR HGB CONC 32 G/DL (32-36); MEAN CORPUSCULAR VOLUME 93 FL (80-99); MEAN PLATELET VOLUME 9.5 FL (7.4-10.4); MONOCYTES # (AUTO) 0.6 X 10^3 (0.0-1.0); MONOCYTES % (AUTO) 10 % (0-12); NEUTROPHILS # (AUTO) 4.2 X 10^3 (1.8-7.8); NEUTROPHILS % (AUTO) 62 % (42-75); PLATELET COUNT 219 10^3/uL (130-400); RED CELL DISTRIBUTION WIDTH 13.7 % (10.0-14.5); WHITE BLOOD COUNT 6.7 10^3/uL (4.3-11.0)
[2017-10-01 11:01] LABS: ALBUMIN 3.6 GM/DL (3.2-4.5); BILIRUBIN,TOTAL 0.2 MG/DL (0.1-1.0); CALCIUM 9.7 MG/DL (8.5-10.1); CREATININE SERUM 1.35 MG/DL (0.60-1.30); POTASSIUM 3.8 MMOL/L (3.6-5.0); TOTAL PROTEIN 6.8 GM/DL (6.4-8.2)
[~2017-11-10 13:52] MED LIST changes: +HYOS0.1283 SL; +METO100T12 PO; -METO100T2 PO; -OMEP10SU PO; +OMEP10SU2 PO
== END 2017-12-02 10:01 | disposition home or self-care (01) ==
LOC: ONC 13:52
PROVIDERS: ATTEND Internal Medicine Hematology & Oncology
DX: C7A.1 Malignant poorly differentiated neuroendocrine tumors (principal); C78.7 Secondary malignant neoplasm of liver and intrahepatic bile duct; G89.3 Neoplasm related pain (acute) (chronic); I12.9 Hypertensive chronic kidney disease with stage 1 through stage 4 chronic kidney disease, or unspecified chronic kidney disease; N18.3 Chronic kidney disease, stage 3 (moderate); E66.01 Morbid (severe) obesity due to excess calories; Z68.41 Body mass index [BMI] 40.0-44.9, adult; Z79.899 Other long term (current) drug therapy; Z45.2 Encounter for adjustment and management of vascular access device
CPT/HCPCS: 36415; 80053; 83615; 85025; 96523

== ENCOUNTER → 2018-02-07 | Outpatient (CLI) | payer OTHER ==
[~2018-02-07] MED LIST changes: +CATHETER FLUSH 10 ML SYR IV PRN; +IOHEXOL 350 MG/ML 100 ML (OMNIPAQUE 350) VIAL IV ONE; +NS 100 ML (IVPB) BAG IV ONE
--- NOTE | 2018-02-07 15:18 | Diagnostic Imaging Report ---
INDICATION: Nausea and vomiting. Headache. History of primary malignancy elsewhere. TECHNIQUE: Routine pre and postcontrast-enhanced axial images were obtained from the skull base to the vertex. COMPARISON: 10/13/2017 FINDINGS: The ventricles and cortical sulci are diffusely prominent, compatible with age-related volume loss. There are confluent areas of abnormal, low attenuation in the periventricular white matter. This is consistent with chronic small vessel ischemic changes. Postcontrast images show no abnormal areas of enhancement. There is no midline shift or mass-effect. No acute intra-axial hemorrhage is seen. There are no abnormal areas of increased or decreased density to suggest acute hemorrhage or edema. No extra-axial masses or collections are present. The bony calvarium is intact. The visualized paranasal sinuses are unremarkable. The mastoid air cells are clear. IMPRESSION: 1. No acute intracranial abnormality. No CT evidence of mass, acute infarct or intracranial hemorrhage. 2. Chronic small vessel ischemic changes in the deep white matter. Dictated by: Dictated on workstation # [id number]
== END ==
LOC: RAD 13:48
PROVIDERS: ATTEND Nurse Practitioner Adult Health
DX: I67.82 Cerebral ischemia (principal); Z85.9 Personal history of malignant neoplasm, unspecified
CPT/HCPCS: 70470

== ENCOUNTER → 2018-02-10 | Outpatient (CLI) | payer OTHER ==
[~2018-02-10] MED LIST changes: -CATHETER FLUSH 10 ML SYR IV PRN; -IOHEXOL 350 MG/ML 100 ML (OMNIPAQUE 350) VIAL IV ONE; -NS 100 ML (IVPB) BAG IV ONE
--- NOTE | 2018-02-10 13:38 | Diagnostic Imaging Report ---
PROCEDURE: CT chest and abdomen with contrast. TECHNIQUE: Multiple contiguous axial images were obtained through the chest and abdomen after the administration of intravenous contrast. INDICATION: Neuroendocrine carcinoma of the liver. FINDINGS: The previous CT chest, abdomen and pelvis exam of 10/01/17 noted a stable appearing low density 2 cm nodule in the right lobe of the liver. The subsequent CT abdomen/pelvis exam performed at [facility] in [place], [place] on 12/23/17 is not available for direct comparison at this time. The report from that exam did note the development of multiple new and enlarging hepatic metastatic disease. On this exam, there is marked enlargement of the liver when compared to the previous study. The liver measures roughly 30 cm in maximum transverse diameter as opposed to 20 cm on the 10/01/17 exam. Furthermore, there are innumerable areas of diminished density throughout the liver. This appearance would be consistent with extensive neoplastic involvement of the liver. Also, in the interval since the prior study, a small amount of fluid has developed about the right lobe of the liver. This measures approximately 2.7 cm in depth. There is also distention of the gallbladder and there may be some sludge within the gallbladder. There is no pericholecystic fluid to suggest acute cholecystitis, however. The spleen, pancreas, adrenals, kidneys, aorta and inferior vena cava show no sign of an acute abnormality. The stomach is not well distended and consequently difficult to assess. The lungs are generally clear. There is no parenchymal lung mass identified. The heart size is stable when compared to the prior exam. Coronary calcifications are again noted. The aorta is not abnormally dilated. There is no sign of a dissection. There is no defect within the pulmonary arteries to indicate a pulmonary embolus. There is no mediastinal or hilar adenopathy. Thyroid gland is unremarkable. The bone windows show no sign of a fracture or of a destructive lesion. IMPRESSION: 1. The appearance of the liver has worsened since the prior exam as there is now marked enlargement of the liver and there are innumerable areas of diminished density throughout the liver. This appearance would be consistent with extensive neoplastic involvement of the liver. 2. There is no other evidence for neoplastic disease. 3. A small amount of fluid has developed about the right lobe of the liver. 4. The gallbladder is distended but there is no sign of an acute cholecystitis. 5. There is no acute cardiopulmonary abnormality noted. 6. These [facility]. Dictated by: Dictated on workstation # [id number]
--- NOTE | 2018-02-10 16:39 | Diagnostic Imaging Report ---
EXAMINATION: Nuclear medicine bone scan. INDICATION: High-grade neuroendocrine carcinoma. TECHNIQUE: This study was performed following administration of 24.7 mCi of 99m-technetium MDP. Anterior and posterior whole-body images were obtained as well as spot films of the thorax and calvarium. FINDINGS: The previous whole body bone scan performed on 07/29/2017 noted severe degenerative disease of the right knee joint. That finding is again evident on this study and does not seem to have changed significantly. The prior exam did note a small focus of increased activity involving the right pedicle of T12. This is felt to be more likely due to degenerative disease than to metastatic disease. On this exam, that finding is not as striking. In the interval since the prior exam, a cylindrical area of increased activity has developed along the right femoral neck on the posterior images. This finding does not have the typical appearance for a metastatic focus, although its precise etiology is not certain. There is no focal area of increased or decreased activity to indicate metastatic skeletal disease. There is excretion of the radiotracer by both kidneys. IMPRESSION: 1. The cylindrical area of increased uptake involving the right femoral neck is of uncertain etiology. This would be unlikely related to metastatic disease. If further imaging is desired, then either CT or MRI would be recommended. 2. There is no other abnormal uptake to suggest neoplastic disease. 3. The severe degenerative changes involving the right knee joint are again evident. Dictated by: Dictated on workstation # [id number]
== END ==
LOC: CARD 11:54
PROVIDERS: ATTEND Nurse Practitioner Adult Health
DX: C7A.1 Malignant poorly differentiated neuroendocrine tumors (principal); M17.11 Unilateral primary osteoarthritis, right knee
CPT/HCPCS: 71260; 74160; 78306

== ENCOUNTER 2018-03-22 13:52 | Outpatient (RCR) | payer OTHER ==
[2018-01-03 10:21] LABS: BASOPHILS % (AUTO) 0 % (0-10); EOSINOPHILS % (AUTO) 1 % (0-10); HEMATOCRIT 38 % (40-54); HEMOGLOBIN 12.6 G/DL (13.3-17.7); LYMPHOCYTES # (AUTO) 0.9 X 10^3 (1.0-4.0); LYMPHOCYTES % (AUTO) 11 % (12-44); MEAN CORPUSCULAR HEMOGLOBIN 29 PG (25-34); MEAN CORPUSCULAR HGB CONC 33 G/DL (32-36); MEAN CORPUSCULAR VOLUME 88 FL (80-99); MEAN PLATELET VOLUME 10.1 FL (7.4-10.4); MONOCYTES # (AUTO) 0.8 X 10^3 (0.0-1.0); MONOCYTES % (AUTO) 10 % (0-12); NEUTROPHILS # (AUTO) 6.2 X 10^3 (1.8-7.8); NEUTROPHILS % (AUTO) 78 % (42-75); PLATELET COUNT 214 10^3/uL (130-400); RED BLOOD COUNT 4.38 10^6/uL (4.35-5.85); RED CELL DISTRIBUTION WIDTH 15.4 % (10.0-14.5)
[2018-01-03 10:55] LABS: ALANINE AMINOTRANSFERASE 39 U/L (0-55); ALBUMIN 3.6 GM/DL (3.2-4.5); ALKALINE PHOSPHATASE 132 U/L (40-136); BILIRUBIN,TOTAL 0.9 MG/DL (0.1-1.0); BUN/CREATININE RATIO 12; CALCIUM 9.7 MG/DL (8.5-10.1); CARBON DIOXIDE 25 MMOL/L (21-32); CHLORIDE 98 MMOL/L (98-107); CREATININE SERUM 1.19 MG/DL (0.60-1.30); GFR ESTIMATED > 60; GLUCOSE 200 MG/DL (70-105); MAGNESIUM 1.8 MG/DL (1.8-2.4); POTASSIUM 4.1 MMOL/L (3.6-5.0); SODIUM 135 MMOL/L (135-145); TOTAL PROTEIN 7.4 GM/DL (6.4-8.2)
[2018-01-10 15:30] LABS: BASOPHILS % (AUTO) 0 % (0-10); EOSINOPHILS # (AUTO) 0.1 10^3/uL (0.0-0.3); EOSINOPHILS % (AUTO) 2 % (0-10); HEMATOCRIT 39 % (40-54); HEMOGLOBIN 12.7 G/DL (13.3-17.7); LYMPHOCYTES # (AUTO) 1.6 X 10^3 (1.0-4.0); LYMPHOCYTES % (AUTO) 27 % (12-44); MEAN CORPUSCULAR HEMOGLOBIN 28 PG (25-34); MEAN CORPUSCULAR HGB CONC 32 G/DL (32-36); MEAN CORPUSCULAR VOLUME 88 FL (80-99); MEAN PLATELET VOLUME 10.4 FL (7.4-10.4); MONOCYTES # (AUTO) 0.5 X 10^3 (0.0-1.0); MONOCYTES % (AUTO) 8 % (0-12); NEUTROPHILS # (AUTO) 3.7 X 10^3 (1.8-7.8); NEUTROPHILS % (AUTO) 63 % (42-75); PLATELET COUNT 242 10^3/uL (130-400); RED BLOOD COUNT 4.48 10^6/uL (4.35-5.85); RED CELL DISTRIBUTION WIDTH 15.3 % (10.0-14.5); WHITE BLOOD COUNT 5.9 10^3/uL (4.3-11.0)
[2018-01-10 15:44] LABS: CALCIUM 9.7 MG/DL (8.5-10.1); CREATININE SERUM 1.28 MG/DL (0.60-1.30); MAGNESIUM 1.9 MG/DL (1.8-2.4); POTASSIUM 4.3 MMOL/L (3.6-5.0)
[2018-01-17 10:53] LABS: BASOPHILS # (AUTO) 0.1 10^3/uL (0.0-0.1); BASOPHILS % (AUTO) 1 % (0-10); EOSINOPHILS # (AUTO) 0.1 10^3/uL (0.0-0.3); EOSINOPHILS % (AUTO) 2 % (0-10); HEMATOCRIT 38 % (40-54); HEMOGLOBIN 12.3 G/DL (13.3-17.7); LYMPHOCYTES # (AUTO) 1.4 X 10^3 (1.0-4.0); LYMPHOCYTES % (AUTO) 27 % (12-44); MEAN CORPUSCULAR HEMOGLOBIN 28 PG (25-34); MEAN CORPUSCULAR HGB CONC 33 G/DL (32-36); MEAN CORPUSCULAR VOLUME 86 FL (80-99); MEAN PLATELET VOLUME 9.9 FL (7.4-10.4); MONOCYTES # (AUTO) 0.5 X 10^3 (0.0-1.0); MONOCYTES % (AUTO) 11 % (0-12); NEUTROPHILS # (AUTO) 2.9 X 10^3 (1.8-7.8); NEUTROPHILS % (AUTO) 59 % (42-75); PLATELET COUNT 222 10^3/uL (130-400); RED BLOOD COUNT 4.36 10^6/uL (4.35-5.85); RED CELL DISTRIBUTION WIDTH 15.6 % (10.0-14.5)
[2018-01-17 11:10] LABS: ALANINE AMINOTRANSFERASE 42 U/L (0-55); ALBUMIN 3.7 GM/DL (3.2-4.5); ALKALINE PHOSPHATASE 154 U/L (40-136); BILIRUBIN,TOTAL 0.7 MG/DL (0.1-1.0); BUN/CREATININE RATIO 11; CALCIUM 9.8 MG/DL (8.5-10.1); CARBON DIOXIDE 26 MMOL/L (21-32); CHLORIDE 103 MMOL/L (98-107); CREATININE SERUM 1.13 MG/DL (0.60-1.30); GFR ESTIMATED > 60; GLUCOSE 158 MG/DL (70-105); POTASSIUM 4.1 MMOL/L (3.6-5.0); SODIUM 138 MMOL/L (135-145); TOTAL PROTEIN 6.9 GM/DL (6.4-8.2)
[2018-01-24 12:41] LABS: BASOPHILS % (AUTO) 1 % (0-10); EOSINOPHILS # (AUTO) 0.1 10^3/uL (0.0-0.3); EOSINOPHILS % (AUTO) 1 % (0-10); HEMATOCRIT 38 % (40-54); HEMOGLOBIN 12.5 G/DL (13.3-17.7); LYMPHOCYTES # (AUTO) 1.3 X 10^3 (1.0-4.0); LYMPHOCYTES % (AUTO) 21 % (12-44); MEAN CORPUSCULAR HEMOGLOBIN 28 PG (25-34); MEAN CORPUSCULAR HGB CONC 33 G/DL (32-36); MEAN CORPUSCULAR VOLUME 86 FL (80-99); MEAN PLATELET VOLUME 9.8 FL (7.4-10.4); MONOCYTES # (AUTO) 1.1 X 10^3 (0.0-1.0); MONOCYTES % (AUTO) 18 % (0-12); NEUTROPHILS # (AUTO) 3.6 X 10^3 (1.8-7.8); NEUTROPHILS % (AUTO) 60 % (42-75); PLATELET COUNT 380 10^3/uL (130-400)
[2018-01-24 12:54] LABS: CLARITY,URINE CLEAR; COLOR,URINE YELLOW; GLUCOSE, URINE (UA) 1+ (NEGATIVE); KETONES,URINE NEGATIVE (NEGATIVE); LEUKOCYTE ESTERASE ,URINE 1+ (NEGATIVE); NITRITE,URINE NEGATIVE (NEGATIVE); PH,URINE 8 (5-9); PROTEIN,URINE 3+ (NEGATIVE); UROBILINOGEN,URINE 1 MG/DL (NORMAL)
[2018-01-24 12:57] LABS: CALCIUM 9.6 MG/DL (8.5-10.1); CREATININE SERUM 1.36 MG/DL (0.60-1.30); MAGNESIUM 1.7 MG/DL (1.8-2.4); POTASSIUM 4.2 MMOL/L (3.6-5.0)
[2018-01-24 13:03] LABS: BACTERIA,URINE NEGATIVE /HPF; BILIRUBIN,URINE 1+ (NEGATIVE)
[2018-01-31 13:53] LABS: BASOPHILS % (AUTO) 0 % (0-10); EOSINOPHILS # (AUTO) 0.1 10^3/uL (0.0-0.3); EOSINOPHILS % (AUTO) 2 % (0-10); HEMATOCRIT 37 % (40-54); LYMPHOCYTES # (AUTO) 1.1 X 10^3 (1.0-4.0); LYMPHOCYTES % (AUTO) 24 % (12-44); MEAN CORPUSCULAR HEMOGLOBIN 29 PG (25-34); MEAN CORPUSCULAR HGB CONC 33 G/DL (32-36); MEAN CORPUSCULAR VOLUME 87 FL (80-99); MEAN PLATELET VOLUME 10.1 FL (7.4-10.4); MONOCYTES # (AUTO) 0.4 X 10^3 (0.0-1.0); MONOCYTES % (AUTO) 9 % (0-12); NEUTROPHILS % (AUTO) 65 % (42-75); PLATELET COUNT 267 10^3/uL (130-400); RED BLOOD COUNT 4.21 10^6/uL (4.35-5.85); RED CELL DISTRIBUTION WIDTH 16.6 % (10.0-14.5); WHITE BLOOD COUNT 4.7 10^3/uL (4.3-11.0)
[2018-01-31 14:10] LABS: BUN/CREATININE RATIO 14; CALCIUM 9.7 MG/DL (8.5-10.1); CARBON DIOXIDE 27 MMOL/L (21-32); CHLORIDE 102 MMOL/L (98-107); CREATININE SERUM 1.13 MG/DL (0.60-1.30); GFR ESTIMATED > 60; GLUCOSE 185 MG/DL (70-105); MAGNESIUM 1.7 MG/DL (1.8-2.4); POTASSIUM 4.2 MMOL/L (3.6-5.0); SODIUM 137 MMOL/L (135-145)
[2018-02-07 13:23] LABS: BASOPHILS % (AUTO) 0 % (0-10); EOSINOPHILS # (AUTO) 0.1 10^3/uL (0.0-0.3); EOSINOPHILS % (AUTO) 1 % (0-10); HEMATOCRIT 37 % (40-54); HEMOGLOBIN 11.7 G/DL (13.3-17.7); LYMPHOCYTES # (AUTO) 1.2 X 10^3 (1.0-4.0); LYMPHOCYTES % (AUTO) 15 % (12-44); MEAN CORPUSCULAR HEMOGLOBIN 28 PG (25-34); MEAN CORPUSCULAR HGB CONC 32 G/DL (32-36); MEAN CORPUSCULAR VOLUME 87 FL (80-99); MEAN PLATELET VOLUME 10.4 FL (7.4-10.4); MONOCYTES # (AUTO) 0.8 X 10^3 (0.0-1.0); MONOCYTES % (AUTO) 10 % (0-12); NEUTROPHILS # (AUTO) 5.8 X 10^3 (1.8-7.8); NEUTROPHILS % (AUTO) 74 % (42-75); PLATELET COUNT 270 10^3/uL (130-400); RED BLOOD COUNT 4.21 10^6/uL (4.35-5.85); WHITE BLOOD COUNT 7.8 10^3/uL (4.3-11.0)
[2018-02-07 13:54] LABS: ALANINE AMINOTRANSFERASE 92 U/L (0-55); ALBUMIN 3.5 GM/DL (3.2-4.5); ALKALINE PHOSPHATASE 304 U/L (40-136); BILIRUBIN,TOTAL 1.7 MG/DL (0.1-1.0); BUN/CREATININE RATIO 13; CALCIUM 9.6 MG/DL (8.5-10.1); CARBON DIOXIDE 25 MMOL/L (21-32); CHLORIDE 102 MMOL/L (98-107); CREATININE SERUM 1.14 MG/DL (0.60-1.30); GFR ESTIMATED > 60; GLUCOSE 147 MG/DL (70-105); POTASSIUM 4.2 MMOL/L (3.6-5.0); SODIUM 138 MMOL/L (135-145); TOTAL PROTEIN 6.9 GM/DL (6.4-8.2)
[2018-02-14 15:08] LABS: ALANINE AMINOTRANSFERASE 75 U/L (0-55); ALKALINE PHOSPHATASE 357 U/L (40-136); BILIRUBIN,TOTAL 3.1 MG/DL (0.1-1.0); BUN/CREATININE RATIO 13; CALCIUM 9.1 MG/DL (8.5-10.1); CARBON DIOXIDE 27 MMOL/L (21-32); CHLORIDE 102 MMOL/L (98-107); CREATININE SERUM 1.03 MG/DL (0.60-1.30); GFR ESTIMATED > 60; GLUCOSE 124 MG/DL (70-105); SODIUM 136 MMOL/L (135-145); TOTAL PROTEIN 6.2 GM/DL (6.4-8.2)
[2018-02-21 13:58] LABS: BASOPHILS % (AUTO) 1 % (0-10); EOSINOPHILS # (AUTO) 0.1 10^3/uL (0.0-0.3); EOSINOPHILS % (AUTO) 2 % (0-10); HEMATOCRIT 32 % (40-54); HEMOGLOBIN 10.5 G/DL (13.3-17.7); LYMPHOCYTES # (AUTO) 0.9 X 10^3 (1.0-4.0); LYMPHOCYTES % (AUTO) 22 % (12-44); MEAN CORPUSCULAR HEMOGLOBIN 28 PG (25-34); MEAN CORPUSCULAR HGB CONC 33 G/DL (32-36); MEAN CORPUSCULAR VOLUME 86 FL (80-99); MEAN PLATELET VOLUME 10.6 FL (7.4-10.4); MONOCYTES % (AUTO) 1 % (0-12); NEUTROPHILS # (AUTO) 3.2 X 10^3 (1.8-7.8); NEUTROPHILS % (AUTO) 75 % (42-75); PLATELET COUNT 238 10^3/uL (130-400); RED BLOOD COUNT 3.73 10^6/uL (4.35-5.85); RED CELL DISTRIBUTION WIDTH 18.7 % (10.0-14.5); WHITE BLOOD COUNT 4.2 10^3/uL (4.3-11.0)
[2018-02-21 14:24] LABS: ALANINE AMINOTRANSFERASE 73 U/L (0-55); ALBUMIN 3.3 GM/DL (3.2-4.5); ALKALINE PHOSPHATASE 331 U/L (40-136); BILIRUBIN,TOTAL 2.1 MG/DL (0.1-1.0); BUN/CREATININE RATIO 19; CALCIUM 9.5 MG/DL (8.5-10.1); CARBON DIOXIDE 30 MMOL/L (21-32); CHLORIDE 102 MMOL/L (98-107); CREATININE SERUM 0.85 MG/DL (0.60-1.30); GFR ESTIMATED > 60; GLUCOSE 161 MG/DL (70-105); POTASSIUM 4.7 MMOL/L (3.6-5.0); SODIUM 138 MMOL/L (135-145); TOTAL PROTEIN 6.5 GM/DL (6.4-8.2)
[2018-02-28 13:37] LABS: BASOPHILS % (AUTO) 2 % (0-10); EOSINOPHILS % (AUTO) 1 % (0-10); HEMATOCRIT 34 % (40-54); HEMOGLOBIN 10.6 G/DL (13.3-17.7); LYMPHOCYTES % (AUTO) 63 % (12-44); MEAN CORPUSCULAR HEMOGLOBIN 28 PG (25-34); MEAN CORPUSCULAR HGB CONC 31 G/DL (32-36); MEAN CORPUSCULAR VOLUME 88 FL (80-99); MEAN PLATELET VOLUME 9.9 FL (7.4-10.4); MONOCYTES # (AUTO) 0.3 X 10^3 (0.0-1.0); MONOCYTES % (AUTO) 17 % (0-12); NEUTROPHILS # (AUTO) 0.3 X 10^3 (1.8-7.8); NEUTROPHILS % (AUTO) 17 % (42-75); PLATELET COUNT 201 10^3/uL (130-400); RED BLOOD COUNT 3.84 10^6/uL (4.35-5.85); RED CELL DISTRIBUTION WIDTH 19.4 % (10.0-14.5); WHITE BLOOD COUNT 1.6 10^3/uL (4.3-11.0)
[2018-02-28 14:04] LABS: ALANINE AMINOTRANSFERASE 52 U/L (0-55); ALBUMIN 3.5 GM/DL (3.2-4.5); ALKALINE PHOSPHATASE 290 U/L (40-136); BILIRUBIN,TOTAL 1.1 MG/DL (0.1-1.0); BUN/CREATININE RATIO 13; CALCIUM 9.6 MG/DL (8.5-10.1); CARBON DIOXIDE 27 MMOL/L (21-32); CHLORIDE 104 MMOL/L (98-107); GFR ESTIMATED > 60; GLUCOSE 160 MG/DL (70-105); MAGNESIUM 1.6 MG/DL (1.8-2.4); POTASSIUM 4.5 MMOL/L (3.6-5.0); SODIUM 138 MMOL/L (135-145); TOTAL PROTEIN 6.8 GM/DL (6.4-8.2)
[2018-03-08 11:06] LABS: BASOPHILS % (AUTO) 1 % (0-10); EOSINOPHILS % (AUTO) 1 % (0-10); HEMATOCRIT 37 % (40-54); HEMOGLOBIN 11.7 G/DL (13.3-17.7); LYMPHOCYTES # (AUTO) 1.5 X 10^3 (1.0-4.0); LYMPHOCYTES % (AUTO) 39 % (12-44); MEAN CORPUSCULAR HEMOGLOBIN 28 PG (25-34); MEAN CORPUSCULAR HGB CONC 32 G/DL (32-36); MEAN CORPUSCULAR VOLUME 89 FL (80-99); MEAN PLATELET VOLUME 10.2 FL (7.4-10.4); MONOCYTES % (AUTO) 26 % (0-12); NEUTROPHILS # (AUTO) 1.3 X 10^3 (1.8-7.8); NEUTROPHILS % (AUTO) 33 % (42-75); PLATELET COUNT 340 10^3/uL (130-400); RED BLOOD COUNT 4.14 10^6/uL (4.35-5.85); RED CELL DISTRIBUTION WIDTH 21.5 % (10.0-14.5); WHITE BLOOD COUNT 3.9 10^3/uL (4.3-11.0)
[2018-03-08 11:24] LABS: BUN/CREATININE RATIO 14; CALCIUM 10.5 MG/DL (8.5-10.1); CARBON DIOXIDE 29 MMOL/L (21-32); CHLORIDE 102 MMOL/L (98-107); CREATININE SERUM 1.17 MG/DL (0.60-1.30); GFR ESTIMATED > 60; GLUCOSE 141 MG/DL (70-105); MAGNESIUM 1.6 MG/DL (1.8-2.4); POTASSIUM 4.2 MMOL/L (3.6-5.0); SODIUM 139 MMOL/L (135-145)
[2018-03-15 11:05] LABS: BASOPHILS % (AUTO) 0 % (0-10); EOSINOPHILS % (AUTO) 0 % (0-10); HEMATOCRIT 38 % (40-54); LYMPHOCYTES # (AUTO) 1.2 X 10^3 (1.0-4.0); LYMPHOCYTES % (AUTO) 11 % (12-44); MEAN CORPUSCULAR HEMOGLOBIN 28 PG (25-34); MEAN CORPUSCULAR HGB CONC 32 G/DL (32-36); MEAN CORPUSCULAR VOLUME 90 FL (80-99); MONOCYTES # (AUTO) 1.4 X 10^3 (0.0-1.0); MONOCYTES % (AUTO) 13 % (0-12); NEUTROPHILS # (AUTO) 8.1 X 10^3 (1.8-7.8); NEUTROPHILS % (AUTO) 75 % (42-75); PLATELET COUNT 313 10^3/uL (130-400); RED BLOOD COUNT 4.22 10^6/uL (4.35-5.85); WHITE BLOOD COUNT 10.7 10^3/uL (4.3-11.0)
[2018-03-15 11:33] LABS: ALBUMIN 3.3 GM/DL (3.2-4.5); BILIRUBIN,TOTAL 4.8 MG/DL (0.1-1.0); CALCIUM 10.1 MG/DL (8.5-10.1); CREATININE SERUM 1.24 MG/DL (0.60-1.30); MAGNESIUM 1.7 MG/DL (1.8-2.4); TOTAL PROTEIN 6.8 GM/DL (6.4-8.2)
[~2018-03-22] VITALS: Ht 182.9 cm; Wt 126.6 kg
[~2018-03-22 13:52] MED LIST changes: +ATROPINE INJ 0.4 MG/ML SDV (CANCER CENTER) INJ SCH; +CARBOPLATIN 425 MG in D5W 50 ML IV(CANCER CTR) 50 ML IV SCH; +CARBOPLATIN IV SCH; +D5W IV SCH; +DEXAMETHASONE PF INJ (CANCER C 10 MG in NS (IVPB) CANCER CENTER 50 ML INJ SCH; +ETOPOSIDE 150 MG in NORMAL SALINE (CANCER CENTER) 500 ML IV SCH; +ETOPOSIDE 200 MG in NORMAL SALINE (CANCER CENTER) 500 ML IV SCH; +FLUOROURACIL 4,600 MG in NS (IVPB) CANCER CENTER 55.2 ML IV SCH; +FLUOROURACIL IV SCH; +FOSAPREPITANT DIMEGLUMINE 150 MG in NS (IVPB) CANCER CENTER ONLY 150 ML IV SCH; +IRINOTECAN HCL 300 MG, IRINOTECAN HCL 60 MG in D5W 250 ML IVPB (CANCER CTR) 250 ML IV SCH; +IRINOTECAN HCL IV SCH; +NS IV 1000 ML (CANCER CTR) IV SCH; +NS IV SCH; +ONDANSETRON 8 MG, DEXAMETHASONE 4 MG/NS 50 ML IVPB (Cancer Ctr) IV ONE; +ONDANSETRON 8 MG, DEXAMETHASONE 4 MG/NS 50 ML IVPB (Cancer Ctr) IV SCH; +ONDANSETRON MDV (CANCER CENTER 16 MG, DEXAMETHASONE PF INJ (CANCER C 10 MG in NS (IVPB)... IV SCH; +PALONOSETRON 0.25 MG, DEXAMETHASONE 10 MG/NS 50 ML IVPB IV PRN; +TOPOTECAN HCL IV SCH; +morphine INJ 4 MG/ML 1 ML (CANCER CTR) IV ONE
[2018-03-22 14:08] LABS: BASOPHILS % (AUTO) 1 % (0-10); EOSINOPHILS % (AUTO) 0 % (0-10); HEMATOCRIT 31 % (40-54); HEMOGLOBIN 9.7 G/DL (13.3-17.7); LYMPHOCYTES # (AUTO) 0.9 X 10^3 (1.0-4.0); LYMPHOCYTES % (AUTO) 25 % (12-44); MEAN CORPUSCULAR HEMOGLOBIN 29 PG (25-34); MEAN CORPUSCULAR HGB CONC 31 G/DL (32-36); MEAN CORPUSCULAR VOLUME 93 FL (80-99); MEAN PLATELET VOLUME 10.3 FL (7.4-10.4); MONOCYTES # (AUTO) 0.3 X 10^3 (0.0-1.0); MONOCYTES % (AUTO) 7 % (0-12); NEUTROPHILS # (AUTO) 2.6 X 10^3 (1.8-7.8); NEUTROPHILS % (AUTO) 68 % (42-75); PLATELET COUNT 107 10^3/uL (130-400); RED BLOOD COUNT 3.38 10^6/uL (4.35-5.85); RED CELL DISTRIBUTION WIDTH 19.4 % (10.0-14.5); WHITE BLOOD COUNT 3.8 10^3/uL (4.3-11.0)
[2018-03-22 14:25] LABS: ALANINE AMINOTRANSFERASE 116 U/L (0-55); ALBUMIN 3.3 GM/DL (3.2-4.5); ALKALINE PHOSPHATASE 493 U/L (40-136); BILIRUBIN,TOTAL 5.3 MG/DL (0.1-1.0); BUN/CREATININE RATIO 19; CALCIUM 10.1 MG/DL (8.5-10.1); CARBON DIOXIDE 25 MMOL/L (21-32); CHLORIDE 103 MMOL/L (98-107); CREATININE SERUM 0.95 MG/DL (0.60-1.30); GFR ESTIMATED > 60; GLUCOSE 146 MG/DL (70-105); POTASSIUM 4.8 MMOL/L (3.6-5.0); SODIUM 137 MMOL/L (135-145); TOTAL PROTEIN 6.7 GM/DL (6.4-8.2)
[2018-03-22] MEDS ORDERED: TOPOTECAN HCL IV SCH (14:45)
[2018-03-22] MEDS ORDERED: NS IV SCH (14:45)
== END 2018-03-28 | disposition home or self-care (01) ==
LOC: ONC 13:52
PROVIDERS: ATTEND Internal Medicine Hematology & Oncology
DX: Z51.11 Encounter for antineoplastic chemotherapy (principal); C7A.1 Malignant poorly differentiated neuroendocrine tumors; C78.7 Secondary malignant neoplasm of liver and intrahepatic bile duct; G89.3 Neoplasm related pain (acute) (chronic); I12.9 Hypertensive chronic kidney disease with stage 1 through stage 4 chronic kidney disease, or unspecified chronic kidney disease; N18.3 Chronic kidney disease, stage 3 (moderate); E66.01 Morbid (severe) obesity due to excess calories; Z68.41 Body mass index [BMI] 40.0-44.9, adult; Z79.899 Other long term (current) drug therapy
CPT/HCPCS: 36415; 36591; 80048; 80053; 81000; 83615; 83735; 85025; 87804; 96361; 96367; 96374; 96375; 96376; 96413; 96416; 96417; 99213

== ENCOUNTER 2018-03-25 18:04 | Emergency (ER) | payer OTHER ==
[~2018-03-25] VITALS: Ht 190.5 cm; Wt 119.3 kg
[~2018-03-25 18:04] MED LIST changes: -ATROPINE INJ 0.4 MG/ML SDV (CANCER CENTER) INJ SCH; -CARBOPLATIN 425 MG in D5W 50 ML IV(CANCER CTR) 50 ML IV SCH; -CARBOPLATIN IV SCH; -D5W IV SCH; -DEXAMETHASONE PF INJ (CANCER C 10 MG in NS (IVPB) CANCER CENTER 50 ML INJ SCH; -ETOPOSIDE 150 MG in NORMAL SALINE (CANCER CENTER) 500 ML IV SCH; -ETOPOSIDE 200 MG in NORMAL SALINE (CANCER CENTER) 500 ML IV SCH; -FLUOROURACIL 4,600 MG in NS (IVPB) CANCER CENTER 55.2 ML IV SCH; -FLUOROURACIL IV SCH; -FOSAPREPITANT DIMEGLUMINE 150 MG in NS (IVPB) CANCER CENTER ONLY 150 ML IV SCH; -IRINOTECAN HCL 300 MG, IRINOTECAN HCL 60 MG in D5W 250 ML IVPB (CANCER CTR) 250 ML IV SCH; -IRINOTECAN HCL IV SCH; -NS IV 1000 ML (CANCER CTR) IV SCH; -NS IV SCH; -ONDANSETRON 8 MG, DEXAMETHASONE 4 MG/NS 50 ML IVPB (Cancer Ctr) IV ONE; -ONDANSETRON 8 MG, DEXAMETHASONE 4 MG/NS 50 ML IVPB (Cancer Ctr) IV SCH; -ONDANSETRON MDV (CANCER CENTER 16 MG, DEXAMETHASONE PF INJ (CANCER C 10 MG in NS (IVPB)... IV SCH; -PALONOSETRON 0.25 MG, DEXAMETHASONE 10 MG/NS 50 ML IVPB IV PRN; -TOPOTECAN HCL IV SCH; -morphine INJ 4 MG/ML 1 ML (CANCER CTR) IV ONE
--- OUTSIDE RECORDS SUMMARY | 2018-03-25 18:11 | XMS REPORT ---
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 Name Role Phone Esau REBEKAH Unavailable PROBLEMS Type Condition ICD9-CM Code PAG69-YK Code Onset Dates Condition Status SNOMED Code Problem Hypotestosteronemia E29.1 Active 074915478 Problem Depression F32.9 Active 30717066 Problem HTN (hypertension) I10 Active 42622548 Problem Gout M10.9 Active 94317890 Problem Vitamin D deficiency E55.9 Active 77232218 Problem Other malignant neuroendocrine tumors C7A.8 Active 05322365 Problem Morbid obesity due to excess calories E66.01 Active 005338637 Problem Hypercholesterolemia E78.0 Active 01374431 Problem GERD (gastroesophageal reflux disease) K21.9 Active 635280336 Problem Chronic osteoarthritis M19.90 Active 80695395 Problem Sleep apnea, unspecified G47.30 Active 96581716 ALLERGIES No Information ENCOUNTERS Encounter Location Date Diagnosis [facility] [id number] [place] [address] 83677- 8316 Jan, [facility] [id number] [place] [address] 20289- 5244 Nov, Depression F32.9 [facility] [id number] [place] [address] 88197- 6828 Nov, [facility] [address] [address] 10 Nov, 2017 Cough R05 ; Acute nasopharyngitis J00 and BMI 40.0-44.9, adult Z68.41 [facility] [id number] [place] [address]1195 Oct, Arthralgia, unspecified joint M25.50 and BMI 40.0-44.9, adult Z68.41 [facility] [id number] [place] [address] 20487- 2726 Sep, Depression F32.9 [facility] [id number] [place] [address] 54109- 6467 Sep, GERD (gastroesophageal reflux disease) K21.9 and HTN ( hypertension) I10 [facility] [address] 19588- 3607 Sep, Chronic osteoarthritis M19.90 ; Depression F32.9 ; Other secondary neuroendocrine tumors C7B.8 ; Other malignant neuroendocrine tumors C7A.8 ; HTN (hypertension) I10 and BMI 40.0-44.9, adult Z68.41 [facility] [id number] [place] [address] 14177- 9357 Aug, [facility] [address] 24316- 2021 Aug, [facility] [id number] [place] [address] 21008- 9278 Aug, [facility] [id number] [place] [address] 99258- 9487 Aug, [facility] [id number] [place] [address] 43671- 3890 Jul, [facility] [id number] [place] [address] 70755- 1985 Jul, Encounter for immunization Z23 [facility] [id number] [place] [address] 88713- 9543 Jul, [facility] [id number] [place] [address] 64638- 0570 Jul, Primary osteoarthritis of both knees M17.0 [facility] [id number] [place] [address] 81379- 8806 Jul, Primary osteoarthritis of both knees M17.0 [facility] [address] [place] [address] 23766- 6732 Jun, HTN (hypertension) I10 [facility] [id number] [place] [address] 43422- 1678 Jun, Depression F32.9 [facility] [id number] [place] [address] 42344- 8120 Jun, [facility] [id number] [place] [address] 64277- 2218 May, Anxiety F41.9 ; GERD (gastroesophageal reflux disease) K21.9 and Hypercholesterolemia E78.0 [facility] [id number] [place] [address] 04285- 0444 May, Anxiety F41.9 and Moderate episode of recurrent major depressive disorder F33.1 [facility] [id number] [place] [address] 67365- 9551 May, [facility] [id number] [place] [address] 86885- 6181 May, [facility] [id number] [place] [address] 30679- 6661 Apr, [facility] [id number] [place] [address] 13058- 2617 Apr, HTN (hypertension) I10 ; Hypercholesterolemia E78.0 ; Depression F32.9 ; Chronic osteoarthritis M19.90 ; GERD (gastroesophageal reflux disease) K21.9 and Other secondary acute gout of left ankle M10.472 [facility] [id number] [place] [address] 68701- 6049 March, Anxiety F41.9 [facility] [id number] [place] [address] 35822- 2389 March, [facility] [id number] [place] [address] 76085- 0496 Feb, HTN (hypertension) I10 [facility] [id number] [place] [address] 38110- 4100 Dec, [facility] [address] 04603- 7114 Dec, [facility] [id number] [place] [address] 35070- 2530 Nov, [facility] [address] 85812- 3701 Nov, Nausea R11.0 ; Anxiety F41.9 ; HTN (hypertension) I10 ; Hypercholesterolemia E78.0 ; Gout M10.9 ; Depression F32.9 and GERD ( gastroesophageal reflux disease) K21.9 [facility] [id number] [place] [address] 17463- 6811 Nov, [facility] [address] 42279- 5977 Nov, [facility] [address] 29266- 1851 Nov, Liver mass R16.0 [place] [facility] [address] 57642- 7054 Nov, [facility] [id number] [place] [address] 44747- 1193 Nov, [facility] [id number] [place] [address] 39328- 5784 Nov, HTN (hypertension) I10 ; Chronic osteoarthritis M19.90 ; Vitamin D deficiency E55.9 ; GERD (gastroesophageal reflux disease) K21.9 ; Morbid obesity due to excess calories E66.01 ; Moderate episode of recurrent major depressive disorder F33.1 ; Localized edema R60.0 and Liver mass R16.0 [facility] [id number] [place] [address] 50687- 0644 Nov, [facility] [address] 20971- 2598 Nov, [facility] [address] 83400 -9883 Nov, Right upper quadrant abdominal pain R10.11 and Nausea R11.0 [facility] [address] 06808- 2022 Oct, Gastroenteritis K52.9 and Volume depletion E86.[address] 83371- 2080 Oct, [facility] [address] 73359- 9052 Oct, Encounter for immunization Z23 [address] 24428- 6207 Oct, Osteoarthritis of right knee M17.[address] 32557- 9095 Sep, [facility] [address] 90884- 0025 Jul, [address] 04267- 2704 Jul, Osteoarthritis of right knee M17.[address] [facility] [address] 61378 -0993 Jun, Seasonal allergic rhinitis, unspecified allergic rhinitis trigger J30.2 and Rash R21 [place] [address] 42593- 1981 Jun, [facility] [address] 15763- 2798 May, HTN (hypertension) I10 ; Chronic osteoarthritis M19.90 ; Hypercholesterolemia E78.0 ; Gout M10.9 ; Depression F32.9 ; Vitamin D deficiency E55.9 ; GERD (gastroesophageal reflux disease) K21.9 and Morbid obesity due to excess calories E66.[address] 28950- 5143 Apr, Osteoarthritis of right knee M17.9 [facility] [address] [place] [address] 55579- 5090 March, Osteoarthritis of right knee M17.9 [facility] [address] [facility] [id number] [address] March, [facility] [id number] [place] [address] 61820- 0545 March, Back pain M54.9 [facility] [address] [place] [address] 97363- 8043 March, Wellness examination Z00.00 [facility] [address] [place] [address] 89383- 5272 March, Chronic osteoarthritis M19.90 [facility] [address] [place] [address] 96097- 8509 Feb, Chronic osteoarthritis M19.90 and Back pain M54.9 [facility] [address] [address] 9156 Jan, [facility] [address] [place] [address] 35521- 0784 Jan, [facility] [address] [address] 1999 Jan, Back pain M54.9 and Environmental allergies Z91.09 [facility] [address] [address]- 7682 Dec, [facility] [address] [address]- 5825 Dec, Osteoarthritis of right knee M17.9 [facility] [id number] [address]- [address] 15 Dec, 2015 [facility] [address] [address]- 5132 Nov, [facility] [id number] [place] [address] 74462- 5513 Nov, [facility] [address] 48575- 2458 Nov, [place] [place] [address] 88664- 6345 Nov, Chronic osteoarthritis M19.90 ; HTN (hypertension) I10 ; Hypercholesterolemia E78.0 ; Gout M10.9 ; GERD (gastroesophageal reflux disease ) K21.9 and Bursitis of elbow M70.30 [facility] [address] 99550- 3261 Oct, [place] [address] 99364- 7226 Oct, [place] [address] 75395- 9211 Oct, Osteoarthritis of right knee M17.9 [place] [address] 64018- 8617 Sep, [address] 85074- 7298 Sep, HTN (hypertension) I10 ; Chronic osteoarthritis M19.90 ; Hypercholesterolemia E78.0 ; Gout M10.9 ; Depression F32.9 ; Vitamin D deficiency E55.9 ; Hypotestosteronemia E29.1 and GERD (gastroesophageal reflux disease) K21.9 [facility] [id number] [place] [address] 19488- 4517 Sep, Morbid obesity due to excess calories E66.[address] 16713- 9498 Sep, HTN (hypertension) I10 ; Chronic osteoarthritis M19.90 ; Hypercholesterolemia E78.0 ; Gout M10.9 ; Depression F32.9 ; Vitamin D deficiency E55.9 ; Hypotestosteronemia E29.1 ; GERD (gastroesophageal reflux disease) K21.9 and Sleep apnea, unspecified G47.30 [facility] [address] [facility] [id number] [address]- [address] Sep, [facility] [address] [facility] [id number] [place] [address]- 2175 Sep, IMMUNIZATIONS No Known Immunizations SOCIAL HISTORY Never Assessed REASON FOR VISIT Refill request PLAN OF CARE VITAL SIGNS MEDICATIONS Medication Instructions Dosage Frequency Start Date End Date Duration Status Allopurinol 300 MG Orally Once a day 1 tablet 24h 30 Active Metoprolol Tartrate 25 MG Orally Once a day 1 tablet 24h Active RESULTS No Results PROCEDURES No Known procedures INSTRUCTIONS MEDICATIONS ADMINISTERED No Known Medications MEDICAL (GENERAL) HISTORY Type Description Date Medical History hypertension Medical History Gout Medical History depression Medical History hyperlipidemia Medical History chronic pain--back, right leg, right knee Medical History sleep apnea (possible) Medical History obesity 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
--- OUTSIDE RECORDS SUMMARY | 2018-03-25 18:12 | XMS REPORT ---
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 Name Role Phone Esau REBEKAH Unavailable PROBLEMS Type Condition ICD9-CM Code JVX85-TR Code Onset Dates Condition Status SNOMED Code Problem Hypotestosteronemia E29.1 Active 552820045 Problem Depression F32.9 Active 02300470 Problem HTN (hypertension) I10 Active 94166181 Problem Gout M10.9 Active 97949661 Problem Vitamin D deficiency E55.9 Active 66491041 Problem Other malignant neuroendocrine tumors C7A.8 Active 82264574 Problem Morbid obesity due to excess calories E66.01 Active 546391421 Problem Hypercholesterolemia E78.0 Active 90031344 Problem GERD (gastroesophageal reflux disease) K21.9 Active 151036042 Problem Chronic osteoarthritis M19.90 Active 86366959 Problem Sleep apnea, unspecified G47.30 Active 70419670 ALLERGIES No Information ENCOUNTERS Encounter Location Date Diagnosis [facility] [id number] [place] [address] 85786- 5883 Jan, [facility] [id number] [place] [address] 50184- 0723 Nov, Depression F32.9 [facility] [id number] [place] [address] 28713- 4077 Nov, [facility] [id number] [place] [address] 76898 -5228 10 Nov, 2017 Cough R05 ; Acute nasopharyngitis J00 and BMI 40.0-44.9, adult Z68.41 [facility] [id number] [place] [address] 13350 -6263 Oct, Arthralgia, unspecified joint M25.50 and BMI 40.0-44.9, adult Z68.41 [facility] [id number] [place] [address] 80331- 1299 Sep, Depression F32.9 [facility] [id number] [place] [address] 23639- 3696 Sep, GERD (gastroesophageal reflux disease) K21.9 and HTN ( hypertension) I10 [facility] [address] 37163- 7628 Sep, Chronic osteoarthritis M19.90 ; Depression F32.9 ; Other secondary neuroendocrine tumors C7B.8 ; Other malignant neuroendocrine tumors C7A.8 ; HTN (hypertension) I10 and BMI 40.0-44.9, adult Z68.41 [facility] [id number] [place] [address] 99965- 7375 Aug, [facility] [address] 94022- 3999 Aug, [facility] [id number] [place] [address] 02882- 8656 Aug, [facility] [id number] [place] [address] 27977- 7889 Aug, [facility] [id number] [place] [address] 32194- 6201 Jul, [facility] [id number] [place] [address] 38310- 4231 Jul, Encounter for immunization Z23 [facility] [id number] [place] [address] 10685- 1675 Jul, [facility] [id number] [place] [address] 19024- 5597 Jul, Primary osteoarthritis of both knees M17.0 [facility] [id number] [place] [address] 81794- 3119 Jul, Primary osteoarthritis of both knees M17.0 [facility] [id number] [place] [address] 16062- 5297 Jun, HTN (hypertension) I10 [facility] [id number] [place] [address] 85883- 7905 Jun, Depression F32.9 [facility] [id number] [place] [address] 82501- 5538 Jun, [facility] [id number] [place] [address] 24297- 9358 May, Anxiety F41.9 ; GERD (gastroesophageal reflux disease) K21.9 and Hypercholesterolemia E78.0 [facility] [id number] [place] [address] 95407- 6033 May, Anxiety F41.9 and Moderate episode of recurrent major depressive disorder F33.1 [facility] [id number] [place] [address] 80977- 3978 May, [facility] [id number] [place] [address] 69461- 0957 May, [facility] [id number] [place] [address] 02147- 5393 Apr, [facility] [id number] [place] [address] 08362- 0614 Apr, HTN (hypertension) I10 ; Hypercholesterolemia E78.0 ; Depression F32.9 ; Chronic osteoarthritis M19.90 ; GERD (gastroesophageal reflux disease) K21.9 and Other secondary acute gout of left ankle M10.472 [facility] [id number] [place] [address] 02509- 5921 March, Anxiety F41.9 [facility] [id number] [place] [address] 22003- 2165 March, [facility] [id number] [place] [address] 91572- 5066 Feb, HTN (hypertension) I10 [facility] [id number] [place] [address] 50509- 1576 Dec, [facility] [address] 90020- 5881 Dec, [facility] [id number] [place] [address] 31787- 0399 Nov, [facility] [address] 75898- 4926 Nov, Nausea R11.0 ; Anxiety F41.9 ; HTN (hypertension) I10 ; Hypercholesterolemia E78.0 ; Gout M10.9 ; Depression F32.9 and GERD ( gastroesophageal reflux disease) K21.9 [facility] [id number] [place] [address] 29913- 5810 Nov, [facility] [address] 19621- 0973 Nov, [facility] [address] 75052- 9854 Nov, Liver mass R16.0 [facility] [address] 74992- 6828 Nov, [facility] [id number] [place] [address] 76763- 2737 Nov, [facility] [id number] [place] [address] 27424- 3471 Nov, HTN (hypertension) I10 ; Chronic osteoarthritis M19.90 ; Vitamin D deficiency E55.9 ; GERD (gastroesophageal reflux disease) K21.9 ; Morbid obesity due to excess calories E66.01 ; Moderate episode of recurrent major depressive disorder F33.1 ; Localized edema R60.0 and Liver mass R16.0 [facility] [id number] [place] [address] 70187- 0561 Nov, [facility] [address] 25836- 3659 Nov, [facility] [address] 57423 -0839 Nov, Right upper quadrant abdominal pain R10.11 and Nausea R11.0 [place] [address] 29192- 1087 Oct, Gastroenteritis K52.9 and Volume depletion E86.[address] 11037- 4807 Oct, [facility] [address] 89480- 9188 Oct, Encounter for immunization Z23 [address] 55665- 3303 Oct, Osteoarthritis of right knee M17.[address] 11562- 1610 Sep, [place] [address] 04882- 3082 Jul, [address] 78563- 2834 Jul, Osteoarthritis of right knee M17.9 [facility] [address] 33072 -6618 Jun, Seasonal allergic rhinitis, unspecified allergic rhinitis trigger J30.2 and Rash R21 [place] [facility] [address] 04734- 8159 Jun, [facility] [address] 84518- 6361 May, HTN (hypertension) I10 ; Chronic osteoarthritis M19.90 ; Hypercholesterolemia E78.0 ; Gout M10.9 ; Depression F32.9 ; Vitamin D deficiency E55.9 ; GERD (gastroesophageal reflux disease) K21.9 and Morbid obesity due to excess calories E66.[address] 22796- 2487 Apr, Osteoarthritis of right knee M17.9 [facility] [id number] [place] [address] 97952- 1005 March, Osteoarthritis of right knee M17.9 [facility] [address] [facility] [id number] [address] March, [facility] [id number] [place] [address] 55563- 6255 March, Back pain M54.9 [facility] [id number] [place] [address] 76185- 2257 March, Wellness examination Z00.00 [facility] [id number] [place] [address] 01903- 1447 March, Chronic osteoarthritis M19.90 [facility] [id number] [place] [address] 69723- 3342 Feb, Chronic osteoarthritis M19.90 and Back pain M54.9 [facility] [address] [address]- 6367 Jan, [facility] [id number] [place] [address] 77208- 5661 Jan, [facility] [address] [address]- 5019 Jan, Back pain M54.9 and Environmental allergies Z91.09 [facility] [address] [address]- 2097 Dec, [facility] [address] [address]- 9354 Dec, Osteoarthritis of right knee M17.9 [facility] [id number] [address]- 0498 15 Dec, 2015 [facility] [address] [place] [address]- 8924 Nov, [place] [id number] [place] [address] 09341- 9357 Nov, [place] [facility] [address] 94471- 7729 Nov, [place] [facility] [address] 44149- 1670 Nov, Chronic osteoarthritis M19.90 ; HTN (hypertension) I10 ; Hypercholesterolemia E78.0 ; Gout M10.9 ; GERD (gastroesophageal reflux disease ) K21.9 and Bursitis of elbow M70.30 [place] [address] 65581- 4623 Oct, [place] [address] 83092- 8242 Oct, [place] [place] [address] 69315- 9027 Oct, Osteoarthritis of right knee M17.9 [place] [address] 24667- 2429 Sep, [address] 50819- 8665 Sep, HTN (hypertension) I10 ; Chronic osteoarthritis M19.90 ; Hypercholesterolemia E78.0 ; Gout M10.9 ; Depression F32.9 ; Vitamin D deficiency E55.9 ; Hypotestosteronemia E29.1 and GERD (gastroesophageal reflux disease) K21.9 [place] [place] [id number] [place] [address] 39467- 6325 Sep, Morbid obesity due to excess calories E66.[address] 80407- 6870 Sep, HTN (hypertension) I10 ; Chronic osteoarthritis M19.90 ; Hypercholesterolemia E78.0 ; Gout M10.9 ; Depression F32.9 ; Vitamin D deficiency E55.9 ; Hypotestosteronemia E29.1 ; GERD (gastroesophageal reflux disease) K21.9 and Sleep apnea, unspecified G47.30 [facility] [address] [facility] [id number] [place] [address]- 3648 Sep, [facility] [address] [facility] [id number] [place] [address]- 0972 Sep, IMMUNIZATIONS No Known Immunizations SOCIAL HISTORY Never Assessed REASON FOR VISIT Retro PA note PLAN OF CARE VITAL SIGNS MEDICATIONS Unknown [...]
--- OUTSIDE RECORDS SUMMARY | 2018-03-25 18:12 | XMS REPORT ---
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 Role Phone Esau REBEKAH Unavailable PROBLEMS Type Condition ICD9-CM Code OJW06-DI Code Onset Dates Condition Status SNOMED Code Problem Hypotestosteronemia E29.1 Active 862686499 Problem Depression F32.9 Active 11567719 Problem HTN (hypertension) I10 Active 30732909 Problem Gout M10.9 Active 37922176 Problem Vitamin D deficiency E55.9 Active 53509935 Problem Other malignant neuroendocrine tumors C7A.8 Active 87769303 Problem Morbid obesity due to excess calories E66.01 Active 942876000 Problem Hypercholesterolemia E78.0 Active 73390679 Problem GERD (gastroesophageal reflux disease) K21.9 Active 490088163 Problem Chronic osteoarthritis M19.90 Active 29103754 Problem Sleep apnea, unspecified G47.30 Active 43077564 ALLERGIES No Information ENCOUNTERS Encounter Location Date Diagnosis [facility] [place] [id number] [place] [address] 84194- 0686 Jan, [facility] [place] [id number] [place] [address] 05582- 8111 Nov, Depression F32.9 [facility] [place] [id number] [place] [address] 18009- 3606 Nov, [facility] [address] [address] 10 Nov, 2017 Cough R05 ; Acute nasopharyngitis J00 and BMI 40.0-44.9, adult Z68.41 [facility] [id number] [place] [address] 73569 -8844 Oct, Arthralgia, unspecified joint M25.50 and BMI 40.0-44.9, adult Z68.41 [facility] [place] [id number] [place] [address] 28885- 7542 Sep, Depression F32.9 [facility] [place] [id number] [place] [address] 59150- 6458 Sep, GERD (gastroesophageal reflux disease) K21.9 and HTN ( hypertension) I10 [facility] [place] [address] [address]90- 1785 Sep, Chronic osteoarthritis M19.90 ; Depression F32.9 ; Other secondary neuroendocrine tumors C7B.8 ; Other malignant neuroendocrine tumors C7A.8 ; HTN (hypertension) I10 and BMI 40.0-44.9, adult Z68.41 [facility] [place] [id number] [place] [address] 01336- 9273 Aug, [facility] [place] [address] 89636- 8715 Aug, [facility] [place] [id number] [place] [address] 14420- 9707 Aug, [facility] [place] [id number] [place] [address] 29839- 6467 Aug, [facility] [place] [id number] [place] [address] 19290- 2127 Jul, [facility] [place] [id number] [place] [address] 63672- 0204 Jul, Encounter for immunization Z23 [facility] [place] [id number] [place] [address] 33408- 5554 Jul, [facility] [place] [id number] [place] [address] 94258- 9538 Jul, Primary osteoarthritis of both knees M17.0 [facility] [place] [id number] [place] [address] 01832- 2753 Jul, Primary osteoarthritis of both knees M17.0 [facility] [place] [id number] [place] [address] 73400- 0678 Jun, HTN (hypertension) I10 [facility] [place] [id number] [place] [address] 92526- 2844 Jun, Depression F32.9 [facility] [place] [id number] [place] [address] 38835- 1570 Jun, [facility] [place] [id number] [place] [address] 92614- 2726 May, Anxiety F41.9 ; GERD (gastroesophageal reflux disease) K21.9 and Hypercholesterolemia E78.0 [facility] [id number] [place] [address] 05188- 4199 May, Anxiety F41.9 and Moderate episode of recurrent major depressive disorder F33.1 [facility] [id number] [place] [address] 44235- 3406 May, [facility] [place] [id number] [place] [address] 28024- 8817 May, [facility] [place] [id number] [place] [address] 70738- 2850 Apr, [facility] [place] [id number] [place] [address] 34178- 0221 Apr, HTN (hypertension) I10 ; Hypercholesterolemia E78.0 ; Depression F32.9 ; Chronic osteoarthritis M19.90 ; GERD (gastroesophageal reflux disease) K21.9 and Other secondary acute gout of left ankle M10.472 [facility] [place] [id number] [place] [address] 86944- 6205 March, Anxiety F41.9 [facility] [place] [id number] [place] [address] 81698- 7057 March, [facility] [place] [id number] [place] [address] 51901- 0691 Feb, HTN (hypertension) I10 [facility] [place] [id number] [place] [address] 84431- 6054 Dec, [facility] [place] [address] 85143- 6102 Dec, [facility] [place] [id number] [place] [address] 75071- 1026 Nov, [facility] [place] [address] 94767- 5051 Nov, Nausea R11.0 ; Anxiety F41.9 ; HTN (hypertension) I10 ; Hypercholesterolemia E78.0 ; Gout M10.9 ; Depression F32.9 and GERD ( gastroesophageal reflux disease) K21.9 [facility] [id number] [place] [address] 23299- 8737 Nov, [facility] [address] 71710- 3709 Nov, [facility] [place] [address] 21869- 1774 Nov, Liver mass R16.0 [place] [address] 22723- 1793 Nov, [facility] [place] [id number] [place] [address] 18393- 3303 Nov, [facility] [place] [id number] [place] [address] 36334- 6466 Nov, HTN (hypertension) I10 ; Chronic osteoarthritis M19.90 ; Vitamin D deficiency E55.9 ; GERD (gastroesophageal reflux disease) K21.9 ; Morbid obesity due to excess calories E66.01 ; Moderate episode of recurrent major depressive disorder F33.1 ; Localized edema R60.0 and Liver mass R16.0 [facility] [place] [id number] [place] [address] 19053- 6630 Nov, [facility] [place] [address] 45455- 3003 Nov, [facility] [address] 38696 -1570 Nov, Right upper quadrant abdominal pain R10.11 and Nausea R11.0 [facility] [address] 98767- 7821 Oct, Gastroenteritis K52.9 and Volume depletion E86.[address] 05117- 1679 Oct, [place] [address] 31530- 5117 Oct, Encounter for immunization Z23 [address] 58265- 3442 Oct, Osteoarthritis of right knee M17.[address] 45645- 7177 Sep, [facility] [address] 30400- 8852 Jul, [address] 06047- 0813 Jul, Osteoarthritis of right knee M17.9 [facility] [address] 12979 -3105 Jun, Seasonal allergic rhinitis, unspecified allergic rhinitis trigger J30.2 and Rash R21 [place] [address] 02322- 8025 Jun, [place] [address] 97460- 3143 May, HTN (hypertension) I10 ; Chronic osteoarthritis M19.90 ; Hypercholesterolemia E78.0 ; Gout M10.9 ; Depression F32.9 ; Vitamin D deficiency E55.9 ; GERD (gastroesophageal reflux disease) K21.9 and Morbid obesity due to excess calories E66.[address] 95875- 4982 Apr, Osteoarthritis of right knee M17.9 [facility] [place] [id number] [place] [address] 33409- 3336 March, Osteoarthritis of right knee M17.9 [facility] [place] [address] [facility] [id number] [address]46 March, [facility] [place] [id number] [place] [address] 29173- 6349 March, Back pain M54.9 [facility] [place] [id number] [place] [address] 89326- 9273 March, Wellness examination Z00.00 [facility] [place] [id number] [place] [address] 69988- 2892 March, Chronic osteoarthritis M19.90 [facility] [place] [id number] [place] [address] 19549- 5218 Feb, Chronic osteoarthritis M19.90 and Back pain M54.9 [facility] [place] [id number] [address]- 2642 Jan, [facility] [place] [id number] [place] [address] 73295- 6164 Jan, [facility] [place] [id number] [address]- 4132 Jan, Back pain M54.9 and Environmental allergies Z91.09 [facility] [place] [id number] [address]- 8018 Dec, [facility] [place] [id number] [address]- 5626 Dec, Osteoarthritis of right knee M17.9 [facility] [place] [id number] [address]- 8795 15 Dec, 2015 [facility] [place] [id number] [address]- 0617 Nov, [facility] [id number] [place] [address] 51092- 3407 Nov, [place] [address] 39562- 7832 Nov, [place] [address] 10084- 1007 Nov, Chronic osteoarthritis M19.90 ; HTN (hypertension) I10 ; Hypercholesterolemia E78.0 ; Gout M10.9 ; GERD (gastroesophageal reflux disease ) K21.9 and Bursitis of elbow M70.30 [place] [address] 83619- 6712 Oct, [place] [address] 19264- 8620 Oct, [place] [address] 23068- 3543 Oct, Osteoarthritis of right knee M17.9 [place] [address] 67443- 1356 Sep, [address] 30458- 0459 Sep, HTN (hypertension) I10 ; Chronic osteoarthritis M19.90 ; Hypercholesterolemia E78.0 ; Gout M10.9 ; Depression F32.9 ; Vitamin D deficiency E55.9 ; Hypotestosteronemia E29.1 and GERD (gastroesophageal reflux disease) K21.9 [facility] [id number] [place] [address] 04221- 2665 Sep, Morbid obesity due to excess calories E66.[address] 92823- 0251 Sep, HTN (hypertension) I10 ; Chronic osteoarthritis M19.90 ; Hypercholesterolemia E78.0 ; Gout M10.9 ; Depression F32.9 ; Vitamin D deficiency E55.9 ; Hypotestosteronemia E29.1 ; GERD (gastroesophageal reflux disease) K21.9 and Sleep apnea, unspecified G47.30 [facility] [place] [address] [facility] [id number] [place] [address]- [address]64 Sep, [facility] [place] [address] [facility] [id number] [place] [address]- 6411 Sep, IMMUNIZATIONS No Known Immunizations SOCIAL HISTORY Never Assessed REASON FOR VISIT anxiety PLAN OF CARE VITAL SIGNS MEDICATIONS Unknown [...]
--- OUTSIDE RECORDS SUMMARY | 2018-03-25 18:13 | XMS REPORT ---
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 Name Role Phone MYNOR LUND Unavailable PROBLEMS Type Condition ICD9-CM Code WDA71-DL Code Onset Dates Condition Status SNOMED Code Problem Hypotestosteronemia E29.1 Active 992605317 Problem Depression F32.9 Active 57517713 Problem HTN (hypertension) I10 Active 85006474 Problem Gout M10.9 Active 59799963 Problem Vitamin D deficiency E55.9 Active 21156691 Problem Other malignant neuroendocrine tumors C7A.8 Active 08966367 Problem Morbid obesity due to excess calories E66.01 Active 887732117 Problem Hypercholesterolemia E78.0 Active 64441854 Problem GERD (gastroesophageal reflux disease) K21.9 Active 258751880 Problem Chronic osteoarthritis M19.90 Active 83821228 Problem Sleep apnea, unspecified G47.30 Active 10861911 ALLERGIES No Information ENCOUNTERS Encounter Location Date Diagnosis [facility] [address] [place] [address] 75016- 4263 Jan, [facility] [id number] [place] [address] 10861- 3807 Nov, Depression F32.9 [facility] [id number] [place] [address] 46706- 2513 11 Nov, 2017 [facility] [id number] [place] [address] 41768 -3641 10 Nov, 2017 Cough R05 ; Acute nasopharyngitis J00 and BMI 40.0-44.9, adult Z68.41 [facility] [address] [address] Oct, Arthralgia, unspecified joint M25.50 and BMI 40.0-44.9, adult Z68.41 [facility] [address] [place] [address] 84468- 2005 Sep, Depression F32.9 [facility] [id number] [place] [address] 79836- 7692 Sep, GERD (gastroesophageal reflux disease) K21.9 and HTN ( hypertension) I10 [facility] [id number] [place] [address] 53057- 5312 Sep, Chronic osteoarthritis M19.90 ; Depression F32.9 ; Other secondary neuroendocrine tumors C7B.8 ; Other malignant neuroendocrine tumors C7A.8 ; HTN (hypertension) I10 and BMI 40.0-44.9, adult Z68.41 [facility] [address] [place] [address] 35015- 5183 Aug, [facility] [id number] [place] [address] 96983- 3831 Aug, [facility] [id number] [place] [address] 91065- 6860 Aug, [facility] [id number] [place] [address] 81444- 9455 Aug, [facility] [address] [place] [address] 13172- 3915 Jul, [facility] [address] [place] [address] 25767- 5399 Jul, Encounter for immunization Z23 [facility] [address] [place] [address] 25583- 9906 Jul, [facility] [id number] [place] [address] 94605- 7252 Jul, Primary osteoarthritis of both knees M17.0 [facility] [address] [place] [address] 21338- 2235 Jul, Primary osteoarthritis of both knees M17.0 [facility] [id number] [place] [address] 96439- 2427 Jun, HTN (hypertension) I10 [facility] [id number] [place] [address] 17572- 5895 Jun, Depression F32.9 [facility] [id number] [place] [address] 14537- 3325 Jun, [facility] [address] 51695- 7644 May, Anxiety F41.9 ; GERD (gastroesophageal reflux disease) K21.9 and Hypercholesterolemia E78.0 [place] [address] 50738- 9614 May, Anxiety F41.9 and Moderate episode of recurrent major depressive disorder F33.1 [facility] [id number] [place] [address] 23731- 2081 May, [facility] [id number] [place] [address] 03450- 7472 May, [facility] [id number] [place] [address] 31150- 3137 Apr, [facility] [id number] [place] [address] 50338- 0281 Apr, HTN (hypertension) I10 ; Hypercholesterolemia E78.0 ; Depression F32.9 ; Chronic osteoarthritis M19.90 ; GERD (gastroesophageal reflux disease) K21.9 and Other secondary acute gout of left ankle M10.472 [facility] [id number] [place] [address] 42473- 0046 March, Anxiety F41.9 [facility] [address] 57872- 1864 March, [facility] [id number] [place] [address] 52578- 0196 Feb, HTN (hypertension) I10 [facility] [id number] [place] [address] 45225- 1914 Dec, [facility] [id number] [place] [address] 76933- 4089 Dec, [facility] [id number] [place] [address] 43335- 5554 Nov, [facility] [id number] [place] [address] 07233- 4788 Nov, Nausea R11.0 ; Anxiety F41.9 ; HTN (hypertension) I10 ; Hypercholesterolemia E78.0 ; Gout M10.9 ; Depression F32.9 and GERD ( gastroesophageal reflux disease) K21.9 [place] [id number] [place] [address] 17394- 7347 Nov, [facility] [id number] [place] [address] 20180- 3698 Nov, [facility] [id number] [place] [address] 85011- 4022 Nov, Liver mass R16.0 [facility] [id number] [place] [address] 84034- 0905 Nov, [facility] [id number] [place] [address] 36918- 6076 Nov, [facility] [id number] [place] [address] 13445- 7998 Nov, HTN (hypertension) I10 ; Chronic osteoarthritis M19.90 ; Vitamin D deficiency E55.9 ; GERD (gastroesophageal reflux disease) K21.9 ; Morbid obesity due to excess calories E66.01 ; Moderate episode of recurrent major depressive disorder F33.1 ; Localized edema R60.0 and Liver mass R16.0 [facility] [address] [place] [address] 51078- 3994 Nov, [facility] [id number] [place] [address] 05635- 9341 Nov, [facility] [address] 28335 -9797 Nov, Right upper quadrant abdominal pain R10.11 and Nausea R11.0 [place] [address] 38166- 2377 Oct, Gastroenteritis K52.9 and Volume depletion E86.[address] 41116- 0964 Oct, [place] [address] 48902- 5406 Oct, Encounter for immunization Z23 [address] 23712- 1743 Oct, Osteoarthritis of right knee M17.9 [place] [address] 08931- 7788 Sep, [place] [address] 65180- 4778 Jul, [place] [address] 45352- 5667 Jul, Osteoarthritis of right knee M17.9 [facility] [address] 10290 -8815 Jun, Seasonal allergic rhinitis, unspecified allergic rhinitis trigger J30.2 and Rash R21 [address] 03885- 1600 Jun, [address] 92301- 7668 May, HTN (hypertension) I10 ; Chronic osteoarthritis M19.90 ; Hypercholesterolemia E78.0 ; Gout M10.9 ; Depression F32.9 ; Vitamin D deficiency E55.9 ; GERD (gastroesophageal reflux disease) K21.9 and Morbid obesity due to excess calories E66.[address] 74624- 8590 Apr, Osteoarthritis of right knee M17.9 [facility] [address] [facility] [id number], [place] [address]- 9036 March, Osteoarthritis of right knee M17.9 [facility] [address] [facility] [id number], [place] [address]- 2215 March, [facility] [address] [facility] [id number] [place] [address] 14257- 7234 March, Back pain M54.9 [facility] [address] [facility] [id number], [place] [address]- 3398 March, Wellness examination Z00.00 [facility] [address] [facility] [id number] [place] [address] 22018- 5543 March, Chronic osteoarthritis M19.90 [facility] [address] [facility] [id number], [place] [address]- 1215 Feb, Chronic osteoarthritis M19.90 and Back pain M54.9 [facility] [address] [facility] [id number], [place] [address]- 2832 Jan, [facility] [address] [facility] [id number] [place] [address] 98024- 0704 Jan, [facility] [address] [facility] [id number], [place] [address]- 6654 Jan, Back pain M54.9 and Environmental allergies Z91.09 [facility] [address] [facility] [id number], [place] [address]- 0081 Dec, [facility] [address] [facility] [id number], [place] [address]- 0166 Dec, Osteoarthritis of right knee M17.9 [facility] [address] [facility] [id number], [place] [address]- 1506 Dec, [facility] [address] [facility] [id number], [place] [address]- 9587 Nov, [facility] [id number] [place] [address] 30455- 7403 Nov, [place] [address] 29935- 2022 Nov, [place] [address] 93837- 5655 Nov, Chronic osteoarthritis M19.90 ; HTN (hypertension) I10 ; Hypercholesterolemia E78.0 ; Gout M10.9 ; GERD (gastroesophageal reflux disease ) K21.9 and Bursitis of elbow M70.30 [place] [id number] [place] [address] 45200- 0375 Oct, [place] [address] 91227- 4382 Oct, [place] [address] 59163- 7467 Oct, Osteoarthritis of right knee M17.9 [place] [id number] [place] [address] 27765- 8786 Sep, [place] [id number] [place] [address] 50763- 7895 Sep, HTN (hypertension) I10 ; Chronic osteoarthritis M19.90 ; Hypercholesterolemia E78.0 ; Gout M10.9 ; Depression F32.9 ; Vitamin D deficiency E55.9 ; Hypotestosteronemia E29.1 and GERD (gastroesophageal reflux disease) K21.9 [place] [id number] [place] [address] 26783- 6299 Sep, Morbid obesity due to excess calories E66.01 [place] [id number] [place] [address] 98720- 3543 Sep, HTN (hypertension) I10 ; Chronic osteoarthritis M19.90 ; Hypercholesterolemia E78.0 ; Gout M10.9 ; Depression F32.9 ; Vitamin D deficiency E55.9 ; Hypotestosteronemia E29.1 ; GERD (gastroesophageal reflux disease) K21.9 and Sleep apnea, unspecified G47.30 [facility] [address] [facility] [id number] [place] [address]- 3005 Sep, [facility] [address] [facility] [id number] [place] [address]- 4971 Sep, IMMUNIZATIONS No Known Immunizations SOCIAL HISTORY Never Assessed REASON FOR VISIT Xanax PLAN OF CARE VITAL SIGNS MEDICATIONS Medication Instructions Dosage Frequency Start Date End Date Duration Status Xanax 0.5 MG Orally Three times a day 1 tablet 8h Nov, 30 days Active RESULTS No Results PROCEDURES No Known [...]
--- OUTSIDE RECORDS SUMMARY | 2018-03-25 18:14 | XMS REPORT ---
Author Author REBEKAH Cifuentes Organization [facility] Address [address] [place] [address] Care Team Providers Care Taker Away Name Role Phone Esau REBEKAH Unavailable PROBLEMS Type Condition ICD9-CM Code CSH28-BQ Code Onset Dates Condition Status SNOMED Code Problem Hypotestosteronemia E29.1 Active 372846662 Problem Depression F32.9 Active 29854260 Problem HTN (hypertension) I10 Active 61622767 Problem Gout M10.9 Active 33430654 Problem Vitamin D deficiency E55.9 Active 92692548 Problem Other malignant neuroendocrine tumors C7A.8 Active 08372509 Problem Morbid obesity due to excess calories E66.01 Active 379576816 Problem Hypercholesterolemia E78.0 Active 00217594 Problem GERD (gastroesophageal reflux disease) K21.9 Active 140966943 Problem Chronic osteoarthritis M19.90 Active 87990756 Problem Sleep apnea, unspecified G47.30 Active 53940276 ALLERGIES No Information ENCOUNTERS Encounter Location Date Diagnosis [facility] [id number] [place] [address] 07790- 9788 Jan, [facility] [id number] [place] [address] 72749- 5659 Nov, Depression F32.9 [facility] [id number] [place] [address] 38598- 3699 Nov, [facility] [address] 12581 -9716 10 Nov, 2017 Cough R05 ; Acute nasopharyngitis J00 and BMI 40.0-44.9, adult Z68.41 [facility] [id number] [place] [address] 41449 -3827 Oct, Arthralgia, unspecified joint M25.50 and BMI 40.0-44.9, adult Z68.41 [facility] [id number] [place] [address] 71322- 9077 Sep, Depression F32.9 [facility] [id number] [place] [address] 58409- 8925 Sep, GERD (gastroesophageal reflux disease) K21.9 and HTN ( hypertension) I10 [facility] [address] 42324- 6594 Sep, Chronic osteoarthritis M19.90 ; Depression F32.9 ; Other secondary neuroendocrine tumors C7B.8 ; Other malignant neuroendocrine tumors C7A.8 ; HTN (hypertension) I10 and BMI 40.0-44.9, adult Z68.41 [facility] [id number] [place] [address] 60246- 8302 Aug, [facility] [address] 46455- 6821 Aug, [facility] [id number] [place] [address] 28897- 0016 Aug, [facility] [id number] [place] [address] 95548- 8841 Aug, [facility] [id number] [place] [address] 17784- 0498 Jul, [facility] [id number] [place] [address] 17312- 1017 Jul, Encounter for immunization Z23 [facility] [id number] [place] [address] 56553- 0501 Jul, [facility] [id number] [place] [address] 93614- 0895 Jul, Primary osteoarthritis of both knees M17.0 [facility] [id number] [place] [address] 38503- 2223 Jul, Primary osteoarthritis of both knees M17.0 [facility] [address] [place] [address] 25454- 7621 Jun, HTN (hypertension) I10 [facility] [id number] [place] [address] 34571- 7170 Jun, Depression F32.9 [facility] [id number] [place] [address] 77203- 7159 Jun, [facility] [id number] [place] [address] 59650- 3320 May, Anxiety F41.9 ; GERD (gastroesophageal reflux disease) K21.9 and Hypercholesterolemia E78.0 [place] [id number] [place] [address] 32410- 5498 May, Anxiety F41.9 and Moderate episode of recurrent major depressive disorder F33.1 [place] [id number] [place] [address] 68396- 5994 May, [facility] [id number] [place] [address] 51788- 7938 May, [facility] [id number] [place] [address] 53291- 3446 Apr, [facility] [id number] [place] [address] 48433- 3260 Apr, HTN (hypertension) I10 ; Hypercholesterolemia E78.0 ; Depression F32.9 ; Chronic osteoarthritis M19.90 ; GERD (gastroesophageal reflux disease) K21.9 and Other secondary acute gout of left ankle M10.472 [facility] [id number] [place] [address] 07675- 8871 March, Anxiety F41.9 [facility] [id number] [place] [address] 61536- 7294 March, [facility] [id number] [place] [address] 59743- 8166 Feb, HTN (hypertension) I10 [facility] [id number] [place] [address] 40652- 8284 Dec, [facility] [address] 99593- 6687 Dec, [facility] [id number] [place] [address] 20916- 0044 Nov, [facility] [address] 78871- 3829 Nov, Nausea R11.0 ; Anxiety F41.9 ; HTN (hypertension) I10 ; Hypercholesterolemia E78.0 ; Gout M10.9 ; Depression F32.9 and GERD ( gastroesophageal reflux disease) K21.9 [place] [id number] [place] [address] 89665- 5885 Nov, [place] [address] 83425- 8179 Nov, [facility] [address] 80201- 9990 Nov, Liver mass R16.0 [place] [address] 96928- 7823 Nov, [facility] [id number] [place] [address] 95907- 6635 Nov, [facility] [id number] [place] [address] 05198- 4149 Nov, HTN (hypertension) I10 ; Chronic osteoarthritis M19.90 ; Vitamin D deficiency E55.9 ; GERD (gastroesophageal reflux disease) K21.9 ; Morbid obesity due to excess calories E66.01 ; Moderate episode of recurrent major depressive disorder F33.1 ; Localized edema R60.0 and Liver mass R16.0 [facility] [id number] [place] [address] 97755- 3757 Nov, [facility] [address] 41161- 9076 Nov, [facility] [address] 50157 -5260 Nov, Right upper quadrant abdominal pain R10.11 and Nausea R11.0 [place] [address] 30832- 1566 Oct, Gastroenteritis K52.9 and Volume depletion E86.[address] 16486- 9393 Oct, [place] [address] 98868- 7470 Oct, Encounter for immunization Z23 [address] 97681- 5011 Oct, Osteoarthritis of right knee M17.[address] 03914- 6342 Sep, [place] [address] 75673- 1521 Jul, [address] 28280- 1854 Jul, Osteoarthritis of right knee M17.9 [facility] [address] 69316 -8769 Jun, Seasonal allergic rhinitis, unspecified allergic rhinitis trigger J30.2 and Rash R21 [place] [address] 18120- 1107 Jun, [place] [address] 80450- 8748 May, HTN (hypertension) I10 ; Chronic osteoarthritis M19.90 ; Hypercholesterolemia E78.0 ; Gout M10.9 ; Depression F32.9 ; Vitamin D deficiency E55.9 ; GERD (gastroesophageal reflux disease) K21.9 and Morbid obesity due to excess calories E66.[address] 79002- 8334 Apr, Osteoarthritis of right knee M17.9 [facility] [address] [place] [address] 14838- 8699 March, Osteoarthritis of right knee M17.9 [facility] [address] [facility] [id number] [address]- 2546 March, [facility] [id number] [place] [address] 09535- 9131 March, Back pain M54.9 [facility] [address] [place] [address] 94947- 2549 March, Wellness examination Z00.00 [facility] [address] [place] [address] 71898- 3115 March, Chronic osteoarthritis M19.90 [facility] [address] [place] [address] 86720- 4143 Feb, Chronic osteoarthritis M19.90 and Back pain M54.9 [facility] [address] [address]- 5825 Jan, [facility] [address] [place] [address] 04877- 5031 Jan, [facility] [address] [address]- 6078 Jan, Back pain M54.9 and Environmental allergies Z91.09 [facility] [address] [address]- 6546 Dec, [facility] [address] [address]- 3588 Dec, Osteoarthritis of right knee M17.9 [facility] [address] [id number] [address]- 1574 15 Dec, 2015 [facility] [address] [address]- 0488 Nov, [place] [id number] [place] [address] 49330- 0695 Nov, [place] [address] 94133- 4093 Nov, [place] [address] 35192- 4972 Nov, Chronic osteoarthritis M19.90 ; HTN (hypertension) I10 ; Hypercholesterolemia E78.0 ; Gout M10.9 ; GERD (gastroesophageal reflux disease ) K21.9 and Bursitis of elbow M70.30 [place] [address] 56416- 1648 Oct, [place] [address] 50730- 9042 Oct, [place] [address] 60315- 5363 Oct, Osteoarthritis of right knee M17.9 [place] [address] 35125- 7215 Sep, [address] 49181- 9934 Sep, HTN (hypertension) I10 ; Chronic osteoarthritis M19.90 ; Hypercholesterolemia E78.0 ; Gout M10.9 ; Depression F32.9 ; Vitamin D deficiency E55.9 ; Hypotestosteronemia E29.1 and GERD (gastroesophageal reflux disease) K21.9 [place] [id number] [place] [address] 59115- 7264 Sep, Morbid obesity due to excess calories E66.[address] 08209- 5246 Sep, HTN (hypertension) I10 ; Chronic osteoarthritis M19.90 ; Hypercholesterolemia E78.0 ; Gout M10.9 ; Depression F32.9 ; Vitamin D deficiency E55.9 ; Hypotestosteronemia E29.1 ; GERD (gastroesophageal reflux disease) K21.9 and Sleep apnea, unspecified G47.30 [facility] [address] [facility] [id number] [place] [address] Sep, [facility] [address] [facility] [id number] [place], [place] [address] Sep, IMMUNIZATIONS No Known Immunizations SOCIAL HISTORY Never Assessed REASON FOR VISIT Refill request PLAN OF CARE VITAL SIGNS MEDICATIONS Medication Instructions Dosage Frequency Start Date End Date Duration Status Simvastatin 20 mg Orally Once a day 1 tablet in the evening 24h 30 days Active Protonix 40 mg Orally Once a day 1 tablet 24h Dec, 30 days Active RESULTS No Results PROCEDURES [...]
--- OUTSIDE RECORDS SUMMARY | 2018-03-25 18:14 | XMS REPORT ---
Author Author SAIRA BARNETT Organization [facility] Address [address] [place] [address] Care Team Providers [employer] Name Role Phone SAIRA BARNETT Unavailable PROBLEMS Type Condition ICD9-CM Code [id number] Code Onset Dates Condition Status SNOMED Code Problem Hypotestosteronemia E29.1 Active 113940113 Problem Depression F32.9 Active 57459569 Problem HTN (hypertension) I10 Active 87473945 Problem Gout M10.9 Active 40111963 Problem Vitamin D deficiency E55.9 Active 93204155 Problem Other malignant neuroendocrine tumors C7A.8 Active 31529590 Problem Morbid obesity due to excess calories E66.01 Active 627635761 Problem Hypercholesterolemia E78.0 Active 71282653 Problem GERD (gastroesophageal reflux disease) K21.9 Active 867376070 Problem Chronic osteoarthritis M19.90 Active 72084586 Problem Sleep apnea, unspecified G47.30 Active 04307638 ALLERGIES No Information ENCOUNTERS Encounter Location Date Diagnosis [facility] [id number] [place] [address] 13856- 5240 Jan, [facility] [id number] [place] [address] 52840- 4751 Nov, Depression F32.9 [facility] [id number] [place] [address] 70730- 7295 11 Nov, 2017 [facility] [id number] [place] [address] 37293 -0545 10 Nov, 2017 Cough R05 ; Acute nasopharyngitis J00 and BMI 40.0-44.9, adult Z68.41 [facility] [address] [address] Oct, Arthralgia, unspecified joint M25.50 and BMI 40.0-44.9, adult Z68.41 [facility] [id number] [place] [address] 66025- 1417 Sep, Depression F32.9 [facility] [id number] [place] [address] 56943- 3841 Sep, GERD (gastroesophageal reflux disease) K21.9 and HTN ( hypertension) I10 [facility] [id number] [place] [address] 02820- 0246 Sep, Chronic osteoarthritis M19.90 ; Depression F32.9 ; Other secondary neuroendocrine tumors C7B.8 ; Other malignant neuroendocrine tumors C7A.8 ; HTN (hypertension) I10 and BMI 40.0-44.9, adult Z68.41 [facility] [id number] [place] [address] 19936- 0882 Aug, [facility] [id number] [place] [address] 09595- 2636 Aug, [facility] [id number] [place] [address] 59129- 7235 Aug, [facility] [id number] [place] [address] 17373- 6728 Aug, [facility] [id number] [place] [address] 77508- 0405 Jul, [facility] [id number] [place] [address] 05619- 4671 Jul, Encounter for immunization Z23 [facility] [id number] [place] [address] 86796- 1820 Jul, [facility] [id number] [place] [address] 14567- 2131 Jul, Primary osteoarthritis of both knees M17.0 [facility] [id number] [place] [address] 90444- 7884 Jul, Primary osteoarthritis of both knees M17.0 [facility] [id number] [place] [address] 43394- 9878 Jun, HTN (hypertension) I10 [facility] [id number] [place] [address] 68361- 4987 Jun, Depression F32.9 [facility] [id number] [place] [address] 54076- 7190 Jun, [facility] [address] 58619- 4229 May, Anxiety F41.9 ; GERD (gastroesophageal reflux disease) K21.9 and Hypercholesterolemia E78.0 [place] [address] 62248- 6701 May, Anxiety F41.9 and Moderate episode of recurrent major depressive disorder F33.1 [facility] [id number] [place] [address] 79585- 0459 May, [facility] [id number] [place] [address] 10912- 3687 May, [facility] [id number] [place] [address] 25930- 3414 Apr, [facility] [id number] [place] [address] 37099- 1876 Apr, HTN (hypertension) I10 ; Hypercholesterolemia E78.0 ; Depression F32.9 ; Chronic osteoarthritis M19.90 ; GERD (gastroesophageal reflux disease) K21.9 and Other secondary acute gout of left ankle M10.472 [facility] [id number] [place] [address] 35615- 1031 March, Anxiety F41.9 [facility] [address] 58514- 8335 March, [facility] [id number] [place] [address] 58638- 7590 Feb, HTN (hypertension) I10 [facility] [id number] [place] [address] 63886- 6406 Dec, [facility] [id number] [place] [address] 66784- 7305 Dec, [facility] [id number] [place] [address] 48626- 5729 Nov, [facility] [id number] [place] [address] 89500- 6765 Nov, Nausea R11.0 ; Anxiety F41.9 ; HTN (hypertension) I10 ; Hypercholesterolemia E78.0 ; Gout M10.9 ; Depression F32.9 and GERD ( gastroesophageal reflux disease) K21.9 [place] [id number] [place] [address] 52838- 8725 Nov, [facility] [id number] [place] [address] 10165- 9142 Nov, [facility] [id number] [place] [address] 95569- 3133 Nov, Liver mass R16.0 [facility] [id number] [place] [address] 45382- 7709 Nov, [facility] [id number] [place] [address] 52051- 9053 Nov, [facility] [id number] [place] [address] 43442- 7521 Nov, HTN (hypertension) I10 ; Chronic osteoarthritis M19.90 ; Vitamin D deficiency E55.9 ; GERD (gastroesophageal reflux disease) K21.9 ; Morbid obesity due to excess calories E66.01 ; Moderate episode of recurrent major depressive disorder F33.1 ; Localized edema R60.0 and Liver mass R16.0 [facility] [address] [place] [address] 56385- 6746 Nov, [facility] [id number] [place] [address] 34301- 9203 Nov, [facility] [address] 39271 -6382 Nov, Right upper quadrant abdominal pain R10.11 and Nausea R11.0 [place] [address] 84207- 1421 Oct, Gastroenteritis K52.9 and Volume depletion E86.[address] 40818- 5010 Oct, [place] [address] 19589- 6854 Oct, Encounter for immunization Z23 [address] 51381- 2542 Oct, Osteoarthritis of right knee M17.9 [place] [address] 06694- 0154 Sep, [place] [address] 36134- 7428 Jul, [place] [address] 11373- 3305 Jul, Osteoarthritis of right knee M17.9 [facility] [address] 41460 -0719 Jun, Seasonal allergic rhinitis, unspecified allergic rhinitis trigger J30.2 and Rash R21 [address] 87167- 8226 Jun, [address] 43448- 1004 May, HTN (hypertension) I10 ; Chronic osteoarthritis M19.90 ; Hypercholesterolemia E78.0 ; Gout M10.9 ; Depression F32.9 ; Vitamin D deficiency E55.9 ; GERD (gastroesophageal reflux disease) K21.9 and Morbid obesity due to excess calories E66.[address] 53585- 8365 Apr, Osteoarthritis of right knee M17.9 [facility] [address] [facility] [id number] [address] March, Osteoarthritis of right knee M17.9 [facility] [address] [facility] [id number] [address]- 3983 March, [facility] [address] [facility] [id number] [place] [address] 65137- 8589 March, Back pain M54.9 [facility] [address] [facility] [id number] [address] March, Wellness examination Z00.00 [facility] [address] [facility] [id number] [place] [address] 55271- 4791 March, Chronic osteoarthritis M19.90 [facility] [address] [facility] [id number] [place] [address] Feb, Chronic osteoarthritis M19.90 and Back pain M54.9 [facility] [address] [facility] [id number] [place] [address] Jan, [facility] [address] [facility] [id number] [place] [address] 75006- 1665 Jan, [facility] [address] [facility] [id number] [address] 0[address] Jan, Back pain M54.9 and Environmental allergies Z91.09 [facility] [address] [facility] [id number] [address]- 5237 Dec, [facility] [address] [facility] [id number] [address]- [address]28 Dec, Osteoarthritis of right knee M17.9 [facility] [address] [facility] [id number] [place] [address]- 9612 Dec, [facility] [address] [facility] [id number] [place] [address]- 3945 Nov, [facility] [id number] [place] [address] 03754- 9256 Nov, [place] [address] 56039- 4023 Nov, [place] [address] 38063- 1308 Nov, Chronic osteoarthritis M19.90 ; HTN (hypertension) I10 ; Hypercholesterolemia E78.0 ; Gout M10.9 ; GERD (gastroesophageal reflux disease ) K21.9 and Bursitis of elbow M70.30 [place] [id number] [place] [address] 49052- 4117 Oct, [place] [address] 34598- 2411 Oct, [place] [address] 58788- 7578 Oct, Osteoarthritis of right knee M17.9 [place] [id number] [place] [address] 90713- 1106 Sep, [place] [id number] [place] [address] 78035- 4083 Sep, HTN (hypertension) I10 ; Chronic osteoarthritis M19.90 ; Hypercholesterolemia E78.0 ; Gout M10.9 ; Depression F32.9 ; Vitamin D deficiency E55.9 ; Hypotestosteronemia E29.1 and GERD (gastroesophageal reflux disease) K21.9 [place] [id number] [place] [address] 48995- 1437 Sep, Morbid obesity due to excess calories E66.01 [place] [id number] [place] [address] 02947- 5808 Sep, HTN (hypertension) I10 ; Chronic osteoarthritis M19.90 ; Hypercholesterolemia E78.0 ; Gout M10.9 ; Depression F32.9 ; Vitamin D deficiency E55.9 ; Hypotestosteronemia E29.1 ; GERD (gastroesophageal reflux disease) K21.9 and Sleep apnea, unspecified G47.30 [facility] [address] [facility] [id number] [place] [address] Sep, [facility] [address] [facility] [id number] [place] [address]- 3695 Sep, IMMUNIZATIONS No Known Immunizations SOCIAL HISTORY Never Assessed REASON FOR VISIT PALS PLAN OF CARE VITAL SIGNS MEDICATIONS Medication Instructions Dosage Frequency Start Date End Date Duration Status Synvisc One 48 MG/6ML Intra-articular one injection per knee once every 6 months Jul, 180 days Active RESULTS No Results PROCEDURES No [...]
--- OUTSIDE RECORDS SUMMARY | 2018-03-25 18:15 | XMS REPORT ---
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9 Active 255102124 Problem Chronic osteoarthritis M19.90 Active 89411335 Problem Sleep apnea, unspecified G47.30 Active 74389461 ALLERGIES No Information ENCOUNTERS Encounter Location Date Diagnosis [facility] [id number] [place] [address] 65734- 5110 Jan, [facility] [id number] [place] [address] 74062- 0445 Nov, Depression F32.9 [facility] [id number] [place] [address] 93252- 9675 11 Nov, 2017 [facility] [id number] [place] [address] 70205 -3423 10 Nov, 2017 Cough R05 ; Acute nasopharyngitis J00 and BMI 40.0-44.9, adult Z68.41 [facility] [address] [address] Oct, Arthralgia, unspecified joint M25.50 and BMI 40.0-44.9, adult Z68.41 [facility] [address] [place] [address] 88041- 9282 Sep, Depression F32.9 [facility] [id number] [place] [address] 55403- 2009 Sep, GERD (gastroesophageal reflux disease) K21.9 and HTN ( hypertension) I10 [facility] [id number] [place] [address] 02186- 9591 Sep, Chronic osteoarthritis M19.90 ; Depression F32.9 ; Other secondary neuroendocrine tumors C7B.8 ; Other malignant neuroendocrine tumors C7A.8 ; HTN (hypertension) I10 and BMI 40.0-44.9, adult Z68.41 [facility] [address] [place] [address] 76486- 2966 Aug, [facility] [id number] [place] [address] 91696- 3190 Aug, [facility] [id number] [place] [address] 02069- 8131 Aug, [facility] [id number] [place] [address] 73944- 6884 Aug, [facility] [address] [place] [address] 55804- 1421 Jul, [facility] [address] [place] [address] 83862- 5048 Jul, Encounter for immunization Z23 [facility] [address] [place] [address] 81235- 0906 Jul, [facility] [id number] [place] [address] 19484- 5572 Jul, Primary osteoarthritis of both knees M17.0 [facility] [address] [place] [address] 68446- 5956 Jul, Primary osteoarthritis of both knees M17.0 [facility] [id number] [place] [address] 07590- 9524 Jun, HTN (hypertension) I10 [facility] [id number] [place] [address] 32338- 5025 Jun, Depression F32.9 [facility] [id number] [place] [address] 47714- 2335 Jun, [facility] [address] 33687- 3971 May, Anxiety F41.9 ; GERD (gastroesophageal reflux disease) K21.9 and Hypercholesterolemia E78.0 [place] [address] 45454- 1711 May, Anxiety F41.9 and Moderate episode of recurrent major depressive disorder F33.1 [facility] [id number] [place] [address] 60138- 3984 May, [facility] [id number] [place] [address] 86349- 5231 May, [facility] [id number] [place] [address] 89282- 5655 Apr, [facility] [id number] [place] [address] 50715- 5896 Apr, HTN (hypertension) I10 ; Hypercholesterolemia E78.0 ; Depression F32.9 ; Chronic osteoarthritis M19.90 ; GERD (gastroesophageal reflux disease) K21.9 and Other secondary acute gout of left ankle M10.472 [facility] [id number] [place] [address] 71008- 9940 March, Anxiety F41.9 [facility] [address] 71248- 9376 March, [facility] [id number] [place] [address] 88986- 8266 Feb, HTN (hypertension) I10 [facility] [id number] [place] [address] 03305- 5207 Dec, [facility] [id number] [place] [address] 72216- 4423 Dec, [facility] [id number] [place] [address] 48864- 3440 Nov, [facility] [id number] [place] [address] 00470- 8364 Nov, Nausea R11.0 ; Anxiety F41.9 ; HTN (hypertension) I10 ; Hypercholesterolemia E78.0 ; Gout M10.9 ; Depression F32.9 and GERD ( gastroesophageal reflux disease) K21.9 [place] [id number] [place] [address] 47808- 4059 Nov, [facility] [id number] [place] [address] 54944- 6648 Nov, [facility] [id number] [place] [address] 69228- 4453 Nov, Liver mass R16.0 [facility] [id number] [place] [address] 07652- 1818 Nov, [facility] [id number] [place] [address] 49561- 6432 Nov, [facility] [id number] [place] [address] 21803- 8994 Nov, HTN (hypertension) I10 ; Chronic osteoarthritis M19.90 ; Vitamin D deficiency E55.9 ; GERD (gastroesophageal reflux disease) K21.9 ; Morbid obesity due to excess calories E66.01 ; Moderate episode of recurrent major depressive disorder F33.1 ; Localized edema R60.0 and Liver mass R16.0 [facility] [address] [place] [address] 18671- 7159 Nov, [facility] [id number] [place] [address] 90188- 7916 Nov, [facility] [address] 24034 -3015 Nov, Right upper quadrant abdominal pain R10.11 and Nausea R11.0 [place] [address] 05951- 0882 Oct, Gastroenteritis K52.9 and Volume depletion E86.[address] 18675- 7683 Oct, [place] [address] 69389- 9136 Oct, Encounter for immunization Z23 [address] 45432- 0540 Oct, Osteoarthritis of right knee M17.9 [place] [address] 95827- 5324 Sep, [place] [address] 80344- 1203 Jul, [place] [address] 20712- 3469 Jul, Osteoarthritis of right knee M17.9 [facility] [address] 88273 -8880 Jun, Seasonal allergic rhinitis, unspecified allergic rhinitis trigger J30.2 and Rash R21 [address] 98602- 9472 Jun, [address] 47806- 5701 May, HTN (hypertension) I10 ; Chronic osteoarthritis M19.90 ; Hypercholesterolemia E78.0 ; Gout M10.9 ; Depression F32.9 ; Vitamin D deficiency E55.9 ; GERD (gastroesophageal reflux disease) K21.9 and Morbid obesity due to excess calories E66.[address] 72285- 8603 Apr, Osteoarthritis of right knee M17.9 [facility] [address] [facility] [id number] [address] March, Osteoarthritis of right knee M17.9 [facility] [address] [facility] [id number] [address]32 March, [facility] [address] [facility] [id number] [place] [address] 21104- 7728 March, Back pain M54.9 [facility] [address] [facility] [id number] [address]5 March, Wellness examination Z00.00 [facility] [address] [facility] [id number] [place] [address] 81740- 8147 March, Chronic osteoarthritis M19.90 [facility] [address] [facility] [id number] [address]- 5284 Feb, Chronic osteoarthritis M19.90 and Back pain M54.9 [facility] [address] [facility] [id number], [place] [address] 4[address] Jan, [facility] [address] [facility] [id number] [place] [address] 26976- 2433 Jan, [facility] [address] [facility] [id number], [place] [address]99 Jan, Back pain M54.9 and Environmental allergies Z91.09 [facility] [address] [facility] [id number], [place] [address]- 5266 Dec, [facility] [address] [facility] [id number][place] [address]- 0474 Dec, Osteoarthritis of right knee M17.9 [facility] [address] [facility] [id number], [place] [address]- 7463 Dec, [facility] [address] [facility] [id number][place] [address]- 5018 Nov, [facility] [id number] [place] [address] 47584- 7680 Nov, [place] [address] 28055- 6877 Nov, [place] [address] 12935- 6279 Nov, Chronic osteoarthritis M19.90 ; HTN (hypertension) I10 ; Hypercholesterolemia E78.0 ; Gout M10.9 ; GERD (gastroesophageal reflux disease ) K21.9 and Bursitis of elbow M70.30 [place] [id number] [place] [address] 40866- 6746 Oct, [place] [address] 15658- 0771 Oct, [place] [address] 97642- 8601 Oct, Osteoarthritis of right knee M17.9 [place] [id number] [place] [address] 41667- 1182 Sep, [place] [id number] [place] [address] 72107- 8644 Sep, HTN (hypertension) I10 ; Chronic osteoarthritis M19.90 ; Hypercholesterolemia E78.0 ; Gout M10.9 ; Depression F32.9 ; Vitamin D deficiency E55.9 ; Hypotestosteronemia E29.1 and GERD (gastroesophageal reflux disease) K21.9 [place] [id number] [place] [address] 18542- 1822 Sep, Morbid obesity due to excess calories E66.01 [place] [id number] [place] [address] 60341- 3990 Sep, HTN (hypertension) I10 ; Chronic osteoarthritis M19.90 ; Hypercholesterolemia E78.0 ; Gout M10.9 ; Depression F32.9 ; Vitamin D deficiency E55.9 ; Hypotestosteronemia E29.1 ; GERD (gastroesophageal reflux disease) K21.9 and Sleep apnea, unspecified G47.30 [facility] [address] [facility] [id number] [place] [address]- 5234 Sep, [facility] [address] [facility] [id number] [place] [address]- 5605 Sep, IMMUNIZATIONS No Known Immunizations SOCIAL HISTORY Never Assessed REASON FOR VISIT PALS Synvisc PLAN OF CARE VITAL SIGNS MEDICATIONS Medication Instructions Dosage Frequency Start Date End Date Duration Status Synvisc One 48 MG/6ML Intra-articular one injection per knee once every 6 months Jul, Jan, 180 days Active RESULTS No Results PROCEDURES [...]
--- OUTSIDE RECORDS SUMMARY | 2018-03-25 18:16 | XMS REPORT | Continuity of Care Document ---
Author Author [facility] Address Unknown Phone Unavailable Allergies Active Description Code Type Severity Reaction Onset Reported/Identified Relationship to Patient Clinical Status Yes No Known Drug Allergies [id number] Drug Allergy Unknown N/A 12/18/2016 Medications There is no data. Problems Date Dx Coded Attending Type Code Diagnosis Diagnosed By 10/28/1325 NORBERTO HALEY Ot C78.7 SECONDARY MALIG NEOPLASM OF LIVER AND IN 10/28/1325 NORBERTO HALEY Ot C7A.1 MALIGNANT POORLY DIFFERENTIATED NEUROEND 10/28/1325 NORBERTO HALEY Ot E66.01 MORBID (SEVERE) OBESITY DUE TO EXCESS CA 10/28/1325 NORBERTO HALEY Ot G89.3 NEOPLASM RELATED PAIN (ACUTE) (CHRONIC) 10/28/1325 NORBERTO HALEY Ot I12.9 HYPERTENSIVE CHRONIC KIDNEY DISEASE W ST 10/28/1325 NORBERTO HALEY Ot N18.3 CHRONIC KIDNEY DISEASE, STAGE 3 (MODERAT 10/28/1325 NORBERTO HALEY Ot Z51.11 ENCOUNTER FOR ANTINEOPLASTIC CHEMOTHERAP 10/28/1325 NORBERTO HALEY Ot Z68.41 BODY MASS INDEX (BMI) 40.0-44.9, ADULT 10/28/1325 NORBERTO HALEY Ot Z79.899 OTHER LINOLEUM FLOOR LAYER (CURRENT) DRUG THERAPY 10/28/1621 MITCHELL ASKEW MD, Ot C78.7 SECONDARY MALIG NEOPLASM OF LIVER AND IN 10/28/1621 MITCHELL ASKEW MD, Ot C7A.1 MALIGNANT POORLY DIFFERENTIATED NEUROEND 10/28/1621 MITCHELL ASKEW MD, Ot D70.1 AGRANULOCYTOSIS SECONDARY TO CANCER CHEM 10/28/1621 MITCHELL ASKEW MD Ot E66.01 MORBID (SEVERE) OBESITY DUE TO EXCESS CA 10/28/1621 MITCHELL ASKEW MD Ot G89.3 NEOPLASM RELATED PAIN (ACUTE) (CHRONIC) 10/28/1621 MITCHELL ASKEW MD Ot I12.9 HYPERTENSIVE CHRONIC KIDNEY DISEASE W ST 10/28/1621 MITCHELL ASKEW MD, Ot N18.3 CHRONIC KIDNEY DISEASE, STAGE 3 (MODERAT 10/28/1621 MITCHELL ASKEW MD, Ot T45.1X5A ADVERSE EFFECT OF ANTINEOPLASTIC AND IMM 10/28/1621 MITCHELL ASKEW MD Ot Z51.11 ENCOUNTER FOR ANTINEOPLASTIC CHEMOTHERAP 10/28/1621 MITCHELL ASKEW MD, Ot Z68.41 BODY MASS INDEX (BMI) 40.0-44.9, ADULT 10/28/1621 MITCHELL ASKEW MD, Ot Z79.899 OTHER PRISON (CURRENT) DRUG THERAPY 12/16/2016 BAYRON AVILA MEMORIAL DESIGNER Ot R16.0 HEPATOMEGALY, NOT ELSEWHERE CLASSIFIED 12/22/2016 BAYRON AVILA MEMORIAL DESIGNER Ot R16.0 HEPATOMEGALY, NOT ELSEWHERE CLASSIFIED 12/22/2016 REBEKAH CHAVEZ INTERNATIONAL STUDENT ADVISOR Ot I10 ESSENTIAL (PRIMARY) HYPERTENSION 12/22/2016 BAYRON AVILA MEMORIAL DESIGNER Ot R16.0 HEPATOMEGALY, NOT ELSEWHERE CLASSIFIED 12/22/2016 REBEKAH CHAVEZ INTERNATIONAL STUDENT ADVISOR Ot I10 ESSENTIAL (PRIMARY) HYPERTENSION 12/22/2016 BAYRON AVILA MEMORIAL DESIGNER Ot R16.0 HEPATOMEGALY, NOT ELSEWHERE CLASSIFIED 12/22/2016 REBEKAH CHAVEZ INTERNATIONAL STUDENT ADVISOR Ot I10 ESSENTIAL (PRIMARY) HYPERTENSION 12/23/2016 JEFFREY CORNEJO MD Ot R16.0 HEPATOMEGALY, NOT ELSEWHERE CLASSIFIED 12/23/2016 BAYRON AVILA MEMORIAL DESIGNER Ot R16.0 HEPATOMEGALY, NOT ELSEWHERE CLASSIFIED 12/23/2016 REBEKAH CHAVEZ INTERNATIONAL STUDENT ADVISOR Ot I10 ESSENTIAL (PRIMARY) HYPERTENSION 12/23/2016 JEFFREY CORNEJO MD Ot R16.0 HEPATOMEGALY, NOT ELSEWHERE CLASSIFIED 12/23/2016 BAYRON AVILA MEMORIAL DESIGNER Ot R16.0 HEPATOMEGALY, NOT ELSEWHERE CLASSIFIED 12/23/2016 REBEKAH CHAVEZ INTERNATIONAL STUDENT ADVISOR Ot I10 ESSENTIAL (PRIMARY) HYPERTENSION 12/23/2016 JEFFREY CORNEJO MD Ot R16.0 HEPATOMEGALY, NOT ELSEWHERE CLASSIFIED 12/23/2016 BAYRON AVILA MEMORIAL DESIGNER Ot R16.0 HEPATOMEGALY, NOT ELSEWHERE CLASSIFIED 12/23/2016 REBEKAH CHAVEZ INTERNATIONAL STUDENT ADVISOR Ot I10 ESSENTIAL (PRIMARY) HYPERTENSION 12/23/2016 JEFFREY CORNEJO MD Ot R16.0 HEPATOMEGALY, NOT ELSEWHERE CLASSIFIED 12/23/2016 BAYRON AVILA APRN Ot R16.0 HEPATOMEGALY, NOT ELSEWHERE CLASSIFIED 12/23/2016 REBEKAH CHAVEZ INTERNATIONAL STUDENT ADVISOR Ot I10 ESSENTIAL (PRIMARY) HYPERTENSION 12/23/2016 JEFFREY CORNEJO MD Ot R16.0 HEPATOMEGALY, NOT ELSEWHERE CLASSIFIED 12/23/2016 MITCHELL ASKEW MD Ot R11.2 NAUSEA WITH VOMITING, UNSPECIFIED 12/23/2016 MITCHELL ASKEW MD Ot R16.0 HEPATOMEGALY, NOT ELSEWHERE CLASSIFIED 12/24/2016 MITCHELL ASKEW MD Ot R16.0 HEPATOMEGALY, NOT ELSEWHERE CLASSIFIED 12/24/2016 MITCHELL ASKEW MD Ot R11.2 NAUSEA WITH VOMITING, UNSPECIFIED 12/24/2016 MITCHELL ASKEW MD Ot R16.0 HEPATOMEGALY, NOT ELSEWHERE CLASSIFIED 12/24/2016 MITCHELL ASKEW MD Ot R16.0 HEPATOMEGALY, NOT ELSEWHERE CLASSIFIED 12/25/2016 MITCHELL ASKEW MD Ot C22.9 MALIG NEOPLASM OF LIVER, NOT SPECIFIED A 12/25/2016 JANETTE KING DO Ot C22.8 MALIGNANT NEOPLASM OF LIVER, PRIMARY, UN 12/25/2016 MITCHELL ASKEW MD Ot R16.0 HEPATOMEGALY, NOT ELSEWHERE CLASSIFIED 12/28/2016 MITCHELL ASKEW MD Ot R11.2 NAUSEA WITH VOMITING, UNSPECIFIED 12/28/2016 MITCHELL ASKEW MD Ot R16.0 HEPATOMEGALY, NOT ELSEWHERE CLASSIFIED 12/30/2016 JANETTE KING DO Ot C22.8 MALIGNANT NEOPLASM OF LIVER, PRIMARY, UN 12/30/2016 MITCHELL ASKEW MD Ot C7A.1 MALIGNANT POORLY DIFFERENTIATED NEUROEND 12/30/2016 MITCHELL ASKEW MD Ot M53.82 OTHER SPECIFIED DORSOPATHIES, CERVICAL R 12/30/2016 MITCHELL ASKEW MD Ot R16.0 HEPATOMEGALY, NOT ELSEWHERE CLASSIFIED 12/30/2016 MITCHELL ASKEW MD Ot C7A.1 MALIGNANT POORLY DIFFERENTIATED NEUROEND 12/30/2016 MITCHELL ASKEW MD Ot M53.82 OTHER SPECIFIED DORSOPATHIES, CERVICAL R 12/30/2016 MITCHELL ASKEW MD Ot R16.0 HEPATOMEGALY, NOT ELSEWHERE CLASSIFIED 01/01/2017 BAYRNO AVILA MEMORIAL DESIGNER Ot R16.0 HEPATOMEGALY, NOT ELSEWHERE CLASSIFIED 02/02/2017 MITCHELL ASKEW MD Ot C22.9 MALIG NEOPLASM OF LIVER, NOT SPECIFIED A 03/01/2017 JEFFREY CORNEJO MD Ot R16.0 HEPATOMEGALY, NOT ELSEWHERE CLASSIFIED 03/01/2017 MITCHELL ASKEW MD Ot C22.9 MALIG NEOPLASM OF LIVER, NOT SPECIFIED A 03/01/2017 MITCHELL ASKEW MD Ot R11.2 NAUSEA WITH VOMITING, UNSPECIFIED 03/01/2017 MITCHELL ASKEW MD Ot R16.0 HEPATOMEGALY, NOT ELSEWHERE CLASSIFIED 03/01/2017 MITCHELL ASKEW MD Ot R11.2 NAUSEA WITH VOMITING, UNSPECIFIED 03/01/2017 MITCHELL ASKEW MD Ot R16.0 HEPATOMEGALY, NOT ELSEWHERE CLASSIFIED 03/01/2017 REBEKAH CHAVEZ INTERNATIONAL STUDENT ADVISOR Ot I10 ESSENTIAL (PRIMARY) HYPERTENSION 03/01/2017 BAYRON AVILA MEMORIAL DESIGNER Ot R16.0 HEPATOMEGALY, NOT ELSEWHERE CLASSIFIED 03/01/2017 MITCHELL ASKEW MD Ot C22.9 MALIG NEOPLASM OF LIVER, NOT SPECIFIED A 03/16/2017 MITCHELL ASKEW MD Ot C22.9 MALIG NEOPLASM OF LIVER, NOT SPECIFIED A 03/16/2017 MITCHELL ASKEW MD Ot C22.9 MALIG NEOPLASM OF LIVER, NOT SPECIFIED A 03/16/2017 BAYRON AVILA MEMORIAL DESIGNER Ot R16.0 HEPATOMEGALY, NOT ELSEWHERE CLASSIFIED 03/16/2017 REBEKAH CHAVEZ INTERNATIONAL STUDENT ADVISOR Ot I10 ESSENTIAL (PRIMARY) HYPERTENSION 03/16/2017 MITCHELL ASKEW MD Ot C22.9 MALIG NEOPLASM OF LIVER, NOT SPECIFIED A 03/16/2017 JEFFREY CORNEJO MD Ot R16.0 HEPATOMEGALY, NOT ELSEWHERE CLASSIFIED 03/16/2017 MITCHELL ASKEW MD Ot R11.2 NAUSEA WITH VOMITING, UNSPECIFIED 03/16/2017 MITCHELL ASKEW MD Ot R16.0 HEPATOMEGALY, NOT ELSEWHERE CLASSIFIED 03/16/2017 MITCHELL ASKEW MD Ot R16.0 HEPATOMEGALY, NOT ELSEWHERE CLASSIFIED 03/16/2017 MITCHELL ASKEW MD Ot C7A.1 MALIGNANT POORLY DIFFERENTIATED NEUROEND 03/16/2017 MITCHELL ASKEW MD Ot M53.82 OTHER SPECIFIED DORSOPATHIES, CERVICAL R 03/16/2017 MITCHELL ASKEW MD, Ot R16.0 HEPATOMEGALY, NOT ELSEWHERE CLASSIFIED 03/23/2017 MITCHELL ASKEW MD, Ot C22.9 MALIG NEOPLASM OF LIVER, NOT SPECIFIED A 03/23/2017 MITCHELL ASKEW MD, Ot C78.7 SECONDARY MALIG NEOPLASM OF LIVER AND IN 03/23/2017 MITCHELL ASKEW MD, Ot C7A.1 MALIGNANT POORLY DIFFERENTIATED NEUROEND 03/23/2017 MITCHELL ASKEW MD, Ot D70.1 AGRANULOCYTOSIS SECONDARY TO CANCER CHEM 03/23/2017 MITCHELL ASKEW MD, Ot E66.01 MORBID (SEVERE) OBESITY DUE TO EXCESS CA 03/23/2017 MITCHELL ASKEW MD, Ot G89.3 NEOPLASM RELATED PAIN (ACUTE) (CHRONIC) 03/23/2017 MITCHELL ASKEW MD, Ot I12.9 HYPERTENSIVE CHRONIC KIDNEY DISEASE W ST 03/23/2017 MITCHELL ASKEW MD, Ot N18.3 CHRONIC KIDNEY DISEASE, STAGE 3 (MODERAT 03/23/2017 MITCHELL ASKEW MD, Ot T45.1X5A ADVERSE EFFECT OF ANTINEOPLASTIC AND IMM 03/23/2017 MITCHELL ASKEW MD, Ot Z51.11 ENCOUNTER FOR ANTINEOPLASTIC CHEMOTHERAP 03/23/2017 MITCHELL ASKEW MD, Ot Z68.41 BODY MASS INDEX (BMI) 40.0-44.9, ADULT 03/23/2017 MITCHELL ASKEW MD, Ot Z79.899 OTHER PRISON (CURRENT) DRUG THERAPY 03/31/2017 MITCHELL ASKEW MD, Ot C22.9 MALIG NEOPLASM OF LIVER, NOT SPECIFIED A 04/13/2017 MITCHELL ASKEW MD, Ot C78.7 SECONDARY MALIG NEOPLASM OF LIVER AND IN 04/13/2017 MITCHELL ASKEW MD, Ot C7A.1 MALIGNANT POORLY DIFFERENTIATED NEUROEND 04/13/2017 MITCHELL ASKEW MD, Ot D70.1 AGRANULOCYTOSIS SECONDARY TO CANCER CHEM 04/13/2017 MITCHELL ASKEW MD, Ot E66.01 MORBID (SEVERE) OBESITY DUE TO EXCESS CA 04/13/2017 MITCHELL ASKEW MD, Ot G89.3 NEOPLASM RELATED PAIN (ACUTE) (CHRONIC) 04/13/2017 MITCHELL ASKEW MD, Ot I12.9 HYPERTENSIVE CHRONIC KIDNEY DISEASE W ST 04/13/2017 MITCHELL ASKEW MD, Ot N18.3 CHRONIC KIDNEY DISEASE, STAGE 3 (MODERAT 04/13/2017 MITCHELL ASKEW MD, Ot T45.1X5A ADVERSE EFFECT OF ANTINEOPLASTIC AND IMM 04/13/2017 MITCHELL ASKEW MD Ot Z68.41 BODY MASS INDEX (BMI) 40.0-44.9, ADULT 04/13/2017 MITCHELL ASKEW MD, Ot Z79.899 OTHER PRISON (CURRENT) DRUG THERAPY 05/03/2017 JEFFREY CORNEJO MD Ot R16.0 HEPATOMEGALY, NOT ELSEWHERE CLASSIFIED 05/03/2017 AVILABAYRON NIELSEN Schuyler MEMORIAL DESIGNER Ot R16.0 HEPATOMEGALY, NOT ELSEWHERE CLASSIFIED 05/03/2017 REBEKAH CHAVEZ INTERNATIONAL STUDENT ADVISOR Ot I10 ESSENTIAL (PRIMARY) HYPERTENSION 05/03/2017 JEFFREY CORENJO MD Ot R16.0 HEPATOMEGALY, NOT ELSEWHERE CLASSIFIED 05/03/2017 MITCHELL ASKEW MD Ot R11.2 NAUSEA WITH VOMITING, UNSPECIFIED 05/03/2017 MITCHELL ASKEW MD Ot R16.0 HEPATOMEGALY, NOT ELSEWHERE CLASSIFIED 05/03/2017 MITCHELL ASKEW MD Ot R16.0 HEPATOMEGALY, NOT ELSEWHERE CLASSIFIED 05/03/2017 MITCHELL ASKEW MD Ot C7A.1 MALIGNANT POORLY DIFFERENTIATED NEUROEND 05/03/2017 MITCHELL ASKEW MD Ot M53.82 OTHER SPECIFIED DORSOPATHIES, CERVICAL R 05/03/2017 MITCHELL ASKEW MD Ot R16.0 HEPATOMEGALY, NOT ELSEWHERE CLASSIFIED 05/03/2017 MITCHELL ASKEW MD Ot C78.7 SECONDARY MALIG NEOPLASM OF LIVER AND IN 05/03/2017 MITCHELL ASKEW MD, Ot C7A.1 MALIGNANT POORLY DIFFERENTIATED NEUROEND 05/03/2017 MITCHELL ASKEW MD Ot D70.1 AGRANULOCYTOSIS SECONDARY TO CANCER CHEM 05/03/2017 MITCHELL ASKEW MD Ot E66.01 MORBID (SEVERE) OBESITY DUE TO EXCESS CA 05/03/2017 MITCHELL ASKEW MD Ot G89.3 NEOPLASM RELATED PAIN (ACUTE) (CHRONIC) 05/03/2017 MITCHELL ASKEW MD Ot I12.9 HYPERTENSIVE CHRONIC KIDNEY DISEASE W ST 05/03/2017 MITCHELL ASKEW MD, Ot N18.3 CHRONIC KIDNEY DISEASE, STAGE 3 (MODERAT 05/03/2017 MITCHELL ASKEW MD, Ot T45.1X5A ADVERSE EFFECT OF ANTINEOPLASTIC AND IMM 05/03/2017 MITCHELL ASKEW MD Ot Z68.41 BODY MASS INDEX (BMI) 40.0-44.9, ADULT 05/03/2017 MITCHELL ASKEW MD, Ot Z79.899 OTHER LINOLEUM FLOOR LAYER (CURRENT) DRUG THERAPY 05/03/2017 BAYRON AVILA MEMORIAL DESIGNER Ot R16.0 HEPATOMEGALY, NOT ELSEWHERE CLASSIFIED 05/03/2017 BAYRON AVILA MEMORIAL DESIGNER Ot R16.0 HEPATOMEGALY, NOT ELSEWHERE CLASSIFIED 05/03/2017 BAYRON AVILA MEMORIAL DESIGNER Ot R16.0 HEPATOMEGALY, NOT ELSEWHERE CLASSIFIED 05/03/2017 REBEKAH CHAVEZ INTERNATIONAL STUDENT ADVISOR Ot I10 ESSENTIAL (PRIMARY) HYPERTENSION 05/05/2017 MITCHELL ASKEW MD, Ot C78.7 SECONDARY MALIG NEOPLASM OF LIVER AND IN 05/05/2017 MITCHELL ASKEW MD, Ot C7A.1 MALIGNANT POORLY DIFFERENTIATED NEUROEND 05/05/2017 MITCHELL ASKEW MD, Ot D70.1 AGRANULOCYTOSIS SECONDARY TO CANCER CHEM 05/05/2017 MITCHELL ASKEW MD, Ot E66.01 MORBID (SEVERE) OBESITY DUE TO EXCESS CA 05/05/2017 MITCHELL ASKEW MD, Ot G89.3 NEOPLASM RELATED PAIN (ACUTE) (CHRONIC) 05/05/2017 MITCHELL ASKEW MD, Ot I12.9 HYPERTENSIVE CHRONIC KIDNEY DISEASE W ST 05/05/2017 MITCHELL ASKEW MD, Ot N18.3 CHRONIC KIDNEY DISEASE, STAGE 3 (MODERAT 05/05/2017 MITCHELL ASKEW MD Ot T45.1X5A ADVERSE EFFECT OF ANTINEOPLASTIC AND IMM 05/05/2017 MITCHELL ASKEW MD Ot Z68.41 BODY MASS INDEX (BMI) 40.0-44.9, ADULT 05/05/2017 MITCHELL ASKEW MD, Ot Z79.899 OTHER PRISON (CURRENT) DRUG THERAPY 05/18/2017 MITCHELL ASKEW MD, Ot C78.7 SECONDARY MALIG NEOPLASM OF LIVER AND IN 05/18/2017 MITCHELL ASKEW MD, Ot C7A.1 MALIGNANT POORLY DIFFERENTIATED NEUROEND 05/18/2017 MITCHELL ASKEW MD, Ot D70.1 AGRANULOCYTOSIS SECONDARY TO CANCER CHEM 05/18/2017 MITCHELL ASKEW MD, Ot E66.01 MORBID (SEVERE) OBESITY DUE TO EXCESS CA 05/18/2017 MITCHELL ASKEW MD Ot G89.3 NEOPLASM RELATED PAIN (ACUTE) (CHRONIC) 05/18/2017 MITCHELL ASKEW MD Ot I12.9 HYPERTENSIVE CHRONIC KIDNEY DISEASE W ST 05/18/2017 MITCHELL ASKEW MD Ot N18.3 CHRONIC KIDNEY DISEASE, STAGE 3 (MODERAT 05/18/2017 MITCHELL ASKEW MD, Ot T45.1X5A ADVERSE EFFECT OF ANTINEOPLASTIC AND IMM 05/18/2017 MITCHELL ASKEW MD, Ot Z68.41 BODY MASS INDEX (BMI) 40.0-44.9, ADULT 05/18/2017 MITCHELL ASKEW MD, Ot Z79.899 OTHER LINOLEUM FLOOR LAYER (CURRENT) DRUG THERAPY 05/25/2017 MITCHELL ASKEW MD, Ot C78.7 SECONDARY MALIG NEOPLASM OF LIVER AND IN 05/25/2017 MITCHELL ASKEW MD, Ot C7A.1 MALIGNANT POORLY DIFFERENTIATED NEUROEND 05/25/2017 MITCHELL ASKEW MD, Ot D70.1 AGRANULOCYTOSIS SECONDARY TO CANCER CHEM 05/25/2017 MITCHELL ASKEW MD Ot E66.01 MORBID (SEVERE) OBESITY DUE TO EXCESS CA 05/25/2017 MITCHELL ASKEW MD, Ot G89.3 NEOPLASM RELATED PAIN (ACUTE) (CHRONIC) 05/25/2017 MITCHELL ASKEW MD Ot I12.9 HYPERTENSIVE CHRONIC KIDNEY DISEASE W ST 05/25/2017 MITCHELL ASKEW MD, Ot N18.3 CHRONIC KIDNEY DISEASE, STAGE 3 (MODERAT 05/25/2017 MITCHELL ASKEW MD, Ot T45.1X5A ADVERSE EFFECT OF ANTINEOPLASTIC AND IMM 05/25/2017 MITCHELL ASKEW MD, Ot Z68.41 BODY MASS INDEX (BMI) 40.0-44.9, ADULT 05/25/2017 MITCHELL ASKEW MD, Ot Z79.899 OTHER LINOLEUM FLOOR LAYER (CURRENT) DRUG THERAPY 06/15/2017 MITCHELL ASKEW MD, Ot C78.7 SECONDARY MALIG NEOPLASM OF LIVER AND IN 06/15/2017 MITCHELL ASKEW MD, Ot C7A.1 MALIGNANT POORLY DIFFERENTIATED NEUROEND 06/15/2017 MITCHELL ASKEW MD, Ot D70.1 AGRANULOCYTOSIS SECONDARY TO CANCER CHEM 06/15/2017 MITCHELL ASKEW MD Ot E66.01 MORBID (SEVERE) OBESITY DUE TO EXCESS CA 06/15/2017 MITCHELL ASKEW MD Ot G89.3 NEOPLASM RELATED PAIN (ACUTE) (CHRONIC) 06/15/2017 MITCHELL ASKEW MD, Ot I12.9 HYPERTENSIVE CHRONIC KIDNEY DISEASE W ST 06/15/2017 MITCHELL ASKEW MD, Ot N18.3 CHRONIC KIDNEY DISEASE, STAGE 3 (MODERAT 06/15/2017 MITCHELL ASKEW MD, Ot T45.1X5A ADVERSE EFFECT OF ANTINEOPLASTIC AND IMM 06/15/2017 MITCHELL ASKEW MD, Ot Z68.41 BODY MASS INDEX (BMI) 40.0-44.9, ADULT 06/15/2017 MITCHELL ASKEW MD, Ot Z79.899 OTHER PRISON (CURRENT) DRUG THERAPY 06/24/2017 MITCHELL ASKEW MD Ot R11.2 NAUSEA WITH VOMITING, UNSPECIFIED 06/24/2017 MITCHELL ASKEW MD, Ot R16.0 HEPATOMEGALY, NOT ELSEWHERE CLASSIFIED 06/28/2017 MITCHELL ASKEW MD, Ot C78.7 SECONDARY MALIG NEOPLASM OF LIVER AND IN 06/28/2017 MITCHELL ASKEW MD, Ot C7A.1 MALIGNANT POORLY DIFFERENTIATED NEUROEND 06/28/2017 MITCHELL ASKEW MD, Ot D70.1 AGRANULOCYTOSIS SECONDARY TO CANCER CHEM 06/28/2017 MITCHELL ASKEW MD, Ot E66.01 MORBID (SEVERE) OBESITY DUE TO EXCESS CA 06/28/2017 MITCHELL ASKEW MD, Ot G89.3 NEOPLASM RELATED PAIN (ACUTE) (CHRONIC) 06/28/2017 MITCHELL ASKEW MD, Ot I12.9 HYPERTENSIVE CHRONIC KIDNEY DISEASE W ST 06/28/2017 MITCHELL ASKEW MD, Ot N18.3 CHRONIC KIDNEY DISEASE, STAGE 3 (MODERAT 06/28/2017 MITCHELL ASKEW MD, Ot T45.1X5A ADVERSE EFFECT OF ANTINEOPLASTIC AND IMM 06/28/2017 MITCHELL ASKEW MD Ot Z51.11 ENCOUNTER FOR ANTINEOPLASTIC CHEMOTHERAP 06/28/2017 MITCHELL ASKEW MD, Ot Z68.41 BODY MASS INDEX (BMI) 40.0-44.9, ADULT 06/28/2017 MITCHELL ASKEW MD, Ot Z79.899 OTHER PRISON (CURRENT) DRUG THERAPY 06/30/2017 NORBERTO HALEY Ot C78.7 SECONDARY MALIG NEOPLASM OF LIVER AND IN 06/30/2017 NORBERTO HALEY Ot C7A.1 MALIGNANT POORLY DIFFERENTIATED NEUROEND 06/30/2017 NORBERTO HALEY Ot E66.01 MORBID (SEVERE) OBESITY DUE TO EXCESS CA 06/30/2017 NORBERTO HALEY Ot G89.3 NEOPLASM RELATED PAIN (ACUTE) (CHRONIC) 06/30/2017 NORBERTO HALEY Ot I12.9 HYPERTENSIVE CHRONIC KIDNEY DISEASE W ST 06/30/2017 NORBERTO HALEY Ot N18.3 CHRONIC KIDNEY DISEASE, STAGE 3 (MODERAT 06/30/2017 NORBERTO HALEY Ot Z68.41 BODY MASS INDEX (BMI) 40.0-44.9, ADULT 06/30/2017 NORBERTO HALEY Flor Ot Z79.899 OTHER LINOLEUM FLOOR LAYER (CURRENT) DRUG THERAPY 07/13/2017 AVILABAYRON NIELSEN GUY Ot R16.0 HEPATOMEGALY, NOT ELSEWHERE CLASSIFIED 07/13/2017 REBEKAH CHAVEZ INTERNATIONAL STUDENT ADVISOR Ot I10 ESSENTIAL (PRIMARY) HYPERTENSION 07/13/2017 CHANTAL BARNARD, JEFFREY Topete Ot R16.0 HEPATOMEGALY, NOT ELSEWHERE CLASSIFIED 07/13/2017 AZAR BARNARD, MITCHELL Reyes Ot R11.2 NAUSEA WITH VOMITING, UNSPECIFIED 07/13/2017 MITCHELL ASKEW MD Ot R16.0 HEPATOMEGALY, NOT ELSEWHERE CLASSIFIED 07/13/2017 MITCHELL ASKEW MD Ot R16.0 HEPATOMEGALY, NOT ELSEWHERE CLASSIFIED 07/13/2017 MITCHELL ASKEW MD Ot C7A.1 MALIGNANT POORLY DIFFERENTIATED NEUROEND 07/13/2017 MITCHELL ASKEW MD Ot M53.82 OTHER SPECIFIED DORSOPATHIES, CERVICAL R 07/13/2017 MITCHELL ASKEW MD Ot R16.0 HEPATOMEGALY, NOT ELSEWHERE CLASSIFIED 07/13/2017 SUDHA NORBERTO Flor Ot C78.7 SECONDARY MALIG NEOPLASM OF LIVER AND IN 07/13/2017 NORBERTO HALEY Ot C7A.1 MALIGNANT POORLY DIFFERENTIATED NEUROEND 07/13/2017 NORBERTO HAELY Ot E66.01 MORBID (SEVERE) OBESITY DUE TO EXCESS CA 07/13/2017 NORBERTO HALEY Ot G89.3 NEOPLASM RELATED PAIN (ACUTE) (CHRONIC) 07/13/2017 NORBERTO HALEY Ot I12.9 HYPERTENSIVE CHRONIC KIDNEY DISEASE W ST 07/13/2017 NORBERTO HALEY Ot N18.3 CHRONIC KIDNEY DISEASE, STAGE 3 (MODERAT 07/13/2017 SUDHANORBERTO Ot Z68.41 BODY MASS INDEX (BMI) 40.0-44.9, ADULT 07/13/2017 SUDHANORBERTO Ot Z79.899 OTHER LINOLEUM FLOOR LAYER (CURRENT) DRUG THERAPY 07/13/2017 KANNAN MURCIA INTERNATIONAL STUDENT ADVISOR Ot G47.61 PERIODIC LIMB MOVEMENT DISORDER 07/13/2017 KANNAN MURCIA INTERNATIONAL STUDENT ADVISOR Ot I10 ESSENTIAL (PRIMARY) HYPERTENSION 07/13/2017 KANNAN MURCIA INTERNATIONAL STUDENT ADVISOR Ot R06.83 SNORING 07/16/2017 MURCIAKANNAN Merrill INTERNATIONAL STUDENT ADVISOR Ot G47.61 PERIODIC LIMB MOVEMENT DISORDER 07/16/2017 MURCIAKANNAN Merrill INTERNATIONAL STUDENT ADVISOR Ot I10 ESSENTIAL (PRIMARY) HYPERTENSION 07/16/2017 KANNAN MURCIA INTERNATIONAL STUDENT ADVISOR Ot R06.83 SNORING 07/23/2017 SUDHAMAICO TEJEDAAN N Ot C78.7 SECONDARY MALIG NEOPLASM OF LIVER AND IN 07/23/2017 SUDHA, MAICOAME N Ot C7A.1 MALIGNANT POORLY DIFFERENTIATED NEUROEND 07/23/2017 SUDHA BOBAN N Ot E66.01 MORBID (SEVERE) OBESITY DUE TO EXCESS CA 07/23/2017 SUDHA, BOBAN N Ot G89.3 NEOPLASM RELATED PAIN (ACUTE) (CHRONIC) 07/23/2017 SUDHA, BOBAN N Ot I12.9 HYPERTENSIVE CHRONIC KIDNEY DISEASE W ST 07/23/2017 SUDHA, BOBAN N Ot N18.3 CHRONIC KIDNEY DISEASE, STAGE 3 (MODERAT 07/23/2017 SUDHA BOBAN N Ot Z68.41 BODY MASS INDEX (BMI) 40.0-44.9, ADULT 07/23/2017 SUDHA BOBAN N Ot Z79.899 OTHER PRISON (CURRENT) DRUG THERAPY 07/27/2017 SUDHA, BOBAN N Ot C78.7 SECONDARY MALIG NEOPLASM OF LIVER AND IN 07/27/2017 SUDHA, BOBAN N Ot C7A.1 MALIGNANT POORLY DIFFERENTIATED NEUROEND 07/27/2017 SUDHA BOBAN N Ot E66.01 MORBID (SEVERE) OBESITY DUE TO EXCESS CA 07/27/2017 SUDHA BOBAN N Ot G89.3 NEOPLASM RELATED PAIN (ACUTE) (CHRONIC) 07/27/2017 SUDHA BOBAN N Ot I12.9 HYPERTENSIVE CHRONIC KIDNEY DISEASE W ST 07/27/2017 SUDHA BOBAN N Ot N18.3 CHRONIC KIDNEY DISEASE, STAGE 3 (MODERAT 07/27/2017 SUDHA, BOBAN N Ot Z68.41 BODY MASS INDEX (BMI) 40.0-44.9, ADULT 07/27/2017 SUDHA, BOBAN N Ot Z79.899 OTHER LINOLEUM FLOOR LAYER (CURRENT) DRUG THERAPY 07/27/2017 SUDHA, BOBAN N Ot C78.7 SECONDARY MALIG NEOPLASM OF LIVER AND IN 07/27/2017 SUDHA NORBERTO N Ot C7A.1 MALIGNANT POORLY DIFFERENTIATED NEUROEND 07/27/2017 NORBERTO HALEY N Ot E66.01 MORBID (SEVERE) OBESITY DUE TO EXCESS CA 07/27/2017 SUDHANORBERTO N Ot G89.3 NEOPLASM RELATED PAIN (ACUTE) (CHRONIC) 07/27/2017 NORBERTO HALEY N Ot I12.9 HYPERTENSIVE CHRONIC KIDNEY DISEASE W ST 07/27/2017 NORBERTO HALEY N Ot N18.3 CHRONIC KIDNEY DISEASE, STAGE 3 (MODERAT 07/27/2017 NORBERTO HALEY N Ot Z68.41 BODY MASS INDEX (BMI) 40.0-44.9, ADULT 07/27/2017 NORBERTO HALEY N Ot Z79.899 OTHER PRISON (CURRENT) DRUG THERAPY 07/30/2017 NORBERTO HALEY N Ot C7A.1 MALIGNANT POORLY DIFFERENTIATED NEUROEND 08/03/2017 NORBERTO HALEY N Ot C78.7 SECONDARY MALIG NEOPLASM OF LIVER AND IN 08/03/2017 NORBERTO HALEY N Ot C7A.1 MALIGNANT POORLY DIFFERENTIATED NEUROEND 08/03/2017 SUDHANORBERTO TEJEDA N Ot E66.01 MORBID (SEVERE) OBESITY DUE TO EXCESS CA 08/03/2017 SUDHANORBERTO TEJEDA N Ot G89.3 NEOPLASM RELATED PAIN (ACUTE) (CHRONIC) 08/03/2017 NORBERTO HALEY N Ot I12.9 HYPERTENSIVE CHRONIC KIDNEY DISEASE W ST 08/03/2017 NORBERTO HALEY N Ot N18.3 CHRONIC KIDNEY DISEASE, STAGE 3 (MODERAT 08/03/2017 NORBERTO HALEY N Ot Z51.11 ENCOUNTER FOR ANTINEOPLASTIC CHEMOTHERAP 08/03/2017 NORBERTO HALEY N Ot Z68.41 BODY MASS INDEX (BMI) 40.0-44.9, ADULT 08/03/2017 NORBERTO HALEY N Ot Z79.899 OTHER PRISON (CURRENT) DRUG THERAPY 08/03/2017 SUDHANORBERTO N Ot C78.7 SECONDARY MALIG NEOPLASM OF LIVER AND IN 08/03/2017 SUDHA BOBAME N Ot C7A.1 MALIGNANT POORLY DIFFERENTIATED NEUROEND 08/03/2017 NORBERTO HALEY N Ot E66.01 MORBID (SEVERE) OBESITY DUE TO EXCESS CA 08/03/2017 SUDHANORBERTO N Ot G89.3 NEOPLASM RELATED PAIN (ACUTE) (CHRONIC) 08/03/2017 SUDHA BOBAN N Ot I12.9 HYPERTENSIVE CHRONIC KIDNEY DISEASE W ST 08/03/2017 SUDHANORBERTO N Ot N18.3 CHRONIC KIDNEY DISEASE, STAGE 3 (MODERAT 08/03/2017 SUDHANORBERTO TEJEDA N Ot Z68.41 BODY MASS INDEX (BMI) 40.0-44.9, ADULT 08/03/2017 SUDHANORBERTO TEJEDA N Ot Z79.899 OTHER PRISON (CURRENT) DRUG THERAPY 08/03/2017 SUDHANORBERTO N Ot C7A.1 MALIGNANT POORLY DIFFERENTIATED NEUROEND 08/03/2017 SUDHA BOBAME N Ot C7A.1 MALIGNANT POORLY DIFFERENTIATED NEUROEND 08/03/2017 SUDHANORBERTO TEJEDA N Ot R16.0 HEPATOMEGALY, NOT ELSEWHERE CLASSIFIED 08/03/2017 SUDHA, MAICOAME N Ot R91.1 SOLITARY PULMONARY NODULE 08/03/2017 SUDHA, BOBAN N Ot C78.7 SECONDARY MALIG NEOPLASM OF LIVER AND IN 08/03/2017 SUDHA, MIACOAME N Ot C7A.1 MALIGNANT POORLY DIFFERENTIATED NEUROEND 08/03/2017 SUDHANORBERTO N Ot E66.01 MORBID (SEVERE) OBESITY DUE TO EXCESS CA 08/03/2017 SUDHANORBERTO N Ot G89.3 NEOPLASM RELATED PAIN (ACUTE) (CHRONIC) 08/03/2017 SUDHANORBERTO N Ot I12.9 HYPERTENSIVE CHRONIC KIDNEY DISEASE W ST 08/03/2017 SUDHANORBERTO N Ot N18.3 CHRONIC KIDNEY DISEASE, STAGE 3 (MODERAT 08/03/2017 NORBERTO HALEY N Ot Z68.41 BODY MASS INDEX (BMI) 40.0-44.9, ADULT 08/03/2017 SUDHANORBERTO N Ot Z79.899 OTHER PRISON (CURRENT) DRUG THERAPY 08/05/2017 SUDHANORBERTO N Ot C78.7 SECONDARY MALIG NEOPLASM OF LIVER AND IN 08/05/2017 SUDHA MAICOAME N Ot C7A.1 MALIGNANT POORLY DIFFERENTIATED NEUROEND 08/05/2017 SUDHA BOBAN N Ot E66.01 MORBID (SEVERE) OBESITY DUE TO EXCESS CA 08/05/2017 SUDHA BOBAN N Ot G89.3 NEOPLASM RELATED PAIN (ACUTE) (CHRONIC) 08/05/2017 SUDHA MAICOAME N Ot I12.9 HYPERTENSIVE CHRONIC KIDNEY DISEASE W ST 08/05/2017 SUDHANORBERTO TEJEDA N Ot N18.3 CHRONIC KIDNEY DISEASE, STAGE 3 (MODERAT 08/05/2017 SUDHANORBERTO TEJEDA N Ot Z68.41 BODY MASS INDEX (BMI) 40.0-44.9, ADULT 08/05/2017 SUDHANORBERTO TEJEDA N Ot Z79.899 OTHER LINOLEUM FLOOR LAYER (CURRENT) DRUG THERAPY 08/11/2017 SUDHANORBERTO TEJEDA N Ot C7A.1 MALIGNANT POORLY DIFFERENTIATED NEUROEND 08/11/2017 SUDHANORBERTO TEJEDA N Ot C7A.1 MALIGNANT POORLY DIFFERENTIATED NEUROEND 08/11/2017 NORBERTO HALEY N Ot R16.0 HEPATOMEGALY, NOT ELSEWHERE CLASSIFIED 08/11/2017 SUDHANORBERTO TEJEDA N Ot R91.1 SOLITARY PULMONARY NODULE 08/28/2017 SUDHA, BOBAN N Ot C78.7 SECONDARY MALIG NEOPLASM OF LIVER AND IN 08/28/2017 SUDHANORBERTO TEJEDA N Ot C7A.1 MALIGNANT POORLY DIFFERENTIATED NEUROEND 08/28/2017 SUDHANORBERTO TEJEDA N Ot E66.01 MORBID (SEVERE) OBESITY DUE TO EXCESS CA 08/28/2017 SUDHA BOBAME N Ot G89.3 NEOPLASM RELATED PAIN (ACUTE) (CHRONIC) 08/28/2017 SUDHA BOBAN N Ot I12.9 HYPERTENSIVE CHRONIC KIDNEY DISEASE W ST 08/28/2017 SUDHA BOBAME N Ot N18.3 CHRONIC KIDNEY DISEASE, STAGE 3 (MODERAT 08/28/2017 NORBERTO HALEY N Ot Z68.41 BODY MASS INDEX (BMI) 40.0-44.9, ADULT 08/28/2017 NORBERTO HALEY N Ot Z79.899 OTHER PRISON (CURRENT) DRUG THERAPY 09/16/2017 SUDHANORBERTO N Ot C78.7 SECONDARY MALIG NEOPLASM OF LIVER AND IN 09/16/2017 SUDHANORBERTO N Ot C7A.1 MALIGNANT POORLY DIFFERENTIATED NEUROEND 09/16/2017 SUDHA BOBAME N Ot E66.01 MORBID (SEVERE) OBESITY DUE TO EXCESS CA 09/16/2017 SUDHA BOBAN N Ot G89.3 NEOPLASM RELATED PAIN (ACUTE) (CHRONIC) 09/16/2017 SUDHA BOBAN N Ot I12.9 HYPERTENSIVE CHRONIC KIDNEY DISEASE W ST 09/16/2017 SUDHANORBERTO N Ot N18.3 CHRONIC KIDNEY DISEASE, STAGE 3 (MODERAT 09/16/2017 SUDHANORBERTO TEJEDA N Ot Z68.41 BODY MASS INDEX (BMI) 40.0-44.9, ADULT 09/16/2017 SUDHANORBERTO TEJEDA N Ot Z79.899 OTHER LINOLEUM FLOOR LAYER (CURRENT) DRUG THERAPY 09/20/2017 NORBERTO HALEY N Ot C7A.1 MALIGNANT POORLY DIFFERENTIATED NEUROEND 09/20/2017 SUDHANORBERTO TEJEDA N Ot C7A.1 MALIGNANT POORLY DIFFERENTIATED NEUROEND 09/20/2017 SUDHANORBERTO TEJEDA N Ot R16.0 HEPATOMEGALY, NOT ELSEWHERE CLASSIFIED 09/20/2017 SUDHANORBERTO TEJEDA N Ot R91.1 SOLITARY PULMONARY NODULE 09/20/2017 SDUHA BOBAN N Ot C78.7 SECONDARY MALIG NEOPLASM OF LIVER AND IN 09/20/2017 SUDHANORBERTO TEJEDA N Ot C7A.1 MALIGNANT POORLY DIFFERENTIATED NEUROEND 09/20/2017 SUDHANORBERTO TEJEDA N Ot E66.01 MORBID (SEVERE) OBESITY DUE TO EXCESS CA 09/20/2017 SUDHANORBERTO N Ot G89.3 NEOPLASM RELATED PAIN (ACUTE) (CHRONIC) 09/20/2017 SUDHA BOBAN N Ot I12.9 HYPERTENSIVE CHRONIC KIDNEY DISEASE W ST 09/20/2017 SUDHANORBERTO N Ot N18.3 CHRONIC KIDNEY DISEASE, STAGE 3 (MODERAT 09/20/2017 SUDHANORBERTO TEJEDA N Ot Z68.41 BODY MASS INDEX (BMI) 40.0-44.9, ADULT 09/20/2017 SUDHANORBERTO TEJEDA N Ot Z79.899 OTHER LINOLEUM FLOOR LAYER (CURRENT) DRUG THERAPY 10/08/2017 SUDHANORBERTO TEJEDA N Ot C78.7 SECONDARY MALIG NEOPLASM OF LIVER AND IN 10/08/2017 SUDHANORBERTO N Ot C7A.1 MALIGNANT POORLY DIFFERENTIATED NEUROEND 10/08/2017 SUDHANORBERTO N Ot E66.01 MORBID (SEVERE) OBESITY DUE TO EXCESS CA 10/08/2017 SUDHA BOBAN N Ot G89.3 NEOPLASM RELATED PAIN (ACUTE) (CHRONIC) 10/08/2017 SUDHA BOBAN N Ot I12.9 HYPERTENSIVE CHRONIC KIDNEY DISEASE W ST 10/08/2017 SUDHA BOBAME N Ot N18.3 CHRONIC KIDNEY DISEASE, STAGE 3 (MODERAT 10/08/2017 SUDHANORBERTO N Ot Z68.41 BODY MASS INDEX (BMI) 40.0-44.9, ADULT 10/08/2017 NORBERTO HALEY Ot Z79.899 OTHER LINOLEUM FLOOR LAYER (CURRENT) DRUG THERAPY 10/13/2017 CYNTHIA BRASHER Ot C22.9 MALIG NEOPLASM OF LIVER, NOT SPECIFIED A 10/13/2017 CYNTHIA BRASHER Ot E86.9 VOLUME DEPLETION, UNSPECIFIED 10/13/2017 CYNTHIA BRASHER Ot F32.9 MAJOR DEPRESSIVE DISORDER, SINGLE EPISOD 10/13/2017 CYNTHIA BRASHER Ot F41.9 ANXIETY DISORDER, UNSPECIFIED 10/13/2017 DARRELL BRASHEREN L Ot I10 ESSENTIAL (PRIMARY) HYPERTENSION 10/13/2017 CYNTHIA BRASHER Ot K21.9 GASTRO-ESOPHAGEAL REFLUX DISEASE WITHOUT 10/13/2017 CYNTHIA BRASHER Ot R19.7 DIARRHEA, UNSPECIFIED 10/13/2017 CYNTHIA BRASHER Ot R53.83 OTHER FATIGUE 10/13/2017 CYNTHIA BRASHER Ot Z87.19 PERSONAL HISTORY OF OTHER DISEASES OF TH 10/20/2017 [facility] [employer] DESIGNER Ot R16.0 HEPATOMEGALY, NOT ELSEWHERE CLASSIFIED 10/20/2017 REBEKAH CHAVEZ INTERNATIONAL STUDENT ADVISOR Ot I10 ESSENTIAL (PRIMARY) HYPERTENSION 10/20/2017 JEFFREY CORNEJO MD Ot R16.0 HEPATOMEGALY, NOT ELSEWHERE CLASSIFIED 10/20/2017 MITCHELL ASKEW MD Ot R11.2 NAUSEA WITH VOMITING, UNSPECIFIED 10/20/2017 MITCHELL ASKEW MD Ot R16.0 HEPATOMEGALY, NOT ELSEWHERE CLASSIFIED 10/20/2017 MITCHELL ASKEW MD Ot R16.0 HEPATOMEGALY, NOT ELSEWHERE CLASSIFIED 10/20/2017 MITCHELL ASKEW MD Ot C7A.1 MALIGNANT POORLY DIFFERENTIATED NEUROEND 10/20/2017 MITCHELL ASKEW MD Ot M53.82 OTHER SPECIFIED DORSOPATHIES, CERVICAL R 10/20/2017 MITCHELL ASKEW MD Ot R16.0 HEPATOMEGALY, NOT ELSEWHERE CLASSIFIED 10/20/2017 NORBERTO HALEY Ot C78.7 SECONDARY MALIG NEOPLASM OF LIVER AND IN 10/20/2017 NORBERTO HALEY Ot C7A.1 MALIGNANT POORLY DIFFERENTIATED NEUROEND 10/20/2017 NORBERTO HALEY Ot R11.2 NAUSEA WITH VOMITING, UNSPECIFIED 10/20/2017 NORBERTO HALEY Flor Ot R42 DIZZINESS AND GIDDINESS 10/20/2017 NORBERTO HALEY Flor Ot C78.7 SECONDARY MALIG NEOPLASM OF LIVER AND IN 10/20/2017 SUDHA MAICOAME Flor Ot C7A.1 MALIGNANT POORLY DIFFERENTIATED NEUROEND 10/20/2017 NORBERTO HALEY Flor Ot E66.01 MORBID (SEVERE) OBESITY DUE TO EXCESS CA 10/20/2017 NORBERTO HALEY Flor Ot G89.3 NEOPLASM RELATED PAIN (ACUTE) (CHRONIC) 10/20/2017 SUDHA MAICOAME Flor Ot I12.9 HYPERTENSIVE CHRONIC KIDNEY DISEASE W ST 10/20/2017 NORBERTO HALEY Flor Ot N18.3 CHRONIC KIDNEY DISEASE, STAGE 3 (MODERAT 10/20/2017 NORBERTO HALEY Flor Ot Z68.41 BODY MASS INDEX (BMI) 40.0-44.9, ADULT 10/20/2017 NORBERTO HALEY Flor Ot Z79.899 OTHER LINOLEUM FLOOR LAYER (CURRENT) DRUG THERAPY 11/11/2017 [employer] [employer] DESIGNER Ot R16.0 HEPATOMEGALY, NOT ELSEWHERE CLASSIFIED 11/11/2017 REBEKAH CHAVEZ INTERNATIONAL STUDENT ADVISOR Ot I10 ESSENTIAL (PRIMARY) HYPERTENSION 11/11/2017 JEFFREY CORNEJO MD Ot R16.0 HEPATOMEGALY, NOT ELSEWHERE CLASSIFIED 11/11/2017 MITCHELL ASKEW MD Ot R11.2 NAUSEA WITH VOMITING, UNSPECIFIED 11/11/2017 MITCHELL ASKEW MD Ot R16.0 HEPATOMEGALY, NOT ELSEWHERE CLASSIFIED 11/11/2017 MITCHELL ASKEW MD Ot R16.0 HEPATOMEGALY, NOT ELSEWHERE CLASSIFIED 11/11/2017 MITCHELL ASKEW MD Ot C7A.1 MALIGNANT POORLY DIFFERENTIATED NEUROEND 11/11/2017 MITCHELL ASKEW MD Ot M53.82 OTHER SPECIFIED DORSOPATHIES, CERVICAL R 11/11/2017 MITCHELL ASKEW MD Ot R16.0 HEPATOMEGALY, NOT ELSEWHERE CLASSIFIED 11/11/2017 NORBERTO HALEY Ot C7A.1 MALIGNANT POORLY DIFFERENTIATED NEUROEND 11/11/2017 SUDHANORBERTO Ot C7A.1 MALIGNANT POORLY DIFFERENTIATED NEUROEND 11/11/2017 SUDHANORBERTO Ot R16.0 HEPATOMEGALY, NOT ELSEWHERE CLASSIFIED 11/11/2017 SUDHANORBERTO Ot R91.1 SOLITARY PULMONARY NODULE 11/11/2017 SUDHA, BOBAN N Ot C78.7 SECONDARY MALIG NEOPLASM OF LIVER AND IN 11/11/2017 NORBERTO HALEY N Ot C7A.1 MALIGNANT POORLY DIFFERENTIATED NEUROEND 11/11/2017 NORBERTO HALEY N Ot R11.2 NAUSEA WITH VOMITING, UNSPECIFIED 11/11/2017 NORBERTO HALEY N Ot R42 DIZZINESS AND GIDDINESS 11/11/2017 NORBERTO HALEY N Ot C78.7 SECONDARY MALIG NEOPLASM OF LIVER AND IN 11/11/2017 NORBERTO HALEY N Ot C7A.1 MALIGNANT POORLY DIFFERENTIATED NEUROEND 11/11/2017 NORBERTO HALEY N Ot E66.01 MORBID (SEVERE) OBESITY DUE TO EXCESS CA 11/11/2017 SUDHA BOBAME N Ot G89.3 NEOPLASM RELATED PAIN (ACUTE) (CHRONIC) 11/11/2017 SUDHA BOBAME N Ot I12.9 HYPERTENSIVE CHRONIC KIDNEY DISEASE W ST 11/11/2017 NORBERTO HALEY N Ot N18.3 CHRONIC KIDNEY DISEASE, STAGE 3 (MODERAT 11/11/2017 SUDHANORBERTO TEJEDA N Ot Z68.41 BODY MASS INDEX (BMI) 40.0-44.9, ADULT 11/11/2017 SUDHANORBERTO TEJEDA N Ot Z79.899 OTHER LINOLEUM FLOOR LAYER (CURRENT) DRUG THERAPY 12/02/2017 NORBERTO HALEY N Ot C78.7 SECONDARY MALIG NEOPLASM OF LIVER AND IN 12/02/2017 NORBERTO HALEY N Ot C7A.1 MALIGNANT POORLY DIFFERENTIATED NEUROEND 12/02/2017 NORBERTO HALEY N Ot E66.01 MORBID (SEVERE) OBESITY DUE TO EXCESS CA 12/02/2017 SUDHANORBERTO TEJEDA N Ot G89.3 NEOPLASM RELATED PAIN (ACUTE) (CHRONIC) 12/02/2017 SUDHA BOBAME N Ot I12.9 HYPERTENSIVE CHRONIC KIDNEY DISEASE W ST 12/02/2017 SUDHANORBERTO N Ot N18.3 CHRONIC KIDNEY DISEASE, STAGE 3 (MODERAT 12/02/2017 SUDHANORBERTO N Ot Z45.2 ENCOUNTER FOR ADJUSTMENT AND MANAGEMENT 12/02/2017 SUDHA BOBAN N Ot Z68.41 BODY MASS INDEX (BMI) 40.0-44.9, ADULT 12/02/2017 SUDHA BOBAN N Ot Z79.899 OTHER PRISON (CURRENT) DRUG THERAPY 12/06/2017 REBEKAH CHAVEZ INTERNATIONAL STUDENT ADVISOR Ot I10 ESSENTIAL (PRIMARY) HYPERTENSION 12/31/2017 SUDHANORBERTO TEJEDA N Ot C78.7 SECONDARY MALIG NEOPLASM OF LIVER AND IN 12/31/2017 NORBERTO HALEY N Ot C7A.1 MALIGNANT POORLY DIFFERENTIATED NEUROEND 12/31/2017 SUDHANORBERTO TEJEDA N Ot E66.01 MORBID (SEVERE) OBESITY DUE TO EXCESS CA 12/31/2017 SUDHANORBERTO TEJEDA N Ot G89.3 NEOPLASM RELATED PAIN (ACUTE) (CHRONIC) 12/31/2017 SUDHANORBERTO N Ot I12.9 HYPERTENSIVE CHRONIC KIDNEY DISEASE W ST 12/31/2017 SUDHANORBERTO TEJEDA N Ot N18.3 CHRONIC KIDNEY DISEASE, STAGE 3 (MODERAT 12/31/2017 SUDHANORBERTO TEJEDA N Ot Z68.41 BODY MASS INDEX (BMI) 40.0-44.9, ADULT 12/31/2017 SUDHANORBERTO TEJEDA N Ot Z79.899 OTHER PRISON (CURRENT) DRUG THERAPY 01/04/2018 SUDHANORBERTO TEJEDA N Ot C78.7 SECONDARY MALIG NEOPLASM OF LIVER AND IN 01/04/2018 SUDHANORBERTO TEJEDA N Ot C7A.1 MALIGNANT POORLY DIFFERENTIATED NEUROEND 01/04/2018 SUDHANORBERTO TEJEDA N Ot E66.01 MORBID (SEVERE) OBESITY DUE TO EXCESS CA 01/04/2018 SUDHANORBERTO TEJEDA N Ot G89.3 NEOPLASM RELATED PAIN (ACUTE) (CHRONIC) 01/04/2018 SUDHANORBERTO TEJEDA N Ot I12.9 HYPERTENSIVE CHRONIC KIDNEY DISEASE W ST 01/04/2018 SUDHANORBERTO TEJEDA N Ot N18.3 CHRONIC KIDNEY DISEASE, STAGE 3 (MODERAT 01/04/2018 SUDHA BOBAME N Ot Z68.41 BODY MASS INDEX (BMI) 40.0-44.9, ADULT 01/04/2018 SUDHA BOBAN N Ot Z79.899 OTHER PRISON (CURRENT) DRUG THERAPY 02/08/2018 KANNAN MURCIA INTERNATIONAL STUDENT ADVISOR Ot I67.82 CEREBRAL ISCHEMIA 02/08/2018 KANNAN MURCIA INTERNATIONAL STUDENT ADVISOR Ot Z85.9 PERSONAL HISTORY OF MALIGNANT NEOPLASM, 02/11/2018 KANNAN MURCIA INTERNATIONAL STUDENT ADVISOR Ot C7A.1 MALIGNANT POORLY DIFFERENTIATED NEUROEND 02/11/2018 KANNAN MURCIA INTERNATIONAL STUDENT ADVISOR Ot M17.11 UNILATERAL PRIMARY OSTEOARTHRITIS, RIGHT 02/11/2018 NORBERTO HALEY Ot C78.7 SECONDARY MALIG NEOPLASM OF LIVER AND IN 02/11/2018 NORBERTO HALEY Ot C7A.1 MALIGNANT POORLY DIFFERENTIATED NEUROEND 02/11/2018 NORBERTO HALEY Ot E66.01 MORBID (SEVERE) OBESITY DUE TO EXCESS CA 02/11/2018 NORBERTO HALEY Ot G89.3 NEOPLASM RELATED PAIN (ACUTE) (CHRONIC) 02/11/2018 NORBERTO HALEY Ot I12.9 HYPERTENSIVE CHRONIC KIDNEY DISEASE W ST 02/11/2018 NORBERTO HALEY Ot N18.3 CHRONIC KIDNEY DISEASE, STAGE 3 (MODERAT 02/11/2018 NORBERTO HALEY Ot Z68.41 BODY MASS INDEX (BMI) 40.0-44.9, ADULT 02/11/2018 NORBERTO HALEY Ot Z79.899 OTHER LINOLEUM FLOOR LAYER (CURRENT) DRUG THERAPY 02/13/2018 KANNAN MURCIAP Ot I67.82 CEREBRAL ISCHEMIA 02/13/2018 KANNAN MURCIAP Ot Z85.9 PERSONAL HISTORY OF MALIGNANT NEOPLASM, 02/16/2018 KANNAN MURCIAP Ot C7A.1 MALIGNANT POORLY DIFFERENTIATED NEUROEND 02/16/2018 KANNAN MURCIA Ot M17.11 UNILATERAL PRIMARY OSTEOARTHRITIS, RIGHT Procedures There is no data. Results Test Result Range CBC With Differential/Platelet - 12/15/16 17:17 WBC 8.9 x10E3/uL 3.4-10.8 RBC 4.43 x10E6/uL 4.14-5.80 Hemoglobin 13.1 g/dL 12.6-17.7 Hematocrit 40.4 % 37.5-51.0 MCV 91 fL 79-97 MCH 29.6 pg 26.6-33.0 MCHC 32.4 g/dL 31.5-35.7 RDW 14.8 % 12.3-15.4 Platelets 328 x10E3/uL 150-379 Neutrophils 58 % Lymphs 30 % Monocytes 10 % Eos 2 % Basos 0 % Neutrophils (Absolute) 5.1 x10E3/uL 1.4-7.0 Lymphs (Absolute) 2.7 x10E3/uL 0.7-3.1 Monocytes(Absolute) 0.9 x10E3/uL 0.1-0.9 Eos (Absolute) 0.2 x10E3/uL 0.0-0.4 Baso (Absolute) 0.0 x10E3/uL 0.0-0.2 Immature Granulocytes 0 % Immature Grans (Abs) 0.0 x10E3/uL 0.0-0.1 Comp. Metabolic Panel (14) - 12/15/16 17:17 Glucose, Serum 113 mg/dL 65-99 BUN 22 mg/dL 8-27 Creatinine, Serum 2.04 mg/dL 0.76-1.27 eGFR If NonAfricn Am 34 mL/min/1.73 >59 eGFR If Africn Am 39 mL/min/1.73 >59 BUN/Creatinine Ratio 11 10-22 Sodium, Serum 139 mmol/L 134-144 Potassium, Serum 4.2 mmol/L 3.5-5.2 Chloride, Serum 96 mmol/L 96-106 Carbon Dioxide, Total 23 mmol/L 18-29 Calcium, Serum 9.8 mg/dL 8.6-10.2 Protein, Total, Serum 7.6 g/dL 6.0-8.5 Albumin, Serum 4.4 g/dL 3.6-4.8 Globulin, Total 3.2 g/dL 1.5-4.5 A/G Ratio 1.4 1.1-2.5 Bilirubin, Total 0.3 mg/dL 0.0-1.2 Alkaline Phosphatase, S 84 IU/L 39-117 AST (SGOT) 49 IU/L 0-40 ALT (SGPT) 32 IU/L 0-44 Lipid Panel - 12/15/16 17:17 Cholesterol, Total 154 mg/dL 100-199 Triglycerides 176 mg/dL 0-149 HDL Cholesterol 37 mg/dL >39 VLDL Cholesterol Odilon 35 mg/dL 5-40 LDL Cholesterol Calc 82 mg/dL 0-99 Hepatitis Panel (4) - 12/15/16 17:17 HBsAg Screen Negative Negative Hep A Ab, IgM Negative Negative Hep B Core Ab, IgM Negative Negative Hep C Virus Ab <0.1 s/co ratio 0.0-0.9 AFP, Serum, Tumor Marker - 12/15/16 17:17 AFP, Serum, Tumor Marker 4.6 ng/mL 0.0-8.3 Automated blood complete blood count (hemogram) panel - 12/18/16 07:25 Blood leukocytes automated count (number/volume) 8.3 10*3/uL 4.3-11.0 Blood erythrocytes automated count (number/volume) 4.23 10*6/uL 4.35-5.85 Venous blood hemoglobin measurement (mass/volume) 12.8 g/dL 13.3-17.7 Blood hematocrit (volume fraction) 39 % 40-54 Automated erythrocyte mean corpuscular volume 92 [foz_us] 80-99 Automated erythrocyte mean corpuscular hemoglobin (mass per erythrocyte) 30 pg 25-34 Automated erythrocyte mean corpuscular hemoglobin concentration measurement ( mass/volume) 33 g/dL 32-36 Automated erythrocyte distribution width ratio 14.5 % 10.0-14.5 Automated blood platelet count (count/volume) 261 10*3/uL 130-400 Automated blood platelet mean volume measurement 10.8 [foz_us] 7.4-10.4 PT panel in platelet poor plasma by coagulation assay - 12/18/16 07:25 Prothrombin time (PT) in platelet poor plasma by coagulation assay 13.0 s 12.2-14.7 INR in platelet poor plasma or blood by coagulation assay 1.0 0.8-1.4 Activated partial thromboplastin time (aPTT) in platelet poor plasma bycoagulation assay - 12/18/16 07:25 Activated partial thromboplastin time (aPTT) in platelet poor plasma bycoagulation assay 24 s 24-35 Methicillin resistant Staphylococcus aureus (MRSA) screening culture - 09:00 Methicillin resistant Staphylococcus aureus (MRSA) screening culture NEG NR Complete blood count (CBC) with automated white blood cell (WBC) differential - 05/11/17 13:41 Blood leukocytes automated count (number/volume) 19.6 10*3/uL 4.3-11.0 Blood erythrocytes automated count (number/volume) 3.80 10*6/uL 4.35-5.85 Venous blood hemoglobin measurement (mass/volume) 11.6 g/dL 13.3-17.7 Blood hematocrit (volume fraction) 36 % 40-54 Automated erythrocyte mean corpuscular volume 95 [foz_us] 80-99 Automated erythrocyte mean corpuscular hemoglobin (mass per erythrocyte) 31 pg 25-34 Automated erythrocyte mean corpuscular hemoglobin concentration measurement ( mass/volume) 32 g/dL 32-36 Automated erythrocyte distribution width ratio 15.8 % 10.0-14.5 Automated blood platelet count (count/volume) 249 10*3/uL 130-400 Automated blood platelet mean volume measurement 10.0 [foz_us] 7.4-10.4 Automated blood neutrophils/100 leukocytes 90 % 42-75 Automated blood lymphocytes/100 leukocytes 9 % 12-44 Blood monocytes/100 leukocytes 1 % 0-12 Automated blood eosinophils/100 leukocytes 0 % 0-10 Automated blood basophils/100 leukocytes 0 % 0-10 Blood neutrophils automated count (number/volume) 17.6 10*3 1.8-7.8 Blood lymphocytes automated count (number/volume) 1.7 10*3 1.0-4.0 Blood monocytes automated count (number/volume) 0.2 10*3 0.0-1.0 Automated eosinophil count 0.1 10*3/uL 0.0-0.3 Automated blood basophil count (count/volume) 0.1 10*3/uL 0.0-0.1 Whole blood basic metabolic panel - 05/11/17 13:41 Serum or plasma sodium measurement (moles/volume) 141 mmol/L 135-145 Serum or plasma potassium measurement (moles/volume) 3.9 mmol/L 3.6-5.0 Serum or plasma chloride measurement (moles/volume) 102 mmol/L 98-107 Carbon dioxide 33 mmol/L 21-32 Serum or plasma anion gap determination (moles/volume) 6 mmol/L 5-14 Serum or plasma urea nitrogen measurement (mass/volume) 14 mg/dL 7-18 Serum or plasma creatinine measurement (mass/volume) 1.06 mg/dL 0.60-1.30 Serum or plasma urea nitrogen/creatinine mass ratio 13 0 -20 Serum or plasma creatinine measurement with calculation of estimated glomerular filtration rate > NRG Serum or plasma glucose measurement (mass/volume) 130 mg/dL 70-105 Serum or plasma calcium measurement (mass/volume) 9.5 mg/dL 8.5-10.1 Magnesium - 05/11/17 13:41 Magnesium 1.8 mg/dL 1.8-2.4 Complete blood count (CBC) with automated white blood cell (WBC) differential - 10/13/17 19:45 Blood leukocytes automated count (number/volume) 7.1 10*3/uL 4.3-11.0 Blood erythrocytes automated count (number/volume) 4.85 10*6/uL 4.35-5.85 Venous blood hemoglobin measurement (mass/volume) 14.4 g/dL 13.3-17.7 Blood hematocrit (volume fraction) 43 % 40-54 Automated erythrocyte mean corpuscular volume 89 [foz_us] 80-99 Automated erythrocyte mean corpuscular hemoglobin (mass per erythrocyte) 30 pg 25-34 Automated erythrocyte mean corpuscular hemoglobin concentration measurement ( mass/volume) 33 g/dL 32-36 Automated erythrocyte distribution width ratio 14.1 % 10.0-14.5 Automated blood platelet count (count/volume) 266 10*3/uL 130-400 Automated blood platelet mean volume measurement 10.9 [foz_us] 7.4-10.4 Automated blood neutrophils/100 leukocytes 72 % 42-75 Automated blood lymphocytes/100 leukocytes 18 % 12-44 Blood monocytes/100 leukocytes 10 % 0-12 Automated blood eosinophils/100 leukocytes 1 % 0-10 Automated blood basophils/100 leukocytes 0 % 0-10 Blood neutrophils automated count (number/volume) 5.1 10*3 1.8-7.8 Blood lymphocytes automated count (number/volume) 1.3 10*3 1.0-4.0 Blood monocytes automated count (number/volume) 0.7 10*3 0.0-1.0 Automated eosinophil count 0.1 10*3/uL 0.0-0.3 Automated blood basophil count (count/volume) 0.0 10*3/uL 0.0-0.1 Comprehensive metabolic panel - 10/13/17 19:45 Serum or plasma sodium measurement (moles/volume) 142 mmol/L 135-145 Serum or plasma potassium measurement (moles/volume) 3.8 mmol/L 3.6-5.0 Serum or plasma chloride measurement (moles/volume) 105 mmol/L 98-107 Carbon dioxide 25 mmol/L 21-32 Serum or plasma anion gap determination (moles/volume) 12 mmol/L 5-14 Serum or plasma urea nitrogen measurement (mass/volume) 13 mg/dL 7-18 Serum or plasma creatinine measurement (mass/volume) 1.08 mg/dL 0.60-1.30 Serum or plasma urea nitrogen/creatinine mass ratio 12 NRG Serum or plasma creatinine measurement with calculation of estimated glomerular filtration rate > NRG Serum or plasma glucose measurement (mass/volume) 123 mg/dL 70-105 Serum or plasma calcium measurement (mass/volume) 10.4 mg/dL 8.5-10.1 Serum or plasma total bilirubin measurement (mass/volume) 0.4 mg/dL 0.1-1.0 Serum or plasma alkaline phosphatase measurement (enzymatic activity/volume) 57 U/L 40-136 Serum or plasma aspartate aminotransferase measurement (enzymatic activity/ volume) 23 U/L 5-34 Serum or plasma alanine aminotransferase measurement (enzymatic activity/volume ) 15 U/L 0-55 Serum or plasma protein measurement (mass/volume) 7.8 g/dL 6.4-8.2 Serum or plasma albumin measurement (mass/volume) 4.2 g/dL 3.2-4.5 Lipase - 10/13/17 19:45 Lipase 13 U/L 8-78 PT panel in platelet poor plasma by coagulation assay - 10/13/17 19:45 Prothrombin time (PT) in platelet poor plasma by coagulation assay 14.1 s 12.2-14.7 INR in platelet poor plasma or blood by coagulation assay 1.1 0.8-1.4 Activated partial thromboplastin time (aPTT) in platelet poor plasma bycoagulation assay - 10/13/17 19:45 Activated partial thromboplastin time (aPTT) in platelet poor plasma bycoagulation assay 28 s 24-35 Serum or plasma thyrotropin measurement by detection limit <=0.05 miu/l (units/ volume) - 10/13/17 19:45 Serum or plasma thyrotropin measurement by detection limit <=0.05 miu/l (units/ volume) 0.96 u[iU]/mL 0.35-4.94 Complete urinalysis with reflex to culture - 10/13/17 20:45 Urine color determination YELLOW NRG Urine clarity determination CLEAR NRG Urine pH measurement by test strip 6 5-9 Specific gravity of urine by test strip 1.020 1.016- 1.022 Urine protein assay by test strip, semi-quantitative 2+ NEGATIVE Urine glucose detection by automated test strip NEGATIVE NEGATIVE Erythrocytes detection in urine sediment by light microscopy NEGATIVE NEGATIVE Urine ketones detection by automated test strip NEGATIVE NEGATIVE Urine nitrite detection by test strip NEGATIVE NEGATIVE Urine total bilirubin detection by test strip NEGATIVE NEGATIVE Urine urobilinogen measurement by automated test strip (mass/volume) NORMAL NORMAL Urine leukocyte esterase detection by dipstick 1+ NEGATIVE Automated urine sediment erythrocyte count by microscopy (number/high power field) NONE NRG Automated urine sediment leukocyte count by microscopy (number/high power field ) [HPF] NRG Bacteria detection in urine sediment by light microscopy NEGATIVE NRG Crystals detection in urine sediment by light microscopy NONE NRG Casts detection in urine sediment by light microscopy NONE NRG Mucus detection in urine sediment by light microscopy LARGE NRG Complete urinalysis with reflex to culture NO NRG Complete blood count (CBC) with automated white blood cell (WBC) differential - 01/31/18 13:45 Blood leukocytes automated count (number/volume) 4.7 10*3/uL 4.3-11.0 Blood erythrocytes automated count (number/volume) 4.21 10*6/uL 4.35-5.85 Venous blood hemoglobin measurement (mass/volume) 12.0 g/dL 13.3-17.7 Blood hematocrit (volume fraction) 37 % 40-54 Automated erythrocyte mean corpuscular volume 87 [foz_us] 80-99 Automated erythrocyte mean corpuscular hemoglobin (mass per erythrocyte) 29 pg 25-34 Automated erythrocyte mean corpuscular hemoglobin concentration measurement ( mass/volume) 33 g/dL 32-36 Automated erythrocyte distribution width ratio 16.6 % 10.0-14.5 Automated blood platelet count (count/volume) 267 10*3/uL 130-400 Automated blood platelet mean volume measurement 10.1 [foz_us] 7.4-10.4 Automated blood neutrophils/100 leukocytes 65 % 42-75 Automated blood lymphocytes/100 leukocytes 24 % 12-44 Blood monocytes/100 leukocytes 9 % 0-12 Automated blood eosinophils/100 leukocytes 2 % 0-10 Automated blood basophils/100 leukocytes 0 % 0-10 Blood neutrophils automated count (number/volume) 3.0 10*3 1.8-7.8 Blood lymphocytes automated count (number/volume) 1.1 10*3 1.0-4.0 Blood monocytes automated count (number/volume) 0.4 10*3 0.0-1.0 Automated eosinophil count 0.1 10*3/uL 0.0-0.3 Automated blood basophil count (count/volume) 0.0 10*3/uL 0.0-0.1 Whole blood basic metabolic panel - 01/31/18 13:45 Serum or plasma sodium measurement (moles/volume) 137 mmol/L 135-145 Serum or plasma potassium measurement (moles/volume) 4.2 mmol/L 3.6-5.0 Serum or plasma chloride measurement (moles/volume) 102 mmol/L 98-107 Carbon dioxide 27 mmol/L 21-32 Serum or plasma anion gap determination (moles/volume) 8 mmol/L 5-14 Serum or plasma urea nitrogen measurement (mass/volume) 16 mg/dL 7-18 Serum or plasma creatinine measurement (mass/volume) 1.13 mg/dL 0.60-1.30 Serum or plasma urea nitrogen/creatinine mass ratio 14 NRG Serum or plasma creatinine measurement with calculation of estimated glomerular filtration rate > NRG Serum or plasma glucose measurement (mass/volume) 185 mg/dL 70-105 Serum or plasma calcium measurement (mass/volume) 9.7 mg/dL 8.5-10.1 Magnesium - 01/31/18 13:45 Magnesium 1.7 mg/dL 1.8-2.4 Encounters ACCT No. Visit Date/Time Discharge Status Pt. Type Provider Facility Loc./Unit Complaint [id number] 12/16/2016 18:05:00 Document Registration [id number] 03/22/2018 13:52:00 03/22/2018 23:59:59 CLS Outpatient NORBERTO HALEY [facility] ONC [id number] 02/10/2018 11:54:00 02/10/2018 23:59:59 CLS Outpatient KANNAN MURCIAP [facility] CARD C7A.1 HIGH GRADE NEUROENDOCRINE CARCINOMA [id number] 02/07/2018 13:48:00 02/07/2018 23:59:59 CLS Outpatient KANNAN MURCIAP [facility] RAD [id number] 11/10/2017 13:52:00 12/02/2017 10:01:00 DIS Outpatient NORBERTO HALEY [facility] ONC [id number] 11/06/2017 20:00:00 11/06/2017 23:59:59 CLS Preadmit LESLIE TAPIA APRN [facility] SLEEP FABIEN [id number] 10/13/2017 19:18:00 10/13/2017 22:21:00 DIS Emergency CHARISSA HARGROVE CYNHTIA Schuyler [facility] ER LETHARGIC [id number] 10/01/2017 10:42:00 10/01/2017 23:59:59 CLS Outpatient NORBERTO HALEY [facility] CARD C7A.1;C78.7 [id number] 08/04/2017 09:29:00 08/28/2017 00:01:00 DIS Outpatient NORBERTO HALEY [facility] ONC [id number] 07/27/2017 13:31:00 08/03/2017 13:26:00 DIS Outpatient NORBERTO HALEY N [facility] ONC [id number] 07/29/2017 11:15:00 07/29/2017 23:59:59 CLS Outpatient NORBERTO HALEY [facility] CARD C7A.1 [id number] 07/28/2017 09:50:00 07/28/2017 23:59:59 CLS Outpatient NORBERTO HALEY [facility] RAD C7A.1 [id number] 07/26/2017 13:41:00 07/26/2017 23:59:59 CLS Preadmit NORBERTO HALEY [facility] RAD C7A.1 [id number] 07/13/2017 10:09:00 07/13/2017 11:02:00 DIS Outpatient KANNAN MURCIA [facility] SLEEP LIMB MOVEMENT, SNORING, CHOKING IN SLEEP, N [id number] 06/22/2017 12:56:00 06/28/2017 16:22:00 DIS Outpatient MITCHELL ASKEW MD [facility] ONC [id number] 03/23/2017 13:55:00 03/23/2017 00:01:00 DIS Outpatient MITCHELL ASKEW MD [facility] ONC [id number] 12/29/2016 09:02:00 12/29/2016 23:59:59 CLS Outpatient MITCHELL ASKEW MD [facility] RAD C7A.1 [id number] 12/25/2016 08:26:00 12/25/2016 11:55:00 DIS Outpatient JANETTE KING DO [facility] SDC NEOENDOCRINE CARCINOMA [id number] 12/23/2016 14:43:00 12/23/2016 23:59:59 CLS Outpatient MITCHELL ASKEW MD [facility] RAD LIVER MASS [id number] 12/22/2016 10:17:00 12/22/2016 23:59:59 CLS Outpatient MITCHELL ASKEW MD [facility] RAD LIVER MASS,NAUSEA/ VOMITING [id number] 12/18/2016 07:04:00 12/18/2016 23:59:59 CLS Outpatient JEFFREY CORNEJO MD [facility] RAD LIVER MASS [id number] 12/16/2016 12:54:00 12/16/2016 23:59:59 CLS Outpatient REBEKAH CHAVEZ [facility] RAD HTN [id number] 12/15/2016 08:11:00 12/15/2016 23:59:59 CLS Outpatient BAYRON AVILA APRN [facility] RAD RIGHT UPPER QUAD ABDOMINAL PAIN [id number] 12/08/2017 16:15:00 12/08/2017 23:59:59 CLS Outpatient CHANTAL BARNRAD, JEFFREY [facility]
[2018-03-25] MEDS ORDERED: OXYMETAZOLINE (AFRIN) 0.05% NA 15 ML BTL STA (18:22)
--- NOTE | 2018-03-25 18:35 | ED EENT ---
History of Present Illness General Chief Complaint: Nasal Problems Stated Complaint: NOSE BLEEDING Nursing Triage Note: PATIENT ON ELIQUIS STARTED HAVING NOSE BLEEDS 2 DAYS AGO. Source: patient, family Exam Limitations: no limitations History of Present Illness Date Seen by Provider: Mar 25, 2018 Time Seen by Provider: 18:12 Initial Comments Here with report of intermittent nosebleeds over the last couple of days. Patient does have liver cancer and has been receiving chemotherapy. Apparently this is been quite hard on his blood counts. Noted nosebleed starting 2 days ago. States that sometimes he gets: Quite significantly while other times is barely noticeable are gone. Does have a habit of sniffing. Doesn't report flowing nose a lot but has some. Currently things are better with only mild diffuse or stopped and nothing dripping out of the nares but does have some oozing in the pharynx. Timing/Duration: gradual Severity: moderate Location: nose Prearrival Treatment: squeezing nostrils Associated Symptoms: No cough, No facial pain/swelling, No fever; nasal congestion/drainage Allergies and Home Medications Allergies Coded Allergies: No Known Drug Allergies (Unverified , 12/18/16) Home Medications Alprazolam 0.5 Mg Tablet, 0.5 MG PO TID PRN for ANXIETY, (Reported) Amlodipine Besylate 10 Mg Tablet, 10 MG PO DAILY, (Reported) Cholecalciferol (Vitamin D3) 2,000 Unit Capsule, 2,000 UNIT PO DAILY, (Reported) Citalopram Hydrobromide 40 Mg Tablet, 40 MG PO DAILY, (Reported) Cyclobenzaprine HCl 10 Mg Tablet, 10 MG PO TID PRN for SPASMS, (Reported) Docusate Sodium 100 Mg Tablet, 100 MG PO BID, (Reported) Folic Acid/Mv,Fe,Other Min 1 Each Tab.chew, 1 EACH PO DAILY, (Reported) Furosemide 40 Mg Tablet, 40 MG PO DAILY, (Reported) Hyoscyamine Sulfate 0.125 Mg Tab.subl, 0.125 MG SL Q6H PRN for SPASMS Prescribed by: CYNTHIA CARRINGTON on 10/13/172204 Metoprolol Tartrate 100 Mg Tablet, 100 MG PO HS, (Reported) Morphine Sulfate 30 Mg Tablet.er, 30 MG PO Q8H, (Reported) [place]-3 Fatty Acids 500 Mg Capsule.dr, 1,000 MG PO DAILY, (Reported) Omeprazole Magnesium 10 Mg Suspdr.pkt, 20 MG PO DAILY, (Reported) Ondansetron 4 Mg Tab.rapdis, 1-2 TAB PO TID PRN for NAUSEA, (Reported) Potassium Chloride 20 Meq Tab.er.prt, 20 MEQ PO DAILY, (Reported) Promethazine HCl 12.5 Mg Tablet, 25 MG PO TID PRN for NAUSEA, (Reported) Ranitidine HCl 75 Mg Tablet, 75 MG PO DAILY, (Reported) Simvastatin 20 Mg Tablet, 20 MG PO DAILY, (Reported) Patient Home Medication List Home Medication List Reviewed: Yes Review of Systems Constitutional: see HPI; No chills, No fever Eyes: No Symptoms Reported Ears: No Symptoms Reported Nose: see HPI, epistaxis; denies pain; bloody discharge Mouth: no symptoms reported Throat: no symptoms reported Respiratory: no symptoms reported Cardiovascular: no symptoms reported Neurological: Denies Headache; Weakness All Other Systems Reviewed Negative Unless Noted: Yes Past Idzaanm-Qticho-Xclqlg Hx Past Med/Social Hx: Reviewed Nursing Past Med/Soc Hx Patient Social History Alcohol Use: Denies Use Recreational Drug Use: No Smoking Status: Never a Smoker 2nd Hand Smoke Exposure: No Recent Foreign Travel: No Contact w/Someone Who Travel: No Recent Infectious Disease Expo: No Recent Hopitalizations: No Physical Abuse: No Sexual Abuse: No Immunizations Up To Date Date of Pneumonia Vaccine: Sep 13, 2017 Date of Influenza Vaccine: Sep 13, 2017 Past Medical History Surgeries: Yes (port placement) Respiratory: No Cardiac: Yes Hypertension Neurological: No Reproductive Disorders: No Gastrointestinal: Yes Gastroesophageal Reflux, Liver Disease/Jaundice, Gall Bladder Disease Musculoskeletal: No Endocrine: No Cancer: Yes Liver Did You Recieve Any Treatments: Yes What Type of Treatment Did You: Chemotherapy Psychosocial: Yes Anxiety, Depression Nursing Suicide Risk Score: 0 Integumentary: No Blood Disorders: No Family Medical History Reviewed Nursing Family Hx No Pertinent Family Hx Physical Exam Vital Signs Vital Signs - First Documented 03/25/18 18:15 Temp 97.4 Pulse 70 Resp 18 B/P (MAP) 141/77 (98) Pulse Ox 94 O2 Delivery Room Air General Appearance: WD/WN, no apparent distress Eyes: bilateral eye normal inspection, bilateral eye PERRL, bilateral eye EOMI Ears: bilateral ear auricle normal, bilateral ear canal normal, bilateral ear TM normal Nose: active bleeding (mild to the left nare), dried blood (old blood noted and right nare) Mouth/Throat: No pharynx swelling; other (small amount of old blood noted to the left lateral aspect posterior pharynx) Neck: full range of motion, supple Cardiovascular: regular rate, rhythm, no murmur Respiratory: lungs clear, normal breath sounds Gastrointestinal: non tender, soft Neurologic/Psychiatric: alert, oriented x 3 Skin: warm/dry, pallor Progress/Results/Core Measures Lab Results Laboratory Tests Test 03/25/18 18:29 Range/Units White Blood Count 3.8 L 4.3-11.0 10^3/uL Red Blood Count 2.90 L 4.35-5.85 10^6/uL Hemoglobin 8.4 L 13.3-17.7 G/DL Hematocrit 27 L 40-54 % Mean Corpuscular Volume 91 80-99 FL Mean Corpuscular Hemoglobin 29 25-34 PG Mean Corpuscular Hemoglobin Concent 32 32-36 G/DL Red Cell Distribution Width 18.3 H 10.0-14.5 % Platelet Count 76 L 130-400 10^3/uL Mean Platelet Volume 12.0 H 7.4-10.4 FL Neutrophils (%) (Auto) 63 42-75 % Lymphocytes (%) (Auto) 34 12-44 % Monocytes (%) (Auto) 2 0-12 % Eosinophils (%) (Auto) 1 0-10 % Basophils (%) (Auto) 1 0-10 % Neutrophils # (Auto) 2.4 1.8-7.8 X 10^3 Lymphocytes # (Auto) 1.3 1.0-4.0 X 10^3 Monocytes # (Auto) 0.1 0.0-1.0 X 10^3 Eosinophils # (Auto) 0.0 0.0-0.3 10^3/uL Basophils # (Auto) 0.0 0.0-0.1 10^3/uL Prothrombin Time 15.1 H 12.2-14.7 SEC INR Comment 1.2 0.8-1.4 Activated Partial Thromboplast Time 29 24-35 SEC Sodium Level 137 135-145 MMOL/L Potassium Level 5.2 H 3.6-5.0 MMOL/L Chloride Level 102 98-107 MMOL/L Carbon Dioxide Level 22 21-32 MMOL/L Anion Gap 13 5-14 MMOL/L Blood Urea Nitrogen 23 H 7-18 MG/DL Creatinine 0.82 0.60-1.30 MG/DL Estimat Glomerular Filtration Rate > 60 BUN/Creatinine Ratio 28 Glucose Level 100 70-105 MG/DL Calcium Level 9.5 8.5-10.1 MG/DL Total Bilirubin 4.8 H 0.1-1.0 MG/DL Aspartate Amino Transf (AST/SGOT) 290 H 5-34 U/L Alanine Aminotransferase (ALT/SGPT) 110 H 0-55 U/L Alkaline Phosphatase 454 H 40-136 U/L Total Protein 5.9 L 6.4-8.2 GM/DL Albumin 3.1 L 3.2-4.5 GM/DL My Orders Orders - USHA JONES MD Cbc With Automated Diff (03/25/18 18:22) Comprehensive Metabolic Panel (03/25/18 18:22) Protime With Inr (03/25/18 18:22) Partial Thromboplastin Time (03/25/18 18:22) Saline Lock/Iv-Start (03/25/18 18:22) Oxymetazoline 0.05% Nasal [place] (Afrin 0. (03/25/18 18:22) Vital Signs/I&O 03/25/18 18:15 Temp 97.4 Pulse 70 Resp 18 B/P (MAP) 141/77 (98) Pulse Ox 94 O2 Delivery Room Air Blood Pressure Mean: 98 Progress Note : Progress Note Seen and evaluated. Due to the 2 days of bleeding and recent chemotherapy, we will access port and check blood counts. Afrin nasal spray 3 sprays to each nostril given and we will see if that helps with swelling or stopping the bleeding. If this does not work will have to move to nasal packing. Monitor patient. 1930: I have reexamined the patient and the bleeding has stopped and patient is doing better. I did review the case with Dr. Zheng. Patient is currently on apixaban for history of pulmonary embolism approximately a year ago. We will stop that now. We will continue the Afrin nasal spray twice daily for 6 total doses. He is to go to the cancer center on Wednesday morning for repeat blood draw or CBC to evaluate platelets and hemoglobin. Return precautions were given as well as discussion about the possibility that his stools may turn black and that would be expected. He is to return if he gets weak or has persistent bleeding. All findings and concerns were discussed with the patient and family and all questions were answered. Discharged home with return precautions. Patient and family verbalize understanding instructions and agreement with plan. I will send a copy of the chart to Dr. Tellez. Departure Impression Primary Impression: Epistaxis Disposition: HOME, SELF-CARE Condition: Improved Departure-Patient Inst. Decision time for Depature: 19:33 Referrals: [facility] ([place]P) Primary Care Physician REBEKAH CHAVEZ (Family) Primary Care Physician Patient Instructions: Nosebleeds (DC) Add. Discharge Instructions: All discharge instructions reviewed with patient and/or family. Voiced understanding. Stop the Eliquis. You should use the Afrin nasal spray that was given, 3 sprays to each nostril twice daily for 3 days only and then stop. Do not use more than 3 days. The last dose of the Afrin should be Wednesday. Return to the cancer center on Wednesday for repeat lab draw. Discuss the current therapy and instructions with him at that time as well. Return for worse pain, fever, vomiting, weakness, breathing problems or other concerns as needed. Your stools may turn dark for a few days due to the amount of blood that he swallowed while having the nose bleeds. This would be expected and does not necessarily require recheck. If it persist or he becomes weak or short of breath, return for further evaluation. Copy Copies To 1: NORBERTO HALEY TIMOTHY D MD Mar 25, 2018 18:35
[2018-03-25 18:38] LABS: BASOPHILS % (AUTO) 1 % (0-10); EOSINOPHILS % (AUTO) 1 % (0-10); HEMATOCRIT 27 % (40-54); HEMOGLOBIN 8.4 G/DL (13.3-17.7); LYMPHOCYTES # (AUTO) 1.3 X 10^3 (1.0-4.0); LYMPHOCYTES % (AUTO) 34 % (12-44); MEAN CORPUSCULAR HEMOGLOBIN 29 PG (25-34); MEAN CORPUSCULAR HGB CONC 32 G/DL (32-36); MEAN CORPUSCULAR VOLUME 91 FL (80-99); MONOCYTES # (AUTO) 0.1 X 10^3 (0.0-1.0); MONOCYTES % (AUTO) 2 % (0-12); NEUTROPHILS # (AUTO) 2.4 X 10^3 (1.8-7.8); NEUTROPHILS % (AUTO) 63 % (42-75); PLATELET COUNT 76 10^3/uL (130-400); RED CELL DISTRIBUTION WIDTH 18.3 % (10.0-14.5); WHITE BLOOD COUNT 3.8 10^3/uL (4.3-11.0)
[2018-03-25 18:47] LABS: INR 1.2 (0.8-1.4); PROTHROMBIN TIME PATIENT 15.1 SEC (12.2-14.7)
[2018-03-25 18:57] LABS: ALANINE AMINOTRANSFERASE 110 U/L (0-55); ALBUMIN 3.1 GM/DL (3.2-4.5); ALKALINE PHOSPHATASE 454 U/L (40-136); BILIRUBIN,TOTAL 4.8 MG/DL (0.1-1.0); BUN/CREATININE RATIO 28; CALCIUM 9.5 MG/DL (8.5-10.1); CARBON DIOXIDE 22 MMOL/L (21-32); CHLORIDE 102 MMOL/L (98-107); CREATININE SERUM 0.82 MG/DL (0.60-1.30); GFR ESTIMATED > 60; GLUCOSE 100 MG/DL (70-105); POTASSIUM 5.2 MMOL/L (3.6-5.0); SODIUM 137 MMOL/L (135-145); TOTAL PROTEIN 5.9 GM/DL (6.4-8.2)
[2018-03-25 19:34] VITALS: BP 133/85
== END 2018-03-25 19:37 | disposition home or self-care (01) ==
LOC: EDUNIT# 18:04 → ER 18:06
DX: R04.0 Epistaxis (principal); C22.9 Malignant neoplasm of liver, not specified as primary or secondary; I10 Essential (primary) hypertension; K21.9 Gastro-esophageal reflux disease without esophagitis; F41.9 Anxiety disorder, unspecified; F32.9 Major depressive disorder, single episode, unspecified; Z87.19 Personal history of other diseases of the digestive system; Z92.21 Personal history of antineoplastic chemotherapy
CPT/HCPCS: 36415; 80053; 85025; 85610; 85730; 99282

== ENCOUNTER 2018-03-29 14:39 | Outpatient (RCR) | payer OTHER ==
[2018-03-29 13:59] LABS: BASOPHILS % (AUTO) 0 % (0-10); EOSINOPHILS % (AUTO) 1 % (0-10); HEMATOCRIT 27 % (40-54); HEMOGLOBIN 8.2 G/DL (13.3-17.7); LYMPHOCYTES # (AUTO) 1.1 X 10^3 (1.0-4.0); LYMPHOCYTES % (AUTO) 32 % (12-44); MEAN CORPUSCULAR HEMOGLOBIN 29 PG (25-34); MEAN CORPUSCULAR HGB CONC 31 G/DL (32-36); MEAN CORPUSCULAR VOLUME 93 FL (80-99); MEAN PLATELET VOLUME 12.1 FL (7.4-10.4); MONOCYTES # (AUTO) 0.5 X 10^3 (0.0-1.0); MONOCYTES % (AUTO) 13 % (0-12); NEUTROPHILS # (AUTO) 1.8 X 10^3 (1.8-7.8); NEUTROPHILS % (AUTO) 53 % (42-75); PLATELET COUNT 90 10^3/uL (130-400); RED BLOOD COUNT 2.84 10^6/uL (4.35-5.85); RED CELL DISTRIBUTION WIDTH 18.1 % (10.0-14.5); WHITE BLOOD COUNT 3.4 10^3/uL (4.3-11.0)
[2018-03-29 14:17] LABS: ALANINE AMINOTRANSFERASE 124 U/L (0-55); ALBUMIN 3.1 GM/DL (3.2-4.5); ALKALINE PHOSPHATASE 506 U/L (40-136); BILIRUBIN,TOTAL 4.7 MG/DL (0.1-1.0); BUN/CREATININE RATIO 17; CALCIUM 9.8 MG/DL (8.5-10.1); CARBON DIOXIDE 22 MMOL/L (21-32); CHLORIDE 103 MMOL/L (98-107); CREATININE SERUM 0.98 MG/DL (0.60-1.30); GFR ESTIMATED > 60; GLUCOSE 141 MG/DL (70-105); POTASSIUM 4.9 MMOL/L (3.6-5.0); SODIUM 138 MMOL/L (135-145); TOTAL PROTEIN 6.3 GM/DL (6.4-8.2)
[~2018-03-29 14:39] MED LIST changes: +NS IV 1000 ML (CANCER CTR) IV SCH; +NS IV SCH; +ONDANSETRON MDV (CANCER CENTER 16 MG, DEXAMETHASONE PF INJ (CANCER C 10 MG in NS (IVPB)... IV SCH; +TOPOTECAN HCL IV SCH
[2018-03-31] MEDS ORDERED: CEPH-507 PO (19:32)
[2018-03-31] MEDS ORDERED: CIPR-225 PO (19:41)
[2018-03-31] MEDS ORDERED: ONDA8TAB9 PO (19:41)
== END 2018-04-12 | disposition home or self-care (01) ==
LOC: ONC 14:39
PROVIDERS: ATTEND Internal Medicine Hematology & Oncology
DX: Z51.11 Encounter for antineoplastic chemotherapy (principal); C7A.1 Malignant poorly differentiated neuroendocrine tumors; C78.7 Secondary malignant neoplasm of liver and intrahepatic bile duct; G89.3 Neoplasm related pain (acute) (chronic); I12.9 Hypertensive chronic kidney disease with stage 1 through stage 4 chronic kidney disease, or unspecified chronic kidney disease; N18.3 Chronic kidney disease, stage 3 (moderate); E66.01 Morbid (severe) obesity due to excess calories; Z68.41 Body mass index [BMI] 40.0-44.9, adult; Z79.899 Other long term (current) drug therapy
CPT/HCPCS: 36591; 80053; 85025; 96375; 96413

== ENCOUNTER 2018-03-31 17:44 | Emergency (ER) | payer OTHER ==
[~2018-03-31] VITALS: Ht 190.5 cm; Wt 117.9 kg
[~2018-03-31 17:44] MED LIST changes: -NS IV 1000 ML (CANCER CTR) IV SCH; -NS IV SCH; -ONDANSETRON MDV (CANCER CENTER 16 MG, DEXAMETHASONE PF INJ (CANCER C 10 MG in NS (IVPB)... IV SCH; -TOPOTECAN HCL IV SCH
--- OUTSIDE RECORDS SUMMARY | 2018-03-31 17:49 | XMS REPORT ---
Author Author JESSICA HENLEY [facility] Address [address] [place] [address] Care Team Providers Care Lens Inserter Name Role Phone JESSICA HENLEY Unavailable PROBLEMS Type Condition ICD9-CM Code FCS68-FC Code Onset Dates Condition Status SNOMED Code Problem Hypotestosteronemia E29.1 Active 309455025 Problem Depression F32.9 Active 87466318 Problem HTN (hypertension) I10 Active 61227681 Problem Gout M10.9 Active 21310455 Problem Vitamin D deficiency E55.9 Active 60592227 Problem Other malignant neuroendocrine tumors C7A.8 Active 89821152 Problem Morbid obesity due to excess calories E66.01 Active 079892633 Problem Hypercholesterolemia E78.0 Active 89532817 Problem GERD (gastroesophageal reflux disease) K21.9 Active 677134245 Problem Chronic osteoarthritis M19.90 Active 92949392 Problem Sleep apnea, unspecified G47.30 Active 42500533 ALLERGIES No Information ENCOUNTERS Encounter Location Date Diagnosis [facility] [address] [address] Feb, [facility] [address] [address] Jan, [facility] [address] [address] Nov, Depression F32.9 [facility] [address] [address] Nov, [facility] [address] [address] Nov, Cough R05 ; Acute nasopharyngitis J00 and BMI 40.0-44.9, adult Z68.41 [facility] [address] [address] Oct, Arthralgia, unspecified joint M25.50 and BMI 40.0-44.9, adult Z68.41 [facility] [id number] [place] [address] Sep, Depression F32.9 [facility] [id number] [place] [address] Sep, GERD (gastroesophageal reflux disease) K21.9 and HTN ( hypertension) I10 [facility] [id number] [place] [address] Sep, Chronic osteoarthritis M19.90 ; Depression F32.9 ; Other secondary neuroendocrine tumors 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.8 ; Other malignant neuroendocrine tumors C7A.8 ; HTN (hypertension) I10 and BMI 40.0-44.9, adult Z68.41 [facility] [id number] [place] [address] Aug, [facility] [id number] [place] [address] Aug, [facility] [id number] [place] [address] 34346- 8585 Aug, [facility] [id number] [place] [address]41- [address] Aug, [facility] [id number] [place] [address] Jul, [facility] [id number] [place] [address] Jul, Encounter for immunization Z23 [facility] [address] [address] Jul, [facility] [id number] [place] [address] 18[address] 1852 Jul, Primary osteoarthritis of both knees M17.0 [facility] [address] [address] Jul, Primary osteoarthritis of both knees M17.0 [facility] [id number] [place] [address] 28[address] 8[address] Jun, HTN (hypertension) I10 [facility] [id number] [place] [address] 675[address]- 99[address] Jun, Depression F32.9 [facility] [address] [address] Jun, [facility] [address] [address] May, Anxiety F41.9 ; GERD (gastroesophageal reflux disease) K21.9 and Hypercholesterolemia E78.0 [facility] [id number] [place] [address]26[address] May, Anxiety F41.9 and Moderate episode of recurrent major depressive disorder F33.1 [facility] [id number] [place] [address] 22781- 8[address] May, [facility] [id number] [place] [address] 64291- 3[address] May, [facility] [id number] [place] [address] 61092- 5589 Apr, [facility] [id number] [place] [address] 86187- 6373 Apr, HTN (hypertension) I10 ; Hypercholesterolemia E78.0 ; Depression F32.9 ; Chronic osteoarthritis M19.90 ; GERD (gastroesophageal reflux disease) K21.9 and Other secondary acute gout of left ankle M10.472 [facility] [address] [address] March, Anxiety F41.9 [facility] [id number] [place] [address] 11822- 6[address] March, [facility] [address] [address] Feb, HTN (hypertension) I10 [facility] [id number] [place] [address] 77[address]- [address] Dec, [facility] [id number] [place] [address] 86526- [address] Dec, [facility] [id number] [place] [address] 76841- 6784 Nov, [facility] [address] [address] Nov, Nausea R11.0 ; Anxiety F41.9 ; HTN (hypertension) I10 ; Hypercholesterolemia E78.0 ; Gout M10.9 ; Depression F32.9 and GERD ( gastroesophageal reflux disease) K21.9 [facility] [id number] [place] [address] 79005- 2257 Nov, [facility] [id number] [place] [address] 45072- 0[address] Nov, [facility] [id number] [place] [address] 49521- 7120 Nov, Liver mass R16.0 [facility] [id number] [place] [address] 73644- 30[address] Nov, [facility] [id number] [place] [address] 14380- 6980 Nov, [facility] [id number] [place] [address] 62240- 7604 Nov, HTN (hypertension) I10 ; Chronic osteoarthritis M19.90 ; Vitamin D deficiency E55.9 ; GERD (gastroesophageal reflux disease) K21.9 ; Morbid obesity due to excess calories E66.01 ; Moderate episode of recurrent major depressive disorder F33.1 ; Localized edema R60.0 and Liver mass R16.0 [facility] [id number] [place] [address] 43116- 9539 Nov, [facility] [id number] [place] [address] 39488- 4687 Nov, [facility] [address] [address] Nov, Right upper quadrant abdominal pain R10.11 and Nausea R11.0 [facility] [address] [address] Oct, Gastroenteritis K52.9 and Volume depletion E86.9 [facility] [address] [address] Oct, [address] [address] Oct, Encounter for immunization Z23 [address] [address] Oct, Osteoarthritis of right knee M17.[address] [address] Sep, [facility] [address] [address] Jul, [address] [address] Jul, Osteoarthritis of right knee M17.9 [facility] [address] [address] Jun, Seasonal allergic rhinitis, unspecified allergic rhinitis trigger J30.2 and Rash R21 [facility] [address] [address] Jun, [facility] [address] 138[address] May, HTN (hypertension) I10 ; Chronic osteoarthritis M19.90 ; Hypercholesterolemia E78.0 ; Gout M10.9 ; Depression F32.9 ; Vitamin D deficiency E55.9 ; GERD (gastroesophageal reflux disease) K21.9 and Morbid obesity due to excess calories E66.01 [facility] [address] [address] Apr, Osteoarthritis of right knee M17.9 [facility] [id number] [place] [address] 87854- 9923 March, Osteoarthritis of right knee M17.9 [facility] [id number] [place] [address] 62632- 56[address] March, [facility] [id number] [place] [address] 10498- 6966 March, Back pain M54.9 [facility] [id number] [place] [address] 69328- 2816 March, Wellness examination Z00.00 [facility] [id number] [place] [address] 56656- 1204 March, Chronic osteoarthritis M19.90 [facility] [id number] [place] [address] 09140- 3678 Feb, Chronic osteoarthritis M19.90 and Back pain M54.9 [facility] [id number] [place] [address] 03345- 8557 Jan, [facility] [address] [address] Jan, [facility] [id number] [place] [address] 25294- 2323 Jan, Back pain M54.9 and Environmental allergies Z91.09 [facility] [address] [place] [address] Dec, [facility] [id number] [place] [address] 59542- 3[address] 18 Dec, 2015 Osteoarthritis of right knee M17.9 [facility] [address] [place] [address] 15 Dec, 2015 [facility] [id number] [place] [address] 56159- 2799 Nov, [facility] [id number] [place] [address] 80508- 7915 Nov, [facility] [id number] [place] [address] 07645- 5071 Nov, [facility] [address] [address] Nov, Chronic osteoarthritis M19.90 ; HTN (hypertension) I10 ; Hypercholesterolemia E78.0 ; Gout M10.9 ; GERD (gastroesophageal reflux disease ) K21.9 and Bursitis of elbow M70.30 [facility] [address] 580[address]- [address] Oct, [facility] [address] 6[address]- [address]86 Oct, [facility] [address] 47[address]- [address] Oct, Osteoarthritis of right knee M17.9 [facility] [id number] [place] [address] 32096- 7507 Sep, [facility] [id number] [place] [address] 26210- 9566 Sep, HTN (hypertension) I10 ; Chronic osteoarthritis M19.90 ; Hypercholesterolemia E78.0 ; Gout M10.9 ; Depression F32.9 ; Vitamin D deficiency E55.9 ; Hypotestosteronemia E29.1 and GERD (gastroesophageal reflux disease) K21.9 [facility] [id number] [place] [address] 73619- 7418 Sep, Morbid obesity due to excess calories E66.01 [facility] [id number] [place] [address] 77431- 96[address] 11 Sep, 2015 HTN (hypertension) I10 ; Chronic osteoarthritis M19.90 ; Hypercholesterolemia E78.0 ; Gout M10.9 ; Depression F32.9 ; Vitamin D deficiency E55.9 ; Hypotestosteronemia E29.1 ; GERD (gastroesophageal reflux disease) K21.9 and Sleep apnea, unspecified G47.30 [facility] [address] [facility] [id number] [place] [address] Sep, [facility] [address] [facility] [id number] [place] [address] Sep, IMMUNIZATIONS No Known Immunizations SOCIAL HISTORY Never Assessed REASON FOR VISIT PALS PLAN OF CARE VITAL SIGNS MEDICATIONS Medication Instructions Dosage Frequency Start Date End Date Duration Status Eliquis 5 mg Orally 2 times a day 1 tablet 12h Jul, Active RESULTS No Results PROCEDURES No Known [...]
--- OUTSIDE RECORDS SUMMARY | 2018-03-31 17:53 | XMS REPORT ---
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 Name Role Phone Esau REBEKAH Unavailable PROBLEMS Type Condition ICD9-CM Code XHW91-UE Code Onset Dates Condition Status SNOMED Code Problem Hypotestosteronemia E29.1 Active 382163199 Problem Depression F32.9 Active 57988060 Problem HTN (hypertension) I10 Active 84615635 Problem Gout M10.9 Active 18041766 Problem Vitamin D deficiency E55.9 Active 13166061 Problem Other malignant neuroendocrine tumors C7A.8 Active 41350672 Problem Morbid obesity due to excess calories E66.01 Active 205993792 Problem Hypercholesterolemia E78.0 Active 09478655 Problem GERD (gastroesophageal reflux disease) K21.9 Active 384220770 Problem Chronic osteoarthritis M19.90 Active 99160863 Problem Sleep apnea, unspecified G47.30 Active 16900455 ALLERGIES No Known Allergies ENCOUNTERS Encounter Location Date Diagnosis [facility] [id number] [place] [address] 00721- 6647 Feb, [facility] [id number] [place] [address] 12161- 8472 Jan, [facility] [id number] [place] [address] 37544- 0820 Nov, Depression F32.9 [facility] [address] 98834- 6048 Nov, [facility] [address] 31648 [address]757 10 Nov, 2017 Cough R05 ; Acute nasopharyngitis J00 and BMI 40.0-44.9, adult Z68.41 [facility] [address], [place] [address] Oct, Arthralgia, unspecified joint M25.50 and BMI 40.0-44.9, adult Z68.41 [facility] [id number] [place] [address] 34379- 2885 Sep, Depression F32.9 [facility] [address] 72391- 6472 Sep, GERD (gastroesophageal reflux disease) K21.9 and HTN ( hypertension) I10 [facility] [id number] [place] [address] 03397- 4308 Sep, Chronic osteoarthritis M19.90 ; Depression F32.9 ; Other secondary neuroendocrine tumors C7B.8 ; Other malignant neuroendocrine tumors C7A.8 ; HTN (hypertension) I10 and BMI 40.0-44.9, adult Z68.41 [facility] [id number] [place] [address] 34195- 4558 Aug, [facility] [id number] [place] [address] 03838- 7382 Aug, [facility] [id number] [place] [address] 85184- 3438 Aug, [facility] [id number] [place] [address] 11443- 0753 Aug, [facility] [id number] [place] [address] 21049- 8487 Jul, [facility] [id number] [place] [address] 91333- 3556 Jul, Encounter for immunization Z23 [facility] [id number] [place] [address] 42620- 1534 Jul, [facility] [id number] [place] [address] 16313- 2838 Jul, Primary osteoarthritis of both knees M17.0 [facility] [id number] [place] [address] 83015- 1931 08 Jul, 2017 Primary osteoarthritis of both knees M17.0 [place] [address] 27147- 1348 Jun, HTN (hypertension) I10 [facility] [id number] [place] [address] 13012- 3214 Jun, Depression F32.9 [place] [address] 47069- 1690 Jun, [place] [id number] [place] [address] 38494- 3396 May, Anxiety F41.9 ; GERD (gastroesophageal reflux disease) K21.9 and Hypercholesterolemia E78.0 [place] [id number] [place] [address] 76102- 4611 May, Anxiety F41.9 and Moderate episode of recurrent major depressive disorder F33.1 [place] [id number] [place] [address] 77135- 8545 May, [place] [address] 40127- 2125 May, [place] [id number] [place] [address] 79287- 6376 Apr, [place] [id number] [place] [address] 60185- 0327 Apr, HTN (hypertension) I10 ; Hypercholesterolemia E78.0 ; Depression F32.9 ; Chronic osteoarthritis M19.90 ; GERD (gastroesophageal reflux disease) K21.9 and Other secondary acute gout of left ankle M10.472 [place] [id number] [place] [address] 17025- 7969 March, Anxiety F41.9 [place] [id number] [place] [address] 07888- 2661 March, [place] [id number] [place] [address] 5358 Feb, HTN (hypertension) I10 [facility] [id number] [place] [address] 74120- 3582 Dec, [facility] [id number] [place] [address] 12383- 3359 Dec, [facility] [id number] [place] [address] 68134- 1969 Nov, [facility] [id number] [place] [address] 26253- 0481 Nov, Nausea R11.0 ; Anxiety F41.9 ; HTN (hypertension) I10 ; Hypercholesterolemia E78.0 ; Gout M10.9 ; Depression F32.9 and GERD ( gastroesophageal reflux disease) K21.9 [place] [id number] [place] [address] 92584- 4590 Nov, [facility] [id number] [place] [address] 51889- 9828 Nov, [facility] [id number] [place] [address] 50271- 2514 Nov, Liver mass R16.0 [facility] [id number] [place] [address] 50558- 2253 Nov, [facility] [id number] [place] [address] 94768- 3079 Nov, [facility] [id number] [place] [address] 66713- 0986 Nov, HTN (hypertension) I10 ; Chronic osteoarthritis M19.90 ; Vitamin D deficiency E55.9 ; GERD (gastroesophageal reflux disease) K21.9 ; Morbid obesity due to excess calories E66.01 ; Moderate episode of recurrent major depressive disorder F33.1 ; Localized edema R60.0 and Liver mass R16.0 [facility] [id number] [place] [address] 64699- 3989 Nov, [facility] [id number] [place] [address] 74105- 3462 Nov, [facility] [address] 34564 -5781 Nov, Right upper quadrant abdominal pain R10.11 and Nausea R11.0 [place] [address] 57931- 3973 Oct, Gastroenteritis K52.9 and Volume depletion E86.9 [place] [address] 91664- 2265 Oct, [place] [address] 21572- 9252 Oct, Encounter for immunization Z23 [place] [address] 02905- 7634 Oct, Osteoarthritis of right knee M17.9 [place] [address] 45071- 1703 Sep, [place] [address] 01411- 0264 Jul, [place] [address] 47701- 1442 Jul, Osteoarthritis of right knee M17.9 [facility] IN [facility] [id number] [place] [address] 48183 -0180 Jun, Seasonal allergic rhinitis, unspecified allergic rhinitis trigger J30.2 and Rash R21 [place] [address] 96336- 2883 Jun, [place] [address] 92502- 4294 May, HTN (hypertension) I10 ; Chronic osteoarthritis M19.90 ; Hypercholesterolemia E78.0 ; Gout M10.9 ; Depression F32.9 ; Vitamin D deficiency E55.9 ; GERD (gastroesophageal reflux disease) K21.9 and Morbid obesity due to excess calories E66.01 [facility] [address], [place] [address] 7[address] Apr, Osteoarthritis of right knee M17.9 [facility] [id number] [place] [address] 59732- 0527 March, Osteoarthritis of right knee M17.9 [facility] [id number] [place] [address] 66734- 9382 March, [facility] [id number] [place] [address] 26566- 4019 March, Back pain M54.9 [facility] [id number] [place] [address] 96867- 6910 March, Wellness examination Z00.00 [facility] [id number] [place] [address] 83276- 5037 March, Chronic osteoarthritis M19.90 [facility] [id number] [place] [address] 25864- 3302 Feb, Chronic osteoarthritis M19.90 and Back pain M54.9 [facility] [id number] [place] [address] 14796- 3884 Jan, [facility] [id number] [place] [address] 33534- 0795 Jan, [facility] [id number] [place] [address] 82122- 3138 Jan, Back pain M54.9 and Environmental allergies Z91.09 [facility] [address], [place] [address]- 0186 Dec, [facility] [id number] [place] [address] 28679- 8203 18 Dec, 2015 Osteoarthritis of right knee M17.9 [facility] [id number] [place] [address] 62827- 8958 Dec, [place] [id number] [place] [address] 50689- 4396 Nov, [place] [id number] [place] [address] 42281- 2169 Nov, [facility] [id number] [place] [address] 91009- 6358 Nov, [place] [address] 71085- 5631 Nov, Chronic osteoarthritis M19.90 ; HTN (hypertension) I10 ; Hypercholesterolemia E78.0 ; Gout M10.9 ; GERD (gastroesophageal reflux disease ) K21.9 and Bursitis of elbow M70.30 [place] [id number] [place] [address] 35105- 4631 Oct, [place] [address] 39735- 7231 Oct, [place] [id number] [place] [address] 54251- 2125 Oct, Osteoarthritis of right knee M17.9 [place] [id number] [place] [address] 86401- 5689 Sep, [place] [id number] [place] [address] 62598- 7788 Sep, HTN (hypertension) I10 ; Chronic osteoarthritis M19.90 ; Hypercholesterolemia E78.0 ; Gout M10.9 ; Depression F32.9 ; Vitamin D deficiency E55.9 ; Hypotestosteronemia E29.1 and GERD (gastroesophageal reflux disease) K21.9 [place] [id number] [place] [address] 16885- 3551 Sep, Morbid obesity due to excess calories E66.01 [place] [id number] [place] [address] 10996- 0092 11 Sep, 2015 HTN (hypertension) I10 ; Chronic osteoarthritis M19.90 ; Hypercholesterolemia E78.0 ; Gout M10.9 ; Depression F32.9 ; Vitamin D deficiency E55.9 ; Hypotestosteronemia E29.1 ; GERD (gastroesophageal reflux disease) K21.9 and Sleep apnea, unspecified G47.30 [facility] [address] [facility] [id number] [place] [address]- [address] Sep, [facility] [address] [facility] [id number] [place] [address]- 4240 Sep, IMMUNIZATIONS Vaccine Route Administration Date Status FLUARIX QUAD (3 AND UP) 2016 IM Intramuscular Aug 23, 2017 Administered PCV 13 IM Intramuscular Aug 23, 2017 Administered SOCIAL HISTORY Never Assessed REASON FOR VISIT Pneumonia/ flu shot, [place],[facility] PLAN OF CARE VITAL SIGNS MEDICATIONS Medication Instructions Dosage Frequency Start Date End Date Duration Status Klor-Con M20 20 MEQ Orally Once a day 1 tablet 24h 30 Active Citalopram Hydrobromide 40 mg Orally Once a day TAKE ONE TABLET BY MOUTH ONCE DAILY 24h 30 Active Simvastatin 20 mg Orally Once a day 1 tablet in the evening 24h 30 Active Zofran ODT 4 MG Orally every 8 hrs 1-2 tablet on the tongue and allow to dissolve 8h 17 Active Lift Chair/Recliner 1 as directed Jun, Active Centrum Active BusPIRone HCl 10 mg Orally Once a day 1 tablet 24h May, Active Metoprolol Tartrate 25 MG Orally Once a day 1 tablet 24h Active Xanax 0.5 MG Orally Three times a day 1 tablet 8h Nov, 30 days Active Protonix 40 mg Orally Once a day 1 tablet 24h 30 Active Allopurinol 300 MG Orally Once a day 1 tablet 24h 30 Active Synvisc One 48 MG/6ML Intra-articular one injection per knee once every 6 months Jul, 180 days Active RESULTS No Results PROCEDURES Procedure Date Ordered Result Body Site PCV 13 Aug 23, 2017 FLUARIX QUAD (3 & UP)--2014Aug 23, 2017 IMMUNIZATION ADMIN, EACH ADD (please include units) Aug 23, 2017 SINGLE IMMUNIZATION ADMIN Aug 23, 2017 INSTRUCTIONS MEDICATIONS ADMINISTERED No Known Medications MEDICAL [...]
--- OUTSIDE RECORDS SUMMARY | 2018-03-31 17:53 | XMS REPORT ---
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 [employer] Name Role Phone Esau REBEKAH Unavailable PROBLEMS Type Condition ICD9-CM Code GHM44-ME Code Onset Dates Condition Status SNOMED Code Problem Hypotestosteronemia E29.1 Active 884340395 Problem Depression F32.9 Active 14823179 Problem HTN (hypertension) I10 Active 78925814 Problem Gout M10.9 Active 97635176 Problem Vitamin D deficiency E55.9 Active 47994850 Problem Other malignant neuroendocrine tumors C7A.8 Active 57353559 Problem Morbid obesity due to excess calories E66.01 Active 735983232 Problem Hypercholesterolemia E78.0 Active 91579934 Problem GERD (gastroesophageal reflux disease) K21.9 Active 738693803 Problem Chronic osteoarthritis M19.90 Active 27451011 Problem Sleep apnea, unspecified G47.30 Active 34985241 ALLERGIES No Information ENCOUNTERS Encounter Location Date Diagnosis [facility] [id number] [place] [address] 35741- 7229 Feb, [facility] [id number] [place] [address] 42507- 1761 Jan, [facility] [address] 76404- 8573 Nov, Depression F32.9 [facility] [address] 60567- 9145 Nov, [facility] [id number] [place] [address] 80542 -5535 10 Nov, 2017 Cough R05 ; Acute nasopharyngitis J00 and BMI 40.0-44.9, adult Z68.41 [facility] [address] [place] [address] 57548 -8206 Oct, Arthralgia, unspecified joint M25.50 and BMI 40.0-44.9, adult Z68.41 [facility] [id number] [place] [address] 83506- 4913 Sep, Depression F32.9 [facility] [address] 76757- 7817 Sep, GERD (gastroesophageal reflux disease) K21.9 and HTN ( hypertension) I10 [facility] [id number] [place] [address] 31425- 6134 Sep, Chronic osteoarthritis M19.90 ; Depression F32.9 ; Other secondary neuroendocrine tumors C7B.8 ; Other malignant neuroendocrine tumors C7A.8 ; HTN (hypertension) I10 and BMI 40.0-44.9, adult Z68.41 [facility] [id number] [place] [address] 67703- 3990 Aug, [facility] [id number] [place] [address] 86020- 4151 Aug, [facility] [id number] [place] [address] 27905- 7275 Aug, [facility] [id number] [place] [address] 45132- 3057 Aug, [facility] [id number] [place] [address] 22148- 5477 Jul, [facility] [id number] [place] [address] 89089- 8349 Jul, Encounter for immunization Z23 [facility] [id number] [place] [address] 48245- 3963 Jul, [facility] [id number] [place] [address] 74174- 9609 Jul, Primary osteoarthritis of both knees M17.0 [facility] [id number] [place] [address] 44688- 2148 08 Jul, 2017 Primary osteoarthritis of both knees M17.0 [facility] [address] 77978- 4885 Jun, HTN (hypertension) I10 [facility] [id number] [place] [address] 02499- 6612 Jun, Depression F32.9 [facility] [address] 78476- 9112 Jun, [place] [id number] [place] [address] 23768- 3922 May, Anxiety F41.9 ; GERD (gastroesophageal reflux disease) K21.9 and Hypercholesterolemia E78.0 [place] [id number] [place] [address] 55340- 8507 May, Anxiety F41.9 and Moderate episode of recurrent major depressive disorder F33.1 [place] [id number] [place] [address] 95650- 8536 May, [place] [address] 07227- 5160 May, [place] [id number] [place] [address] 43687- 8813 Apr, [place] [id number] [place] [address] 33239- 3617 Apr, HTN (hypertension) I10 ; Hypercholesterolemia E78.0 ; Depression F32.9 ; Chronic osteoarthritis M19.90 ; GERD (gastroesophageal reflux disease) K21.9 and Other secondary acute gout of left ankle M10.472 [place] [id number] [place] [address] 41306- 4218 March, Anxiety F41.9 [facility] [id number] [place] [address] 65624- 5376 March, [facility] [address] [place] [address]- 2224 Feb, HTN (hypertension) I10 [facility] [id number] [place] [address] 13022- 2714 Dec, [facility] [id number] [place] [address] 70410- 2995 Dec, [facility] [id number] [place] [address] 21341- 2294 Nov, [facility] [id number] [place] [address] 98848- 3062 Nov, Nausea R11.0 ; Anxiety F41.9 ; HTN (hypertension) I10 ; Hypercholesterolemia E78.0 ; Gout M10.9 ; Depression F32.9 and GERD ( gastroesophageal reflux disease) K21.9 [place] [id number] [place] [address] 55783- 0173 Nov, [facility] [id number] [place] [address] 40914- 6257 Nov, [facility] [id number] [place] [address] 88941- 3390 Nov, Liver mass R16.0 [place] [id number] [place] [address] 49100- 7062 Nov, [place] [id number] [place] [address] 81324- 1461 Nov, [facility] [id number] [place] [address] 19954- 4785 Nov, HTN (hypertension) I10 ; Chronic osteoarthritis M19.90 ; Vitamin D deficiency E55.9 ; GERD (gastroesophageal reflux disease) K21.9 ; Morbid obesity due to excess calories E66.01 ; Moderate episode of recurrent major depressive disorder F33.1 ; Localized edema R60.0 and Liver mass R16.0 [place] [id number] [place] [address] 81790- 8863 Nov, [facility] [id number] [place] [address] 68781- 1784 Nov, [facility] [address] 53479 -8385 Nov, Right upper quadrant abdominal pain R10.11 and Nausea R11.0 [place] [address] 18694- 9106 Oct, Gastroenteritis K52.9 and Volume depletion E86.9 [place] [address] 65498- 3898 Oct, [place] [address] 20589- 2807 Oct, Encounter for immunization Z23 [place] [address] 10286- 7604 Oct, Osteoarthritis of right knee M17.9 [place] [address] 71079- 3259 Sep, [place] [address] 64092- 4448 Jul, [place] [address] 81316- 7829 Jul, Osteoarthritis of right knee M17.9 [facility] [id number] [place] [address] 96515 -8828 Jun, Seasonal allergic rhinitis, unspecified allergic rhinitis trigger J30.2 and Rash R21 [place] [address] 27324- 4199 Jun, [place] [address] 88502- 8542 May, HTN (hypertension) I10 ; Chronic osteoarthritis M19.90 ; Hypercholesterolemia E78.0 ; Gout M10.9 ; Depression F32.9 ; Vitamin D deficiency E55.9 ; GERD (gastroesophageal reflux disease) K21.9 and Morbid obesity due to excess calories E66.01 [facility] [address], [place] [address]- 8090 Apr, Osteoarthritis of right knee M17.9 [facility] [id number] [place] [address] 64582- 6350 March, Osteoarthritis of right knee M17.9 [facility] [id number] [place] [address] 62075- 3434 March, [facility] [id number] [place] [address] 02432- 7569 March, Back pain M54.9 [facility] [id number] [place] [address] 28885- 8758 March, Wellness examination Z00.00 [facility] [id number] [place] [address] 43156- 8069 March, Chronic osteoarthritis M19.90 [facility] [id number] [place] [address] 70779- 7161 Feb, Chronic osteoarthritis M19.90 and Back pain M54.9 [facility] [id number] [place] [address] 72865- 7051 Jan, [facility] [address] [place] [address] 39416- 7191 Jan, [facility] [id number] [place] [address] 66216- 7513 Jan, Back pain M54.9 and Environmental allergies Z91.09 [facility] [address], [place] [address]- 7801 Dec, [facility] [id number] [place] [address] 62318- 3884 18 Dec, 2015 Osteoarthritis of right knee M17.9 [facility] [address] [place] [address] 56891- 5677 Dec, [place] [id number] [place] [address] 74394- 8455 Nov, [place] [address] 97173- 3286 Nov, [place] [id number] [place] [address] 57412- 2769 Nov, [place] [address] 17161- 8207 Nov, Chronic osteoarthritis M19.90 ; HTN (hypertension) I10 ; Hypercholesterolemia E78.0 ; Gout M10.9 ; GERD (gastroesophageal reflux disease ) K21.9 and Bursitis of elbow M70.30 [place] [address] [place] [id number] [place] [address] [phone]- 5774 Oct, [place] [address] [address]- [address] Oct, [place] [address] [place] [id number] [place] [address] [id number]- 9344 Oct, Osteoarthritis of right knee M17.9 [place] [id number] [place] [address] [phone]- 6498 Sep, [place] [address] [place] [id number] [place] [address] 40050- 1827 Sep, HTN (hypertension) I10 ; Chronic osteoarthritis M19.90 ; Hypercholesterolemia E78.0 ; Gout M10.9 ; Depression F32.9 ; Vitamin D deficiency E55.9 ; Hypotestosteronemia E29.1 and GERD (gastroesophageal reflux disease) K21.9 [place] [address] [place] [id number] [place] [address] 16851- 2563 Sep, Morbid obesity due to excess calories E66.01 [place] [address] [place] [id number] [place] [address] 62657- 3772 11 Sep, 2015 HTN (hypertension) I10 ; Chronic osteoarthritis M19.90 ; Hypercholesterolemia E78.0 ; Gout M10.9 ; Depression F32.9 ; Vitamin D deficiency E55.9 ; Hypotestosteronemia E29.1 ; GERD (gastroesophageal reflux disease) K21.9 and Sleep apnea, unspecified G47.30 [facility] [address] [facility] [id number] [place] [address] Sep, [facility] [address] [facility] [id number] [place] [address] Sep, IMMUNIZATIONS No Known Immunizations SOCIAL HISTORY Never Assessed REASON FOR VISIT Refill request PLAN OF CARE VITAL SIGNS MEDICATIONS Unknown [...]
--- OUTSIDE RECORDS SUMMARY | 2018-03-31 17:55 | XMS REPORT | Continuity of Care Document ---
Author Author [facility] of [facility] of [facility] Address Unknown Phone Unavailable Allergies Active Description Code Type Severity Reaction Onset Reported/Identified Relationship to Patient Clinical Status Yes No Known Drug Allergies [id number] Drug Allergy Unknown N/A 12/18/2016 Medications There [...] ADULT 10/28/1325 NORBERTO HALEY Ot Z79.899 OTHER PROMOTION PRODUCER (CURRENT) DRUG THERAPY 10/28/1621 MITCHELL ASKEW MD, [...] 10/28/1621 MITCHELL ASKEW MD, Ot Z79.899 OTHER ASSISTED (CURRENT) DRUG THERAPY 12/16/2016 BAYRON AVILA LITERACY EDUCATION PROFESSOR Ot R16.0 HEPATOMEGALY, NOT ELSEWHERE CLASSIFIED 12/22/2016 BAYRON AVILA LITERACY EDUCATION PROFESSOR Ot R16.0 HEPATOMEGALY, NOT ELSEWHERE CLASSIFIED 12/22/2016 REBEKAH CHAVEZ STULL INSTALLER Ot I10 ESSENTIAL (PRIMARY) HYPERTENSION 12/22/2016 BAYRON AVILA LITERACY EDUCATION PROFESSOR Ot R16.0 HEPATOMEGALY, NOT ELSEWHERE CLASSIFIED 12/22/2016 REBEKAH CHAVEZ STULL INSTALLER Ot I10 ESSENTIAL (PRIMARY) HYPERTENSION 12/22/2016 BAYRON AVILA LITERACY EDUCATION PROFESSOR Ot R16.0 HEPATOMEGALY, NOT ELSEWHERE CLASSIFIED 12/22/2016 REBEKAH CHAVEZ STULL INSTALLER Ot I10 ESSENTIAL (PRIMARY) HYPERTENSION 12/23/2016 JEFFREY CORNEJO MD Ot R16.0 HEPATOMEGALY, NOT ELSEWHERE CLASSIFIED 12/23/2016 BAYRON AVILA LITERACY EDUCATION PROFESSOR Ot R16.0 HEPATOMEGALY, NOT ELSEWHERE CLASSIFIED 12/23/2016 REBEKAH CHAVEZ STULL INSTALLER Ot I10 ESSENTIAL (PRIMARY) HYPERTENSION 12/23/2016 JEFFREY CORNEJO MD Ot R16.0 HEPATOMEGALY, NOT ELSEWHERE CLASSIFIED 12/23/2016 BAYRON AVILA LITERACY EDUCATION PROFESSOR Ot R16.0 HEPATOMEGALY, NOT ELSEWHERE CLASSIFIED 12/23/2016 REBEKAH CHAVEZ STULL INSTALLER Ot I10 ESSENTIAL (PRIMARY) HYPERTENSION 12/23/2016 JEFFREY CORNEJO MD Ot R16.0 HEPATOMEGALY, NOT ELSEWHERE CLASSIFIED 12/23/2016 BAYRON AVILA LITERACY EDUCATION PROFESSOR Ot R16.0 HEPATOMEGALY, NOT ELSEWHERE CLASSIFIED 12/23/2016 REBEKAH CHAVEZ STULL INSTALLER Ot I10 ESSENTIAL (PRIMARY) HYPERTENSION 12/23/2016 JEFFREY CORNEJO MD Ot R16.0 HEPATOMEGALY, NOT ELSEWHERE CLASSIFIED 12/23/2016 BAYRON AVILA APRN Ot R16.0 HEPATOMEGALY, NOT ELSEWHERE CLASSIFIED 12/23/2016 REBEKAH CHAVEZ STULL INSTALLER Ot I10 ESSENTIAL (PRIMARY) HYPERTENSION 12/23/2016 JEFFREY [...] Ot R16.0 HEPATOMEGALY, NOT ELSEWHERE CLASSIFIED 01/01/2017 BAYRON AVILA LITERACY EDUCATION PROFESSOR Ot R16.0 HEPATOMEGALY, NOT ELSEWHERE CLASSIFIED 02/02/2017 [...] HEPATOMEGALY, NOT ELSEWHERE CLASSIFIED 03/01/2017 REBEKAH CHAVEZ STULL INSTALLER Ot I10 ESSENTIAL (PRIMARY) HYPERTENSION 03/01/2017 BAYRON AVILA LITERACY EDUCATION PROFESSOR Ot R16.0 HEPATOMEGALY, NOT ELSEWHERE CLASSIFIED 03/01/2017 MITCHELL ASKEW MD Ot C22.9 MALIG NEOPLASM OF LIVER, NOT SPECIFIED A 03/16/2017 MITCHELL ASKEW MD Ot C22.9 MALIG NEOPLASM OF LIVER, NOT SPECIFIED A 03/16/2017 MITCHELL ASKEW MD Ot C22.9 MALIG NEOPLASM OF LIVER, NOT SPECIFIED A 03/16/2017 BAYRON AVILA LITERACY EDUCATION PROFESSOR Ot R16.0 HEPATOMEGALY, NOT ELSEWHERE CLASSIFIED 03/16/2017 REBEKAH CHAVEZ STULL INSTALLER Ot I10 ESSENTIAL (PRIMARY) HYPERTENSION 03/16/2017 MITCHELL [...] 03/23/2017 MITCHELL ASKEW MD, Ot Z79.899 OTHER ASSISTED (CURRENT) DRUG THERAPY 03/31/2017 MITCHELL ASKEW MD, [...] (SEVERE) OBESITY DUE TO EXCESS CA 04/13/2017 MICTHELL ASKEW MD, Ot G89.3 NEOPLASM RELATED PAIN [...] 04/13/2017 MITCHELL ASKEW MD, Ot Z79.899 OTHER ASSISTED (CURRENT) DRUG THERAPY 05/03/2017 JEFFREY CORNEJO MD Ot R16.0 HEPATOMEGALY, NOT ELSEWHERE CLASSIFIED 05/03/2017 AVILABAYRON NIELSEN Schuyler LITERACY EDUCATION PROFESSOR Ot R16.0 HEPATOMEGALY, NOT ELSEWHERE CLASSIFIED 05/03/2017 REBEKAH CHAVEZ STULL INSTALLER Ot I10 ESSENTIAL (PRIMARY) HYPERTENSION 05/03/2017 JEFFREY CORNEJO MD Ot R16.0 HEPATOMEGALY, [...] 05/03/2017 MITCHELL ASKEW MD, Ot Z79.899 OTHER PROMOTION PRODUCER (CURRENT) DRUG THERAPY 05/03/2017 BAYRON AVILA LITERACY EDUCATION PROFESSOR Ot R16.0 HEPATOMEGALY, NOT ELSEWHERE CLASSIFIED 05/03/2017 BAYRON AVILA LITERACY EDUCATION PROFESSOR Ot R16.0 HEPATOMEGALY, NOT ELSEWHERE CLASSIFIED 05/03/2017 BAYRON AVILA LITERACY EDUCATION PROFESSOR Ot R16.0 HEPATOMEGALY, NOT ELSEWHERE CLASSIFIED 05/03/2017 REBEKAH CHAVEZ STULL INSTALLER Ot I10 ESSENTIAL (PRIMARY) HYPERTENSION 05/05/2017 MITCHELL ASKEW MD, Ot C78.7 SECONDARY MALIG NEOPLASM OF LIVER AND IN 05/05/2017 MITCHELL ASKEW MD, Ot C7A.1 MALIGNANT POORLY DIFFERENTIATED NEUROEND 05/05/2017 MITCHELL ASKEW MD, Ot D70.1 AGRANULOCYTOSIS SECONDARY TO CANCER CHEM 05/05/2017 MITCHELL ASKWE MD, Ot E66.01 MORBID (SEVERE) OBESITY DUE [...] 05/05/2017 MITCHELL ASKEW MD, Ot Z79.899 OTHER ASSISTED (CURRENT) DRUG THERAPY 05/18/2017 MITCHELL ASKEW MD, [...] 05/18/2017 MITCHELL ASKEW MD, Ot Z79.899 OTHER PROMOTION PRODUCER (CURRENT) DRUG THERAPY 05/25/2017 MITCHELL ASKEW MD, [...] 05/25/2017 MITCHELL ASKEW MD, Ot Z79.899 OTHER PROMOTION PRODUCER (CURRENT) DRUG THERAPY 06/15/2017 MITCHELL ASKEW MD, [...] 06/15/2017 MITCHELL ASKEW MD, Ot Z79.899 OTHER ASSISTED (CURRENT) DRUG THERAPY 06/24/2017 MITCHELL ASKEW MD [...] 06/28/2017 MITCHELL ASKEW MD, Ot Z79.899 OTHER ASSISTED (CURRENT) DRUG THERAPY 06/30/2017 NORBERTO HALEY Ot [...] 06/30/2017 NORBERTO HALEY Flor Ot Z79.899 OTHER PROMOTION PRODUCER (CURRENT) DRUG THERAPY 07/13/2017 AVILABAYRON NIELSEN GUY Ot R16.0 HEPATOMEGALY, NOT ELSEWHERE CLASSIFIED 07/13/2017 REBEKAH CHAVEZ STULL INSTALLER Ot I10 ESSENTIAL (PRIMARY) HYPERTENSION 07/13/2017 CHANTAL [...] C7A.1 MALIGNANT POORLY DIFFERENTIATED NEUROEND 07/13/2017 NORBERTO HALEY Ot E66.01 MORBID (SEVERE) OBESITY DUE TO EXCESS CA 07/13/2017 NORBERTO HALEY Ot G89.3 NEOPLASM RELATED PAIN (ACUTE) (CHRONIC) 07/13/2017 NORBERTO HALEY Ot I12.9 HYPERTENSIVE CHRONIC KIDNEY DISEASE W ST 07/13/2017 NORBERTO HALEY Ot N18.3 CHRONIC KIDNEY DISEASE, STAGE 3 (MODERAT 07/13/2017 SUDHANORBERTO Ot Z68.41 BODY MASS INDEX (BMI) 40.0-44.9, ADULT 07/13/2017 SUDHANORBERTO Ot Z79.899 OTHER PROMOTION PRODUCER (CURRENT) DRUG THERAPY 07/13/2017 KANNAN MURCIA STULL INSTALLER Ot G47.61 PERIODIC LIMB MOVEMENT DISORDER 07/13/2017 KANNAN MURCIA STULL INSTALLER Ot I10 ESSENTIAL (PRIMARY) HYPERTENSION 07/13/2017 KANNAN MURCIA STULL INSTALLER Ot R06.83 SNORING 07/16/2017 MURCIAKANNAN Merrill STULL INSTALLER Ot G47.61 PERIODIC LIMB MOVEMENT DISORDER 07/16/2017 MURCIAKANNAN Merrill STULL INSTALLER Ot I10 ESSENTIAL (PRIMARY) HYPERTENSION 07/16/2017 KANNAN MURCIA STULL INSTALLER Ot R06.83 SNORING 07/23/2017 SUDHAMAICO TEJEDAAN N [...] 07/23/2017 SUDHA BOBAN N Ot Z79.899 OTHER ASSISTED (CURRENT) DRUG THERAPY 07/27/2017 SUDHA, BOBAN N [...] 07/27/2017 SUDHA, BOBAN N Ot Z79.899 OTHER PROMOTION PRODUCER (CURRENT) DRUG THERAPY 07/27/2017 SUDHA, BOBAN N [...] 07/27/2017 NORBERTO HALEY N Ot Z79.899 OTHER ASSISTED (CURRENT) DRUG THERAPY 07/30/2017 NORBERTO HALEY N [...] CHRONIC KIDNEY DISEASE, STAGE 3 (MODERAT 08/03/2017 NOBRERTO HALEY N Ot Z51.11 ENCOUNTER FOR ANTINEOPLASTIC CHEMOTHERAP 08/03/2017 NORBERTO HALEY N Ot Z68.41 BODY MASS INDEX (BMI) 40.0-44.9, ADULT 08/03/2017 NORBERTO HAELY N Ot Z79.899 OTHER ASSISTED (CURRENT) DRUG THERAPY 08/03/2017 SUDHANORBERTO N Ot [...] 08/03/2017 SUDHANORBERTO TEJEDA N Ot Z79.899 OTHER ASSISTED (CURRENT) DRUG THERAPY 08/03/2017 SUDHANORBERTO N Ot C7A.1 MALIGNANT POORLY DIFFERENTIATED NEUROEND 08/03/2017 SUDHA BOBAME N Ot C7A.1 MALIGNANT POORLY DIFFERENTIATED NEUROEND 08/03/2017 SUDHANORBERTO TEJEDA N Ot R16.0 HEPATOMEGALY, NOT ELSEWHERE CLASSIFIED 08/03/2017 SUDHA, MAICOAME N Ot R91.1 SOLITARY PULMONARY NODULE 08/03/2017 SUDHA, BOBAN N Ot C78.7 SECONDARY MALIG NEOPLASM OF LIVER AND IN 08/03/2017 SUDHA, MAICOAME N Ot C7A.1 MALIGNANT POORLY [...] ADULT 08/03/2017 SUDHANORBERTO N Ot Z79.899 OTHER ASSISTED (CURRENT) DRUG THERAPY 08/05/2017 SUDHANORBERTO N Ot [...] 08/05/2017 SUDHANORBERTO TEJEDA N Ot Z79.899 OTHER PROMOTION PRODUCER (CURRENT) DRUG THERAPY 08/11/2017 SUDHANORBERTO TEJEDA N [...] 08/28/2017 NORBERTO HALEY N Ot Z79.899 OTHER ASSISTED (CURRENT) DRUG THERAPY 09/16/2017 SUDHANORBERTO N Ot [...] 09/16/2017 SUDHANORBERTO TEJEDA N Ot Z79.899 OTHER PROMOTION PRODUCER (CURRENT) DRUG THERAPY 09/20/2017 NORBERTO HALEY N Ot C7A.1 MALIGNANT POORLY DIFFERENTIATED NEUROEND 09/20/2017 SUDHANORBERTO TEJEDA N Ot C7A.1 MALIGNANT POORLY DIFFERENTIATED NEUROEND 09/20/2017 SUDHANORBERTO TEJEDA N Ot R16.0 HEPATOMEGALY, NOT ELSEWHERE CLASSIFIED 09/20/2017 SUDHANORBERTO TEJEDA N Ot R91.1 SOLITARY PULMONARY NODULE 09/20/2017 SUDHA BOBAN N Ot C78.7 SECONDARY MALIG NEOPLASM [...] 09/20/2017 SUDHANORBERTO TEJEDA N Ot Z79.899 OTHER PROMOTION PRODUCER (CURRENT) DRUG THERAPY 10/08/2017 SUDHANORBERTO TEJEDA N [...] ADULT 10/08/2017 NORBERTO HALEY Ot Z79.899 OTHER PROMOTION PRODUCER (CURRENT) DRUG THERAPY 10/13/2017 CYNTHIA BRASHER Ot [...] OTHER DISEASES OF TH 10/20/2017 BAYRON AVILA LITERACY EDUCATION PROFESSOR Ot R16.0 HEPATOMEGALY, NOT ELSEWHERE CLASSIFIED 10/20/2017 REBEKAH CHAVEZ STULL INSTALLER Ot I10 ESSENTIAL (PRIMARY) HYPERTENSION 10/20/2017 JEFFREY [...] 10/20/2017 NORBERTO HALEY Flor Ot Z79.899 OTHER PROMOTION PRODUCER (CURRENT) DRUG THERAPY 11/11/2017 BAYRON AVILA LITERACY EDUCATION PROFESSOR Ot R16.0 HEPATOMEGALY, NOT ELSEWHERE CLASSIFIED 11/11/2017 REBEKAH CHAVEZ STULL INSTALLER Ot I10 ESSENTIAL (PRIMARY) HYPERTENSION 11/11/2017 JEFFREY [...] 11/11/2017 SUDHANORBERTO TEJEDA N Ot Z79.899 OTHER PROMOTION PRODUCER (CURRENT) DRUG THERAPY 12/02/2017 NORBERTO HALEY N [...] 12/02/2017 SUDHA BOBAN N Ot Z79.899 OTHER ASSISTED (CURRENT) DRUG THERAPY 12/06/2017 REBEKAH CHAVEZ STULL INSTALLER Ot I10 ESSENTIAL (PRIMARY) HYPERTENSION 12/31/2017 SUDHANORBERTO [...] 12/31/2017 SUDHANORBERTO TEJEDA N Ot Z79.899 OTHER ASSISTED (CURRENT) DRUG THERAPY 01/04/2018 SUDHANORBERTO TEJEDA N [...] 01/04/2018 SUDHA BOBAN N Ot Z79.899 OTHER ASSISTED (CURRENT) DRUG THERAPY 02/08/2018 KANNAN MURCIA STULL INSTALLER Ot I67.82 CEREBRAL ISCHEMIA 02/08/2018 KANNAN MURCIA STULL INSTALLER Ot Z85.9 PERSONAL HISTORY OF MALIGNANT NEOPLASM, 02/11/2018 KANNAN MURCIA STULL INSTALLER Ot C7A.1 MALIGNANT POORLY DIFFERENTIATED NEUROEND 02/11/2018 KANNAN MURCIA STULL INSTALLER Ot M17.11 UNILATERAL PRIMARY OSTEOARTHRITIS, RIGHT 02/11/2018 NORBERTO HALEY Ot C78.7 SECONDARY MALIG NEOPLASM OF LIVER AND IN 02/11/2018 NORBERTO HALEY Ot C7A.1 MALIGNANT POORLY DIFFERENTIATED NEUROEND 02/11/2018 NORBERTO HALEY Ot E66.01 MORBID (SEVERE) OBESITY DUE TO EXCESS CA 02/11/2018 NORBERTO HALEY Ot G89.3 NEOPLASM RELATED PAIN (ACUTE) (CHRONIC) 02/11/2018 NORBERTO HALEY N Ot I12.9 HYPERTENSIVE CHRONIC KIDNEY DISEASE W ST 02/11/2018 NORBERTO HALEY Ot N18.3 CHRONIC KIDNEY DISEASE, STAGE 3 (MODERAT 02/11/2018 NORBERTO HALEY Ot Z68.41 BODY MASS INDEX (BMI) 40.0-44.9, ADULT 02/11/2018 NORBERTO HALEY Ot Z79.899 OTHER PROMOTION PRODUCER (CURRENT) DRUG THERAPY 02/13/2018 KANNAN MURCIAP Ot I67.82 CEREBRAL ISCHEMIA 02/13/2018 KANNAN MURCIAP Ot Z85.9 PERSONAL HISTORY OF MALIGNANT NEOPLASM, 02/16/2018 KANNAN MURCIA Ot C7A.1 MALIGNANT POORLY DIFFERENTIATED NEUROEND 02/16/2018 KANNAN MURCIA Ot M17.11 UNILATERAL PRIMARY OSTEOARTHRITIS, RIGHT 03/25/2018 USHA JONES MD Ot C22.9 MALIG NEOPLASM OF LIVER, NOT SPECIFIED A 03/25/2018 USHA JONES MD Ot F32.9 MAJOR DEPRESSIVE DISORDER, SINGLE EPISOD 03/25/2018 USHA JONES MD Ot F41.9 ANXIETY DISORDER, UNSPECIFIED 03/25/2018 USHA JONES MD Ot I10 ESSENTIAL (PRIMARY) HYPERTENSION 03/25/2018 USHA JONES MD Ot K21.9 GASTRO-ESOPHAGEAL REFLUX DISEASE WITHOUT 03/25/2018 USHA JONES MD Ot R04.0 EPISTAXIS 03/25/2018 USHA JONES MD Ot Z87.19 PERSONAL HISTORY OF OTHER DISEASES OF TH 03/25/2018 USHA JONES MD Ot Z92.21 PERSONAL HISTORY OF ANTINEOPLASTIC CHEMO 03/28/2018 NORBERTO HALEY Flor Ot C78.7 SECONDARY MALIG NEOPLASM OF LIVER AND IN 03/28/2018 NORBERTO HALEY Flor Ot C7A.1 MALIGNANT POORLY DIFFERENTIATED NEUROEND 03/28/2018 NORBERTO HALEY Flor Ot E66.01 MORBID (SEVERE) OBESITY DUE TO EXCESS CA 03/28/2018 SUDHA MAICOAME Flor Ot G89.3 NEOPLASM RELATED PAIN (ACUTE) (CHRONIC) 03/28/2018 SUDHA MAICOAME Flor Ot I12.9 HYPERTENSIVE CHRONIC KIDNEY DISEASE W ST 03/28/2018 SUDHA MAICOAME Flor Ot N18.3 CHRONIC KIDNEY DISEASE, STAGE 3 (MODERAT 03/28/2018 SUDHA NORBERTO Ray Ot Z68.41 BODY MASS INDEX (BMI) 40.0-44.9, ADULT 03/28/2018 SUDHA NORBERTO Ray Ot Z79.899 OTHER PROMOTION PRODUCER (CURRENT) DRUG THERAPY 03/28/2018 USHA JONES MD Ot C22.9 MALIG NEOPLASM OF LIVER, NOT SPECIFIED A 03/28/2018 USHA JONES MD Ot F32.9 MAJOR DEPRESSIVE DISORDER, SINGLE EPISOD 03/28/2018 USHA JONES MD Ot F41.9 ANXIETY DISORDER, UNSPECIFIED 03/28/2018 USHA JONES MD Ot I10 ESSENTIAL (PRIMARY) HYPERTENSION 03/28/2018 USHA JONES MD Ot K21.9 GASTRO-ESOPHAGEAL REFLUX DISEASE WITHOUT 03/28/2018 USHA JONES MD Ot R04.0 EPISTAXIS 03/28/2018 USHA JONES MD Ot Z87.19 PERSONAL HISTORY OF OTHER DISEASES OF TH 03/28/2018 USHA JONES MD Ot Z92.21 PERSONAL HISTORY OF ANTINEOPLASTIC CHEMO 03/29/2018 SUDHA MAICOAME Flor Ot C78.7 SECONDARY MALIG NEOPLASM OF LIVER AND IN 03/29/2018 SUDHA NORBERTO Ray Ot C7A.1 MALIGNANT POORLY DIFFERENTIATED NEUROEND 03/29/2018 SUDHA MAICOAME Flor Ot E66.01 MORBID (SEVERE) OBESITY DUE TO EXCESS CA 03/29/2018 SUDHA MAICOAME Flor Ot G89.3 NEOPLASM RELATED PAIN (ACUTE) (CHRONIC) 03/29/2018 SUDHA NORBERTO Ray Ot I12.9 HYPERTENSIVE CHRONIC KIDNEY DISEASE W ST 03/29/2018 SUDHA NORBERTO Ray Ot N18.3 CHRONIC KIDNEY DISEASE, STAGE 3 (MODERAT 03/29/2018 SUDHA BOBAN N Ot Z68.41 BODY MASS INDEX (BMI) 40.0-44.9, ADULT 03/29/2018 SUDHA BOBAN N Ot Z79.899 OTHER ASSISTED (CURRENT) DRUG THERAPY 03/29/2018 SUDHA BOBAN N Ot C78.7 SECONDARY MALIG NEOPLASM OF LIVER AND IN 03/29/2018 SUDHA, BOBAN N Ot C7A.1 MALIGNANT POORLY DIFFERENTIATED NEUROEND 03/29/2018 SUDHA, BOBAN N Ot E66.01 MORBID (SEVERE) OBESITY DUE TO EXCESS CA 03/29/2018 SUDHA, BOBAN N Ot G89.3 NEOPLASM RELATED PAIN (ACUTE) (CHRONIC) 03/29/2018 SUDHA, BOBAN N Ot I12.9 HYPERTENSIVE CHRONIC KIDNEY DISEASE W ST 03/29/2018 SUDHA, BOBAN N Ot N18.3 CHRONIC KIDNEY DISEASE, STAGE 3 (MODERAT 03/29/2018 SUDHA BOBAME N Ot Z68.41 BODY MASS INDEX (BMI) 40.0-44.9, ADULT 03/29/2018 SUDHA, BOBAN N Ot Z79.899 OTHER PROMOTION PRODUCER (CURRENT) DRUG THERAPY 03/29/2018 SUDHA, BOBAN N Ot C78.7 SECONDARY MALIG NEOPLASM OF LIVER AND IN 03/29/2018 SUDHA, BOBAN N Ot C7A.1 MALIGNANT POORLY DIFFERENTIATED NEUROEND 03/29/2018 SUDHA, BOBAN N Ot E66.01 MORBID (SEVERE) OBESITY DUE TO EXCESS CA 03/29/2018 SUDHA, BOBAN N Ot G89.3 NEOPLASM RELATED PAIN (ACUTE) (CHRONIC) 03/29/2018 SUDHA, BOBAN N Ot I12.9 HYPERTENSIVE CHRONIC KIDNEY DISEASE W ST 03/29/2018 SUDHA, BOBAN N Ot N18.3 CHRONIC KIDNEY DISEASE, STAGE 3 (MODERAT 03/29/2018 SUDHA BOBAN N Ot Z51.11 ENCOUNTER FOR ANTINEOPLASTIC CHEMOTHERAP 03/29/2018 SUDHA BOBAN N Ot Z68.41 BODY MASS INDEX (BMI) 40.0-44.9, ADULT 03/29/2018 SUDHA, BOBAN N Ot Z79.899 OTHER ASSISTED (CURRENT) DRUG THERAPY 03/30/2018 SUDHA, BOBAN N Ot C78.7 SECONDARY MALIG NEOPLASM OF LIVER AND IN 03/30/2018 NORBERTO HALEY Ot C7A.1 MALIGNANT POORLY DIFFERENTIATED NEUROEND 03/30/2018 NORBERTO HALEY Ot E66.01 MORBID (SEVERE) OBESITY DUE TO EXCESS CA 03/30/2018 NORBERTO HALEY Ot G89.3 NEOPLASM RELATED PAIN (ACUTE) (CHRONIC) 03/30/2018 NORBERTO HALEY Ot I12.9 HYPERTENSIVE CHRONIC KIDNEY DISEASE W ST 03/30/2018 NORBERTO HALEY Ot N18.3 CHRONIC KIDNEY DISEASE, STAGE 3 (MODERAT 03/30/2018 NORBERTO HALEY Ot Z68.41 BODY MASS INDEX (BMI) 40.0-44.9, ADULT 03/30/2018 NORBERTO HALEY Ot Z79.899 OTHER ASSISTED (CURRENT) DRUG THERAPY Procedures There is no data. Results Test [...] resistant Staphylococcus aureus (MRSA) screening culture NEG NRG Complete blood count (CBC) with automated [...] - 01/31/18 13:45 Magnesium 1.7 mg/dL 1.8-2.4 Complete blood count (CBC) with automated white blood cell (WBC) differential - 03/25/18 18:29 Blood leukocytes automated count (number/volume) 3.8 10*3/uL 4.3-11.0 Blood erythrocytes automated count (number/volume) 2.90 10*6/uL 4.35-5.85 Venous blood hemoglobin measurement (mass/volume) 8.4 g/dL 13.3-17.7 Blood hematocrit (volume fraction) 27 % 40-54 Automated erythrocyte mean corpuscular volume 91 [foz_us] 80-99 Automated erythrocyte mean corpuscular hemoglobin (mass per erythrocyte) 29 pg 25-34 Automated erythrocyte mean corpuscular hemoglobin concentration measurement ( mass/volume) 32 g/dL 32-36 Automated erythrocyte distribution width ratio 18.3 % 10.0-14.5 Automated blood platelet count (count/volume) 76 10*3/uL 130-400 Automated blood platelet mean volume measurement 12.0 [foz_us] 7.4-10.4 Automated blood neutrophils/100 leukocytes 63 % 42-75 Automated blood lymphocytes/100 leukocytes 34 % 12-44 Blood monocytes/100 leukocytes 2 % 0-12 Automated blood eosinophils/100 leukocytes 1 % 0-10 Automated blood basophils/100 leukocytes 1 % 0-10 Blood neutrophils automated count (number/volume) 2.4 10*3 1.8-7.8 Blood lymphocytes automated count (number/volume) 1.3 10*3 1.0-4.0 Blood monocytes automated count (number/volume) 0.1 10*3 0.0-1.0 Automated eosinophil count 0.0 10*3/uL 0.0-0.3 Automated blood basophil count (count/volume) 0.0 10*3/uL 0.0-0.1 PT panel in platelet poor plasma by coagulation assay - 03/25/18 18:29 Prothrombin time (PT) in platelet poor plasma by coagulation assay 15.1 s 12.2-14.7 INR in platelet poor plasma or blood by coagulation assay 1.2 0.8-1.4 Activated partial thromboplastin time (aPTT) in platelet poor plasma bycoagulation assay - 03/25/18 18:29 Activated partial thromboplastin time (aPTT) in platelet poor plasma bycoagulation assay 29 s 24-35 Comprehensive metabolic panel - 03/25/18 18:29 Serum or plasma sodium measurement (moles/volume) 137 mmol/L 135-145 Serum or plasma potassium measurement (moles/volume) 5.2 mmol/L 3.6-5.0 Serum or plasma chloride measurement (moles/volume) 102 mmol/L 98-107 Carbon dioxide 22 mmol/L 21-32 Serum or plasma anion gap determination (moles/volume) 13 mmol/L 5-14 Serum or plasma urea nitrogen measurement (mass/volume) 23 mg/dL 7-18 Serum or plasma creatinine measurement (mass/volume) 0.82 mg/dL 0.60-1.30 Serum or plasma urea nitrogen/creatinine mass ratio 28 NRG Serum or plasma creatinine measurement with calculation of estimated glomerular filtration rate > NRG Serum or plasma glucose measurement (mass/volume) 100 mg/dL 70-105 Serum or plasma calcium measurement (mass/volume) 9.5 mg/dL 8.5-10.1 Serum or plasma total bilirubin measurement (mass/volume) 4.8 mg/dL 0.1-1.0 Serum or plasma alkaline phosphatase measurement (enzymatic activity/volume) 454 U/L 40-136 Serum or plasma aspartate aminotransferase measurement (enzymatic activity/ volume) 290 U/L 5-34 Serum or plasma alanine aminotransferase measurement (enzymatic activity/volume ) 110 U/L 0-55 Serum or plasma protein measurement (mass/volume) 5.9 g/dL 6.4-8.2 Serum or plasma albumin measurement (mass/volume) 3.1 g/dL 3.2-4.5 Encounters ACCT No. Visit Date/Time Discharge Status Pt. Type Provider Facility Loc./Unit Complaint [id number] 12/16/2016 18:05:00 Document Registration [id number] 03/22/2018 13:52:00 03/28/2018 00:01:00 DIS Outpatient SUDHA, BOBAN N Via [facility] ONC [id number] 03/25/2018 18:06:00 03/25/2018 19:37:00 DIS Emergency USHA JONES MD Via [facility] ER NOSE BLEEDING [id number] 02/10/2018 11:54:00 02/10/2018 23:59:59 CLS Outpatient KANNAN MURCIA STULL INSTALLER Via [facility] CARD C7A.1 HIGH GRADE NEUROENDOCRINE CARCINOMA [id number] 02/07/2018 13:48:00 02/07/2018 23:59:59 CLS Outpatient KANNAN MURCIA STULL INSTALLER [facility] RAD [id number] 11/10/2017 13:52:00 12/02/2017 10:01:00 DIS Outpatient SUDHANORBERTO TEJEDA N [facility] ONC [id number] 11/06/2017 20:00:00 11/06/2017 23:59:59 CLS Preadmit LESLIE TAPIA APRN [facility] SLEEP FABIEN [id number] 10/13/2017 19:18:00 10/13/2017 22:21:00 DIS Emergency CYNTHIA BRASHER [facility] ER LETHARGIC [id number] 10/01/2017 10:42:00 10/01/2017 23:59:59 CLS Outpatient SUDHANORBERTO TEJEDA N [facility] CARD C7A.1;C78.7 [id number] 08/04/2017 09:29:00 08/28/2017 00:01:00 DIS Outpatient SUDHA BOBAN N [facility] ONC [id number] 07/27/2017 13:31:00 08/03/2017 13:26:00 DIS Outpatient SUDHA, BOBAN N [facility] ONC [id number] 07/29/2017 11:15:00 07/29/2017 23:59:59 CLS Outpatient SUDHA BOBAN N [facility] CARD C7A.1 [id number] 07/28/2017 09:50:00 07/28/2017 23:59:59 CLS Outpatient SUDHA BOBAN N [facility] RAD C7A.1 [id number] 07/26/2017 13:41:00 07/26/2017 23:59:59 CLS Preadmit NORBERTO HALEY [facility] RAD C7A.1 [id number] 07/13/2017 10:09:00 07/13/2017 11:02:00 DIS Outpatient KANNAN MURCIA STULL INSTALLER [facility] SLEEP LIMB MOVEMENT, SNORING, CHOKING IN SLEEP, HPN [id number] 06/22/2017 12:56:00 06/28/2017 16:22:00 DIS Outpatient MITCHELL ASKEW MD [facility] ONC [id number] 03/23/2017 13:55:00 03/23/2017 00:01:00 DIS Outpatient MITCHELL ASKEW MD [facility] ONC [id number] 12/29/2016 09:02:00 12/29/2016 23:59:59 CLS Outpatient MITCHELL ASKEW MD [facility] RAD C7A.1 [id number] 12/25/2016 08:26:00 12/25/2016 11:55:00 DIS Outpatient JANETTE KING DO [facility] SDC NEOENDOCRINE CARCINOMA [id number] 12/23/2016 14:43:00 12/23/2016 23:59:59 CLS Outpatient MITCHELL ASKEW MD [facility] RAD LIVER MASS [id number] 12/22/2016 10:17:00 12/22/2016 23:59:59 CLS Outpatient MITCHELL ASKEW MD [facility] RAD LIVER MASS,NAUSEA/ VOMITING [id number] 12/18/2016 07:04:00 12/18/2016 23:59:59 CLS Outpatient JEFFREY CORNEJO MD [facility] RAD LIVER MASS [id number] 12/16/2016 12:54:00 12/16/2016 23:59:59 CLS Outpatient REBEKAH CHAVEZ [employer]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
[2018-03-31] MEDS ORDERED: morphine INJ 10 MG/ML 1ML (SYR OR VIAL) IVP STA ×2 (18:44→21:47)
[2018-03-31] MEDS ORDERED: NS IV 1000 ML 1,000 ML IV SCH ×2 (18:44→20:28)
[2018-03-31] MEDS ORDERED: ONDANSETRON 4 MG/2 ML (SDV) Z0FRAN IVP ONE (18:45)
[2018-03-31 19:02] LABS: BASOPHILS % (AUTO) 0 % (0-10); EOSINOPHILS % (AUTO) 0 % (0-10); HEMATOCRIT 25 % (40-54); HEMOGLOBIN 7.8 G/DL (13.3-17.7); LYMPHOCYTES # (AUTO) 0.6 X 10^3 (1.0-4.0); LYMPHOCYTES % (AUTO) 23 % (12-44); MEAN CORPUSCULAR HEMOGLOBIN 29 PG (25-34); MEAN CORPUSCULAR HGB CONC 31 G/DL (32-36); MEAN CORPUSCULAR VOLUME 93 FL (80-99); MEAN PLATELET VOLUME 11.7 FL (7.4-10.4); MONOCYTES # (AUTO) 0.1 X 10^3 (0.0-1.0); MONOCYTES % (AUTO) 5 % (0-12); NEUTROPHILS # (AUTO) 1.8 X 10^3 (1.8-7.8); NEUTROPHILS % (AUTO) 72 % (42-75); PLATELET COUNT 132 10^3/uL (130-400); RED BLOOD COUNT 2.69 10^6/uL (4.35-5.85); RED CELL DISTRIBUTION WIDTH 18.8 % (10.0-14.5); WHITE BLOOD COUNT 2.6 10^3/uL (4.3-11.0)
[2018-03-31 19:07] LABS: PROTHROMBIN TIME PATIENT 13.6 SEC (12.2-14.7)
[2018-03-31 19:08] LABS: CLARITY,URINE CLEAR; COLOR,URINE YELLOW; GLUCOSE, URINE (UA) NEGATIVE (NEGATIVE); KETONES,URINE 1+ (NEGATIVE); LEUKOCYTE ESTERASE ,URINE 1+ (NEGATIVE); NITRITE,URINE POSITIVE (NEGATIVE); PH,URINE 5 (5-9); PROTEIN,URINE 2+ (NEGATIVE); UROBILINOGEN,URINE 8 MG/DL (NORMAL)
[2018-03-31 19:15] LABS: BACTERIA,URINE TRACE /HPF; BILIRUBIN,URINE 2+ (NEGATIVE); SQUAMOUS EPITHELIAL CELL,UR RARE /HPF; WBC,URINE 0-2 /HPF
[2018-03-31 19:16] LABS: ALANINE AMINOTRANSFERASE 120 U/L (0-55); ALBUMIN 3.2 GM/DL (3.2-4.5); ALKALINE PHOSPHATASE 464 U/L (40-136); AMORPHOUS SEDIMENT,UR RARE AMOR URATES /LPF; AMYLASE 11 U/L (25-125); BILIRUBIN,TOTAL 4.9 MG/DL (0.1-1.0); BUN/CREATININE RATIO 30; CALCIUM 9.5 MG/DL (8.5-10.1); CARBON DIOXIDE 24 MMOL/L (21-32); CHLORIDE 104 MMOL/L (98-107); CREATININE SERUM 1.04 MG/DL (0.60-1.30); GFR ESTIMATED > 60; GLUCOSE 115 MG/DL (70-105); LIPASE 15 U/L (8-78); POTASSIUM 5.3 MMOL/L (3.6-5.0); SODIUM 139 MMOL/L (135-145); TOTAL PROTEIN 6.5 GM/DL (6.4-8.2)
[2018-03-31] MEDS ORDERED: CEPH-507 PO (19:32)
--- NOTE | 2018-03-31 19:32 | ED Abdominal Pain ---
General Chief Complaint: Abdominal/GI Problems Stated Complaint: CANCER;UPPER ABD PAIN Nursing Triage Note: PATIENT WITH CANCER HERE FOR 10/10 ABDONIMAL PAIN IN THE RIGHT UPPER QUADRANT. PAIN IN RIGHT SHOULDER, INCREASED FATIGUE AND VOMITING THIS AM. Sepsis Screen: Possible Sepsis Risk History of Present Illness Date Seen by Provider: March 31, 2018 Time Seen by Provider: 18:20 Initial Comments 62-year-old male presents for right upper quadrant pain. Patient has a known history of neuroendocrine carcinoma. He is a patient of Dr. Lauren. He was recently started on a new chemotherapy regimen. CT scans were done January 2018. Patient denies any diarrhea or vomiting. He reports his last bowel movement yesterday. The pain from the right upper quadrant does radiate to his right shoulder. He currently rates his pain at a 6/10, he is having mild nausea with it. He has been told that he has a cystitis but is not a surgical candidate. Timing/Duration: Getting Worse Location: RUQ Radiation: Shoulder (right) Associated Symptoms: Nausea/Vomiting Allergies and Home Medications Allergies Coded Allergies: No Known Drug Allergies (Unverified , 12/18/16) Home Medications Alprazolam 0.5 Mg Tablet, 0.5 MG PO TID PRN for ANXIETY, (Reported) Amlodipine Besylate 10 Mg Tablet, 10 MG PO DAILY, (Reported) Cholecalciferol (Vitamin D3) 2,000 Unit Capsule, 2,000 UNIT PO DAILY, (Reported) Citalopram Hydrobromide 40 Mg Tablet, 40 MG PO DAILY, (Reported) Cyclobenzaprine HCl 10 Mg Tablet, 10 MG PO TID PRN for SPASMS, (Reported) Docusate Sodium 100 Mg Tablet, 100 MG PO BID, (Reported) Folic Acid/Mv,Fe,Other Min 1 Each Tab.chew, 1 EACH PO DAILY, (Reported) Furosemide 40 Mg Tablet, 40 MG PO DAILY, (Reported) Metoprolol Tartrate 100 Mg Tablet, 100 MG PO HS, (Reported) Morphine Sulfate 30 Mg Tablet.er, 30 MG PO Q8H, (Reported) [place]-3 Fatty Acids 500 Mg Capsule.dr, 1,000 MG PO DAILY, (Reported) Omeprazole Magnesium 10 Mg Suspdr.pkt, 20 MG PO DAILY, (Reported) Ondansetron 4 Mg Tab.rapdis, 1-2 TAB PO TID PRN for NAUSEA, (Reported) Potassium Chloride 20 Meq Tab.er.prt, 20 MEQ PO DAILY, (Reported) Promethazine HCl 12.5 Mg Tablet, 25 MG PO TID PRN for NAUSEA, (Reported) Ranitidine HCl 75 Mg Tablet, 75 MG PO DAILY, (Reported) Simvastatin 20 Mg Tablet, 20 MG PO DAILY, (Reported) Patient Home Medication List Home Medication List Reviewed: Yes Review of Systems Constitutional: no symptoms reported Gastrointestinal: See HPI, Abdominal Pain (RUQ); Denies Diarrhea, Denies Difficulty Swallowing; Nausea, Poor Appetite, Poor Fluid Intake; Denies Vomiting All Other Systems Reviewed Negative Unless Noted: Yes Past Xdrxtgn-Evvwvv-Puptje Hx Past Med/Social Hx: Reviewed Nursing Past Med/Soc Hx Patient Social History Alcohol Use: Denies Use Recreational Drug Use: No Smoking Status: Never a Smoker 2nd Hand Smoke Exposure: No Recent Foreign Travel: No Contact w/Someone Who Travel: No Recent Infectious Disease Expo: No Recent Hopitalizations: No Immunizations Up To Date Date of Pneumonia Vaccine: Sep 13, 2017 Date of Influenza Vaccine: Sep 13, 2017 Past Medical History Surgeries: Yes (port placement) Respiratory: No Cardiac: Yes Hypertension Neurological: No Reproductive Disorders: No Gastrointestinal: Yes Gastroesophageal Reflux, Liver Disease/Jaundice, Gall Bladder Disease Musculoskeletal: No Endocrine: No Cancer: Yes Liver Did You Recieve Any Treatments: Yes What Type of Treatment Did You: Chemotherapy Psychosocial: Yes Anxiety, Depression Integumentary: No Blood Disorders: No Family Medical History No Pertinent Family Hx Physical Exam Vital Signs Vital Signs - First Documented 03/31/18 17:47 Temp 98.3 Pulse 97 Resp 22 B/P (MAP) 140/87 (104) Pulse Ox 92 O2 Delivery Room Air Capillary Refill : Less Than 3 Seconds General Appearance: WD/WN, no apparent distress HEENT: PERRL/EOMI, normal ENT inspection, TMs normal, pharynx normal Neck: non-tender, full range of motion, supple, normal inspection Respiratory: chest non-tender, lungs clear Cardiovascular: normal peripheral pulses, regular rate, rhythm Gastrointestinal: normal bowel sounds, soft, distended; No rebound; tenderness (RUQ), hepatomegaly (+ Canseco sign) Extremities: normal range of motion, non-tender, no calf tenderness, normal capillary refill, pedal edema Back: CVA tenderness (R) Neurologic/Psychiatric: no motor/sensory deficits, alert, normal mood/affect, oriented x 3 Skin: normal color, warm/dry, jaundice Focused Exam Lactate Level 03/31/18 19:15: Lactic Acid Level 5.05*H 03/31/18 21:08: Lactic Acid Level 3.63*H Lactic Acid Level Laboratory Tests Test 03/31/18 19:15 03/31/18 21:08 Lactic Acid Level 5.05 MMOL/L (0.50-2.00) *H 3.63 MMOL/L (0.50-2.00) *H Progress/Results/Core Measures Results/Orders Lab Results Laboratory Tests Test 03/31/18 18:10 03/31/18 19:15 03/31/18 21:08 Range/Units White Blood Count 2.6 L 4.3-11.0 10^3/uL Red Blood Count 2.69 L 4.35-5.85 10^6/uL Hemoglobin 7.8 L 13.3-17.7 G/DL Hematocrit 25 L 40-54 % Mean Corpuscular Volume 93 80-99 FL Mean Corpuscular Hemoglobin 29 25-34 PG Mean Corpuscular Hemoglobin Concent 31 L 32-36 G/DL Red Cell Distribution Width 18.8 H 10.0-14.5 % Platelet Count 132 130-400 10^3/uL Mean Platelet Volume 11.7 H 7.4-10.4 FL Neutrophils (%) (Auto) 72 42-75 % Lymphocytes (%) (Auto) 23 12-44 % Monocytes (%) (Auto) 5 0-12 % Eosinophils (%) (Auto) 0 0-10 % Basophils (%) (Auto) 0 0-10 % Neutrophils # (Auto) 1.8 1.8-7.8 X 10^3 Lymphocytes # (Auto) 0.6 L 1.0-4.0 X 10^3 Monocytes # (Auto) 0.1 0.0-1.0 X 10^3 Eosinophils # (Auto) 0.0 0.0-0.3 10^3/uL Basophils # (Auto) 0.0 0.0-0.1 10^3/uL Prothrombin Time 13.6 12.2-14.7 SEC INR Comment 1.0 0.8-1.4 Activated Partial Thromboplast Time 25 24-35 SEC Urine Color YELLOW Urine Clarity CLEAR Urine pH 5 5-9 Urine Specific [place] 1.015 L 1.016-1.022 Urine Protein 2+ H NEGATIVE Urine Glucose (UA) NEGATIVE NEGATIVE Urine Ketones 1+ H NEGATIVE Urine Nitrite POSITIVE H NEGATIVE Urine Bilirubin 2+ H NEGATIVE Urine Urobilinogen 8 H NORMAL MG/DL Urine Leukocyte Esterase 1+ H NEGATIVE Urine RBC (Auto) NEGATIVE NEGATIVE Urine RBC NONE /HPF Urine WBC 0-2 /HPF Urine Squamous Epithelial Cells RARE /HPF Urine Crystals PRESENT H /LPF Urine Amorphous Sediment RARE UMAIR URATES H /LPF Urine Bacteria TRACE /HPF Urine Casts NONE /LPF Urine Mucus NEGATIVE /LPF Urine Culture Indicated YES Sodium Level 139 135-145 MMOL/L Potassium Level 5.3 H 3.6-5.0 MMOL/L Chloride Level 104 98-107 MMOL/L Carbon Dioxide Level 24 21-32 MMOL/L Anion Gap 11 5-14 MMOL/L Blood Urea Nitrogen 31 H 7-18 MG/DL Creatinine 1.04 0.60-1.30 MG/DL Estimat Glomerular Filtration Rate > 60 BUN/Creatinine Ratio 30 Glucose Level 115 H 70-105 MG/DL Calcium Level 9.5 8.5-10.1 MG/DL Magnesium Level 1.9 1.8-2.4 MG/DL Total Bilirubin 4.9 H 0.1-1.0 MG/DL Aspartate Amino Transf (AST/SGOT) 436 H 5-34 U/L Alanine Aminotransferase (ALT/SGPT) 120 H 0-55 U/L Alkaline Phosphatase 464 H 40-136 U/L Total Protein 6.5 6.4-8.2 GM/DL Albumin 3.2 3.2-4.5 GM/DL Amylase Level 11 L 25-125 U/L Lipase 15 8-78 U/L Lactic Acid Level 5.05 *H 3.63 *H 0.50-2.00 MMOL/L Micro Results Microbiology 03/31/18 Blood Culture - Preliminary, Resulted No growth 03/31/18 Blood Culture - Preliminary, Resulted No growth 03/31/18 Urine Culture - Final, Complete Escherichia coli Proteus mirabilis My Orders Orders - SAM HELMS Morphine Injection (Morphine Injection (03/31/18 18:44) Saline Lock/Iv-Start (03/31/18 18:44) Ns Iv 1000 Ml (Sodium Chloride 0.9%) (03/31/18 18:44) Ondansetron Injection (Zofran Injectio (03/31/18 18:45) Comprehensive Metabolic Panel (03/31/18 18:55) Lipase (03/31/18 18:55) Amylase (03/31/18 18:55) Ua Culture If Indicated (03/31/18 18:55) Cbc With Automated Diff (03/31/18 18:55) Protime With Inr (03/31/18 18:55) Partial Thromboplastin Time (03/31/18 18:55) Magnesium (03/31/18 19:01) Lactic Acid Analyzer (03/31/18 19:01) Urine Culture (03/31/18 18:10) Ceftriaxone Injection (Rocephin Injectio (03/31/18 19:45) Ciprofloxacin Tablet (Cipro Tablet) (03/31/18 19:52) Ciprofloxacin Iv 400mg/200ml (Cipro Iv S (03/31/18 20:30) Saline Lock/Iv-Start (03/31/18 20:28) Ns Iv 1000 Ml (Sodium Chloride 0.9%) (03/31/18 20:28) Ibuprofen Tablet (Motrin Tablet) (03/31/18 20:39) Blood Culture (03/31/18 21:17) Morphine Injection (Morphine Injection (03/31/18 21:47) Morphine Injection (Morphine Injection (03/31/18 21:54) Iv Infusion <= First Hr Ed (03/31/18 ) Medications Given in ED Vital Signs/I&O 03/31/18 03/31/18 03/31/18 17:47 21:11 21:55 Temp 98.3 98.3 98.3 Pulse 97 97 97 Resp 22 22 22 B/P (MAP) 140/87 (104) 140/87 140/87 (104) Pulse Ox 92 92 92 O2 Delivery Room Air Blood Pressure Mean: 104 Progress Progress Note : Time: 18:20 Progress Note Initial evaluation completed, labs drawn, will give normal saline 1 L IV, morphine 5 mg IV for pain and Zofran 4 mg IV for nausea. [address] Lauren by phone, recommended Cipro for oral antibiotic coverage, will plan discharge to home. No further orders at this time. Keep appointment for tomorrow. Rocephin 2 g IV. 1999 patient tachycardic with pulse 104-110, temp 99.6. Lactic Acid 5.05. Discussed these results with Dr. Tellez, recommended admission for observation and reevaluation tomorrow morning. Patient in agreement with this plan of care. Discussed with the patient in detail his CODE STATUS, he wishes to be a DO NOT RESUSCITATE, his daughters and were present and agreed with this decision. Will give Cipro 400 mg IV. Ibuprofen 800 mg orally for fever. Patient reports pain has been resolved since getting the morphine and no further nausea. 2029 informed by mailhouse operator we are on diversion for admissions. She will find availability of local hospitals for transfer options. 2099 temp 99.3, pulse 106. [address] Leigh, hospitalist at [facility]. He agrees to accept the patient for transfer, history and medical care to this point tonight reviewed with him. 2129 Accepted to bed 207 at [facility]. Patient and family agree with transfer plans, risks and benefits. Daughters are both nurses and wish to transfer per private auto and this was agreeable Departure Impression Primary Impression: Neuroendocrine carcinoma Additional Impressions: Pain in the abdomen Qualified Codes: R10.12 - Left upper quadrant pain Urinary tract infection Qualified Codes: N30.00 - Acute cystitis without hematuria Sepsis Qualified Codes: A41.9 - Sepsis, unspecified organism Disposition: [facility] HOSP Condition: Stable Transfer Time Spoke to Accepting Phy: 21:15 Transfer Progress Notes Spoke with Dr. Leigh, hospitalist at [facility]. Agreed to accept patient for transfer. Will be transferred per daughter's in private vehicle. Method of Transfer: Private Vehicle Departure-Patient Inst. Referrals: [facility] (PCP) Primary Care Physician REBEKAH CHAVEZ (Family) Primary Care Physician Add. Discharge Instructions: Go directly to [facility], Emergency Dept Registration. Will be directly admitted to Room 207. All discharge instructions reviewed with patient and/or family. Voiced understanding. Copy Copies To 1: NORBERTO HALEY AMY ARNP March 31, 2018 19:32
[2018-03-31] MEDS ORDERED: ONDA8TAB9 PO (19:41)
[2018-03-31] MEDS ORDERED: CIPR-225 PO (19:41)
[2018-03-31] MEDS ORDERED: cefTRIAXone INJECTION 2,000 MG in NS (IVPB) 100 ML IV ONE (19:45)
[2018-03-31] MEDS ORDERED: CIPROFLOXACIN 500 MG (CIPRO) TABLET PO STA (19:52)
[2018-03-31] MEDS ORDERED: CIPROFLOXACIN IV 400MG/200ML 200 ML IV ONE (20:30)
[2018-03-31] MEDS ORDERED: IBUPROFEN 800 MG (MOTRIN) TAB PO STA (20:39)
[2018-03-31] MEDS ORDERED: morphine INJ 10 MG/ML 1ML (SYR OR VIAL) ONE (21:54)
[2018-03-31 21:55] VITALS: BP 140/87
== END 2018-03-31 22:06 | disposition short-term general hospital (02) ==
LOC: EDUNIT# 17:44 → ER 17:45
DX: C7A.8 Other malignant neuroendocrine tumors (principal); N39.0 Urinary tract infection, site not specified; A41.9 Sepsis, unspecified organism; I10 Essential (primary) hypertension; K21.9 Gastro-esophageal reflux disease without esophagitis; F41.9 Anxiety disorder, unspecified; F32.9 Major depressive disorder, single episode, unspecified; Z87.19 Personal history of other diseases of the digestive system; Z92.21 Personal history of antineoplastic chemotherapy
CPT/HCPCS: 36415; 80053; 81000; 82150; 83605; 83690; 83735; 85025; 85610; 85730; 87040; 87077; 87088; 87186; 96361; 96365; 96367; 96375; 96376